=== PATIENT | female | born 1935 | race Caucasian/White ===

== ENCOUNTER → 2017-10-03 | Outpatient (CLI) | payer MEDICARE ==
--- NOTE | 2017-10-03 14:21 | RAD ---
FDG tumor localization scan, PET/CT, 10/03/2017: History: Lung nodule, left breast cancer Following IV injection of 15.5 mCi of 18 F-FDG, imaging was performed from the skull base to the proximal thighs. The noncontrast CT component was performed for attenuation correction and anatomic localization purposes rather than for primary diagnosis. The patient's blood glucose level at the time of injection was 82 MG/DL. No previous studies are available at this time for comparison purposes. Physiologic activity is present in the neck. No hypermetabolic neck process is seen. There are multiple hypermetabolic mediastinal and bilateral hilar foci compatible with adenopathy. The largest discrete node lies in the subcarinal region and measures 15 mm in short axis dimension. The maximum SUV of these nodes is approximately 6.0. There is a 2.3 cm nodule in the posterior aspect of the right upper lobe. It demonstrates FDG uptake similar to that of the mediastinal background with an SUV of 2.8. This could be neoplastic or inflammatory. No other hypermetabolic pulmonary focus is seen. The CT component does demonstrate some small nonspecific linear and faint groundglass opacities in the lungs. Normal GI tract and urinary tract activity is present in the abdomen and pelvis. There is a 12 mm left adrenal nodule which is hypermetabolic with a maximum SUV of 5.0. Its internal CT number on these noncontrast scans is 18 Hounsfield units. An adrenal metastasis is suspected. No other abnormal hypermetabolic abdominal or pelvic focus is seen. Mildly increased FDG uptake along the lateral aspect of the left femoral neck is probably arthritic. Incidental CT findings include the presence of moderate sigmoid diverticulosis. Cholelithiasis is evident. The left maxillary sinus is opacified. The left breast is surgically absent. IMPRESSION: 1. Mild mediastinal and bilateral hilar adenopathy with diagnostic considerations including metastatic disease or lymphoma. 2. Right upper lobe pulmonary nodule demonstrating FDG uptake similar to the mediastinal background may be neoplastic or inflammatory. 3. Small hypermetabolic left adrenal nodule raising the possibility of a metastasis. Correlation with older CT studies if available is suggested.
== END | disposition home or self-care (01) ==
LOC: PETSC 11:51
PROVIDERS: ATTEND Internal Medicine Critical Care Medicine
DX: R59.0 Localized enlarged lymph nodes (principal); R91.8 Other nonspecific abnormal finding of lung field; K57.30 Diverticulosis of large intestine without perforation or abscess without bleeding; K80.20 Calculus of gallbladder without cholecystitis without obstruction; Z85.118 Personal history of other malignant neoplasm of bronchus and lung
CPT/HCPCS: 78815; A9552

== ENCOUNTER 2017-10-17 06:52 | Outpatient (CLI) | payer MEDICARE ==
[2017-10-17] VITALS (12 sets, daily range): BP systolic 139–153; BP diastolic 47–76
[~2017-10-17] VITALS: Ht 170.2 cm; Wt 78.9 kg
[2017-10-17 07:44] LABS: BASO % 0 % (0-3); EOS # 0.2 x10^3/uL (0.0-0.7); EOS % 3 % (0-3); HEMATOCRIT 36.7 % (36.0-47.0); HEMOGLOBIN 12.6 g/dL (12.0-15.5); LYMPH # 1.7 x10^3/uL (1.0-4.8); LYMPH % 23 % (24-48); MEAN CORPUSCULAR HEMOGLOBIN 32 pg (25-35); MEAN CORPUSCULAR HGB CONC 34 g/dL (31-37); MEAN CORPUSCULAR VOLUME 94 fL (79-100); MONO # 0.6 x10^3/uL (0.0-1.1); MONO % 9 % (0-9); NEUT # 4.8 x10^3uL (1.8-7.7); NEUT % 65 % (31-73); PLATELET COUNT 190 x10^3/uL (140-400); RED BLOOD COUNT 3.93 x10^6/uL (3.50-5.40); RED CELL DISTRIBUTION WIDTH 13.2 % (11.5-14.5); WHITE BLOOD COUNT 7.4 x10^3/uL (4.0-11.0)
[2017-10-17] MEDS ORDERED: LIDOCAINE WITH 8.4% SOD BICARB 3 ML DISP.SYRIN. ONE (08:00)
[2017-10-17 08:10] LABS: PROTHROMBIN TIME PATIENT 12.9 SEC (11.7-14.0)
[2017-10-17] MEDS ORDERED: DILT180C64 PO (08:15)
[2017-10-17] MEDS ORDERED: LEVO50TA5 PO (08:15)
[2017-10-17] MEDS ORDERED: GABA-586 PO (08:15)
[2017-10-17] MEDS ORDERED: ASPI-630 PO (08:15)
[2017-10-17] MEDS ORDERED: MOME220A IH (08:15)
[2017-10-17] MEDS ORDERED: PRIM250T PO (08:15)
[2017-10-17] MEDS ORDERED: PRAV20TA2 PO (08:15)
[2017-10-17] MEDS ORDERED: VENL75CA6 PO (08:15)
[2017-10-17] MEDS ORDERED: TOBR5DRO13 OD (08:15)
[2017-10-17] MEDS ORDERED: fentaNYL PF VIAL 100 MCG/2 ML VIAL ONE (08:37)
[2017-10-17] MEDS ORDERED: MIDAZOLAM HCL/PF 2 MG/2 ML VIAL. ONE (08:37)
[2017-10-17] MEDS ORDERED: fentaNYL PF VIAL 100 MCG/2 ML VIAL IV ONE (09:15)
[2017-10-17] MEDS ORDERED: LIDOCAINE WITH 8.4% SOD BICARB 3 ML DISP.SYRIN. IJ ONE (09:15)
[2017-10-17] MEDS ORDERED: MIDAZOLAM HCL/PF 2 MG/2 ML VIAL. IV ONE (09:15)
--- NOTE | 2017-10-17 10:57 | RAD ---
CT-guided biopsy, right upper lobe pulmonary nodule 10/17/2017 Discussion: The risks and benefits of the procedure discussed the patient. Informed consent was obtained. Patient brought to the CT scanner and placed in the prone position. A timeout procedure was performed. CT imaging redemonstrates posterior right upper lobe pulmonary nodule. This was targeted for biopsy. The overlying skin was prepped and draped using maximal sterile barrier technique. 1% lidocaine without epinephrine was administered for local anesthesia. Under intermittent CT guidance a and 19-gauge guiding needle was advanced into the nodule. Multiple 20-gauge core biopsy samples were obtained. Repeat CT demonstrate mild perilesional hemorrhage. Needle was removed and manual pressure held. Repeat CT demonstrates no pneumothorax. Perilesional hemorrhage is stable. Patient tolerated the procedure well without immediate complication. The procedures performed under conscious sedation including continuous cardiopulmonary monitoring via dedicated sedation nurse. Voiq-va-repy sedation time 30 minutes Impression: CT-guided biopsy, right upper lobe nodule PQRS Compliance Statement: One or more of the following individualized dose reduction techniques were utilized for this examination: 1. Automated exposure control 2. Adjustment of the mA and/or kV according to patient size 3. Use of iterative reconstruction technique
--- NOTE | 2017-10-17 11:57 | RAD ---
Portable chest, 10/17/2017: HISTORY: Status post right lung biopsy Comparison is made to a study from 08/29/2017. The heart size and pulmonary vascularity are normal. There is calcific plaquing of the aorta. There is a hazy opacity projected over the right upper lobe representing the recently biopsied lung lesion. The left lung is clear. No pneumothorax or pleural fluid is evident. Surgical clips are projected over the left axillary region. IMPRESSION: No post lung biopsy complication is evident. Electronically signed by: Alfredo Mercado MD (10/17/2017 11:53 AM) [facility]
--- NOTE | 2017-10-18 15:10 | PATHOLOGY ---
[facility] Accession Number: [id number] . 01 Material submitted: . RT LUNG CORE BX . 01 Clinical history: . Right lung nodule . 02 Diagnosis: Lung tissue, image guided right lung needle biopsies: - Adenocarcinoma with bronchoalveolar features. See comment. (JPM:tena; 10/18/2017) QMS/10/18/2017 . 02 Comment: Sections of the right lung mass needle biopsies reveal a malignant epithelial neoplasm which largely appears to be comprised of atypical cells which show a lepidic growth pattern.The atypical cells have a cuboidal shape and have scanty to modest amounts of eosinophilic cytoplasm. The atypical cells possess enlarged, rounded to ovoid hyperchromatic nuclei which do appear to contain prominent nucleoli. The accompanying stroma appears delicate and does not have a reactive appearance. The morphologic features are supportive of the diagnosis of adenocarcinoma with bronchoalveolar features. It is important to note that the patient has a 2.3 cm nodule and as such the histologic findings may not be entirely advertising representative of the neoplasm. The case is also examined by Dr. Vazquez, who concurs with the diagnosis. The results are reported to Dr. Lozano on 10/18/2017 at 3:00 p.m. . (JPM:tena; 10/18/2017) . 02 Electronically signed: . Mg Christensen MD, Pathologist NPI- [id number] . 01 Gross description: . The specimen is received in formalin, labeled "Evi Whitten and right nodule, biopsy", are two paul soft tissue needle cores 6.0 cm and 4.0 cm in length and less than 1.0 cm in diameter. The specimen is entirely submitted in A1-A2. (SWS; 10/17/2017) SHS/SHS . 02 Pathologist provided ICD-10: C34.91 . 02 CPT . 638186 Performed at: 01 [facility] [address], [place], [place] [id number] MD Jamari Arroyo MD Phone: [phone] Performed at: 02 [facility] [address] [place], [place] [id number] MD Mg Christensen MD Phone: [phone]
== END 2017-10-17 12:28 | disposition home or self-care (01) ==
LOC: INTRAD 06:52
PROVIDERS: ATTEND Internal Medicine Critical Care Medicine
DX: C34.11 Malignant neoplasm of upper lobe, right bronchus or lung (principal); E78.00 Pure hypercholesterolemia, unspecified; I10 Essential (primary) hypertension; F32.9 Major depressive disorder, single episode, unspecified; F41.9 Anxiety disorder, unspecified; Z79.82 Long term (current) use of aspirin; Z79.899 Other long term (current) drug therapy; Z90.710 Acquired absence of both cervix and uterus; Z98.890 Other specified postprocedural states
CPT/HCPCS: 32405; 36415; 71045; 77012; 85025; 85610; 85730; J2250; J3010; 99152

== ENCOUNTER → 2017-10-24 | Outpatient (CLI) | payer MEDICARE ==
[2017-10-17 12:00] VITALS: BP 143/72
[~2017-10-24] MED LIST: ASPI-630 PO; DILT180C64 PO; GABA-586 PO; GADOBUTROL 7.5 MMOL/7.5 ML VIAL IV ONE; LEVO50TA5 PO; MOME220A IH; PRAV20TA2 PO; PRIM250T PO; TOBR5DRO13 OD; VENL75CA6 PO
[2017-10-24] MEDS: GADOBUTROL 7.5 MMOL/7.5 ML VIAL IV ONE (10:14)
--- NOTE | 2017-10-24 10:41 | RAD ---
EXAMINATION: Magnetic resonance imaging (MRI) of the brain and brainstem without and with contrast 10/24/2017 9:45 AM HISTORY: History of breast cancer. New diagnosis of lung cancer. TECHNIQUE: Multiplanar multi-weighted MRI of the brain and brainstem was performed without and with intravenous contrast using the general brain protocol. Contrast information: 7.5 mL Gadolinium based contrast COMPARISON: None available. FINDINGS: The scalp and calvarium are normal. The superior sagittal sinus demonstrates normal venous flow. The corpus callosum is normal in shape and signal intensity. The posterior fossa is unremarkable. The pituitary and sella are normal. The brainstem and craniocervical junction are unremarkable. Diffusion weighted images reveal no hyperintensities to suggest acute cerebral infarction. The susceptibility weighted sequences reveal no evidence of acute or chronic hemorrhage. Ventricles, sulci and basal cisterns are prominent compatible with mild generalized cerebral line loss. There are T2/FLAIR signal hyperintense foci in the edson, periventricular and subcortical white matter most suggestive of mild chronic small vessel ischemic changes. A remote lacunar infarct is noted in the right periatrial white matter. There are no areas of abnormal contrast enhancement. There is complete opacification of the left maxillary sinus The visualized portions of the mastoids are unremarkable. The orbits appear normal with exception of bilateral lens replacement. Normal flow voids are demonstrated in the carotid arteries and basilar artery. IMPRESSION: No evidence for intracranial metastasis. Mild generalized cerebral volume loss. There are T2/FLAIR signal hyperintense foci in the edson, periventricular and subcortical white matter most suggestive of mild chronic small vessel ischemic changes. There is complete opacification of the left maxillary sinus. Electronically signed by: Negar Rowe MD (10/24/2017 10:37 AM) [id number]
== END | disposition home or self-care (01) ==
LOC: MRI 09:15
PROVIDERS: ATTEND Internal Medicine Hematology & Oncology
DX: C34.11 Malignant neoplasm of upper lobe, right bronchus or lung (principal); J01.00 Acute maxillary sinusitis, unspecified; I10 Essential (primary) hypertension; E78.00 Pure hypercholesterolemia, unspecified; Z85.118 Personal history of other malignant neoplasm of bronchus and lung; Z85.3 Personal history of malignant neoplasm of breast; Z90.710 Acquired absence of both cervix and uterus
CPT/HCPCS: 70553; A9585

== ENCOUNTER → 2017-11-26 | Outpatient (CLI) | payer MEDICARE ==
[2017-11-26] VITALS (7 sets, daily range): BP systolic 116–162; BP diastolic 56–81
[~2017-11-26] VITALS: Ht 170.2 cm; Wt 79.4 kg
[~2017-11-26] MED LIST changes: +DEXA4TAB PO; +FOLI1TAB16 PO; -GADOBUTROL 7.5 MMOL/7.5 ML VIAL IV ONE; +HEPARIN PF 500 UNIT/5 ML DISP.SYRIN. IV ONE; +LIDOCAINE 1%/EPI 1:100,000 20 ML VIAL. INJ ONE; +LIDOCAINE 1%/EPI 1:100,000 20 ML VIAL. ONE; +MIDAZOLAM HCL/PF 2 MG/2 ML VIAL. IV ONE; +MIDAZOLAM HCL/PF 2 MG/2 ML VIAL. ONE; +ONDA8TAB9 PO; +ceFAZolin 2GM PREMIX 2 GM/50 ML BAG IV ONE; +fentaNYL PF VIAL 100 MCG/2 ML VIAL IV ONE; +fentaNYL PF VIAL 100 MCG/2 ML VIAL ONE
[2017-11-26 09:19] LABS: BASO # 0.1 x10^3/uL (0.0-0.2); BASO % 1 % (0-3); EOS # 0.2 x10^3/uL (0.0-0.7); EOS % 2 % (0-3); HEMATOCRIT 40.5 % (36.0-47.0); HEMOGLOBIN 13.9 g/dL (12.0-15.5); LYMPH # 1.6 x10^3/uL (1.0-4.8); LYMPH % 19 % (24-48); MEAN CORPUSCULAR HEMOGLOBIN 32 pg (25-35); MEAN CORPUSCULAR HGB CONC 34 g/dL (31-37); MEAN CORPUSCULAR VOLUME 94 fL (79-100); MONO # 0.6 x10^3/uL (0.0-1.1); MONO % 7 % (0-9); NEUT # 6.2 x10^3uL (1.8-7.7); NEUT % 71 % (31-73); PLATELET COUNT 230 x10^3/uL (140-400); RED BLOOD COUNT 4.31 x10^6/uL (3.50-5.40); RED CELL DISTRIBUTION WIDTH 13.3 % (11.5-14.5); WHITE BLOOD COUNT 8.6 x10^3/uL (4.0-11.0)
[2017-11-26 09:29] LABS: PROTHROMBIN TIME PATIENT 12.6 SEC (11.7-14.0)
--- NOTE | 2017-11-26 11:12 | PDOC ---
MODERATE SEDATION ASSESSMENT RISKS/ALTERNATIVES Risks/Alternatives Risks and alternatives of this type of sedation and procedure discussed with: RISK/ALTERNATIVES: Patient H & P ON CHART H & P H & P on chart and reviewed for co-morbid conditions and appropriate labs. H&P ON CHART: Yes STATUS PREG STATUS ASSESSED: Yes MEDS/ALLERGIES REVIEWED Meds/Allergies Reviewed Medications and Allergies including time and route of recently administered narcotics and sedatives. MEDS/ALLERGIES REVIEWED: Yes ASA RATING ASA RATING: II AIRWAY ASSESSMENT Airway Assessment Airway patency, oral function limitations, presence of caps, crowns, dentures, partials, and ability to extend neck assessed. AIRWAY ASSESSMENT: Yes MALLAMPATI SCORE MALLAMPATI SCORE: II PRE-SEDATION ASSESSMENT PRE-SEDATION ASSESSMENT: Yes TERESITA CAMACHO MD Nov 26, 2017 11:12
--- NOTE | 2017-11-26 11:13 | PDOC ---
BRIEF OPERATIVE NOTE Pre-Op Diagnosis lung cancer Post-Op Diagnosis same Procedure Performed Port Surgeon Matteo Anesthesia Type: Conscious Sedation Findings lung cancer, port placement Complications No immediate TERESITA CAMACHO MD Nov 26, 2017 11:13
--- NOTE | 2017-11-26 11:14 | PDOC1 ---
History and Physical Date of Procedure Date of Admission History of Present Illness Reason for Visit lung cancer Past Medical History Past Medical History see nursing pre-op assessment Current Medications Current Medications Current Medications Lidocaine/ Epinephrine (LIDOCAINE 1%-EPI 1:100,000 Multi-Dose) 20 ml STK-MED ONCE .ROUTE ; Start 11/26/17 at 10:07; Stop 11/26/17 at 10:08; Status DC Heparin Sodium (Porcine) (Hep Lock Adult) 500 unit STK-MED ONCE IV ; Start at 10:07; Stop 11/26/17 at 10:08; Status DC Midazolam HCl (Versed) 2 mg STK-MED ONCE .ROUTE ; Start 11/26/17 at 10:37; Stop 11/26/17 at 10:38; Status DC Fentanyl Citrate (Fentanyl 2ml Vial) 100 mcg STK-MED ONCE .ROUTE ; Start at 10:37; Stop 11/26/17 at 10:38; Status DC Cefazolin Sodium/ Dextrose 50 ml @ As Directed STK-MED ONCE IV ; Start at 10:37; Stop 11/26/17 at 10:38; Status DC Active Scripts Active Reported Zofran (Ondansetron Hcl) 8 Mg Tablet 1 Tab PO Q8HRS Dexamethasone 4 Mg Tablet 4 Mg PO BID start the day before chemo and continue for 5 days post Folic Acid 1 Mg Tablet 1 Tab PO DAILY Tobramycin-Dexameth Ophth Susp (Tobramycin/Dexamethasone) 5 Ml Drops.susp 1 Drop OD QID Aspirin 81 Mg Tab.chew 1 Tab PO DAILY Asmanex (Mometasone Furoate) 220 Mcg Aer.pow.ba 220 Mcg IH Primidone 250 Mg Tablet 250 Mg PO Pravastatin Sodium 20 Mg Tablet 1 Tab PO DAILY Cartia Xt (Diltiazem Hcl) 180 Mg Cap.er.24h 180 Mg PO Levothyroxine Sodium 50 Mcg Tablet 1 Tab PO DAILY Gabapentin 300 Mg Capsule 300 Mg PO TID Venlafaxine Hcl Er (Venlafaxine Hcl) 75 Mg Cap.er.24h 1 Cap PO DAILY Allergies Allergies: Coded Allergies: No Known Drug Allergies (Unverified , 10/17/17) Physical Exam Vital Signs Vital Signs Date Time Temp Pulse Resp B/P (MAP) Pulse Ox O2 Delivery O2 Flow Rate FiO2 11/26/17 09:32 Room Air 11/26/17 09:23 98.3 64 18 116/68 (35) 13 98.3 Other see nursing pre-op assessment Assessment Assessment lung cancer Plan Plan TERESITA Danielle MD Nov 26, 2017 11:14
--- NOTE | 2017-11-26 13:32 | RAD ---
Procedure: Port-A-Cath placement Clinical Indication: 82-year-old female with lung cancer Sedation: Conscious sedation was administered with a total intraprocedural [id number]-wh-lzqw time of 49 minutes. The patient was monitored by a qualified independent observer throughout the time of sedation. Please refer to the medical record for exact doses of medications utilized to achieve moderate sedation. Antibiotics: Antibiotic was administered intravenously within 1 hour of the procedure start time. Exposure: Fluoro Time: 0.3 minutes Images: 1 Contrast: None Sterility: All elements of maximal sterile barrier technique including the use of a cap, mask, sterile gown, sterile gloves, large sterile sheet, appropriate hand hygiene, and 2% chlorhexidine for cutaneous antisepsis (or acceptable alternative antiseptic per current guidelines) were followed for this procedure. Consent: The procedure was explained in its entirety to the patient or the patients designated career services representative by a member of the treatment team, including a discussion of the risks, benefits and commonly accepted alternatives to the procedure, as well as the expected consequences of no therapy whatsoever. Discussion of the risks included, but was not limited to, those that are most frequent and those that are rare but possibly severe or life-threatening, as well as the possibility of unforeseen complications. Technique and Findings: Ultrasound interrogation of the right neck revealed patency and compressibility of the internal jugular vein. A hardcopy ultrasound image was recorded as a 21-gauge micropuncture needle was used to gain access to this vessel. The needle was exchanged over a wire for a peel-away sheath. The skin over the ipsilateral anterior chest wall was then copiously anesthetized with 1% lidocaine plus epinephrine, and a small dermatotomy was made. Blunt dissection techniques were used to create a pocket for the port. The port was then tunneled subcutaneously towards the neck dermatotomy then deployed under fluoroscopic guidance through the peel-away sheath such that the distal tip resided in the proximal right atrium. The port was accessed and found to flush and aspirate with ease. The port was packed with heparin. The pocket was copiously irrigated with sterile saline then closed with deep interrupted and running subcuticular 4-0 Vicryl suture. Dermabond was used to close the neck dermatotomy. Complications: No immediate Impression: 1. Ultrasound and fluoroscopic guided right port placement as described
== END | disposition home or self-care (01) ==
LOC: INTRAD 08:52
PROVIDERS: ATTEND Internal Medicine Hematology & Oncology
DX: C34.11 Malignant neoplasm of upper lobe, right bronchus or lung (principal); Z79.899 Other long term (current) drug therapy; Z79.82 Long term (current) use of aspirin; Z79.2 Long term (current) use of antibiotics; Z79.01 Long term (current) use of anticoagulants
CPT/HCPCS: 36415; 36561; 76937; 77001; 85025; 85610; 85730; 99152; 99153; A4215; C1788; C1892; J0690; J2250; J3010; J3490; C1751

== ENCOUNTER → 2018-01-23 | Outpatient (CLI) | payer MEDICARE ==
[2017-11-26 12:45] VITALS: BP 153/56
[~2018-01-23] MED LIST changes: -GABA-586 PO; +GABA300C18 PO; -HEPARIN PF 500 UNIT/5 ML DISP.SYRIN. IV ONE; -LIDOCAINE 1%/EPI 1:100,000 20 ML VIAL. INJ ONE; -LIDOCAINE 1%/EPI 1:100,000 20 ML VIAL. ONE; -MIDAZOLAM HCL/PF 2 MG/2 ML VIAL. IV ONE; -MIDAZOLAM HCL/PF 2 MG/2 ML VIAL. ONE; -ceFAZolin 2GM PREMIX 2 GM/50 ML BAG IV ONE; -fentaNYL PF VIAL 100 MCG/2 ML VIAL IV ONE; -fentaNYL PF VIAL 100 MCG/2 ML VIAL ONE
--- NOTE | 2018-01-23 14:56 | RAD ---
PET ONCOLOGY CLINICAL INDICATION: Follow-up lung nodule. FDG PET-CT of the Body TECHNIQUE: The patient received an IV injection of 14.9 mCi 18F-FDG. After an initial uptake phase of approximately 60-90 minutes, a CT scan without oral contrast, without IV contrast was acquired. Subsequently, positron emission tomography images from the skull base to mid thigh were obtained. CT, PET and fused images were reconstructed in transaxial, coronal, and sagittal projections and interpreted from a workstation. The patient's plasma glucose was 147 mg/dl. PRIOR STUDIES: Previous PET/CT from 10/03/2017 CORRELATIVE STUDIES: There are no appropriate correlative studies FINDINGS: CT: Limited exam due to lack of IV contrast. Noncontrast sections through the brain within normal limits. Orbits within normal limits. Opacification of the left maxillary sinus. No enlarged retroperitoneal or pelvic adenopathy. No enlarged axillary or mediastinal lymph nodes. Calcified mediastinal and hilar lymph nodes are seen. Evaluation of hilar lymphadenopathy is limited due to lack of IV contrast. Heart is normal in size. No pericardial or pleural effusion. 2.6 x 1.6 cm focal opacity seen in the posterior segment of the right upper lobe, previously measuring 2.6 x 1.5 cm. 3 mm nodule in the subpleural right lower lobe (series 3 image 95). Breathing motion artifact is seen in the lungs limiting optimal evaluation. Nodular opacities measuring 2 mm largest seen in the lingula. Noncontrast appearance of the liver, spleen, pancreas, right adrenal within normal limits. Gallstones noted. Left adrenal nodule is seen with Hounsfield units measuring 2.2 which is compatible with adrenal adenoma. No nephrolithiasis or hydronephrosis. No enlarged retroperitoneal or pelvic adenopathy. No free pelvic fluid or ascites. No bowel obstructive. Sigmoid diverticulosis. Urinary bladder demonstrates no radiopaque stones. Status post hysterectomy. Moderate diffuse atherosclerotic ossification of the abdominal aorta and bilateral iliac arteries. No apparent lytic or blastic osseous lesions. PET: Increased metabolic activity seen in the right hilar lymph node with SUV max of 4.8. Increased metabolic activity seen in the subcarinal lymph node which is enlarged with SUV max of 4.4. Increased metabolic activity in the left hilar lymph node with SUV max of 4.4. No pathologically increased FDG uptake in the right upper lobe opacity with SUV max of 2.3. IMPRESSION: 1. Stable posterior segment right upper lobe opacity with no abnormal increased SUV. 2. Metabolically active Mediastinal and hilar lymphadenopathy as described above. 3. Cholelithiasis. 4. Left adrenal adenoma. Electronically signed by: Clint Hernandez DO (01/23/2018 2:53 PM) [facility]
== END | disposition home or self-care (01) ==
LOC: PETSC 09:42
PROVIDERS: ATTEND Internal Medicine Hematology & Oncology
DX: C34.11 Malignant neoplasm of upper lobe, right bronchus or lung (principal); K80.20 Calculus of gallbladder without cholecystitis without obstruction; K57.30 Diverticulosis of large intestine without perforation or abscess without bleeding; Z90.710 Acquired absence of both cervix and uterus; D35.02 Benign neoplasm of left adrenal gland
CPT/HCPCS: 78815; A9552

== ENCOUNTER → 2018-04-10 | Outpatient (CLI) | payer MEDICARE ==
[2017-11-26 12:45] VITALS: BP 153/56
[~2018-04-10] MED LIST changes: +CLON1PAT TD; +DEXA1TAB PO; +DOXY100T PO; +GABA600T7 PO; +HYDR-2868 PO; +METH4TAB2 PO; -MOME220A IH; +MOME220A INH; +PRIM250T28 PO; +VENL150C PO
--- NOTE | 2018-04-10 13:28 | RAD ---
PET/CT imaging from the skull through the midthigh History: History of lung nodule, left breast cancer. Follow-up study. Comparison: January 23, 2018. Technique: PET examination was performed from the skull base to the proximal thighs after intravenous administration of 14.19 mCi Fluorine [address] scan was performed for the purposes of localization and attenuation, not for primary diagnosis. Blood glucose level at time of injection was 123 mg/dl. PQRS Compliance Statement: One or more of the following individualized dose reduction techniques were utilized for this examination: 1. Automated exposure control 2. Adjustment of the mA and/or kV according to patient size 3. Use of iterative reconstruction technique Findings: There is misregistration artifact between the CT and PET scan. Head and neck: Normal physiologic activity is evident. No enlarging cervical lymphadenopathy is evident. Chest: Calcified mediastinal and calcified bilateral hilar lymphadenopathy is again evident secondary to old granulomatous disease. No change in size of mediastinal lymph nodes are seen. No bulky lymphadenopathy is evident. Evaluation for enlargement of hilar lymphadenopathy is difficult without IV contrast. No change in the hilar morphology is seen on either side however. Right hilar lymph node demonstrates a max SUV of 5.6. On the prior study, max SUV was 5.7. Subcarinal lymph node demonstrates a max SUV of 5.0. On the previous study, it was 5.1. Right paratracheal lymph node is 3.7. On the previous study, it was 4.4. Left hilar lymph node demonstrates a max SUV of 5.7. On the previous study, it was 5.7. Overall, no significant change. Again seen is a consolidative infiltrate in the posterior segment of the right upper lobe which is unchanged in size. This is not hypermetabolic measuring maximum SUV of 2.1. This is unchanged. Other groundglass lung infiltrates and small lung nodules seen bilaterally are stable. No new lung infiltrate is seen. Left breast is surgically absent. No hypermetabolic activity is seen within the left chest wall or right breast. Abdomen and pelvis: Normal GI tract and tract physiologic metabolic activity is seen. No enlarging abdominal or pelvic lymphadenopathy is evident. No hypermetabolic abdominal or pelvic lymphadenopathy is seen. The spleen is normal in size. No prominent focus of hypermetabolic activity is evident within the liver above background activity. Small hepatic cyst is seen. Cholelithiasis is evident. Musculoskeletal: No significant hypermetabolic activity is evident. No lytic lesion is seen. IMPRESSION: No change in mediastinal or hilar lymphadenopathy. Many of the lymph nodes are calcified and may be due to old granulomatous disease. No change in consolidative infiltrate within the posterior segment of the right upper lobe which is not hypermetabolic. No change in groundglass lung infiltrates or lung nodularity on either side. No new lung infiltrate or new lung nodule is seen. No hypermetabolic lung activity is seen. Cholelithiasis.
== END | disposition home or self-care (01) ==
LOC: PETSC 08:45
PROVIDERS: ATTEND Internal Medicine Hematology & Oncology
DX: C34.11 Malignant neoplasm of upper lobe, right bronchus or lung (principal); D71 Functional disorders of polymorphonuclear neutrophils; K80.20 Calculus of gallbladder without cholecystitis without obstruction; K76.89 Other specified diseases of liver; R59.0 Localized enlarged lymph nodes; R53.83 Other fatigue; Z85.3 Personal history of malignant neoplasm of breast
CPT/HCPCS: 78815; A9552

== ENCOUNTER 2018-05-12 12:08 | Inpatient (IN) | payer MEDICARE ==
[~2018-05-12] VITALS: Ht 167.6 cm; Wt 80.8 kg
[2018-05-12] VITALS (9 sets, daily range): BP systolic 144–178; BP diastolic 52–77
[~2018-05-12 12:08] MED LIST changes: -CLON1PAT TD; -DEXA1TAB PO; -DOXY100T PO; -GABA600T7 PO; -HYDR-2868 PO; -METH4TAB2 PO; -PRIM250T28 PO; -VENL150C PO
--- NOTE | 2018-05-12 13:04 | RAD ---
EXAM: Chest, single view. HISTORY: Subdural hemorrhage. Falls. COMPARISON: 10/17/2017. FINDINGS: A frontal view of the chest is obtained. There is no infiltrate, pleural effusion or pneumothorax. The heart is normal in size. There is a port catheter with the tip in the superior right atrium. There are calcified granulomas. There are left axillary clips. IMPRESSION: No acute pulmonary finding. Electronically signed by: Soila Freed MD (05/12/2018 1:02 PM) [id number]
[2018-05-12] MEDS ORDERED: BUPIVAC MPF-EPI 0.5%-1:200000 30 ML VIAL. ONE (13:11)
[2018-05-12] MEDS ORDERED: THROMBIN TOPICAL 20,000 UNIT SPRAY.SYRN KIT TP ONE (13:11)
[2018-05-12] MEDS ORDERED: GELATIN SPONGE SIZE 100. ONE (13:11)
[2018-05-12 13:15] LABS: BASO % 1 % (0-3); EOS % 0 % (0-3); HEMOGLOBIN 11.5 g/dL (12.0-15.5); LYMPH # 0.9 x10^3/uL (1.0-4.8); LYMPH % 13 % (24-48); MEAN CORPUSCULAR HEMOGLOBIN 33 pg (25-35); MEAN CORPUSCULAR HGB CONC 33 g/dL (31-37); MEAN CORPUSCULAR VOLUME 100 fL (79-100); MONO # 0.5 x10^3/uL (0.0-1.1); MONO % 7 % (0-9); NEUT # 5.5 x10^3uL (1.8-7.7); NEUT % 80 % (31-73); PLATELET COUNT 266 x10^3/uL (140-400); RED CELL DISTRIBUTION WIDTH 14.8 % (11.5-14.5); WHITE BLOOD COUNT 6.9 x10^3/uL (4.0-11.0)
[2018-05-12 13:24] LABS: CALCIUM 9.6 mg/dL (8.5-10.1); CREATININE 0.9 mg/dL (0.6-1.0); GFR 59.9; POTASSIUM 3.3 mmol/L (3.5-5.1)
[2018-05-12 13:29] LABS: ALBUMIN 3.2 g/dL (3.4-5.0); ALBUMIN/GLOBULIN RATIO 0.7 (1.0-1.7); PROTHROMBIN TIME PATIENT 12.3 SEC (11.7-14.0); TOTAL BILIRUBIN 0.4 mg/dL (0.2-1.0); TOTAL PROTEIN 7.5 g/dL (6.4-8.2)
[2018-05-12] MEDS ORDERED: IV RINGERS,LACTATED 1000ML 1,000 ML IV SCH (13:46)
[2018-05-12] MEDS ORDERED: PROCHLORPERAZINE 10 MG/2 ML VIAL. IV PRN (14:00)
[2018-05-12] MEDS ORDERED: LIDOCAINE 1% PF 2 ML VIAL. ID PRN (14:00)
[2018-05-12] MEDS ORDERED: BACITRACIN 50,000 UNIT in IV NORMAL SALINE 1000ML BAG 1,000 ML IRR ONE (14:00)
[2018-05-12] MEDS ORDERED: fentaNYL PF VIAL 100 MCG/2 ML VIAL IV PRN ×2 (14:00→16:30)
[2018-05-12] MEDS ORDERED: MORPHINE SULFATE 2 MG/ML VIAL. IV PRN (14:00)
[2018-05-12] MEDS ORDERED: ONDANSETRON PF 4 MG/2 ML VIAL. IV PRN (14:00)
[2018-05-12] MEDS ORDERED: HYDROmorphone 2 MG/ML VIAL IV PRN (14:00)
[2018-05-12] MEDS ORDERED: ONDANSETRON PF 4 MG/2 ML VIAL. ONE (14:07)
[2018-05-12] MEDS ORDERED: LIDOCAINE 2% PF 5 ML VIAL. ONE (14:07)
[2018-05-12] MEDS ORDERED: PROPOFOL 50 ML IV ONE (14:07)
[2018-05-12] MEDS ORDERED: PROPOFOL 20 ML IV ONE (14:07)
[2018-05-12] MEDS ORDERED: 0.9 % SODIUM CHLORIDE 20 ML VIAL. IJ ONE ×2 (14:07→14:13)
[2018-05-12] MEDS ORDERED: FAMOTIDINE 20 MG/2 ML VIAL ONE (14:07)
[2018-05-12] MEDS ORDERED: DEXAMETHASONE SOD PHOS 20 MG/5 ML VIAL. ONE (14:07)
[2018-05-12] MEDS ORDERED: REMIFENTANIL 2 MG VIAL. IV ONE (14:11)
[2018-05-12] MEDS ORDERED: fentaNYL PF VIAL 100 MCG/2 ML VIAL ONE (14:11)
[2018-05-12] MEDS ORDERED: ROCURONIUM 50 MG/5 ML VIAL. ONE (14:13)
--- NOTE | 2018-05-12 14:15 | RAD ---
CT HEAD AND CERVICAL SPINE WO Clinical indications: Trauma. Recent falls. Unsteady gait. NONCONTRAST HEAD CT 1:31 PM COMPARISON: MRI study of the brain performed today at 10:43 AM. Technique: Noncontrast axial cross sectional scanning of the head was performed. PQRS compliance Statement One or more of the following individualized dose reduction techniques were utilized for this study: 1. Automated exposure control 2. Adjustment of the mA and/or kV according to patient size 3. Use of iterative reconstruction technique Findings: Again seen is a right subdural hematoma involving the frontal and parietal regions which contains a mixture of hyperdense blood and slightly hypodense blood consistent with a subacute subdural hematoma with components of acute hemorrhage. This measures 23 mm in greatest thickness. There is compression of the right lateral ventricle and midline shift from right to left of 6 mm. These findings are unchanged. There is mild bilateral periventricular white matter hypodensity consistent with chronic small vessel ischemic disease in this age group. No skull fracture or pneumocephalus is seen. No opacification of the mastoid sinuses or the paranasal sinuses is seen. The maxillary sinuses are not seen in this study. Impression: Subacute subdural hematoma with components of acute hemorrhage on the right side unchanged from MRI study of the brain performed earlier today. CT STUDY CERVICAL SPINE WITHOUT CONTRAST TECHNIQUE: Noncontrast helical CT scanning of the cervical spine was performed. Multiplanar 2-D reconstructions were generated. FINDINGS: No acute fracture or discitis or lytic process or anterolisthesis is evident. There is moderate degenerative disc space narrowing and endplate spurring at C5-6. Mild spinal canal stenosis is seen at this level more so on the right side. No perching of facet joints is seen. IMPRESSION: No acute fracture. Electronically signed by: Nato Colón MD (05/12/2018 2:13 PM) [place] [id number]
[2018-05-12] MEDS ORDERED: SEVOFLURANE > 120 MINUTES. IH ONE (14:58)
--- NOTE | 2018-05-12 15:08 | PHYS DOC ---
Past Medical History Past Medical History: Cancer, Hypertension, Hypothyroid, Other Additional Past Medical Histor: breast and lung ca Past Surgical History: Hysterectomy, Other Additional Past Surgical Histo: L mastectomy, R chest port Alcohol Use: None Drug Use: None Adult General Chief Complaint Chief Complaint: HEAD, FACE, NECK, TRAUMA HPI HPI Patient is a 83 year old female who is presenting with subdural hematoma she fell 8 days ago she's been having trouble walking the last several weeks if not longer she has mild headache no numbness tingling or weakness she had an MRI that showed a subdural and she was advised to come to the ER right away. Mild pain dull nonradiating Review of Systems Review of Systems Constitutional: Denies fever or chills [] Eyes: Denies change in visual acuity, redness, or eye pain [] HENT: Denies nasal congestion or sore throat [] Respiratory: Denies cough or shortness of breath [] Cardiovascular: No additional information not addressed in HPI [] GI: Denies abdominal pain, nausea, vomiting, bloody stools or diarrhea [] : Denies dysuria or hematuria [] All other systems were reviewed and found to be within normal limits, except as documented in this note. Current Medications Current Medications Current Medications Medications (Trade) Dose Ordered Sig/Kirby Start Time Stop Time Status Last Admin Dose Admin Bacitracin 43461 unit/Sodium Chloride 1,000 ml @ 1,000 mls/hr 1X ONCE 05/12/18 14:00 05/12/18 14:59 Bupivacaine HCl/ Epinephrine Bitart (Sensorcain-Mpf Epi 0.5%-1:210648) 30 ml STK-MED ONCE 05/12/18 13:11 05/12/18 14:11 DC Fentanyl Citrate (Fentanyl 2ml Vial) 50 mcg PRN Q5MIN PRN 05/12/18 14:00 05/13/18 13:59 Gelatin (Gelfoam Size 100) 1 each STK-MED ONCE 05/12/18 13:11 05/12/18 14:11 DC Hydromorphone HCl (Dilaudid) 0.5 mg PRN Q10MIN PRN 05/12/18 14:00 05/13/18 13:59 Lidocaine HCl (Xylocaine-Mpf 1% 2ml Vial) 2 ml PRN 1X PRN 05/12/18 14:00 05/13/18 13:59 Morphine Sulfate (Morphine Sulfate) 1 mg PRN Q10MIN PRN 05/12/18 14:00 05/13/18 13:59 Ondansetron HCl (Zofran) 4 mg PRN Q6HRS PRN 05/12/18 14:00 05/13/18 13:59 Prochlorperazine Edisylate (Compazine) 5 mg PACU PRN PRN 05/12/18 14:00 05/13/18 13:59 Ringer's Solution 1,000 ml @ 30 mls/hr Q24H 05/12/18 13:46 05/13/18 01:45 Thrombin 20,000 unit STK-MED ONCE 05/12/18 13:11 05/12/18 14:12 DC Allergies Allergies Allergies Coded Allergies Type Severity Reaction Last Updated Verified No Known Drug Allergies 10/17/17 No Physical Exam Physical Exam Constitutional: Well developed, well nourished, no acute distress, non-toxic appearance. [] HENT: Normocephalic, atraumatic, bilateral external ears normal, oropharynx moist, no oral exudates, nose normal. [] Eyes: PERRLA, EOMI, conjunctiva normal, no discharge. [] Neck: Normal range of motion, no tenderness, supple, no stridor. [] Cardiovascular:Heart rate regular rhythm, no murmur [] Lungs & Thorax: Bilateral breath sounds clear to auscultation [] Abdomen: Bowel sounds normal, soft, no tenderness, no masses, no pulsatile masses. [] Extremities: No tenderness, no cyanosis, no clubbing, ROM intact, mild edema bilaterally Neurologic: Alert and oriented X 3, normal motor function, normal sensory function, no focal deficits noted. [] Psychologic: Affect normal, judgement normal, mood normal. [] Current Patient Data Vital Signs Vital Signs Date Time Temp Pulse Resp B/P (MAP) Pulse Ox O2 Delivery O2 Flow Rate FiO2 05/12/18 13:57 86 20 171/82 (111) 95 Room Air 05/12/18 12:15 97.9 97.9 Lab Values Laboratory Tests Test 05/12/18 13:05 White Blood Count 6.9 x10^3/uL (4.0-11.0) Red Blood Count 3.50 x10^6/uL (3.50-5.40) Hemoglobin 11.5 g/dL (12.0-15.5) L Hematocrit 35.0 % (36.0-47.0) L Mean Corpuscular Volume 100 fL (79-100) Mean Corpuscular Hemoglobin 33 pg (25-35) Mean Corpuscular Hemoglobin Concent 33 g/dL (31-37) Red Cell Distribution Width 14.8 % (11.5-14.5) H Platelet Count 266 x10^3/uL (140-400) Neutrophils (%) (Auto) 80 % (31-73) H Lymphocytes (%) (Auto) 13 % (24-48) L Monocytes (%) (Auto) 7 % (0-9) Eosinophils (%) (Auto) 0 % (0-3) Basophils (%) (Auto) 1 % (0-3) Neutrophils # (Auto) 5.5 x10^3uL (1.8-7.7) Lymphocytes # (Auto) 0.9 x10^3/uL (1.0-4.8) L Monocytes # (Auto) 0.5 x10^3/uL (0.0-1.1) Eosinophils # (Auto) 0.0 x10^3/uL (0.0-0.7) Basophils # (Auto) 0.0 x10^3/uL (0.0-0.2) Prothrombin Time 12.3 SEC (11.7-14.0) Prothrombin Time INR 0.9 (0.8-1.1) Sodium Level 140 mmol/L (136-145) Potassium Level 3.3 mmol/L (3.5-5.1) L Chloride Level 101 mmol/L (98-107) Carbon Dioxide Level 30 mmol/L (21-32) Anion Gap 9 (6-14) Blood Urea Nitrogen 9 mg/dL (7-20) Creatinine 0.9 mg/dL (0.6-1.0) Estimated GFR (Cockcroft-Gault) 59.9 BUN/Creatinine Ratio 10 (6-20) Glucose Level 103 mg/dL (70-99) H Calcium Level 9.6 mg/dL (8.5-10.1) Total Bilirubin 0.4 mg/dL (0.2-1.0) Aspartate Amino Transferase (AST) 21 U/L (15-37) Alanine Aminotransferase (ALT) 20 U/L (14-59) Alkaline Phosphatase 147 U/L (46-116) H Total Protein 7.5 g/dL (6.4-8.2) Albumin 3.2 g/dL (3.4-5.0) L Albumin/Globulin Ratio 0.7 (1.0-1.7) L Laboratory Tests 05/12/18 13:05 Laboratory Tests 05/12/18 13:05 EKG EKG [] Radiology/Procedures Radiology/Procedures [] Impressions: CT HEAD AND CERVICAL SPINE WO Clinical indications: Trauma. Recent falls. Unsteady gait. NONCONTRAST HEAD CT 1:31 PM COMPARISON: MRI study of the brain performed today at 10:43 AM. Technique: Noncontrast axial cross sectional scanning of the head was performed. PQRS compliance Statement One or more of the following individualized dose reduction techniques were utilized for this study: 1. Automated exposure control 2. Adjustment of the mA and/or kV according to patient size 3. Use of iterative reconstruction technique Findings: Again seen is a right subdural hematoma involving the frontal and parietal regions which contains a mixture of hyperdense blood and slightly hypodense blood consistent with a subacute subdural hematoma with components of acute hemorrhage. This measures 23 mm in greatest thickness. There is compression of the right lateral ventricle and midline shift from right to left of 6 mm. These findings are unchanged. There is mild bilateral periventricular white matter hypodensity consistent with chronic small vessel ischemic disease in this age group. No skull fracture or pneumocephalus is seen. No opacification of the mastoid sinuses or the paranasal sinuses is seen. The maxillary sinuses are not seen in this study. Impression: Subacute subdural hematoma with components of acute hemorrhage on the right side unchanged from MRI study of the brain performed earlier today. CT STUDY CERVICAL SPINE WITHOUT CONTRAST TECHNIQUE: Noncontrast helical CT scanning of the cervical spine was performed. Multiplanar 2-D reconstructions were generated. FINDINGS: No acute fracture or discitis or lytic process or anterolisthesis is evident. There is moderate degenerative disc space narrowing and endplate spurring at C5-6. Mild spinal canal stenosis is seen at this level more so on the right side. No perching of facet joints is seen. IMPRESSION: No acute fracture. Electronically signed by: Yakelin Colón MD (05/12/2018 2:13 PM) [facility] DICTATED and SIGNED BY: YAKELIN COLÓN MD DATE: 05/12/18 1413 Course & Med Decision Making Course & Med Decision Making Critical care time was 35 minutes exclusive of procedures.for management of subdural hematoma Pertinent Labs and Imaging studies reviewed. (See chart for details) History of cancer hypothyroidism presenting with referred from MRI for subdural hematoma. The patient has been very weak falling frequently last fall 8 days ago Review the MRI result I spoke with aníbal from neurosurgery as well as Dr. Cotto who came to the emergency room. CT scan was also performed that did show the above results the current plan as per Dr. Cotto is a operative intervention to treat this subdural the patient is awake and alert at this time []d/w family i also d/w josephine who will see pt after or. Sophiaon Disclaimer Dragon Disclaimer This electronic medical record was generated, in whole or in part, using a voice recognition dictation system. Departure Departure Impression: Primary Impression: Subdural hematoma Disposition: ADMITTED INPATIENT Admitting Physician: Teresa Hernandez Condition: STABLE Referrals: TERESA HERNANDEZ MD (PCP) AMANDA CAMARENA MD May 12, 2018 15:07
[2018-05-12] MEDS ORDERED: PHENYLEPHRINE in 0.9% NACL PF 1 MG/10 ML SYRINGE. IV ONE (15:12)
[2018-05-12] MEDS ORDERED: PHENYLEPHRINE 10 MG/ML VIAL. ONE ×2 (15:52)
[2018-05-12] MEDS ORDERED: NEOSTIGMINE METHYLSULFATE 5 MG/5 ML SYRINGE. ONE (16:07)
[2018-05-12] MEDS ORDERED: GLYCOPYRROLATE 1 MG/5 ML VIAL. ONE (16:07)
[2018-05-12] MEDS ORDERED: CALCIUM CARBONATE 500 MG TAB.CHEW PO PRN (16:30)
[2018-05-12] MEDS ORDERED: MAG HYDROX/ALUMINUM HYD/SIMETH 30 ML ORAL.SUSP PO PRN (16:30)
[2018-05-12] MEDS ORDERED: diphenhydrAMINE HCL 25 MG CAPSULE PO PRN (16:30)
[2018-05-12] MEDS ORDERED: ACETAMINOPHEN 325 MG TABLET. PO PRN (16:30)
[2018-05-12] MEDS ORDERED: 0.9 % SODIUM CHLORIDE 10 ML DISP.SYRIN. IV PRN (16:30)
[2018-05-12] MEDS ORDERED: HYDROcodone/APAP 5/325MG 1 TAB TABLET PO PRN (16:30)
[2018-05-12] MEDS ORDERED: DEXTROSE 50% 25 GM / 50ML DISP.SYRIN. IV PRN (16:30)
[2018-05-12] MEDS ORDERED: MAGNESIUM HYDROXIDE 2,400 MG/30 ML ORAL.SUSP. PO PRN (16:30)
[2018-05-12] MEDS: LABETALOL 20 MG/4 ML DISP.SYRIN. IVP PRN ×2 (17:01→17:45)
[2018-05-12] MEDS: fentaNYL PF VIAL 100 MCG/2 ML VIAL IV PRN ×5 (17:37→23:31)
[2018-05-12] MEDS: POTASSIUM CL 20MEQ D5-0.45NACL 1,000 ML IV SCH (18:42)
[2018-05-12] MEDS: DEXAMETHASONE SOD PHOS 4 MG/ML VIAL IV SCH ×2 (19:50→23:28)
[2018-05-12] MEDS: DOCUSATE SODIUM 100 MG CAPSULE. PO SCH (21:00)
--- NOTE | 2018-05-12 21:29 | OP ---
DATE OF SURGERY: 05/12/2018 PREOPERATIVE DIAGNOSIS: Right frontotemporoparietal subacute subdural hematoma. POSTOPERATIVE DIAGNOSIS: Right frontotemporoparietal subacute subdural hematoma. OPERATION PERFORMED: Right central craniotomy with evacuation of subacute subdural hematoma and removal of membranes. SURGEON: Dony Alcantar M.D. GRIEVANCE MANAGER: MANDY Giang assisted with the surgery. She assisted with the exposure as well as removal of subdural and closure. OPERATIVE INDICATIONS: This patient is a pleasant 83-year-old woman who does have a problem with lung cancer and breast cancer who was doing well and then about 2 weeks ago, fell more than once and developed some problems with chronic headache, although not severe. She then began to develop increasing unsteadiness with walking and this was discussed with her oncologist who ordered an MRI of the brain. That was done today. A subdural hematoma was seen and she was sent to the Emergency Room for further evaluation and treatment. On imaging studies, there is a moderately large subacute subdural hematoma over the right frontotemporoparietal region with a right to left shift and I recommended an emergent craniotomy with evacuation of the subdural. I did speak with the family about the surgery and risks involved. They wished for me to go ahead. DESCRIPTION OF PROCEDURE: Following general endotracheal anesthesia, the patient was positioned supine with a roll beneath the right shoulder, head was turned 90 degrees to the left. The right frontotemporoparietal region was clipped, prepped and draped in standard fashion. A linear incision was made beginning anterior and superior to the right external meatus and then curving superiorly and curving slightly anteriorly. Prior to making the incision, I did infiltrate the skin with 0.5% Marcaine plus epinephrine. An incision was made. Apple clips were used along the skin edge and then I incised the periosteum and then used a periosteal elevator to strip the periosteum back and placed self-retaining retractors. I brought in the high speed air drill with a conical bur, placed superior and inferior bur holes, which I then connected with the craniotome and lifted the flap free. The dura was opened in a cruciate pattern and the dural edges were tacked back. There were significant membranes, which I began to remove and as I worked, I entered into a space where there was significant crankcase oil type subdural fluid, which I evacuated. I irrigated copiously, continued to remove the membranes and creating excellent exposure, the brain moved significantly laterally. I then placed a 7 mm flat drain, brought it out through a separate stab incision and then tacked the dura together, placed Duragen over this and then replaced the bone with micro plates, burring a small opening for the drain to pass safely. These were secured. The wound during this time was irrigated several times. Hemostasis was perfect. I closed the temporalis fascia, followed by the subcutaneous tissue and the skin was closed with skin jinny. The operation went very well and the patient was awakened uneventfully. I was quite pleased with the surgery. DONY ALCANTAR MD DR: MC/yesi JOB#: [id number] / [id number] [place]
[2018-05-12] MEDS: ceFAZolin SODIUM 1 GM in IV DEXTROSE 5% 50 ML IV SCH (22:33)
[2018-05-13] VITALS (28 sets, daily range): BP systolic 110–162; BP diastolic 40–77
[2018-05-13] MEDS: LABETALOL 20 MG/4 ML DISP.SYRIN. IVP PRN ×6 (02:40→20:25)
[2018-05-13] MEDS: DEXAMETHASONE SOD PHOS 4 MG/ML VIAL IV SCH ×3 (05:49→19:28)
[2018-05-13 06:07] LABS: BASO % 1 % (0-3); EOS % 0 % (0-3); LYMPH # 0.5 x10^3/uL (1.0-4.8); LYMPH % 5 % (24-48); MEAN CORPUSCULAR HEMOGLOBIN 33 pg (25-35); MEAN CORPUSCULAR HGB CONC 33 g/dL (31-37); MEAN CORPUSCULAR VOLUME 100 fL (79-100); MONO # 0.1 x10^3/uL (0.0-1.1); MONO % 1 % (0-9); NEUT # 9.1 x10^3uL (1.8-7.7); NEUT % 93 % (31-73); PLATELET COUNT 273 x10^3/uL (140-400); RED CELL DISTRIBUTION WIDTH 14.7 % (11.5-14.5); WHITE BLOOD COUNT 9.8 x10^3/uL (4.0-11.0)
[2018-05-13 06:32] LABS: CALCIUM 8.6 mg/dL (8.5-10.1); CREATININE 0.7 mg/dL (0.6-1.0); GFR 80.1
[2018-05-13] MEDS: ceFAZolin SODIUM 1 GM in IV DEXTROSE 5% 50 ML IV SCH ×2 (06:32→14:44)
[2018-05-13 08:14] LABS: % LYMPHS 3 % (24-48); % SEGS 97 % (35-66); PLT ESTIMATE ADEQUATE (ADEQUATE)
[2018-05-13] MEDS: POTASSIUM CL 20MEQ D5-0.45NACL 1,000 ML IV SCH ×2 (09:39→21:45)
--- NOTE | 2018-05-13 10:20 | PDOC ---
Provider Note Provider Note Patient seen. History and Physical dictated. See dictation#[id number] TERESA HOPPER MD May 13, 2018 10:20
--- NOTE | 2018-05-13 10:23 | PDOC ---
PROGRESS NOTES Subjective Subjective POD #1 s/p craniotomy and evacuation of SDH c/o mild headache Objective Objective Vital Signs Date Time Temp Pulse Resp B/P (MAP) Pulse Ox O2 Delivery O2 Flow Rate FiO2 05/13/18 09:43 80 148/48 05/13/18 09:00 13 97 Nasal Cannula 2.0 05/13/18 08:00 97.6 97.6 Intake and Output 05/13/18 06:59 Intake Total 1292 ml Output Total 937 ml Balance 355 ml Intake Oral 0 ml IV Total 847 ml Blood Product IV Normal Saline Flush 445 ml Output Urine Total 800 ml Drainage Total 97 ml Estimated Blood Loss 10 ml Other 30 ml Physical Exam General: Alert, Cooperative, No acute distress, Other (confused) MUSCULOSKELETAL: Other (DAIGLE) Neuro: Other (follows commands) Skin: Other (drain removed without difficulty, jinny intact) Assessment Assessment Problems Medical Problems: (1) Subdural hematoma Status: Acute Plan Plan of Care may get OOB ok to feed PT consult Dr. Fournier Comment Review of Relevant I have reviewed the following items malcolm (where applicable) has been applied. Labs Laboratory Tests Test 05/12/18 13:05 05/13/18 05:55 White Blood Count 6.9 x10^3/uL (4.0-11.0) 9.8 x10^3/uL (4.0-11.0) Red Blood Count 3.50 x10^6/uL (3.50-5.40) 3.30 x10^6/uL (3.50-5.40) Hemoglobin 11.5 g/dL (12.0-15.5) 11.0 g/dL (12.0-15.5) Hematocrit 35.0 % (36.0-47.0) 33.0 % (36.0-47.0) Mean Corpuscular Volume 100 fL (79-100) 100 fL (79-100) Mean Corpuscular Hemoglobin 33 pg (25-35) 33 pg (25-35) Mean Corpuscular Hemoglobin Concent 33 g/dL (31-37) 33 g/dL (31-37) Red Cell Distribution Width 14.8 % (11.5-14.5) 14.7 % (11.5-14.5) Platelet Count 266 x10^3/uL (140-400) 273 x10^3/uL (140-400) Neutrophils (%) (Auto) 80 % (31-73) 93 % (31-73) Lymphocytes (%) (Auto) 13 % (24-48) 5 % (24-48) Monocytes (%) (Auto) 7 % (0-9) 1 % (0-9) Eosinophils (%) (Auto) 0 % (0-3) 0 % (0-3) Basophils (%) (Auto) 1 % (0-3) 1 % (0-3) Neutrophils # (Auto) 5.5 x10^3uL (1.8-7.7) 9.1 x10^3uL (1.8-7.7) Lymphocytes # (Auto) 0.9 x10^3/uL (1.0-4.8) 0.5 x10^3/uL (1.0-4.8) Monocytes # (Auto) 0.5 x10^3/uL (0.0-1.1) 0.1 x10^3/uL (0.0-1.1) Eosinophils # (Auto) 0.0 x10^3/uL (0.0-0.7) 0.0 x10^3/uL (0.0-0.7) Basophils # (Auto) 0.0 x10^3/uL (0.0-0.2) 0.0 x10^3/uL (0.0-0.2) Prothrombin Time 12.3 SEC (11.7-14.0) Prothromb Time International Ratio 0.9 (0.8-1.1) Sodium Level 140 mmol/L (136-145) 137 mmol/L (136-145) Potassium Level 3.3 mmol/L (3.5-5.1) 4.0 mmol/L (3.5-5.1) Chloride Level 101 mmol/L (98-107) 102 mmol/L (98-107) Carbon Dioxide Level 30 mmol/L (21-32) 26 mmol/L (21-32) Anion Gap 9 (6-14) 9 (6-14) Blood Urea Nitrogen 9 mg/dL (7-20) 10 mg/dL (7-20) Creatinine 0.9 mg/dL (0.6-1.0) 0.7 mg/dL (0.6-1.0) Estimated GFR (Cockcroft-Gault) 59.9 80.1 BUN/Creatinine Ratio 10 (6-20) Glucose Level 103 mg/dL (70-99) 201 mg/dL (70-99) Calcium Level 9.6 mg/dL (8.5-10.1) 8.6 mg/dL (8.5-10.1) Total Bilirubin 0.4 mg/dL (0.2-1.0) Aspartate Amino Transf (AST/SGOT) 21 U/L (15-37) Alanine Aminotransferase (ALT/SGPT) 20 U/L (14-59) Alkaline Phosphatase 147 U/L (46-116) Total Protein 7.5 g/dL (6.4-8.2) Albumin 3.2 g/dL (3.4-5.0) Albumin/Globulin Ratio 0.7 (1.0-1.7) Segmented Neutrophils % 97 % (35-66) Lymphocytes % 3 % (24-48) Platelet Estimate Adequate (ADEQUATE) Large Platelets Occ Laboratory Tests Test 05/12/18 13:05 05/13/18 05:55 White Blood Count 6.9 x10^3/uL (4.0-11.0) 9.8 x10^3/uL (4.0-11.0) Red Blood Count 3.50 x10^6/uL (3.50-5.40) 3.30 x10^6/uL (3.50-5.40) Hemoglobin 11.5 g/dL (12.0-15.5) 11.0 g/dL (12.0-15.5) Hematocrit 35.0 % (36.0-47.0) 33.0 % (36.0-47.0) Mean Corpuscular Volume 100 fL (79-100) 100 fL (79-100) Mean Corpuscular Hemoglobin 33 pg (25-35) 33 pg (25-35) Mean Corpuscular Hemoglobin Concent 33 g/dL (31-37) 33 g/dL (31-37) Red Cell Distribution Width 14.8 % (11.5-14.5) 14.7 % (11.5-14.5) Platelet Count 266 x10^3/uL (140-400) 273 x10^3/uL (140-400) Neutrophils (%) (Auto) 80 % (31-73) 93 % (31-73) Lymphocytes (%) (Auto) 13 % (24-48) 5 % (24-48) Monocytes (%) (Auto) 7 % (0-9) 1 % (0-9) Eosinophils (%) (Auto) 0 % (0-3) 0 % (0-3) Basophils (%) (Auto) 1 % (0-3) 1 % (0-3) Neutrophils # (Auto) 5.5 x10^3uL (1.8-7.7) 9.1 x10^3uL (1.8-7.7) Lymphocytes # (Auto) 0.9 x10^3/uL (1.0-4.8) 0.5 x10^3/uL (1.0-4.8) Monocytes # (Auto) 0.5 x10^3/uL (0.0-1.1) 0.1 x10^3/uL (0.0-1.1) Eosinophils # (Auto) 0.0 x10^3/uL (0.0-0.7) 0.0 x10^3/uL (0.0-0.7) Basophils # (Auto) 0.0 x10^3/uL (0.0-0.2) 0.0 x10^3/uL (0.0-0.2) Prothrombin Time 12.3 SEC (11.7-14.0) Prothromb Time International Ratio 0.9 (0.8-1.1) Sodium Level 140 mmol/L (136-145) 137 mmol/L (136-145) Potassium Level 3.3 mmol/L (3.5-5.1) 4.0 mmol/L (3.5-5.1) Chloride Level 101 mmol/L (98-107) 102 mmol/L (98-107) Carbon Dioxide Level 30 mmol/L (21-32) 26 mmol/L (21-32) Anion Gap 9 (6-14) 9 (6-14) Blood Urea Nitrogen 9 mg/dL (7-20) 10 mg/dL (7-20) Creatinine 0.9 mg/dL (0.6-1.0) 0.7 mg/dL (0.6-1.0) Estimated GFR (Cockcroft-Gault) 59.9 80.1 BUN/Creatinine Ratio 10 (6-20) Glucose Level 103 mg/dL (70-99) 201 mg/dL (70-99) Calcium Level 9.6 mg/dL (8.5-10.1) 8.6 mg/dL (8.5-10.1) Total Bilirubin 0.4 mg/dL (0.2-1.0) Aspartate Amino Transf (AST/SGOT) 21 U/L (15-37) Alanine Aminotransferase (ALT/SGPT) 20 U/L (14-59) Alkaline Phosphatase 147 U/L (46-116) Total Protein 7.5 g/dL (6.4-8.2) Albumin 3.2 g/dL (3.4-5.0) Albumin/Globulin Ratio 0.7 (1.0-1.7) Segmented Neutrophils % 97 % (35-66) Lymphocytes % 3 % (24-48) Platelet Estimate Adequate (ADEQUATE) Large Platelets Occ Medications Current Medications Bacitracin 55609 unit/Sodium Chloride 1,000 ml @ 1,000 mls/hr 1X ONCE IRR Last administered on 05/12/18at 15:58; Start 05/12/18 at 14:00; Stop 05/12/18 at 14: 59; Status DC Ondansetron HCl (Zofran) 4 mg PRN Q6HRS PRN IV NAUSEA/VOMITING; Start 05/12/18 at 14:00; Stop 05/13/18 at 13:59 Fentanyl Citrate (Fentanyl 2ml Vial) 25 mcg PRN Q5MIN PRN IV MILD PAIN Last administered on 05/12/18at 19:55; Start 05/12/18 at 14:00; Stop 05/13/18 at 01:57; Status DC Fentanyl Citrate (Fentanyl 2ml Vial) 50 mcg PRN Q5MIN PRN IV MODERATE TO SEVERE PAIN; Start 05/12/18 at 14:00; Stop 05/13/18 at 01:57; Status DC Morphine Sulfate (Morphine Sulfate) 1 mg PRN Q10MIN PRN IV SEVERE PAIN; Start 05/12/18 at 14:00; Stop 05/13/18 at 01:57; Status DC Ringer's Solution 1,000 ml @ 30 mls/hr Q24H IV ; Start 05/12/18 at 13:46; Stop 05/13/18 at 01:45; Status DC Lidocaine HCl (Xylocaine-Mpf 1% 2ml Vial) 2 ml PRN 1X PRN ID PRIOR TO IV START ; Start 05/12/18 at 14:00; Stop 05/13/18 at 13:59 Hydromorphone HCl (Dilaudid) 0.5 mg PRN Q10MIN PRN IV SEV PAIN, Second choice; Start 05/12/18 at 14:00; Stop 05/13/18 at 01:57; Status DC Prochlorperazine Edisylate (Compazine) 5 mg PACU PRN PRN IV NAUSEA, MRX1; Start 05/12/18 at 14:00; Stop 05/13/18 at 13:59 Lidocaine HCl (Lidocaine Pf 2% Vial) 5 ml STK-MED ONCE .ROUTE ; Start 05/12/18 at 14:07; Stop 05/12/18 at 14:08; Status DC Sodium Chloride (SODIUM CHLORIDE 20ml) 20 ml STK-MED ONCE IJ ; Start 05/12/18 at 14:07; Stop 05/12/18 at 14:08; Status DC Propofol 20 ml @ As Directed STK-MED ONCE IV ; Start 05/12/18 at 14:07; Stop 05/12 at 14:08; Status DC Ondansetron HCl (Zofran) 4 mg STK-MED ONCE .ROUTE ; Start 05/12/18 at 14:07; Stop 05/12/18 at 14:08; Status DC Famotidine (Pepcid Vial) 20 mg STK-MED ONCE .ROUTE ; Start 05/12/18 at 14:07; Stop 05/12/18 at 14:08; Status DC Dexamethasone Sodium Phosphate (Decadron) 20 mg STK-MED ONCE .ROUTE ; Start 05/12 at 14:07; Stop 05/12/18 at 14:08; Status DC Propofol 50 ml @ As Directed STK-MED ONCE IV ; Start 05/12/18 at 14:07; Stop 05/12 at 14:08; Status DC Gelatin (Gelfoam Size 100) 1 each STK-MED ONCE .ROUTE Last administered on 05/12at 15:50; Start 05/12/18 at 13:11; Stop 05/12/18 at 14:11; Status DC Bupivacaine HCl/ Epinephrine Bitart (Sensorcain-Mpf Epi 0.5%-1:[id number]) 30 ml STK -MED ONCE .ROUTE Last administered on 05/12/18at 15:48; Start 05/12/18 at 13:11; Stop 05/12/18 at 14:11; Status DC Remifentanil HCl (Ultiva) 2 mg STK-MED ONCE IV ; Start 05/12/18 at 14:11; Stop at 14:12; Status DC Thrombin 20,000 unit STK-MED ONCE TP Last administered on 05/12/18at 15:56; Start 05/12/18 at 13:11; Stop 05/12/18 at 14:12; Status DC Fentanyl Citrate (Fentanyl 2ml Vial) 100 mcg STK-MED ONCE .ROUTE ; Start at 14:11; Stop 05/12/18 at 14:12; Status DC Rocuronium [place] (Zemuron) 50 mg STK-MED ONCE .ROUTE ; Start 05/12/18 at 14:13 ; Stop 05/12/18 at 14:14; Status DC Sodium Chloride (SODIUM CHLORIDE 20ml) 20 ml STK-MED ONCE IJ ; Start 05/12/18 at 14:13; Stop 05/12/18 at 14:14; Status DC Cefazolin Sodium/ Dextrose 50 ml @ 100 mls/hr 1X PREOP PRN IV PRIOR TO PROCEDURE Last administered on 05/12/18at 15:05; Start 05/12/18 at 14:45; Stop 05/13 at 14:44 Sevoflurane (Ultane) 90 ml STK-MED ONCE IH ; Start 05/12/18 at 14:58; Stop at 14:59; Status DC Phenylephrine HCl (PHENYLEPHRINE in 0.9% NACL PF) 1 mg STK-MED ONCE IV ; Start 05/12/18 at 15:12; Stop 05/12/18 at 15:13; Status DC Cefazolin Sodium/ Dextrose 50 ml @ 100 mls/hr 1X ONCE IV ; Start 05/12/18 at 15 :15; Stop 05/12/18 at 15:16; Status DC Phenylephrine HCl (Zane-Synephrine Inj) 10 mg STK-MED ONCE .ROUTE ; Start at 15:52; Stop 05/12/18 at 15:53; Status DC Phenylephrine HCl (Zane-Synephrine Inj) 10 mg STK-MED ONCE .ROUTE ; Start at 15:52; Stop 05/12/18 at 15:53; Status DC Glycopyrrolate (Robinul) 1 mg STK-MED ONCE .ROUTE ; Start 05/12/18 at 16:07; Stop 05/12/18 at 16:08; Status DC Neostigmine Methylsulfate (Neostigmine Methylsulfate) 5 mg STK-MED ONCE .ROUTE ; Start 05/12/18 at 16:07; Stop 05/12/18 at 16:08; Status DC Dexamethasone Sodium Phosphate (Decadron) 4 mg Q6HRS IV Last administered on 05/13/18at 05:49; Start 05/12/18 at 18:00 Labetalol HCl (Normodyne Iv Push) 5 mg PRN Q15MIN PRN IVP HYPERTENSION, SEE COMMENTS Last administered on 05/13/18at 09:43; Start 05/12/18 at 16:30 Nicardipine HCl 50 mg/Sodium Chloride 250 ml @ 25 mls/hr TITRATE PRN IV PER PROTOCOL Last administered on 05/13/18at 07:36; Start 05/12/18 at 16:30 Al Hydroxide/Mg Hydroxide (Mylanta Plus Xs) 30 ml PRN Q3HRS PRN PO HEARTBURN / GAS; Start 05/12/18 at 16:30 Calcium Carbonate/ Glycine (Tums) 500 mg PRN Q3HRS PRN PO INDIGESTION; Start at 16:30 Diphenhydramine HCl (Benadryl) 25 mg PRN Q6HRS PRN PO ITCHING; Start 05/12/18 at 16:30 Sodium Chloride (Normal Saline Flush) 3 ml QSHIFT PRN IV AFTER MEDS AND BLOOD DRAWS; Start 05/12/18 at 16:30 Potassium Chloride/Dextrose/ Sod Cl 1,000 ml @ 75 mls/hr [id number] IV Last administered on 05/13/18at 09:39; Start 05/12/18 at 17:00 Dextrose (Dextrose 50%-Water Syringe) 12.5 gm PRN Q15MIN PRN IV SEE COMMENTS; Start 05/12/18 at 16:30 Acetaminophen/ Hydrocodone Bitart (Lortab 5/325) 1 tab PRN Q4HRS PRN PO MILD PAIN Last administered on 05/12/18at 20:40; Start 05/12/18 at 16:30 Acetaminophen (Tylenol) 650 mg PRN Q6HRS PRN PO Headaches, Temp > 101.5F; Start 05/12/18 at 16:30 Docusate Sodium (Colace) 100 mg BID PO ; Start 05/12/18 at 21:00 Magnesium Hydroxide (Milk Of Magnesia) 2,400 mg PRN Q12HR PRN PO CONSTIPATION; Start 05/12/18 at 16:30 Cefazolin Sodium 1 gm/Dextrose 50 ml @ 100 mls/hr Q8H IV Last administered on 05/13/18at 06:32; Start 05/12/18 at 23:00; Stop 05/13/18 at 15:29 Fentanyl Citrate (Fentanyl 2ml Vial) 25 mcg PRN Q2HR PRN IV PAIN MILD TO MOD; Start 05/12/18 at 16:30 Fentanyl Citrate (Fentanyl 2ml Vial) 50 mcg PRN Q2HR PRN IV PAIN SEVERE Last administered on 05/12/18at 23:31; Start 05/12/18 at 16:30 Active Scripts Active Reported Zofran (Ondansetron Hcl) 8 Mg Tablet 1 Tab PO Q8HRS Dexamethasone 4 Mg Tablet 4 Mg PO BID start the day before chemo and continue for 5 days post Folic Acid 1 Mg Tablet 1 Tab PO DAILY Tobramycin-Dexameth Ophth Susp (Tobramycin/Dexamethasone) 5 Ml Drops.susp 1 Drop OD QID Aspirin 81 Mg Tab.chew 1 Tab PO DAILY Asmanex (Mometasone Furoate) 220 Mcg Aer.pow.ba 220 Mcg IH Primidone 250 Mg Tablet 250 Mg PO Pravastatin Sodium 20 Mg Tablet 1 Tab PO DAILY Cartia Xt (Diltiazem Hcl) 180 Mg Cap.er.24h 180 Mg PO Levothyroxine Sodium 50 Mcg Tablet 1 Tab PO DAILY Gabapentin 300 Mg Capsule 300 Mg PO TID Venlafaxine Hcl Er (Venlafaxine Hcl) 75 Mg Cap.er.24h 1 Cap PO DAILY Vitals/I & O Vital Sign - Last 24 Hours 05/12/18 05/12/18 05/12/18 05/12/18 12:15 12:58 13:18 13:57 Temp 97.9 97.9 Pulse 85 84 86 86 Resp 20 20 18 20 B/P (MAP) 164/81 (108) 174/77 (109) 164/79 (107) 171/82 (111) Pulse Ox 94 96 96 95 O2 Delivery Room Air Room Air Room Air Room Air 05/12/18 05/12/18 05/12/18 05/12/18 14:30 16:36 16:36 16:36 Temp 98.0 98.0 Pulse 90 91 76 Resp 22 17 B/P (MAP) 182/79 177/51 178/77 (110) Pulse Ox 98 O2 Delivery Room Air Simple Mask Mask O2 Flow Rate 10 10 05/12/18 05/12/18 05/12/18 05/12/18 16:40 16:45 17:00 17:01 Temp 98.0 98.0 98.0 98.0 Pulse 94 94 84 86 Resp 21 16 15 B/P (MAP) 174/68 164/64 158/62 166/64 Pulse Ox 97 94 94 O2 Delivery Simple Mask Nasal Cannula Nasal Cannula O2 Flow Rate 10 2 2 05/12/18 05/12/18 05/12/18 05/12/18 17:15 17:30 17:36 17:36 Temp 98.0 98.0 98.0 98.0 Pulse 74 78 86 Resp 16 19 B/P (MAP) 156/62 160/64 150/60 (90) Pulse Ox 95 96 O2 Delivery Nasal Cannula Nasal Cannula Mask O2 Flow Rate 2 2 2 05/12/18 05/12/18 05/12/18 05/12/18 17:37 17:45 17:45 18:00 Temp 98.0 98.3 98.0 98.3 Pulse 83 82 78 Resp 24 15 17 B/P (MAP) 162/68 156/64 154/64 Pulse Ox 96 96 97 O2 Delivery Nasal Cannula Nasal Cannula Nasal Cannula O2 Flow Rate 2.0 2.0 2.0 05/12/18 05/12/18 05/12/18 05/12/18 18:11 18:15 18:20 18:41 Temp 98.3 98.3 98.3 98.3 Pulse 80 82 Resp 17 14 15 20 B/P (MAP) 154/64 158/62 Pulse Ox 96 95 95 96 O2 Delivery Nasal Cannula Nasal Cannula Nasal Cannula Nasal Cannula O2 Flow Rate 2.0 2.0 2.0 2.0 05/12/18 05/12/18 05/12/18 05/12/18 18:44 18:54 18:59 19:00 Temp 98.1 99.0 98.1 99.0 Pulse 87 85 85 Resp 15 13 14 16 B/P (MAP) 146/62 (90) 150/60 (90) 163/75 (104) Pulse Ox 94 94 94 93 O2 Delivery Nasal Cannula Nasal Cannula O2 Flow Rate 2.0 2.0 2.0 05/12/18 05/12/18 05/12/18 05/12/18 19:55 20:00 20:00 20:40 Pulse 82 Resp 14 11 16 B/P (MAP) 146/56 (86) Pulse Ox 94 O2 Delivery Nasal Cannula Nasal Cannula Nasal Cannula O2 Flow Rate 2.0 2.0 2.0 05/12/18 05/12/18 05/12/18 05/12/18 21:00 21:40 22:00 22:57 Temp 98.0 98.0 Pulse 80 86 90 Resp 13 13 19 15 B/P (MAP) 144/52 (82) 146/54 (84) 162/61 (94) Pulse Ox 94 94 94 94 O2 Delivery Nasal Cannula Nasal Cannula Nasal Cannula Nasal Cannula O2 Flow Rate 2.0 2.0 2.0 2.0 05/12/18 05/13/18 05/13/18 05/13/18 23:31 00:01 00:01 01:00 Pulse 82 80 Resp 15 18 16 11 B/P (MAP) 140/65 (90) 142/74 (96) Pulse Ox 95 95 97 97 O2 Delivery Nasal Cannula Nasal Cannula Nasal Cannula Nasal Cannula O2 Flow Rate 2.0 2.0 2.0 2.0 05/13/18 05/13/18 05/13/18 05/13/18 01:00 01:00 02:00 02:40 Pulse 81 80 Resp 15 B/P (MAP) 140/59 (86) 155/48 Pulse Ox 96 O2 Delivery Nasal Cannula Nasal Cannula O2 Flow Rate 2.0 2.0 05/13/18 05/13/18 05/13/18 05/13/18 02:44 03:00 03:26 04:00 Pulse 69 73 Resp 12 B/P (MAP) 120/40 (66) 127/45 (72) 148/45 Pulse Ox 97 O2 Delivery Nasal Cannula Nasal Cannula O2 Flow Rate 2.0 2.0 05/13/18 05/13/18 05/13/18 05/13/18 04:00 04:00 05:00 06:00 Temp 98.2 98.2 Pulse 68 75 72 Resp 20 21 14 B/P (MAP) 126/45 (72) 124/45 (71) 128/44 (72) Pulse Ox 97 95 97 O2 Delivery Nasal Cannula Nasal Cannula Nasal Cannula O2 Flow Rate 2.0 2.0 2.0 05/13/18 05/13/18 05/13/18 05/13/18 07:00 08:00 08:00 08:00 Temp 97.6 97.6 Pulse 78 78 Resp 15 13 B/P (MAP) 146/46 (79) 142/46 (78) Pulse Ox 96 96 O2 Delivery Nasal Cannula Nasal Cannula Nasal Cannula O2 Flow Rate 2.0 2.0 2.0 05/13/18 05/13/18 09:00 09:43 Pulse 78 80 Resp 13 B/P (MAP) 110/55 (73) 148/48 Pulse Ox 97 O2 Delivery Nasal Cannula O2 Flow Rate 2.0 Intake and Output 05/12/18 05/12/18 05/13/18 14:59 22:59 06:59 Intake Total 445 ml 847 ml Output Total 712 ml 225 ml Balance -267 ml 622 ml MARIELY ALCANTAR MD May 13, 2018 10:23
--- NOTE | 2018-05-13 11:22 | HP ---
ADMIT DATE: 05/12/2018 HISTORY OF PRESENT ILLNESS: This 83-year-old female who has a history of carcinoma of breast and lung cancer and who has history of essential tremors, fell about 8 days ago. In last 2 weeks, she has had other falls also and has hurt both sides of the head, right and left side. She had an MRI that showed a subdural hematoma and then she was advised to come to the Emergency Room right away. Yesterday, the patient was seen emergently by Dr. Frank for neurosurgical evaluation and treatment, and the patient underwent surgery yesterday and had a right central craniotomy with evacuation of subacute subdural hematoma and removal of membranes for right frontotemporoparietal subacute subdural hematoma. The patient was then admitted to ICU. I could not see her yesterday afternoon as she was in surgery. REVIEW OF SYSTEMS: At present time, the patient is very sleepy and forgetful and unable to provide any significant information. She does admit to some pain and headaches, but is not able to provide any other information, unable to do full systems review. PAST MEDICAL HISTORY: The patient is known to have hypertension, hypothyroidism, carcinoma of breast with left mastectomy, carcinoma of lung. Also, has a history of essential tremors. PAST SURGICAL HISTORY: Includes hysterectomy, left mastectomy, right chest port. SOCIAL HISTORY: No history of alcoholism or drug abuse or smoking. FAMILY HISTORY: Not available as the patient is confused. ALLERGIES: None known any. MEDICATIONS: Reviewed and reconciled partly. We will need to get some more information about her home medications. PHYSICAL EXAMINATION: VITAL SIGNS: Temperature 97.6, pulse 78 per minute, respirations 13 per minute, blood pressure 142/46 mmHg. GENERAL: The patient is an elderly female who is very sleepy and lethargic and opens her eyes and responds very slowly and is forgetful and confused. She has a dressing on the right side of the head. EYES: Partial exam. Pupils are reactive. HEENT: The patient only partially opens her mouth and not following all commands, unremarkable. NECK: JVP normal. No thyromegaly. Trachea midline. LUNGS: Decreased breath sounds at bases. CARDIOVASCULAR: S1, S2 regular. ABDOMEN: Soft, nontender, no guarding, no rigidity. Bowel sounds present. EXTREMITIES: No edema. CENTRAL NERVOUS SYSTEM: Very sleepy and lethargic and barely opens her eyes and says one word or two, not able to cooperate. Unable to do full exam. LABORATORY FINDINGS: Potassium was 3.3 yesterday and it is 4 today: WBC count 6.9, hemoglobin 11.5 yesterday, hemoglobin is 11 today. Sodium 137 today, potassium is 4 today, glucose 103 and 201. IMPRESSION: 1. Acute right frontal temporoparietal subdural hematoma, status post right central craniotomy with evacuation of subacute subdural hematoma and removal of membranes. 2. Hypertension. 3. Hypothyroidism. 4. Depression. 5. Anxiety. 6. Essential tremors. 7. Hypokalemia, corrected. 8. Carcinoma of breast with left mastectomy. 9. Carcinoma of lung. PLAN: Continue to monitor in ICU. We will advance diet as tolerated when she wakes up. Check with the office list to reconcile medications. Discussed with staff. Recheck labs in a.m. Dr. Frank has seen the patient for neurosurgical evaluation and management. Long-term as well as short-term prognosis of this patient is poor due to her multiple medical problems. For details, please review the orders. TERESA HOPPER MD DR: TOBY/yesi JOB#: [id number] / [id number]
[2018-05-13] MEDS ORDERED: PRIM250T28 PO (12:25)
[2018-05-13] MEDS ORDERED: GABA300C18 PO (12:25)
[2018-05-13] MEDS ORDERED: VENL150C PO (12:25)
[2018-05-13] MEDS: DOCUSATE SODIUM 100 MG CAPSULE. PO SCH ×2 (14:47→21:45)
--- NOTE | 2018-05-13 22:46 | CONS ---
DATE OF CONSULTATION: 05/13/2018 REQUESTING PHYSICIAN: Dr. Tahmina Hernandez. 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 HISTORY OF PRESENT ILLNESS: The patient is an 83-year-old female who was admitted to [facility] on 05/12/2018 for a subdural hematoma. She has a history of stage 4 lung cancer diagnosed on 10/17/2017 when she had a biopsy of the right upper lobe of the lung that revealed adenocarcinoma. She was started on carboplatin, Alimta and Keytruda on 11/27/2017 and maintenance therapy with Alimta and Keytruda was started on 02/28/2018 given every 3 weeks. EGFR, ALK, BRAF, ROS1, PD-L1 are all negative. PET scan on 04/10/2018 after cycle #6 of chemotherapy revealed stable mediastinal and hilar lymphadenopathy. No change in the lung nodularity. She has had complaints of incontinence and urinary tract infection. She has had multiple falls and hit her head and she also had a large bruise on her left arm. She was evaluated by my nurse practitioner on 05/08/2018 and chemotherapy was deferred because of generalized weakness, falls and incontinence. MRI of the brain was ordered for further evaluation. She underwent an MRI on 05/12/2018 that revealed large acute subdural hematoma along the right cerebral convexity, measuring 2.7 cm resulting in a 6 mm leftward midline shift. She was immediately sent to the Emergency Room and she was evaluated by Neurosurgery and she underwent right frontotemporal subacute subdural hematoma treatment with right central craniotomy with evacuation of the subdural hematoma and removal of the membranes. She has a drain in place and she is in observation and she was transferred to the ICU. PAST MEDICAL HISTORY: 1. Stage 2B breast cancer in 2000, status post left mastectomy and axillary lymph node dissection and adjuvant anti-endocrine therapy. 2. Depression. 3. Hyperlipidemia. 4. Hypertension. 5. Neuropathy. 6. Hysterectomy. 7. Cataract removal. FAMILY HISTORY: Positive for lung cancer in her sister. SOCIAL HISTORY: She is . She is a former smoker, [id number]. REVIEW OF SYSTEMS: A 12-point review of system was performed. Pertinent positives are mentioned in the history of present illness. Rest of the system review is negative. PHYSICAL EXAMINATION: GENERAL APPEARANCE: The patient is an 83-year-old female who is in no acute cardiorespiratory distress. VITAL SIGNS: Blood pressure 128/44, temperature 98.2. HEAD: She has had subdural hematoma evacuation, status post craniotomy on 05/12/2018 and she has a drain in place. EYES: No icterus. NECK: Supple. CHEST: Bilaterally symmetrical. HEART: S1, S2 normal. ABDOMEN: Soft, nontender. CENTRAL NERVOUS SYSTEM: No focal deficits. She is able to move all 4 extremities. PSYCHOLOGIC: She has a flat affect. MUSCULOSKELETAL: No joint effusions. LABORATORY DATA: WBC 9.8, hemoglobin 11, platelet count 273. Creatinine 0.7. IMPRESSION AND PLAN: 1. 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 She has received chemotherapy with carboplatin, Alimta and Keytruda from 11/27/2017 for 4 cycles and then she was switched to maintenance Alimta and Keytruda with cycle #5. Most recent chemotherapy was deferred because of falls and generalized weakness. I will continue to defer chemotherapy until she recovers well from the current surgery for subdural hematoma. 2. Large acute subdural hematoma along the right cerebral convexity measuring 2.7 cm, status post craniotomy, status post hematoma evacuation on 05/12/2018. Continue management per Dr. Dony Frank. 3. Anemia due to chemotherapy, mild. Hemoglobin 11.5 on 05/12/2018 and 11.0 on 05/13/2018. Continue to monitor. I discussed with registered nurse. LORI NICOLE MD DR: SUZETTE/yesi JOB#: [id number] / [id number]
[2018-05-14] VITALS (24 sets, daily range): BP systolic 121–184; BP diastolic 58–96
[2018-05-14] MEDS: DEXAMETHASONE SOD PHOS 4 MG/ML VIAL IV SCH ×5 (00:24→23:38)
[2018-05-14] MEDS: fentaNYL PF VIAL 100 MCG/2 ML VIAL IV PRN (00:24)
[2018-05-14] MEDS: LABETALOL 20 MG/4 ML DISP.SYRIN. IVP PRN ×10 (02:08→21:44)
[2018-05-14 07:40] LABS: BASO % 0 % (0-3); EOS % 0 % (0-3); HEMOGLOBIN 11.1 g/dL (12.0-15.5); LYMPH # 0.6 x10^3/uL (1.0-4.8); LYMPH % 4 % (24-48); MEAN CORPUSCULAR HEMOGLOBIN 33 pg (25-35); MEAN CORPUSCULAR HGB CONC 33 g/dL (31-37); MEAN CORPUSCULAR VOLUME 101 fL (79-100); MONO # 0.4 x10^3/uL (0.0-1.1); MONO % 3 % (0-9); NEUT # 14.4 x10^3uL (1.8-7.7); NEUT % 93 % (31-73); PLATELET COUNT 306 x10^3/uL (140-400); RED BLOOD COUNT 3.38 x10^6/uL (3.50-5.40); RED CELL DISTRIBUTION WIDTH 14.9 % (11.5-14.5); WHITE BLOOD COUNT 15.4 x10^3/uL (4.0-11.0)
[2018-05-14] MEDS: DOCUSATE SODIUM 100 MG CAPSULE. PO SCH ×3 (07:49→21:39)
[2018-05-14 07:57] LABS: ALBUMIN 2.9 g/dL (3.4-5.0); ALBUMIN/GLOBULIN RATIO 0.8 (1.0-1.7); CALCIUM 8.9 mg/dL (8.5-10.1); CREATININE 0.9 mg/dL (0.6-1.0); GFR 59.9; MAGNESIUM 2.1 mg/dL (1.8-2.4); POTASSIUM 4.3 mmol/L (3.5-5.1); TOTAL BILIRUBIN 0.2 mg/dL (0.2-1.0); TOTAL PROTEIN 6.7 g/dL (6.4-8.2)
[2018-05-14] MEDS: POTASSIUM CL 20MEQ D5-0.45NACL 1,000 ML IV SCH (09:00)
[2018-05-14] MEDS: BISACODYL 5 MG TABLET.DR. PO SCH (10:19)
[2018-05-14] MEDS: LEVOTHYROXINE 50 MCG TABLET PO SCH (10:23)
[2018-05-14] MEDS: VENLAFAXINE XR 37.5 MG CAP.ER.24H. PO SCH (10:23)
--- NOTE | 2018-05-14 14:23 | PDOC ---
PROGRESS NOTES Subjective Subjective up in chair more alert today ambulated in [place] with PT denies headache Objective Objective Vital Signs Date Time Temp Pulse Resp B/P (MAP) Pulse Ox O2 Delivery O2 Flow Rate FiO2 05/14/18 14:16 82 153/67 05/14/18 13:00 20 95 Room Air 05/14/18 12:00 98.2 98.2 05/14/18 04:00 2.0 Intake and Output 05/14/18 07:00 Intake Total 1783 ml Output Total 1945 ml Balance -162 ml Intake Oral 430 ml IV Total 1353 ml Output Urine Total 1935 ml Drainage Total 10 ml Physical Exam General: Alert, Oriented X3, Cooperative MUSCULOSKELETAL: Other (DAIGLE) Neuro: Normal speech Skin: Other (dressing C,D,I) Assessment Assessment Problems Medical Problems: (1) Subdural hematoma Status: Acute Plan Plan of detention BP medications just restarted may transfer to floor when BP better controlled PT Comment Review of Relevant I have reviewed the following items malcolm (where applicable) has been applied. Labs Laboratory Tests Test 05/12/18 22:00 05/13/18 05:55 05/14/18 07:20 05/14/18 07:26 Nasal Screen MRSA (PCR) Negative (Negative) White Blood Count 9.8 x10^3/uL (4.0-11.0) 15.4 x10^3/uL (4.0-11.0) Red Blood Count 3.30 x10^6/uL (3.50-5.40) 3.38 x10^6/uL (3.50-5.40) Hemoglobin 11.0 g/dL (12.0-15.5) 11.1 g/dL (12.0-15.5) Hematocrit 33.0 % (36.0-47.0) 34.0 % (36.0-47.0) Mean Corpuscular Volume 100 fL (79-100) 101 fL (79-100) Mean Corpuscular Hemoglobin 33 pg (25-35) 33 pg (25-35) Mean Corpuscular Hemoglobin Concent 33 g/dL (31-37) 33 g/dL (31-37) Red Cell Distribution Width 14.7 % (11.5-14.5) 14.9 % (11.5-14.5) Platelet Count 273 x10^3/uL (140-400) 306 x10^3/uL (140-400) Neutrophils (%) (Auto) 93 % (31-73) 93 % (31-73) Lymphocytes (%) (Auto) 5 % (24-48) 4 % (24-48) Monocytes (%) (Auto) 1 % (0-9) 3 % (0-9) Eosinophils (%) (Auto) 0 % (0-3) 0 % (0-3) Basophils (%) (Auto) 1 % (0-3) 0 % (0-3) Neutrophils # (Auto) 9.1 x10^3uL (1.8-7.7) 14.4 x10^3uL (1.8-7.7) Lymphocytes # (Auto) 0.5 x10^3/uL (1.0-4.8) 0.6 x10^3/uL (1.0-4.8) Monocytes # (Auto) 0.1 x10^3/uL (0.0-1.1) 0.4 x10^3/uL (0.0-1.1) Eosinophils # (Auto) 0.0 x10^3/uL (0.0-0.7) 0.0 x10^3/uL (0.0-0.7) Basophils # (Auto) 0.0 x10^3/uL (0.0-0.2) 0.0 x10^3/uL (0.0-0.2) Segmented Neutrophils % 97 % (35-66) Lymphocytes % 3 % (24-48) Platelet Estimate Adequate (ADEQUATE) Large Platelets Occ Sodium Level 137 mmol/L (136-145) 143 mmol/L (136-145) Potassium Level 4.0 mmol/L (3.5-5.1) 4.3 mmol/L (3.5-5.1) Chloride Level 102 mmol/L (98-107) 106 mmol/L (98-107) Carbon Dioxide Level 26 mmol/L (21-32) 26 mmol/L (21-32) Anion Gap 9 (6-14) 11 (6-14) Blood Urea Nitrogen 10 mg/dL (7-20) 13 mg/dL (7-20) Creatinine 0.7 mg/dL (0.6-1.0) 0.9 mg/dL (0.6-1.0) Estimated GFR (Cockcroft-Gault) 80.1 59.9 Glucose Level 201 mg/dL (70-99) 158 mg/dL (70-99) Calcium Level 8.6 mg/dL (8.5-10.1) 8.9 mg/dL (8.5-10.1) BUN/Creatinine Ratio 14 (6-20) Magnesium Level 2.1 mg/dL (1.8-2.4) Total Bilirubin 0.2 mg/dL (0.2-1.0) Aspartate Amino Transf (AST/SGOT) 15 U/L (15-37) Alanine Aminotransferase (ALT/SGPT) 16 U/L (14-59) Alkaline Phosphatase 130 U/L (46-116) Total Protein 6.7 g/dL (6.4-8.2) Albumin 2.9 g/dL (3.4-5.0) Albumin/Globulin Ratio 0.8 (1.0-1.7) Glucose (Fingerstick) 142 mg/dL (70-99) Laboratory Tests Test 05/14/18 07:20 05/14/18 07:26 White Blood Count 15.4 x10^3/uL (4.0-11.0) Red Blood Count 3.38 x10^6/uL (3.50-5.40) Hemoglobin 11.1 g/dL (12.0-15.5) Hematocrit 34.0 % (36.0-47.0) Mean Corpuscular Volume 101 fL (79-100) Mean Corpuscular Hemoglobin 33 pg (25-35) Mean Corpuscular Hemoglobin Concent 33 g/dL (31-37) Red Cell Distribution Width 14.9 % (11.5-14.5) Platelet Count 306 x10^3/uL (140-400) Neutrophils (%) (Auto) 93 % (31-73) Lymphocytes (%) (Auto) 4 % (24-48) Monocytes (%) (Auto) 3 % (0-9) Eosinophils (%) (Auto) 0 % (0-3) Basophils (%) (Auto) 0 % (0-3) Neutrophils # (Auto) 14.4 x10^3uL (1.8-7.7) Lymphocytes # (Auto) 0.6 x10^3/uL (1.0-4.8) Monocytes # (Auto) 0.4 x10^3/uL (0.0-1.1) Eosinophils # (Auto) 0.0 x10^3/uL (0.0-0.7) Basophils # (Auto) 0.0 x10^3/uL (0.0-0.2) Sodium Level 143 mmol/L (136-145) Potassium Level 4.3 mmol/L (3.5-5.1) Chloride Level 106 mmol/L (98-107) Carbon Dioxide Level 26 mmol/L (21-32) Anion Gap 11 (6-14) Blood Urea Nitrogen 13 mg/dL (7-20) Creatinine 0.9 mg/dL (0.6-1.0) Estimated GFR (Cockcroft-Gault) 59.9 BUN/Creatinine Ratio 14 (6-20) Glucose Level 158 mg/dL (70-99) Calcium Level 8.9 mg/dL (8.5-10.1) Magnesium Level 2.1 mg/dL (1.8-2.4) Total Bilirubin 0.2 mg/dL (0.2-1.0) Aspartate Amino Transf (AST/SGOT) 15 U/L (15-37) Alanine Aminotransferase (ALT/SGPT) 16 U/L (14-59) Alkaline Phosphatase 130 U/L (46-116) Total Protein 6.7 g/dL (6.4-8.2) Albumin 2.9 g/dL (3.4-5.0) Albumin/Globulin Ratio 0.8 (1.0-1.7) Glucose (Fingerstick) 142 mg/dL (70-99) Medications Current Medications Bacitracin 28230 unit/Sodium Chloride 1,000 ml @ 1,000 mls/hr 1X ONCE IRR Last administered on 05/12/18at 15:58; Start 05/12/18 at 14:00; Stop 05/12/18 at 14: 59; Status DC Ondansetron HCl (Zofran) 4 mg PRN Q6HRS PRN IV NAUSEA/VOMITING; Start 05/12/18 at 14:00; Stop 05/13/18 at 13:59; Status DC Fentanyl Citrate (Fentanyl 2ml Vial) 25 mcg PRN Q5MIN PRN IV MILD PAIN Last administered on 05/12/18at 19:55; Start 05/12/18 at 14:00; Stop 05/13/18 at 01:57; Status DC Fentanyl Citrate (Fentanyl 2ml Vial) 50 mcg PRN Q5MIN PRN IV MODERATE TO SEVERE PAIN; Start 05/12/18 at 14:00; Stop 05/13/18 at 01:57; Status DC Morphine Sulfate (Morphine Sulfate) 1 mg PRN Q10MIN PRN IV SEVERE PAIN; Start 05/12/18 at 14:00; Stop 05/13/18 at 01:57; Status DC Ringer's Solution 1,000 ml @ 30 mls/hr Q24H IV ; Start 05/12/18 at 13:46; Stop 05/13/18 at 01:45; Status DC Lidocaine HCl (Xylocaine-Mpf 1% 2ml Vial) 2 ml PRN 1X PRN ID PRIOR TO IV START ; Start 05/12/18 at 14:00; Stop 05/13/18 at 13:59; Status DC Hydromorphone HCl (Dilaudid) 0.5 mg PRN Q10MIN PRN IV SEV PAIN, Second choice; Start 05/12/18 at 14:00; Stop 05/13/18 at 01:57; Status DC Prochlorperazine Edisylate (Compazine) 5 mg PACU PRN PRN IV NAUSEA, MRX1; Start 05/12/18 at 14:00; Stop 05/13/18 at 13:59; Status DC Lidocaine HCl (Lidocaine Pf 2% Vial) 5 ml STK-MED ONCE .ROUTE ; Start 05/12/18 at 14:07; Stop 05/12/18 at 14:08; Status DC Sodium Chloride (SODIUM CHLORIDE 20ml) 20 ml STK-MED ONCE IJ ; Start 05/12/18 at 14:07; Stop 05/12/18 at 14:08; Status DC Propofol 20 ml @ As Directed STK-MED ONCE IV ; Start 05/12/18 at 14:07; Stop 05/12 at 14:08; Status DC Ondansetron HCl (Zofran) 4 mg STK-MED ONCE .ROUTE ; Start 05/12/18 at 14:07; Stop 05/12/18 at 14:08; Status DC Famotidine (Pepcid Vial) 20 mg STK-MED ONCE .ROUTE ; Start 05/12/18 at 14:07; Stop 05/12/18 at 14:08; Status DC Dexamethasone Sodium Phosphate (Decadron) 20 mg STK-MED ONCE .ROUTE ; Start 05/12 at 14:07; Stop 05/12/18 at 14:08; Status DC Propofol 50 ml @ As Directed STK-MED ONCE IV ; Start 05/12/18 at 14:07; Stop 05/12 at 14:08; Status DC Gelatin (Gelfoam Size 100) 1 each STK-MED ONCE .ROUTE Last administered on 05/12at 15:50; Start 05/12/18 at 13:11; Stop 05/12/18 at 14:11; Status DC Bupivacaine HCl/ Epinephrine Bitart (Sensorcain-Mpf Epi 0.5%-1:210225) 30 ml STK -MED ONCE .ROUTE Last administered on 05/12/18at 15:48; Start 05/12/18 at 13:11; Stop 05/12/18 at 14:11; Status DC Remifentanil HCl (Ultiva) 2 mg STK-MED ONCE IV ; Start 05/12/18 at 14:11; Stop at 14:12; Status DC Thrombin 20,000 unit STK-MED ONCE TP Last administered on 05/12/18at 15:56; Start 05/12/18 at 13:11; Stop 05/12/18 at 14:12; Status DC Fentanyl Citrate (Fentanyl 2ml Vial) 100 mcg STK-MED ONCE .ROUTE ; Start at 14:11; Stop 05/12/18 at 14:12; Status DC Rocuronium [place] (Zemuron) 50 mg STK-MED ONCE .ROUTE ; Start 05/12/18 at 14:13 ; Stop 05/12/18 at 14:14; Status DC Sodium Chloride (SODIUM CHLORIDE 20ml) 20 ml STK-MED ONCE IJ ; Start 05/12/18 at 14:13; Stop 05/12/18 at 14:14; Status DC Cefazolin Sodium/ Dextrose 50 ml @ 100 mls/hr 1X PREOP PRN IV PRIOR TO PROCEDURE Last administered on 05/12/18at 15:05; Start 05/12/18 at 14:45; Stop 05/13 at 14:44; Status DC Sevoflurane (Ultane) 90 ml STK-MED ONCE IH ; Start 05/12/18 at 14:58; Stop at 14:59; Status DC Phenylephrine HCl (PHENYLEPHRINE in 0.9% NACL PF) 1 mg STK-MED ONCE IV ; Start 05/12/18 at 15:12; Stop 05/12/18 at 15:13; Status DC Cefazolin Sodium/ Dextrose 50 ml @ 100 mls/hr 1X ONCE IV ; Start 05/12/18 at 15 :15; Stop 05/12/18 at 15:16; Status DC Phenylephrine HCl (Zane-Synephrine Inj) 10 mg STK-MED ONCE .ROUTE ; Start at 15:52; Stop 05/12/18 at 15:53; Status DC Phenylephrine HCl (Zane-Synephrine Inj) 10 mg STK-MED ONCE .ROUTE ; Start at 15:52; Stop 05/12/18 at 15:53; Status DC Glycopyrrolate (Robinul) 1 mg STK-MED ONCE .ROUTE ; Start 05/12/18 at 16:07; Stop 05/12/18 at 16:08; Status DC Neostigmine Methylsulfate (Neostigmine Methylsulfate) 5 mg STK-MED ONCE .ROUTE ; Start 05/12/18 at 16:07; Stop 05/12/18 at 16:08; Status DC Dexamethasone Sodium Phosphate (Decadron) 4 mg Q6HRS IV Last administered on 05/14/18at 12:18; Start 05/12/18 at 18:00; Stop 05/14/18 at 14:01; Status DC Labetalol HCl (Normodyne Iv Push) 5 mg PRN Q15MIN PRN IVP HYPERTENSION, SEE COMMENTS Last administered on 05/14/18at 13:29; Start 05/12/18 at 16:30 Nicardipine HCl 50 mg/Sodium Chloride 250 ml @ 25 mls/hr TITRATE PRN IV PER PROTOCOL Last administered on 05/13/18at 07:36; Start 05/12/18 at 16:30 Al Hydroxide/Mg Hydroxide (Mylanta Plus Xs) 30 ml PRN Q3HRS PRN PO HEARTBURN / GAS; Start 05/12/18 at 16:30 Calcium Carbonate/ Glycine (Tums) 500 mg PRN Q3HRS PRN PO INDIGESTION; Start at 16:30 Diphenhydramine HCl (Benadryl) 25 mg PRN Q6HRS PRN PO ITCHING; Start 05/12/18 at 16:30 Sodium Chloride (Normal Saline Flush) 3 ml QSHIFT PRN IV AFTER MEDS AND BLOOD DRAWS; Start 05/12/18 at 16:30 Potassium Chloride/Dextrose/ Sod Cl 1,000 ml @ 75 mls/hr [id number] IV Last administered on 05/13/18at 21:45; Start 05/12/18 at 17:00; Stop 05/14/18 at 09:01; Status DC Dextrose (Dextrose 50%-Water Syringe) 12.5 gm PRN Q15MIN PRN IV SEE COMMENTS; Start 05/12/18 at 16:30 Acetaminophen/ Hydrocodone Bitart (Lortab 5/325) 1 tab PRN Q4HRS PRN PO MILD PAIN Last administered on 05/12/18at 20:40; Start 05/12/18 at 16:30 Acetaminophen (Tylenol) 650 mg PRN Q6HRS PRN PO Headaches, Temp > 101.5F Last administered on 05/14/18at 08:51; Start 05/12/18 at 16:30 Docusate Sodium (Colace) 100 mg BID PO Last administered on 05/14/18at 07:49; Start 05/12/18 at 21:00 Magnesium Hydroxide (Milk Of Magnesia) 2,400 mg PRN Q12HR PRN PO CONSTIPATION; Start 05/12/18 at 16:30 Cefazolin Sodium 1 gm/Dextrose 50 ml @ 100 mls/hr Q8H IV Last administered on 05/13/18at 14:44; Start 05/12/18 at 23:00; Stop 05/13/18 at 15:29; Status DC Fentanyl Citrate (Fentanyl 2ml Vial) 25 mcg PRN Q2HR PRN IV PAIN MILD TO MOD; Start 05/12/18 at 16:30 Fentanyl Citrate (Fentanyl 2ml Vial) 50 mcg PRN Q2HR PRN IV PAIN SEVERE Last administered on 05/14/18at 00:24; Start 05/12/18 at 16:30 Gabapentin (Neurontin) 300 mg HS PO ; Start 05/14/18 at 21:00 Levothyroxine Sodium (Synthroid) 50 mcg DAILY06 PO Last administered on at 10:23; Start 05/14/18 at 10:30 Atorvastatin Calcium (Lipitor) 5 mg QHS PO ; Start 05/14/18 at 21:00 Primidone (Mysoline) 500 mg QHS PO ; Start 05/14/18 at 21:00 Venlafaxine HCl (Effexor Xr) 75 mg DAILY PO Last administered on 05/14/18at 10:23 ; Start 05/14/18 at 10:00 Bisacodyl (Dulcolax Tab) 10 mg DAILY PO ; Start 05/14/18 at 11:00 Diltiazem HCl (Cardizem 24hr Cd) 180 mg DAILY PO Last administered on 05/14/18at 14:16; Start 05/14/18 at 14:00 Dexamethasone Sodium Phosphate (Decadron) 2 mg Q6HRS IV ; Start 05/14/18 at 18:00 Active Scripts Active Reported Mysoline (Primidone) 250 Mg Tablet 500 Mg PO QHS Gabapentin 300 Mg Capsule 300 Mg PO HS Effexor Xr (Venlafaxine Hcl) 150 Mg Cap.er.24h 1 Cap PO DAILY Folic Acid 1 Mg Tablet 1 Tab PO DAILY Aspirin 81 Mg Tab.chew 1 Tab PO DAILY Asmanex (Mometasone Furoate) 220 Mcg Aer.pow.ba 200 Mcg INH BID Primidone 250 Mg Tablet 250 Mg PO EVENING DAILY Pravastatin Sodium 20 Mg Tablet 1 Tab PO DAILY Cartia Xt (Diltiazem Hcl) 180 Mg Cap.er.24h 180 Mg PO Levothyroxine Sodium 50 Mcg Tablet 1 Tab PO DAILY Venlafaxine Hcl Er (Venlafaxine Hcl) 75 Mg Cap.er.24h 1 Cap PO DAILY Vitals/I & O Vital Sign - Last 24 Hours 05/13/18 05/13/18 05/13/18 05/13/18 14:39 15:00 15:19 15:24 Temp 97.8 97.8 Pulse 78 86 83 Resp 18 B/P (MAP) 164/66 134/58 (83) 134/53 (80) 134/53 (80) Pulse Ox 95 98 O2 Delivery Nasal Cannula Nasal Cannula O2 Flow Rate 2.0 2.0 05/13/18 05/13/18 05/13/18 05/13/18 15:41 16:00 17:00 17:27 Pulse 86 84 92 Resp 16 20 B/P (MAP) 139/57 (84) 152/66 (94) 152/66 Pulse Ox 95 95 O2 Delivery Nasal Cannula Nasal Cannula Nasal Cannula O2 Flow Rate 2.0 2.0 2.0 05/13/18 05/13/18 05/13/18 05/13/18 18:00 19:00 20:00 20:00 Temp 98.0 98.0 Pulse 78 88 92 Resp 24 24 24 B/P (MAP) 131/77 (95) 147/57 (87) 162/63 (96) Pulse Ox 96 96 O2 Delivery Nasal Cannula Nasal Cannula Nasal Cannula Nasal Cannula O2 Flow Rate 2.0 2.0 2.0 2.0 05/13/18 05/13/18 05/13/18 05/13/18 20:25 21:00 22:00 23:00 Pulse 92 78 75 102 Resp 24 B/P (MAP) 162/63 113/53 (73) 123/51 (75) 124/55 (78) Pulse Ox 98 98 98 O2 Delivery Nasal Cannula Nasal Cannula Room Air O2 Flow Rate 2.0 2.0 05/13/18 05/13/18 05/14/18 05/14/18 23:59 23:59 00:24 00:54 Temp 97.8 97.8 Pulse 91 Resp 20 22 20 B/P (MAP) 142/60 (87) Pulse Ox 95 95 95 O2 Delivery Nasal Cannula Room Air Room Air Room Air O2 Flow Rate 2.0 05/14/18 05/14/18 05/14/18 05/14/18 01:00 02:00 02:08 03:00 Pulse 93 86 86 87 Resp 15 15 16 B/P (MAP) 147/58 (87) 145/65 (91) 145/65 153/69 (97) Pulse Ox 94 93 94 O2 Delivery Room Air Room Air Room Air 05/14/18 05/14/18 05/14/18 05/14/18 04:00 04:00 04:04 05:00 Temp 97.8 97.8 Pulse 75 75 72 Resp 16 18 B/P (MAP) 175/83 (113) 175/83 153/77 (102) Pulse Ox 95 95 O2 Delivery Room Air Nasal Cannula Room Air O2 Flow Rate 2.0 05/14/18 05/14/18 05/14/18 05/14/18 06:00 07:00 08:00 08:00 Temp 98.4 98.4 Pulse 70 74 92 Resp 18 18 18 B/P (MAP) 154/60 (91) 164/87 (112) 164/76 (105) Pulse Ox 94 94 95 O2 Delivery Room Air Room Air Room Air Room Air 05/14/18 05/14/18 05/14/18 05/14/18 08:49 09:00 10:00 10:14 Pulse 91 91 88 95 Resp 22 20 B/P (MAP) 172/74 172/74 (106) 180/76 (110) 206/84 Pulse Ox 96 95 O2 Delivery Room Air Room Air 05/14/18 05/14/18 05/14/18 05/14/18 10:24 11:00 11:10 12:00 Pulse 88 81 83 Resp 22 B/P (MAP) 180/76 170/71 (104) 172/72 Pulse Ox 94 O2 Delivery Room Air Room Air 05/14/18 05/14/18 05/14/18 05/14/18 12:00 13:00 13:05 13:29 Temp 98.2 98.2 Pulse 81 80 84 84 Resp 18 20 B/P (MAP) 153/71 (98) 149/71 (97) 158/78 153/69 Pulse Ox 97 95 O2 Delivery Room Air Room Air 05/14/18 14:16 Pulse 82 B/P (MAP) 153/67 Intake and Output 05/13/18 05/13/18 05/14/18 15:00 23:00 07:00 Intake Total 367 ml 1236 ml 180 ml Output Total 835 ml 575 ml 535 ml Balance -468 ml 661 ml -355 ml MARIELY ALCANTAR MD May 14, 2018 14:23
--- NOTE | 2018-05-14 17:07 | PATHOLOGY ---
[facility] Accession Number: [id number] . 01 Material submitted: . SUBDERMAL HEMATOMA . 01 Clinical history: . Craniectomy for evacuation of subdural hematoma . 02 Diagnosis: Segments of fibromembranous tissue, subdural hematoma evacuation: - Hematoma with early organization and with focal acute and chronic inflammation. ([facility] 05/14[facility]2018) QTP/05/14/2018 . 02 Electronically signed: . Mg Christensen MD, Pathologist NPI- [id number] . 01 Gross description: . The specimen is received in formalin, labeled "Brensinger, Evi, subdural hematoma", are several irregular, paul-brown to robertson, hemorrhagic tissues measuring 1.5 x 1.2 x 0.7 cm in aggregate. The specimen is entirely submitted in A1. (SWS:05/13/2018) SHS/SHS . 02 Pathologist provided ICD-10: I62.00 . 02 CPT . 709819 Specimen Comment: A courtesy copy of this report has been sent to Specimen Comment: [phone], , . Specimen Comment: Report sent to ,DR HOPPER / DR CAMARENA Performed at: 01 [facility] [address], [place], [place] [id number] MD Jamari Arroyo MD Phone: [phone] Performed at: 02 [facility] [address], [place] [id number] MD Mg Christensen MD Phone: [phone]
--- NOTE | 2018-05-14 17:25 | PDOC ---
IM PROGRESS NOTES- Subjective Subjective patient is confused she wants to go home.she admits to some pain but denies any significant headaches, nausea or any other issues. She denies any abdominal pain.. She is a poor historian unable to do complete systems review. Objective Vitals Vital Signs Date Time Temp Pulse Resp B/P (MAP) Pulse Ox O2 Delivery O2 Flow Rate FiO2 05/14/18 15:06 82 170/78 05/14/18 14:00 20 95 Room Air 05/14/18 12:00 98.2 98.2 05/14/18 04:00 2.0 Input & Output Intake and Output 05/14/18 07:00 Intake Total 1783 ml Output Total 1945 ml Balance -162 ml Intake Oral 430 ml IV Total 1353 ml Output Urine Total 1935 ml Drainage Total 10 ml Physical Exam Physical Exam General appearance - alert,illappearing, and in no distress and confused Mental Status - alert,confused Had surgery on the right side of the head. Chest - clear to auscultation, no wheezes, rales or rhonchi, symmetric air entry Heart - S1 and S2 normal Abdomen - soft, nontender, nondistended, no masses or organomegaly Neurological - alert and confused Musculoskeletal - no muscular tenderness noted Extremities - no pedal edema Skin - warm and dry Labs Laboratory Tests Test 05/12/18 22:00 05/13/18 05:55 05/14/18 07:20 05/14/18 07:26 Nasal Screen MRSA (PCR) Negative (Negative) White Blood Count 9.8 x10^3/uL (4.0-11.0) 15.4 x10^3/uL (4.0-11.0) Red Blood Count 3.30 x10^6/uL (3.50-5.40) 3.38 x10^6/uL (3.50-5.40) Hemoglobin 11.0 g/dL (12.0-15.5) 11.1 g/dL (12.0-15.5) Hematocrit 33.0 % (36.0-47.0) 34.0 % (36.0-47.0) Mean Corpuscular Volume 100 fL (79-100) 101 fL (79-100) Mean Corpuscular Hemoglobin 33 pg (25-35) 33 pg (25-35) Mean Corpuscular Hemoglobin Concent 33 g/dL (31-37) 33 g/dL (31-37) Red Cell Distribution Width 14.7 % (11.5-14.5) 14.9 % (11.5-14.5) Platelet Count 273 x10^3/uL (140-400) 306 x10^3/uL (140-400) Neutrophils (%) (Auto) 93 % (31-73) 93 % (31-73) Lymphocytes (%) (Auto) 5 % (24-48) 4 % (24-48) Monocytes (%) (Auto) 1 % (0-9) 3 % (0-9) Eosinophils (%) (Auto) 0 % (0-3) 0 % (0-3) Basophils (%) (Auto) 1 % (0-3) 0 % (0-3) Neutrophils # (Auto) 9.1 x10^3uL (1.8-7.7) 14.4 x10^3uL (1.8-7.7) Lymphocytes # (Auto) 0.5 x10^3/uL (1.0-4.8) 0.6 x10^3/uL (1.0-4.8) Monocytes # (Auto) 0.1 x10^3/uL (0.0-1.1) 0.4 x10^3/uL (0.0-1.1) Eosinophils # (Auto) 0.0 x10^3/uL (0.0-0.7) 0.0 x10^3/uL (0.0-0.7) Basophils # (Auto) 0.0 x10^3/uL (0.0-0.2) 0.0 x10^3/uL (0.0-0.2) Segmented Neutrophils % 97 % (35-66) Lymphocytes % 3 % (24-48) Platelet Estimate Adequate (ADEQUATE) Large Platelets Occ Sodium Level 137 mmol/L (136-145) 143 mmol/L (136-145) Potassium Level 4.0 mmol/L (3.5-5.1) 4.3 mmol/L (3.5-5.1) Chloride Level 102 mmol/L (98-107) 106 mmol/L (98-107) Carbon Dioxide Level 26 mmol/L (21-32) 26 mmol/L (21-32) Anion Gap 9 (6-14) 11 (6-14) Blood Urea Nitrogen 10 mg/dL (7-20) 13 mg/dL (7-20) Creatinine 0.7 mg/dL (0.6-1.0) 0.9 mg/dL (0.6-1.0) Estimated GFR (Cockcroft-Gault) 80.1 59.9 Glucose Level 201 mg/dL (70-99) 158 mg/dL (70-99) Calcium Level 8.6 mg/dL (8.5-10.1) 8.9 mg/dL (8.5-10.1) BUN/Creatinine Ratio 14 (6-20) Magnesium Level 2.1 mg/dL (1.8-2.4) Total Bilirubin 0.2 mg/dL (0.2-1.0) Aspartate Amino Transf (AST/SGOT) 15 U/L (15-37) Alanine Aminotransferase (ALT/SGPT) 16 U/L (14-59) Alkaline Phosphatase 130 U/L (46-116) Total Protein 6.7 g/dL (6.4-8.2) Albumin 2.9 g/dL (3.4-5.0) Albumin/Globulin Ratio 0.8 (1.0-1.7) Glucose (Fingerstick) 142 mg/dL (70-99) Laboratory Tests Test 05/14/18 07:20 05/14/18 07:26 White Blood Count 15.4 x10^3/uL (4.0-11.0) Red Blood Count 3.38 x10^6/uL (3.50-5.40) Hemoglobin 11.1 g/dL (12.0-15.5) Hematocrit 34.0 % (36.0-47.0) Mean Corpuscular Volume 101 fL (79-100) Mean Corpuscular Hemoglobin 33 pg (25-35) Mean Corpuscular Hemoglobin Concent 33 g/dL (31-37) Red Cell Distribution Width 14.9 % (11.5-14.5) Platelet Count 306 x10^3/uL (140-400) Neutrophils (%) (Auto) 93 % (31-73) Lymphocytes (%) (Auto) 4 % (24-48) Monocytes (%) (Auto) 3 % (0-9) Eosinophils (%) (Auto) 0 % (0-3) Basophils (%) (Auto) 0 % (0-3) Neutrophils # (Auto) 14.4 x10^3uL (1.8-7.7) Lymphocytes # (Auto) 0.6 x10^3/uL (1.0-4.8) Monocytes # (Auto) 0.4 x10^3/uL (0.0-1.1) Eosinophils # (Auto) 0.0 x10^3/uL (0.0-0.7) Basophils # (Auto) 0.0 x10^3/uL (0.0-0.2) Sodium Level 143 mmol/L (136-145) Potassium Level 4.3 mmol/L (3.5-5.1) Chloride Level 106 mmol/L (98-107) Carbon Dioxide Level 26 mmol/L (21-32) Anion Gap 11 (6-14) Blood Urea Nitrogen 13 mg/dL (7-20) Creatinine 0.9 mg/dL (0.6-1.0) Estimated GFR (Cockcroft-Gault) 59.9 BUN/Creatinine Ratio 14 (6-20) Glucose Level 158 mg/dL (70-99) Calcium Level 8.9 mg/dL (8.5-10.1) Magnesium Level 2.1 mg/dL (1.8-2.4) Total Bilirubin 0.2 mg/dL (0.2-1.0) Aspartate Amino Transf (AST/SGOT) 15 U/L (15-37) Alanine Aminotransferase (ALT/SGPT) 16 U/L (14-59) Alkaline Phosphatase 130 U/L (46-116) Total Protein 6.7 g/dL (6.4-8.2) Albumin 2.9 g/dL (3.4-5.0) Albumin/Globulin Ratio 0.8 (1.0-1.7) Glucose (Fingerstick) 142 mg/dL (70-99) Meds Current Medications Atorvastatin Calcium (Lipitor) 5 mg QHS PO ; Start 05/14/18 at 21:00 Bisacodyl (Dulcolax Tab) 10 mg DAILY PO ; Start 05/14/18 at 11:00 Dexamethasone Sodium Phosphate (Decadron) 2 mg Q6HRS IV Last administered on 05/14/18at 17:03; Start 05/14/18 at 18:00 Diltiazem HCl (Cardizem 24hr Cd) 180 mg DAILY PO Last administered on 05/14/18at 14:16; Start 05/14/18 at 14:00 Gabapentin (Neurontin) 300 mg HS PO ; Start 05/14/18 at 21:00 Levothyroxine Sodium (Synthroid) 50 mcg DAILY06 PO Last administered on at 10:23; Start 05/14/18 at 10:30 Primidone (Mysoline) 500 mg QHS PO ; Start 05/14/18 at 21:00 Venlafaxine HCl (Effexor Xr) 75 mg DAILY PO Last administered on 05/14/18at 10:23 ; Start 05/14/18 at 10:00 Assessment Assessment 1. Acute right frontal temporoparietal subdural hematoma, status post right central craniotomy with evacuation of subacute subdural hematoma and removal of membranes. 2. Hypertension. 3. Hypothyroidism. 4. Depression. 5. Anxiety. 6. Essential tremors. 7. Hypokalemia, corrected. 8. Carcinoma of breast with left mastectomy. 9. Carcinoma of lung. PLAN: Continue to monitor in ICU. We will advance diet as tolerated when she wakes up. Check with the office list to reconcile medications. Discussed with staff. Recheck labs in a.m. Dr. Frank has seen the patient for neurosurgical evaluation and management. Long-term as well as short-term prognosis of this patient is poor due to her multiple medical problems. For details, please review the orders. acute subdural hematoma - clinically slightly better. Remains confused. Hypertension not controlled Leukocytosis- likely reactive. Recheck labs in a.m. Continue to monitor in intensive care unit. Plan Plan For more details regarding further plans, please refer to the orders. TERESA HOPPER MD May 14, 2018 17:25
[2018-05-14] MEDS: hydrALAZINE 20 MG/ML VIAL. IVP PRN (19:48)
[2018-05-14] MEDS: GABAPENTIN 300 MG CAPSULE. PO SCH ×2 (21:00→21:39)
[2018-05-14] MEDS: ATORVASTATIN CALCIUM 10 MG TABLET. PO SCH (21:38)
[2018-05-14] MEDS: PRIMIDONE 250 MG TABLET PO SCH (21:38)
--- NOTE | 2018-05-14 23:45 | CONS ---
DATE OF CONSULTATION: 05/14/2018 ATTENDING PHYSICIAN: Dr. Tahmina Hernandez. The patient was seen at the request of Dr. Frank for rehab evaluation. HISTORY OF PRESENT ILLNESS: This is an 83-year-old right-handed female with history of carcinoma of breast, lung carcinoma and also essential tremors who fell about 2 weeks ago. Then, another fall about a week ago. The patient had MRI scan of the brain, which revealed a subdural hematoma. The patient was admitted and she underwent a right central craniotomy for evacuation of subdural hematoma. The patient denies any pain right now. She has some headache this morning, but denies any headache right now. She had no bowel movement yet, not passing gasses. The patient with known hypertension, hypothyroidism, status post left mastectomy, also hysterectomy, right chest port placed in the past. The patient is not known allergic to any medication. She lives with her daughter, had two steps to enter the house without railing, but there is also one step inside to manage. She has been using a cane, but still having some problems with her balance prior to the present hospitalization. PHYSICAL EXAMINATION: Today revealed an elderly female. She is alert, oriented to time, place, person and circumstance and follows commands appropriately, moves all 4 extremities voluntarily where she had 4+/5 grade muscle strength with relatively increased weakness in hand intrinsic muscles where she had some degree of muscle atrophy. Negative Tinel sign over median nerve at the wrist and over ulnar nerve at the wrist and elbow and negative Phalen sign at both wrists. Deep tendon reflexes are 1-2+ and symmetrical and she had equal perception of touch and pinprick sensation bilaterally. She had a crepitus on range of motion of her knee joints without any obvious knee joint effusion and she had pain-free range of motion of all four extremity joints. The patient had an indwelling Kenny catheter in place. The patient got up and walked using a roller walker under supervision. She feels somewhat unsteady trying to walk without the walker holding on to my hand. She had multiple skin bruises over her arms and she had dressing to her right frontoparietal area. ASSESSMENT: Mobility and self-care limitation in a patient with frequent falls. The patient with somewhat anxiety and essential tremors. No clinical evidence of peripheral neuropathy. She had degenerative joint disease of both knees without much pain. The patient is status post craniotomy and evacuation of subacute subdural hematoma, right frontotemporoparietal area. The patient postop without any significant deficits other than preexisting balance problems. The patient also with known hypertension, hypothyroidism, carcinoma of the left breast status post mastectomy, carcinoma of lung. RECOMMENDATIONS: Agree with the plan for physical therapy and occupational therapy and work on gait training using a roller walker as she has been falling even with a cane and hopefully home with outpatient followup when medically stable in the next few days. Dr. Frank, I appreciate asking me to participate in the care of this interesting patient. I will be glad to follow her with you as needed for her rehabilitation. ELVIA WARD MD DR: WILLIAM/nts JOB#: [id number] / [id number]
[2018-05-15] VITALS (17 sets, daily range): BP systolic 121–179; BP diastolic 50–84
[2018-05-15 05:18] LABS: BASO # 0.1 x10^3/uL (0.0-0.2); BASO % 1 % (0-3); EOS % 0 % (0-3); HEMATOCRIT 30.7 % (36.0-47.0); HEMOGLOBIN 10.1 g/dL (12.0-15.5); LYMPH # 0.6 x10^3/uL (1.0-4.8); LYMPH % 4 % (24-48); MEAN CORPUSCULAR HEMOGLOBIN 33 pg (25-35); MEAN CORPUSCULAR HGB CONC 33 g/dL (31-37); MEAN CORPUSCULAR VOLUME 100 fL (79-100); MONO # 0.7 x10^3/uL (0.0-1.1); MONO % 5 % (0-9); NEUT % 90 % (31-73); PLATELET COUNT 263 x10^3/uL (140-400); RED BLOOD COUNT 3.07 x10^6/uL (3.50-5.40); RED CELL DISTRIBUTION WIDTH 15.1 % (11.5-14.5); WHITE BLOOD COUNT 13.4 x10^3/uL (4.0-11.0)
[2018-05-15 05:43] LABS: ALBUMIN 2.8 g/dL (3.4-5.0); ALBUMIN/GLOBULIN RATIO 0.9 (1.0-1.7); CALCIUM 8.7 mg/dL (8.5-10.1); CREATININE 0.8 mg/dL (0.6-1.0); GFR 68.7; POTASSIUM 4.3 mmol/L (3.5-5.1); TOTAL BILIRUBIN 0.2 mg/dL (0.2-1.0)
[2018-05-15] MEDS: LEVOTHYROXINE 50 MCG TABLET PO SCH (06:30)
[2018-05-15] MEDS: DEXAMETHASONE SOD PHOS 4 MG/ML VIAL IV SCH ×3 (06:30→17:02)
[2018-05-15] MEDS: BISACODYL 5 MG TABLET.DR. PO SCH (09:00)
[2018-05-15] MEDS: VENLAFAXINE XR 37.5 MG CAP.ER.24H. PO SCH (09:00)
[2018-05-15] MEDS: DOCUSATE SODIUM 100 MG CAPSULE. PO SCH ×2 (09:01→20:54)
[2018-05-15] MEDS: hydrALAZINE 20 MG/ML VIAL. IVP PRN (09:17)
[2018-05-15] MEDS: LABETALOL 20 MG/4 ML DISP.SYRIN. IVP PRN (11:21)
--- NOTE | 2018-05-15 12:33 | PDOC ---
PROGRESS NOTES Subjective Subjective No complaints. She is eager to go home. Objective Objective Vital Signs Date Time Temp Pulse Resp B/P (MAP) Pulse Ox O2 Delivery O2 Flow Rate FiO2 05/15/18 11:21 86 166/81 05/15/18 11:00 18 97 Room Air 05/15/18 08:00 98.2 98.2 05/14/18 04:00 2.0 Intake and Output 05/15/18 06:59 Intake Total 2660 ml Output Total 1800 ml Balance 860 ml Intake Oral 2660 ml Output Urine Total 1800 ml # Voids 5 Physical Exam Physical Exam She is awake and she is walking with roller walker under supervision and some what impulsive at times.She is voiding well and no bowel movemwnt yet. Physical, occupational and speech pathology want s her to go to inpatient rehab at rehab center level. Assessment Assessment Problems Medical Problems: (1) Subdural hematoma Status: Acute Plan Plan of Care To rehab unit when medically stable. Comment Review of Relevant I have reviewed the following items malcolm (where applicable) has been applied. Labs Laboratory Tests Test 05/14/18 07:20 05/14/18 07:26 05/15/18 05:10 White Blood Count 15.4 x10^3/uL (4.0-11.0) 13.4 x10^3/uL (4.0-11.0) Red Blood Count 3.38 x10^6/uL (3.50-5.40) 3.07 x10^6/uL (3.50-5.40) Hemoglobin 11.1 g/dL (12.0-15.5) 10.1 g/dL (12.0-15.5) Hematocrit 34.0 % (36.0-47.0) 30.7 % (36.0-47.0) Mean Corpuscular Volume 101 fL (79-100) 100 fL (79-100) Mean Corpuscular Hemoglobin 33 pg (25-35) 33 pg (25-35) Mean Corpuscular Hemoglobin Concent 33 g/dL (31-37) 33 g/dL (31-37) Red Cell Distribution Width 14.9 % (11.5-14.5) 15.1 % (11.5-14.5) Platelet Count 306 x10^3/uL (140-400) 263 x10^3/uL (140-400) Neutrophils (%) (Auto) 93 % (31-73) 90 % (31-73) Lymphocytes (%) (Auto) 4 % (24-48) 4 % (24-48) Monocytes (%) (Auto) 3 % (0-9) 5 % (0-9) Eosinophils (%) (Auto) 0 % (0-3) 0 % (0-3) Basophils (%) (Auto) 0 % (0-3) 1 % (0-3) Neutrophils # (Auto) 14.4 x10^3uL (1.8-7.7) 12.0 x10^3uL (1.8-7.7) Lymphocytes # (Auto) 0.6 x10^3/uL (1.0-4.8) 0.6 x10^3/uL (1.0-4.8) Monocytes # (Auto) 0.4 x10^3/uL (0.0-1.1) 0.7 x10^3/uL (0.0-1.1) Eosinophils # (Auto) 0.0 x10^3/uL (0.0-0.7) 0.0 x10^3/uL (0.0-0.7) Basophils # (Auto) 0.0 x10^3/uL (0.0-0.2) 0.1 x10^3/uL (0.0-0.2) Sodium Level 143 mmol/L (136-145) 145 mmol/L (136-145) Potassium Level 4.3 mmol/L (3.5-5.1) 4.3 mmol/L (3.5-5.1) Chloride Level 106 mmol/L (98-107) 108 mmol/L (98-107) Carbon Dioxide Level 26 mmol/L (21-32) 28 mmol/L (21-32) Anion Gap 11 (6-14) 9 (6-14) Blood Urea Nitrogen 13 mg/dL (7-20) 14 mg/dL (7-20) Creatinine 0.9 mg/dL (0.6-1.0) 0.8 mg/dL (0.6-1.0) Estimated GFR (Cockcroft-Gault) 59.9 68.7 BUN/Creatinine Ratio 14 (6-20) 18 (6-20) Glucose Level 158 mg/dL (70-99) 137 mg/dL (70-99) Calcium Level 8.9 mg/dL (8.5-10.1) 8.7 mg/dL (8.5-10.1) Magnesium Level 2.1 mg/dL (1.8-2.4) Total Bilirubin 0.2 mg/dL (0.2-1.0) 0.2 mg/dL (0.2-1.0) Aspartate Amino Transf (AST/SGOT) 15 U/L (15-37) 18 U/L (15-37) Alanine Aminotransferase (ALT/SGPT) 16 U/L (14-59) 22 U/L (14-59) Alkaline Phosphatase 130 U/L (46-116) 119 U/L (46-116) Total Protein 6.7 g/dL (6.4-8.2) 6.0 g/dL (6.4-8.2) Albumin 2.9 g/dL (3.4-5.0) 2.8 g/dL (3.4-5.0) Albumin/Globulin Ratio 0.8 (1.0-1.7) 0.9 (1.0-1.7) Glucose (Fingerstick) 142 mg/dL (70-99) Laboratory Tests Test 05/15/18 05:10 White Blood Count 13.4 x10^3/uL (4.0-11.0) Red Blood Count 3.07 x10^6/uL (3.50-5.40) Hemoglobin 10.1 g/dL (12.0-15.5) Hematocrit 30.7 % (36.0-47.0) Mean Corpuscular Volume 100 fL (79-100) Mean Corpuscular Hemoglobin 33 pg (25-35) Mean Corpuscular Hemoglobin Concent 33 g/dL (31-37) Red Cell Distribution Width 15.1 % (11.5-14.5) Platelet Count 263 x10^3/uL (140-400) Neutrophils (%) (Auto) 90 % (31-73) Lymphocytes (%) (Auto) 4 % (24-48) Monocytes (%) (Auto) 5 % (0-9) Eosinophils (%) (Auto) 0 % (0-3) Basophils (%) (Auto) 1 % (0-3) Neutrophils # (Auto) 12.0 x10^3uL (1.8-7.7) Lymphocytes # (Auto) 0.6 x10^3/uL (1.0-4.8) Monocytes # (Auto) 0.7 x10^3/uL (0.0-1.1) Eosinophils # (Auto) 0.0 x10^3/uL (0.0-0.7) Basophils # (Auto) 0.1 x10^3/uL (0.0-0.2) Sodium Level 145 mmol/L (136-145) Potassium Level 4.3 mmol/L (3.5-5.1) Chloride Level 108 mmol/L (98-107) Carbon Dioxide Level 28 mmol/L (21-32) Anion Gap 9 (6-14) Blood Urea Nitrogen 14 mg/dL (7-20) Creatinine 0.8 mg/dL (0.6-1.0) Estimated GFR (Cockcroft-Gault) 68.7 BUN/Creatinine Ratio 18 (6-20) Glucose Level 137 mg/dL (70-99) Calcium Level 8.7 mg/dL (8.5-10.1) Total Bilirubin 0.2 mg/dL (0.2-1.0) Aspartate Amino Transf (AST/SGOT) 18 U/L (15-37) Alanine Aminotransferase (ALT/SGPT) 22 U/L (14-59) Alkaline Phosphatase 119 U/L (46-116) Total Protein 6.0 g/dL (6.4-8.2) Albumin 2.8 g/dL (3.4-5.0) Albumin/Globulin Ratio 0.9 (1.0-1.7) Medications Current Medications Bacitracin 84007 unit/Sodium Chloride 1,000 ml @ 1,000 mls/hr 1X ONCE IRR Last administered on 05/12/18at 15:58; Start 05/12/18 at 14:00; Stop 05/12/18 at 14: 59; Status DC Ondansetron HCl (Zofran) 4 mg PRN Q6HRS PRN IV NAUSEA/VOMITING; Start 05/12/18 at 14:00; Stop 05/13/18 at 13:59; Status DC Fentanyl Citrate (Fentanyl 2ml Vial) 25 mcg PRN Q5MIN PRN IV MILD PAIN Last administered on 05/12/18at 19:55; Start 05/12/18 at 14:00; Stop 05/13/18 at 01:57; Status DC Fentanyl Citrate (Fentanyl 2ml Vial) 50 mcg PRN Q5MIN PRN IV MODERATE TO SEVERE PAIN; Start 05/12/18 at 14:00; Stop 05/13/18 at 01:57; Status DC Morphine Sulfate (Morphine Sulfate) 1 mg PRN Q10MIN PRN IV SEVERE PAIN; Start 05/12/18 at 14:00; Stop 05/13/18 at 01:57; Status DC Ringer's Solution 1,000 ml @ 30 mls/hr Q24H IV ; Start 05/12/18 at 13:46; Stop 05/13/18 at 01:45; Status DC Lidocaine HCl (Xylocaine-Mpf 1% 2ml Vial) 2 ml PRN 1X PRN ID PRIOR TO IV START ; Start 05/12/18 at 14:00; Stop 05/13/18 at 13:59; Status DC Hydromorphone HCl (Dilaudid) 0.5 mg PRN Q10MIN PRN IV SEV PAIN, Second choice; Start 05/12/18 at 14:00; Stop 05/13/18 at 01:57; Status DC Prochlorperazine Edisylate (Compazine) 5 mg PACU PRN PRN IV NAUSEA, MRX1; Start 05/12/18 at 14:00; Stop 05/13/18 at 13:59; Status DC Lidocaine HCl (Lidocaine Pf 2% Vial) 5 ml STK-MED ONCE .ROUTE ; Start 05/12/18 at 14:07; Stop 05/12/18 at 14:08; Status DC Sodium Chloride (SODIUM CHLORIDE 20ml) 20 ml STK-MED ONCE IJ ; Start 05/12/18 at 14:07; Stop 05/12/18 at 14:08; Status DC Propofol 20 ml @ As Directed STK-MED ONCE IV ; Start 05/12/18 at 14:07; Stop 05/12 at 14:08; Status DC Ondansetron HCl (Zofran) 4 mg STK-MED ONCE .ROUTE ; Start 05/12/18 at 14:07; Stop 05/12/18 at 14:08; Status DC Famotidine (Pepcid Vial) 20 mg STK-MED ONCE .ROUTE ; Start 05/12/18 at 14:07; Stop 05/12/18 at 14:08; Status DC Dexamethasone Sodium Phosphate (Decadron) 20 mg STK-MED ONCE .ROUTE ; Start 05/12 at 14:07; Stop 05/12/18 at 14:08; Status DC Propofol 50 ml @ As Directed STK-MED ONCE IV ; Start 05/12/18 at 14:07; Stop 05/12 at 14:08; Status DC Gelatin (Gelfoam Size 100) 1 each STK-MED ONCE .ROUTE Last administered on 05/12at 15:50; Start 05/12/18 at 13:11; Stop 05/12/18 at 14:11; Status DC Bupivacaine HCl/ Epinephrine Bitart (Sensorcain-Mpf Epi 0.5%-1:[id number]) 30 ml STK -MED ONCE .ROUTE Last administered on 05/12/18at 15:48; Start 05/12/18 at 13:11; Stop 05/12/18 at 14:11; Status DC Remifentanil HCl (Ultiva) 2 mg STK-MED ONCE IV ; Start 05/12/18 at 14:11; Stop at 14:12; Status DC Thrombin 20,000 unit STK-MED ONCE TP Last administered on 05/12/18at 15:56; Start 05/12/18 at 13:11; Stop 05/12/18 at 14:12; Status DC Fentanyl Citrate (Fentanyl 2ml Vial) 100 mcg STK-MED ONCE .ROUTE ; Start at 14:11; Stop 05/12/18 at 14:12; Status DC Rocuronium [place] (Zemuron) 50 mg STK-MED ONCE .ROUTE ; Start 05/12/18 at 14:13 ; Stop 05/12/18 at 14:14; Status DC Sodium Chloride (SODIUM CHLORIDE 20ml) 20 ml STK-MED ONCE IJ ; Start 05/12/18 at 14:13; Stop 05/12/18 at 14:14; Status DC Cefazolin Sodium/ Dextrose 50 ml @ 100 mls/hr 1X PREOP PRN IV PRIOR TO PROCEDURE Last administered on 05/12/18at 15:05; Start 05/12/18 at 14:45; Stop 05/13 at 14:44; Status DC Sevoflurane (Ultane) 90 ml STK-MED ONCE IH ; Start 05/12/18 at 14:58; Stop at 14:59; Status DC Phenylephrine HCl (PHENYLEPHRINE in 0.9% NACL PF) 1 mg STK-MED ONCE IV ; Start 05/12/18 at 15:12; Stop 05/12/18 at 15:13; Status DC Cefazolin Sodium/ Dextrose 50 ml @ 100 mls/hr 1X ONCE IV ; Start 05/12/18 at 15 :15; Stop 05/12/18 at 15:16; Status DC Phenylephrine HCl (Zane-Synephrine Inj) 10 mg STK-MED ONCE .ROUTE ; Start at 15:52; Stop 05/12/18 at 15:53; Status DC Phenylephrine HCl (Zane-Synephrine Inj) 10 mg STK-MED ONCE .ROUTE ; Start at 15:52; Stop 05/12/18 at 15:53; Status DC Glycopyrrolate (Robinul) 1 mg STK-MED ONCE .ROUTE ; Start 05/12/18 at 16:07; Stop 05/12/18 at 16:08; Status DC Neostigmine Methylsulfate (Neostigmine Methylsulfate) 5 mg STK-MED ONCE .ROUTE ; Start 05/12/18 at 16:07; Stop 05/12/18 at 16:08; Status DC Dexamethasone Sodium Phosphate (Decadron) 4 mg Q6HRS IV Last administered on 05/14/18at 12:18; Start 05/12/18 at 18:00; Stop 05/14/18 at 14:01; Status DC Labetalol HCl (Normodyne Iv Push) 5 mg PRN Q15MIN PRN IVP HYPERTENSION, SEE COMMENTS Last administered on 05/15/18at 11:21; Start 05/12/18 at 16:30 Nicardipine HCl 50 mg/Sodium Chloride 250 ml @ 25 mls/hr TITRATE PRN IV PER PROTOCOL Last administered on 05/13/18at 07:36; Start 05/12/18 at 16:30 Al Hydroxide/Mg Hydroxide (Mylanta Plus Xs) 30 ml PRN Q3HRS PRN PO HEARTBURN / GAS; Start 05/12/18 at 16:30 Calcium Carbonate/ Glycine (Tums) 500 mg PRN Q3HRS PRN PO INDIGESTION; Start at 16:30 Diphenhydramine HCl (Benadryl) 25 mg PRN Q6HRS PRN PO ITCHING; Start 05/12/18 at 16:30 Sodium Chloride (Normal Saline Flush) 3 ml QSHIFT PRN IV AFTER MEDS AND BLOOD DRAWS; Start 05/12/18 at 16:30 Potassium Chloride/Dextrose/ Sod Cl 1,000 ml @ 75 mls/hr [id number] IV Last administered on 05/13/18at 21:45; Start 05/12/18 at 17:00; Stop 05/14/18 at 09:01; Status DC Dextrose (Dextrose 50%-Water Syringe) 12.5 gm PRN Q15MIN PRN IV SEE COMMENTS; Start 05/12/18 at 16:30 Acetaminophen/ Hydrocodone Bitart (Lortab 5/325) 1 tab PRN Q4HRS PRN PO MILD PAIN Last administered on 05/12/18at 20:40; Start 05/12/18 at 16:30 Acetaminophen (Tylenol) 650 mg PRN Q6HRS PRN PO Headaches, Temp > 101.5F Last administered on 05/14/18at 08:51; Start 05/12/18 at 16:30 Docusate Sodium (Colace) 100 mg BID PO Last administered on 05/15/18at 09:01; Start 05/12/18 at 21:00 Magnesium Hydroxide (Milk Of Magnesia) 2,400 mg PRN Q12HR PRN PO CONSTIPATION; Start 05/12/18 at 16:30 Cefazolin Sodium 1 gm/Dextrose 50 ml @ 100 mls/hr Q8H IV Last administered on 05/13/18at 14:44; Start 05/12/18 at 23:00; Stop 05/13/18 at 15:29; Status DC Fentanyl Citrate (Fentanyl 2ml Vial) 25 mcg PRN Q2HR PRN IV PAIN MILD TO MOD; Start 05/12/18 at 16:30 Fentanyl Citrate (Fentanyl 2ml Vial) 50 mcg PRN Q2HR PRN IV PAIN SEVERE Last administered on 05/14/18at 00:24; Start 05/12/18 at 16:30 Gabapentin (Neurontin) 300 mg HS PO ; Start 05/14/18 at 21:00 Levothyroxine Sodium (Synthroid) 50 mcg DAILY06 PO Last administered on 06:30; Start 05/14/18 at 10:30 Atorvastatin Calcium (Lipitor) 5 mg QHS PO Last administered on 05/14/18 21:38 ; Start 05/14/18 at 21:00 Primidone (Mysoline) 500 mg QHS PO Last administered on 05/14/18 21:38; Start 05/14/18 at 21:00 Venlafaxine HCl (Effexor Xr) 75 mg DAILY PO Last administered on 05/15/18 09:00 ; Start 05/14/18 at 10:00 Bisacodyl (Dulcolax Tab) 10 mg DAILY PO Last administered on 05/15/18 09:00; Start 05/14/18 at 11:00 Diltiazem HCl (Cardizem 24hr Cd) 180 mg DAILY PO Last administered on 05/15/18 09:01; Start 05/14/18 at 14:00 Dexamethasone Sodium Phosphate (Decadron) 2 mg Q6HRS IV Last administered on 12:22; Start 05/14/18 at 18:00 Hydralazine HCl (Apresoline Inj) 10 mg PRN Q4HRS PRN IVP ELEVATED BP, SEE COMMENTS Last administered on 05/15/18 09:17; Start 05/14/18 at 18:30 Active Scripts Active Reported Mysoline (Primidone) 250 Mg Tablet 500 Mg PO QHS Gabapentin 300 Mg Capsule 300 Mg PO HS Effexor Xr (Venlafaxine Hcl) 150 Mg Cap.er.24h 1 Cap PO DAILY Folic Acid 1 Mg Tablet 1 Tab PO DAILY Aspirin 81 Mg Tab.chew 1 Tab PO DAILY Asmanex (Mometasone Furoate) 220 Mcg Aer.pow.ba 200 Mcg INH BID Primidone 250 Mg Tablet 250 Mg PO EVENING DAILY Pravastatin Sodium 20 Mg Tablet 1 Tab PO DAILY Cartia Xt (Diltiazem Hcl) 180 Mg Cap.er.24h 180 Mg PO Levothyroxine Sodium 50 Mcg Tablet 1 Tab PO DAILY Venlafaxine Hcl Er (Venlafaxine Hcl) 75 Mg Cap.er.24h 1 Cap PO DAILY Vitals/I & O Vital Sign - Last 24 Hours 05/14/18 05/14/18 05/14/18 05/14/18 13:00 13:05 13:29 14:00 Pulse 80 84 84 77 Resp 20 20 B/P (MAP) 149/71 (97) 158/78 153/69 153/71 (98) Pulse Ox 95 95 O2 Delivery Room Air Room Air 05/14/18 05/14/18 05/14/18 05/14/18 14:16 15:00 15:06 16:00 Pulse 82 83 82 Resp 22 B/P (MAP) 153/67 170/78 (108) 170/78 Pulse Ox 94 O2 Delivery Room Air Room Air 05/14/18 05/14/18 05/14/18 05/14/18 16:00 17:00 18:00 19:00 Temp 97.9 97.9 Pulse 83 86 77 84 Resp 20 20 18 15 B/P (MAP) 164/75 (104) 184/92 (122) 173/96 (121) 167/82 (110) Pulse Ox 92 96 95 97 O2 Delivery Room Air Room Air Room Air Room Air 05/14/18 05/14/18 05/14/18 05/14/18 19:48 20:00 20:30 21:13 Temp 98.5 98.5 Pulse 83 84 83 Resp 24 22 B/P (MAP) 184/81 165/92 (116) 171/73 (105) Pulse Ox 96 97 O2 Delivery Room Air Room Air Room Air 05/14/18 05/14/18 05/14/18 05/14/18 21:44 22:09 23:07 23:56 Temp 98.5 98.5 Pulse 88 82 79 80 Resp 21 14 22 B/P (MAP) 149/73 148/62 (90) 121/60 (80) 166/77 (106) Pulse Ox 96 95 96 O2 Delivery Room Air Room Air Room Air 05/14/18 05/15/18 05/15/18 05/15/18 23:57 01:17 02:30 03:25 Pulse 74 73 81 Resp 19 12 13 B/P (MAP) 137/50 (79) 153/74 (100) 148/65 (92) Pulse Ox 93 95 96 O2 Delivery Room Air Room Air Room Air Room Air 05/15/18 05/15/18 05/15/18 05/15/18 04:07 04:28 05:14 06:07 Temp 98.1 98.1 Pulse 73 70 77 Resp 13 16 15 B/P (MAP) 149/74 (99) 147/71 (96) 159/73 (101) Pulse Ox 96 95 95 O2 Delivery Room Air Room Air Room Air Room Air 05/15/18 05/15/18 05/15/18 05/15/18 07:00 08:00 08:00 09:00 Temp 98.2 98.2 Pulse 67 67 72 Resp 13 15 16 B/P (MAP) 121/56 (77) 123/61 (81) 138/59 (85) Pulse Ox 94 95 97 O2 Delivery Room Air Room Air Room Air Room Air 05/15/18 05/15/18 05/15/18 05/15/18 09:01 09:17 10:00 11:00 Pulse 71 77 85 87 Resp 14 18 B/P (MAP) 138/59 185/96 169/60 (96) 166/72 (103) Pulse Ox 98 97 O2 Delivery Room Air Room Air 05/15/18 11:21 Pulse 86 B/P (MAP) 166/81 Intake and Output 05/14/18 05/14/18 05/15/18 14:59 22:59 06:59 Intake Total 1380 ml 1280 ml 0 ml Output Total 600 ml 600 ml 600 ml Balance 780 ml 680 ml -600 ml ELVIA WARD MD May 15, 2018 12:33
--- NOTE | 2018-05-15 12:37 | PDOC ---
PROGRESS NOTES Subjective Subjective Up in chair denies headache eating well no complaints Objective Objective Vital Signs Date Time Temp Pulse Resp B/P (MAP) Pulse Ox O2 Delivery O2 Flow Rate FiO2 05/15/18 11:21 86 166/81 05/15/18 11:00 18 97 Room Air 05/15/18 08:00 98.2 98.2 05/14/18 04:00 2.0 Intake and Output 05/15/18 07:00 Intake Total 2480 ml Output Total 1600 ml Balance 880 ml Intake Oral 2480 ml Output Urine Total 1600 ml # Voids 5 Physical Exam General: Alert, Cooperative, No acute distress MUSCULOSKELETAL: Other (DAIGLE) Neuro: Normal speech Skin: Other (dressing C,D,I) Assessment Assessment Problems Medical Problems: (1) Subdural hematoma Status: Acute Plan Plan of Care may transfer to floor when BP controlled with oral agents PT encouraged increased activity as tolerated d/w RN Comment Review of Relevant I have reviewed the following items malcolm (where applicable) has been applied. Labs Laboratory Tests Test 05/14/18 07:20 05/14/18 07:26 05/15/18 05:10 White Blood Count 15.4 x10^3/uL (4.0-11.0) 13.4 x10^3/uL (4.0-11.0) Red Blood Count 3.38 x10^6/uL (3.50-5.40) 3.07 x10^6/uL (3.50-5.40) Hemoglobin 11.1 g/dL (12.0-15.5) 10.1 g/dL (12.0-15.5) Hematocrit 34.0 % (36.0-47.0) 30.7 % (36.0-47.0) Mean Corpuscular Volume 101 fL (79-100) 100 fL (79-100) Mean Corpuscular Hemoglobin 33 pg (25-35) 33 pg (25-35) Mean Corpuscular Hemoglobin Concent 33 g/dL (31-37) 33 g/dL (31-37) Red Cell Distribution Width 14.9 % (11.5-14.5) 15.1 % (11.5-14.5) Platelet Count 306 x10^3/uL (140-400) 263 x10^3/uL (140-400) Neutrophils (%) (Auto) 93 % (31-73) 90 % (31-73) Lymphocytes (%) (Auto) 4 % (24-48) 4 % (24-48) Monocytes (%) (Auto) 3 % (0-9) 5 % (0-9) Eosinophils (%) (Auto) 0 % (0-3) 0 % (0-3) Basophils (%) (Auto) 0 % (0-3) 1 % (0-3) Neutrophils # (Auto) 14.4 x10^3uL (1.8-7.7) 12.0 x10^3uL (1.8-7.7) Lymphocytes # (Auto) 0.6 x10^3/uL (1.0-4.8) 0.6 x10^3/uL (1.0-4.8) Monocytes # (Auto) 0.4 x10^3/uL (0.0-1.1) 0.7 x10^3/uL (0.0-1.1) Eosinophils # (Auto) 0.0 x10^3/uL (0.0-0.7) 0.0 x10^3/uL (0.0-0.7) Basophils # (Auto) 0.0 x10^3/uL (0.0-0.2) 0.1 x10^3/uL (0.0-0.2) Sodium Level 143 mmol/L (136-145) 145 mmol/L (136-145) Potassium Level 4.3 mmol/L (3.5-5.1) 4.3 mmol/L (3.5-5.1) Chloride Level 106 mmol/L (98-107) 108 mmol/L (98-107) Carbon Dioxide Level 26 mmol/L (21-32) 28 mmol/L (21-32) Anion Gap 11 (6-14) 9 (6-14) Blood Urea Nitrogen 13 mg/dL (7-20) 14 mg/dL (7-20) Creatinine 0.9 mg/dL (0.6-1.0) 0.8 mg/dL (0.6-1.0) Estimated GFR (Cockcroft-Gault) 59.9 68.7 BUN/Creatinine Ratio 14 (6-20) 18 (6-20) Glucose Level 158 mg/dL (70-99) 137 mg/dL (70-99) Calcium Level 8.9 mg/dL (8.5-10.1) 8.7 mg/dL (8.5-10.1) Magnesium Level 2.1 mg/dL (1.8-2.4) Total Bilirubin 0.2 mg/dL (0.2-1.0) 0.2 mg/dL (0.2-1.0) Aspartate Amino Transf (AST/SGOT) 15 U/L (15-37) 18 U/L (15-37) Alanine Aminotransferase (ALT/SGPT) 16 U/L (14-59) 22 U/L (14-59) Alkaline Phosphatase 130 U/L (46-116) 119 U/L (46-116) Total Protein 6.7 g/dL (6.4-8.2) 6.0 g/dL (6.4-8.2) Albumin 2.9 g/dL (3.4-5.0) 2.8 g/dL (3.4-5.0) Albumin/Globulin Ratio 0.8 (1.0-1.7) 0.9 (1.0-1.7) Glucose (Fingerstick) 142 mg/dL (70-99) Laboratory Tests Test 05/15/18 05:10 White Blood Count 13.4 x10^3/uL (4.0-11.0) Red Blood Count 3.07 x10^6/uL (3.50-5.40) Hemoglobin 10.1 g/dL (12.0-15.5) Hematocrit 30.7 % (36.0-47.0) Mean Corpuscular Volume 100 fL (79-100) Mean Corpuscular Hemoglobin 33 pg (25-35) Mean Corpuscular Hemoglobin Concent 33 g/dL (31-37) Red Cell Distribution Width 15.1 % (11.5-14.5) Platelet Count 263 x10^3/uL (140-400) Neutrophils (%) (Auto) 90 % (31-73) Lymphocytes (%) (Auto) 4 % (24-48) Monocytes (%) (Auto) 5 % (0-9) Eosinophils (%) (Auto) 0 % (0-3) Basophils (%) (Auto) 1 % (0-3) Neutrophils # (Auto) 12.0 x10^3uL (1.8-7.7) Lymphocytes # (Auto) 0.6 x10^3/uL (1.0-4.8) Monocytes # (Auto) 0.7 x10^3/uL (0.0-1.1) Eosinophils # (Auto) 0.0 x10^3/uL (0.0-0.7) Basophils # (Auto) 0.1 x10^3/uL (0.0-0.2) Sodium Level 145 mmol/L (136-145) Potassium Level 4.3 mmol/L (3.5-5.1) Chloride Level 108 mmol/L (98-107) Carbon Dioxide Level 28 mmol/L (21-32) Anion Gap 9 (6-14) Blood Urea Nitrogen 14 mg/dL (7-20) Creatinine 0.8 mg/dL (0.6-1.0) Estimated GFR (Cockcroft-Gault) 68.7 BUN/Creatinine Ratio 18 (6-20) Glucose Level 137 mg/dL (70-99) Calcium Level 8.7 mg/dL (8.5-10.1) Total Bilirubin 0.2 mg/dL (0.2-1.0) Aspartate Amino Transf (AST/SGOT) 18 U/L (15-37) Alanine Aminotransferase (ALT/SGPT) 22 U/L (14-59) Alkaline Phosphatase 119 U/L (46-116) Total Protein 6.0 g/dL (6.4-8.2) Albumin 2.8 g/dL (3.4-5.0) Albumin/Globulin Ratio 0.9 (1.0-1.7) Medications Current Medications Bacitracin 79775 unit/Sodium Chloride 1,000 ml @ 1,000 mls/hr 1X ONCE IRR Last administered on 05/12/18at 15:58; Start 05/12/18 at 14:00; Stop 05/12/18 at 14: 59; Status DC Ondansetron HCl (Zofran) 4 mg PRN Q6HRS PRN IV NAUSEA/VOMITING; Start 05/12/18 at 14:00; Stop 05/13/18 at 13:59; Status DC Fentanyl Citrate (Fentanyl 2ml Vial) 25 mcg PRN Q5MIN PRN IV MILD PAIN Last administered on 05/12/18at 19:55; Start 05/12/18 at 14:00; Stop 05/13/18 at 01:57; Status DC Fentanyl Citrate (Fentanyl 2ml Vial) 50 mcg PRN Q5MIN PRN IV MODERATE TO SEVERE PAIN; Start 05/12/18 at 14:00; Stop 05/13/18 at 01:57; Status DC Morphine Sulfate (Morphine Sulfate) 1 mg PRN Q10MIN PRN IV SEVERE PAIN; Start 05/12/18 at 14:00; Stop 05/13/18 at 01:57; Status DC Ringer's Solution 1,000 ml @ 30 mls/hr Q24H IV ; Start 05/12/18 at 13:46; Stop 05/13/18 at 01:45; Status DC Lidocaine HCl (Xylocaine-Mpf 1% 2ml Vial) 2 ml PRN 1X PRN ID PRIOR TO IV START ; Start 05/12/18 at 14:00; Stop 05/13/18 at 13:59; Status DC Hydromorphone HCl (Dilaudid) 0.5 mg PRN Q10MIN PRN IV SEV PAIN, Second choice; Start 05/12/18 at 14:00; Stop 05/13/18 at 01:57; Status DC Prochlorperazine Edisylate (Compazine) 5 mg PACU PRN PRN IV NAUSEA, MRX1; Start 05/12/18 at 14:00; Stop 05/13/18 at 13:59; Status DC Lidocaine HCl (Lidocaine Pf 2% Vial) 5 ml STK-MED ONCE .ROUTE ; Start 05/12/18 at 14:07; Stop 05/12/18 at 14:08; Status DC Sodium Chloride (SODIUM CHLORIDE 20ml) 20 ml STK-MED ONCE IJ ; Start 05/12/18 at 14:07; Stop 05/12/18 at 14:08; Status DC Propofol 20 ml @ As Directed STK-MED ONCE IV ; Start 05/12/18 at 14:07; Stop 05/12 at 14:08; Status DC Ondansetron HCl (Zofran) 4 mg STK-MED ONCE .ROUTE ; Start 05/12/18 at 14:07; Stop 05/12/18 at 14:08; Status DC Famotidine (Pepcid Vial) 20 mg STK-MED ONCE .ROUTE ; Start 05/12/18 at 14:07; Stop 05/12/18 at 14:08; Status DC Dexamethasone Sodium Phosphate (Decadron) 20 mg STK-MED ONCE .ROUTE ; Start 05/12 at 14:07; Stop 05/12/18 at 14:08; Status DC Propofol 50 ml @ As Directed STK-MED ONCE IV ; Start 05/12/18 at 14:07; Stop 05/12 at 14:08; Status DC Gelatin (Gelfoam Size 100) 1 each STK-MED ONCE .ROUTE Last administered on 05/12at 15:50; Start 05/12/18 at 13:11; Stop 05/12/18 at 14:11; Status DC Bupivacaine HCl/ Epinephrine Bitart (Sensorcain-Mpf Epi 0.5%-1:[id number]) 30 ml STK -MED ONCE .ROUTE Last administered on 05/12/18at 15:48; Start 05/12/18 at 13:11; Stop 05/12/18 at 14:11; Status DC Remifentanil HCl (Ultiva) 2 mg STK-MED ONCE IV ; Start 05/12/18 at 14:11; Stop at 14:12; Status DC Thrombin 20,000 unit STK-MED ONCE TP Last administered on 05/12/18at 15:56; Start 05/12/18 at 13:11; Stop 05/12/18 at 14:12; Status DC Fentanyl Citrate (Fentanyl 2ml Vial) 100 mcg STK-MED ONCE .ROUTE ; Start at 14:11; Stop 05/12/18 at 14:12; Status DC Rocuronium Ashley (Zemuron) 50 mg STK-MED ONCE .ROUTE ; Start 05/12/18 at 14:13 ; Stop 05/12/18 at 14:14; Status DC Sodium Chloride (SODIUM CHLORIDE 20ml) 20 ml STK-MED ONCE IJ ; Start 05/12/18 at 14:13; Stop 05/12/18 at 14:14; Status DC Cefazolin Sodium/ Dextrose 50 ml @ 100 mls/hr 1X PREOP PRN IV PRIOR TO PROCEDURE Last administered on 05/12/18at 15:05; Start 05/12/18 at 14:45; Stop 05/13 at 14:44; Status DC Sevoflurane (Ultane) 90 ml STK-MED ONCE IH ; Start 05/12/18 at 14:58; Stop at 14:59; Status DC Phenylephrine HCl (PHENYLEPHRINE in 0.9% NACL PF) 1 mg STK-MED ONCE IV ; Start 05/12/18 at 15:12; Stop 05/12/18 at 15:13; Status DC Cefazolin Sodium/ Dextrose 50 ml @ 100 mls/hr 1X ONCE IV ; Start 05/12/18 at 15 :15; Stop 05/12/18 at 15:16; Status DC Phenylephrine HCl (Zane-Synephrine Inj) 10 mg STK-MED ONCE .ROUTE ; Start at 15:52; Stop 05/12/18 at 15:53; Status DC Phenylephrine HCl (Zane-Synephrine Inj) 10 mg STK-MED ONCE .ROUTE ; Start at 15:52; Stop 05/12/18 at 15:53; Status DC Glycopyrrolate (Robinul) 1 mg STK-MED ONCE .ROUTE ; Start 05/12/18 at 16:07; Stop 05/12/18 at 16:08; Status DC Neostigmine Methylsulfate (Neostigmine Methylsulfate) 5 mg STK-MED ONCE .ROUTE ; Start 05/12/18 at 16:07; Stop 05/12/18 at 16:08; Status DC Dexamethasone Sodium Phosphate (Decadron) 4 mg Q6HRS IV Last administered on 05/14/18at 12:18; Start 05/12/18 at 18:00; Stop 05/14/18 at 14:01; Status DC Labetalol HCl (Normodyne Iv Push) 5 mg PRN Q15MIN PRN IVP HYPERTENSION, SEE COMMENTS Last administered on 05/15/18at 11:21; Start 05/12/18 at 16:30 Nicardipine HCl 50 mg/Sodium Chloride 250 ml @ 25 mls/hr TITRATE PRN IV PER PROTOCOL Last administered on 05/13/18at 07:36; Start 05/12/18 at 16:30 Al Hydroxide/Mg Hydroxide (Mylanta Plus Xs) 30 ml PRN Q3HRS PRN PO HEARTBURN / GAS; Start 05/12/18 at 16:30 Calcium Carbonate/ Glycine (Tums) 500 mg PRN Q3HRS PRN PO INDIGESTION; Start at 16:30 Diphenhydramine HCl (Benadryl) 25 mg PRN Q6HRS PRN PO ITCHING; Start 05/12/18 at 16:30 Sodium Chloride (Normal Saline Flush) 3 ml QSHIFT PRN IV AFTER MEDS AND BLOOD DRAWS; Start 05/12/18 at 16:30 Potassium Chloride/Dextrose/ Sod Cl 1,000 ml @ 75 mls/hr [id number] IV Last administered on 05/13/18at 21:45; Start 05/12/18 at 17:00; Stop 05/14/18 at 09:01; Status DC Dextrose (Dextrose 50%-Water Syringe) 12.5 gm PRN Q15MIN PRN IV SEE COMMENTS; Start 05/12/18 at 16:30 Acetaminophen/ Hydrocodone Bitart (Lortab 5/325) 1 tab PRN Q4HRS PRN PO MILD PAIN Last administered on 05/12/18at 20:40; Start 05/12/18 at 16:30 Acetaminophen (Tylenol) 650 mg PRN Q6HRS PRN PO Headaches, Temp > 101.5F Last administered on 05/14/18at 08:51; Start 05/12/18 at 16:30 Docusate Sodium (Colace) 100 mg BID PO Last administered on 05/15/18at 09:01; Start 05/12/18 at 21:00 Magnesium Hydroxide (Milk Of Magnesia) 2,400 mg PRN Q12HR PRN PO CONSTIPATION; Start 05/12/18 at 16:30 Cefazolin Sodium 1 gm/Dextrose 50 ml @ 100 mls/hr Q8H IV Last administered on 05/13/18at 14:44; Start 05/12/18 at 23:00; Stop 05/13/18 at 15:29; Status DC Fentanyl Citrate (Fentanyl 2ml Vial) 25 mcg PRN Q2HR PRN IV PAIN MILD TO MOD; Start 05/12/18 at 16:30 Fentanyl Citrate (Fentanyl 2ml Vial) 50 mcg PRN Q2HR PRN IV PAIN SEVERE Last administered on 05/14/18at 00:24; Start 05/12/18 at 16:30 Gabapentin (Neurontin) 300 mg HS PO ; Start 05/14/18 at 21:00 Levothyroxine Sodium (Synthroid) 50 mcg DAILY06 PO Last administered on 06:30; Start 05/14/18 at 10:30 Atorvastatin Calcium (Lipitor) 5 mg QHS PO Last administered on 05/14/18 21:38 ; Start 05/14/18 at 21:00 Primidone (Mysoline) 500 mg QHS PO Last administered on 05/14/18 21:38; Start 05/14/18 at 21:00 Venlafaxine HCl (Effexor Xr) 75 mg DAILY PO Last administered on 05/15/18 09:00 ; Start 05/14/18 at 10:00 Bisacodyl (Dulcolax Tab) 10 mg DAILY PO Last administered on 05/15/18 09:00; Start 05/14/18 at 11:00 Diltiazem HCl (Cardizem 24hr Cd) 180 mg DAILY PO Last administered on 05/15/18 09:01; Start 05/14/18 at 14:00 Dexamethasone Sodium Phosphate (Decadron) 2 mg Q6HRS IV Last administered on 12:22; Start 05/14/18 at 18:00 Hydralazine HCl (Apresoline Inj) 10 mg PRN Q4HRS PRN IVP ELEVATED BP, SEE COMMENTS Last administered on 05/15/18 09:17; Start 05/14/18 at 18:30 Active Scripts Active Reported Mysoline (Primidone) 250 Mg Tablet 500 Mg PO QHS Gabapentin 300 Mg Capsule 300 Mg PO HS Effexor Xr (Venlafaxine Hcl) 150 Mg Cap.er.24h 1 Cap PO DAILY Folic Acid 1 Mg Tablet 1 Tab PO DAILY Aspirin 81 Mg Tab.chew 1 Tab PO DAILY Asmanex (Mometasone Furoate) 220 Mcg Aer.pow.ba 200 Mcg INH BID Primidone 250 Mg Tablet 250 Mg PO EVENING DAILY Pravastatin Sodium 20 Mg Tablet 1 Tab PO DAILY Cartia Xt (Diltiazem Hcl) 180 Mg Cap.er.24h 180 Mg PO Levothyroxine Sodium 50 Mcg Tablet 1 Tab PO DAILY Venlafaxine Hcl Er (Venlafaxine Hcl) 75 Mg Cap.er.24h 1 Cap PO DAILY Vitals/I & O Vital Sign - Last 24 Hours 05/14/18 05/14/18 05/14/18 05/14/18 13:00 13:05 13:29 14:00 Pulse 80 84 84 77 Resp 20 20 B/P (MAP) 149/71 (97) 158/78 153/69 153/71 (98) Pulse Ox 95 95 O2 Delivery Room Air Room Air 05/14/18 05/14/18 05/14/18 05/14/18 14:16 15:00 15:06 16:00 Pulse 82 83 82 Resp 22 B/P (MAP) 153/67 170/78 (108) 170/78 Pulse Ox 94 O2 Delivery Room Air Room Air 05/14/18 05/14/18 05/14/18 05/14/18 16:00 17:00 18:00 19:00 Temp 97.9 97.9 Pulse 83 86 77 84 Resp 20 20 18 15 B/P (MAP) 164/75 (104) 184/92 (122) 173/96 (121) 167/82 (110) Pulse Ox 92 96 95 97 O2 Delivery Room Air Room Air Room Air Room Air 05/14/18 05/14/18 05/14/18 05/14/18 19:48 20:00 20:30 21:13 Temp 98.5 98.5 Pulse 83 84 83 Resp 24 22 B/P (MAP) 184/81 165/92 (116) 171/73 (105) Pulse Ox 96 97 O2 Delivery Room Air Room Air Room Air 05/14/18 05/14/18 05/14/18 05/14/18 21:44 22:09 23:07 23:56 Temp 98.5 98.5 Pulse 88 82 79 80 Resp 21 14 22 B/P (MAP) 149/73 148/62 (90) 121/60 (80) 166/77 (106) Pulse Ox 96 95 96 O2 Delivery Room Air Room Air Room Air 05/14/18 05/15/18 05/15/18 05/15/18 23:57 01:17 02:30 03:25 Pulse 74 73 81 Resp 19 12 13 B/P (MAP) 137/50 (79) 153/74 (100) 148/65 (92) Pulse Ox 93 95 96 O2 Delivery Room Air Room Air Room Air Room Air 4/4/19 05/15/18 05/15/18 05/15/18 04:07 04:28 05:14 06:07 Temp 98.1 98.1 Pulse 73 70 77 Resp 13 16 15 B/P (MAP) 149/74 (99) 147/71 (96) 159/73 (101) Pulse Ox 96 95 95 O2 Delivery Room Air Room Air Room Air Room Air 05/15/18 05/15/18 05/15/18 05/15/18 07:00 08:00 08:00 09:00 Temp 98.2 98.2 Pulse 67 67 72 Resp 13 15 16 B/P (MAP) 121/56 (77) 123/61 (81) 138/59 (85) Pulse Ox 94 95 97 O2 Delivery Room Air Room Air Room Air Room Air 05/15/18 05/15/18 05/15/18 05/15/18 09:01 09:17 10:00 11:00 Pulse 71 77 85 87 Resp 14 18 B/P (MAP) 138/59 185/96 169/60 (96) 166/72 (103) Pulse Ox 98 97 O2 Delivery Room Air Room Air 05/15/18 11:21 Pulse 86 B/P (MAP) 166/81 Intake and Output 05/14/18 05/14/18 05/15/18 15:00 23:00 07:00 Intake Total 1200 ml 1280 ml 0 ml Output Total 400 ml 600 ml 600 ml Balance 800 ml 680 ml -600 ml DELANO MIRZA REGISTERED NURSING PROFESSOR May 15, 2018 12:37
--- NOTE | 2018-05-15 13:04 | PDOC ---
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 ROS - no headache Objective Objective Vital Signs Date Time Temp Pulse Resp B/P (MAP) Pulse Ox O2 Delivery O2 Flow Rate FiO2 05/15/18 11:21 86 166/81 05/15/18 11:00 18 97 Room Air 05/15/18 08:00 98.2 98.2 05/14/18 04:00 2.0 Intake and Output 05/15/18 06:59 Intake Total 2660 ml Output Total 1800 ml Balance 860 ml Intake Oral 2660 ml Output Urine Total 1800 ml # Voids 5 Physical Exam Heart: Normal S1, Normal S2 General: Alert, Oriented X3 Lungs: Clear to auscultation Neuro: Normal speech Psych/Mental Status: Mental status NL Assessment Assessment Problems Medical Problems: (1) Subdural hematoma Status: Acute IMPRESSION AND PLAN: 1. 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 She has received chemotherapy with carboplatin, Alimta and Keytruda from 11/27/2017 for 4 cycles and then she was switched to maintenance Alimta and Keytruda with cycle #5. Most recent chemotherapy was deferred because of falls and generalized weakness. I will continue to defer chemotherapy by atleast 2 weeks until she recovers well from the current surgery for subdural hematoma. 2. Large acute subdural hematoma along the right cerebral convexity measuring 2.7 cm, status post craniotomy, status post hematoma evacuation on 05/12/2018. Continue management per Dr. Dony Frank. 3. Anemia due to chemotherapy, mild. Hemoglobin 11.5 on 05/12/2018 and 11.0 on 05/13/2018. Continue to monitor. I discussed with registered nurse. Hb 10.1 Comment Review of Relevant I have reviewed the following items malcolm (where applicable) has been applied. Labs Laboratory Tests Test 05/14/18 07:20 05/14/18 07:26 05/15/18 05:10 White Blood Count 15.4 x10^3/uL (4.0-11.0) 13.4 x10^3/uL (4.0-11.0) Red Blood Count 3.38 x10^6/uL (3.50-5.40) 3.07 x10^6/uL (3.50-5.40) Hemoglobin 11.1 g/dL (12.0-15.5) 10.1 g/dL (12.0-15.5) Hematocrit 34.0 % (36.0-47.0) 30.7 % (36.0-47.0) Mean Corpuscular Volume 101 fL (79-100) 100 fL (79-100) Mean Corpuscular Hemoglobin 33 pg (25-35) 33 pg (25-35) Mean Corpuscular Hemoglobin Concent 33 g/dL (31-37) 33 g/dL (31-37) Red Cell Distribution Width 14.9 % (11.5-14.5) 15.1 % (11.5-14.5) Platelet Count 306 x10^3/uL (140-400) 263 x10^3/uL (140-400) Neutrophils (%) (Auto) 93 % (31-73) 90 % (31-73) Lymphocytes (%) (Auto) 4 % (24-48) 4 % (24-48) Monocytes (%) (Auto) 3 % (0-9) 5 % (0-9) Eosinophils (%) (Auto) 0 % (0-3) 0 % (0-3) Basophils (%) (Auto) 0 % (0-3) 1 % (0-3) Neutrophils # (Auto) 14.4 x10^3uL (1.8-7.7) 12.0 x10^3uL (1.8-7.7) Lymphocytes # (Auto) 0.6 x10^3/uL (1.0-4.8) 0.6 x10^3/uL (1.0-4.8) Monocytes # (Auto) 0.4 x10^3/uL (0.0-1.1) 0.7 x10^3/uL (0.0-1.1) Eosinophils # (Auto) 0.0 x10^3/uL (0.0-0.7) 0.0 x10^3/uL (0.0-0.7) Basophils # (Auto) 0.0 x10^3/uL (0.0-0.2) 0.1 x10^3/uL (0.0-0.2) Sodium Level 143 mmol/L (136-145) 145 mmol/L (136-145) Potassium Level 4.3 mmol/L (3.5-5.1) 4.3 mmol/L (3.5-5.1) Chloride Level 106 mmol/L (98-107) 108 mmol/L (98-107) Carbon Dioxide Level 26 mmol/L (21-32) 28 mmol/L (21-32) Anion Gap 11 (6-14) 9 (6-14) Blood Urea Nitrogen 13 mg/dL (7-20) 14 mg/dL (7-20) Creatinine 0.9 mg/dL (0.6-1.0) 0.8 mg/dL (0.6-1.0) Estimated GFR (Cockcroft-Gault) 59.9 68.7 BUN/Creatinine Ratio 14 (6-20) 18 (6-20) Glucose Level 158 mg/dL (70-99) 137 mg/dL (70-99) Calcium Level 8.9 mg/dL (8.5-10.1) 8.7 mg/dL (8.5-10.1) Magnesium Level 2.1 mg/dL (1.8-2.4) Total Bilirubin 0.2 mg/dL (0.2-1.0) 0.2 mg/dL (0.2-1.0) Aspartate Amino Transf (AST/SGOT) 15 U/L (15-37) 18 U/L (15-37) Alanine Aminotransferase (ALT/SGPT) 16 U/L (14-59) 22 U/L (14-59) Alkaline Phosphatase 130 U/L (46-116) 119 U/L (46-116) Total Protein 6.7 g/dL (6.4-8.2) 6.0 g/dL (6.4-8.2) Albumin 2.9 g/dL (3.4-5.0) 2.8 g/dL (3.4-5.0) Albumin/Globulin Ratio 0.8 (1.0-1.7) 0.9 (1.0-1.7) Glucose (Fingerstick) 142 mg/dL (70-99) Laboratory Tests Test 05/15/18 05:10 White Blood Count 13.4 x10^3/uL (4.0-11.0) Red Blood Count 3.07 x10^6/uL (3.50-5.40) Hemoglobin 10.1 g/dL (12.0-15.5) Hematocrit 30.7 % (36.0-47.0) Mean Corpuscular Volume 100 fL (79-100) Mean Corpuscular Hemoglobin 33 pg (25-35) Mean Corpuscular Hemoglobin Concent 33 g/dL (31-37) Red Cell Distribution Width 15.1 % (11.5-14.5) Platelet Count 263 x10^3/uL (140-400) Neutrophils (%) (Auto) 90 % (31-73) Lymphocytes (%) (Auto) 4 % (24-48) Monocytes (%) (Auto) 5 % (0-9) Eosinophils (%) (Auto) 0 % (0-3) Basophils (%) (Auto) 1 % (0-3) Neutrophils # (Auto) 12.0 x10^3uL (1.8-7.7) Lymphocytes # (Auto) 0.6 x10^3/uL (1.0-4.8) Monocytes # (Auto) 0.7 x10^3/uL (0.0-1.1) Eosinophils # (Auto) 0.0 x10^3/uL (0.0-0.7) Basophils # (Auto) 0.1 x10^3/uL (0.0-0.2) Sodium Level 145 mmol/L (136-145) Potassium Level 4.3 mmol/L (3.5-5.1) Chloride Level 108 mmol/L (98-107) Carbon Dioxide Level 28 mmol/L (21-32) Anion Gap 9 (6-14) Blood Urea Nitrogen 14 mg/dL (7-20) Creatinine 0.8 mg/dL (0.6-1.0) Estimated GFR (Cockcroft-Gault) 68.7 BUN/Creatinine Ratio 18 (6-20) Glucose Level 137 mg/dL (70-99) Calcium Level 8.7 mg/dL (8.5-10.1) Total Bilirubin 0.2 mg/dL (0.2-1.0) Aspartate Amino Transf (AST/SGOT) 18 U/L (15-37) Alanine Aminotransferase (ALT/SGPT) 22 U/L (14-59) Alkaline Phosphatase 119 U/L (46-116) Total Protein 6.0 g/dL (6.4-8.2) Albumin 2.8 g/dL (3.4-5.0) Albumin/Globulin Ratio 0.9 (1.0-1.7) Medications Current Medications Bacitracin 57578 unit/Sodium Chloride 1,000 ml @ 1,000 mls/hr 1X ONCE IRR Last administered on 05/12/18at 15:58; Start 05/12/18 at 14:00; Stop 05/12/18 at 14: 59; Status DC Ondansetron HCl (Zofran) 4 mg PRN Q6HRS PRN IV NAUSEA/VOMITING; Start 05/12/18 at 14:00; Stop 05/13/18 at 13:59; Status DC Fentanyl Citrate (Fentanyl 2ml Vial) 25 mcg PRN Q5MIN PRN IV MILD PAIN Last administered on 05/12/18at 19:55; Start 05/12/18 at 14:00; Stop 05/13/18 at 01:57; Status DC Fentanyl Citrate (Fentanyl 2ml Vial) 50 mcg PRN Q5MIN PRN IV MODERATE TO SEVERE PAIN; Start 05/12/18 at 14:00; Stop 05/13/18 at 01:57; Status DC Morphine Sulfate (Morphine Sulfate) 1 mg PRN Q10MIN PRN IV SEVERE PAIN; Start 05/12/18 at 14:00; Stop 05/13/18 at 01:57; Status DC Ringer's Solution 1,000 ml @ 30 mls/hr Q24H IV ; Start 05/12/18 at 13:46; Stop 05/13/18 at 01:45; Status DC Lidocaine HCl (Xylocaine-Mpf 1% 2ml Vial) 2 ml PRN 1X PRN ID PRIOR TO IV START ; Start 05/12/18 at 14:00; Stop 05/13/18 at 13:59; Status DC Hydromorphone HCl (Dilaudid) 0.5 mg PRN Q10MIN PRN IV SEV PAIN, Second choice; Start 05/12/18 at 14:00; Stop 05/13/18 at 01:57; Status DC Prochlorperazine Edisylate (Compazine) 5 mg PACU PRN PRN IV NAUSEA, MRX1; Start 05/12/18 at 14:00; Stop 05/13/18 at 13:59; Status DC Lidocaine HCl (Lidocaine Pf 2% Vial) 5 ml STK-MED ONCE .ROUTE ; Start 05/12/18 at 14:07; Stop 05/12/18 at 14:08; Status DC Sodium Chloride (SODIUM CHLORIDE 20ml) 20 ml STK-MED ONCE IJ ; Start 05/12/18 at 14:07; Stop 05/12/18 at 14:08; Status DC Propofol 20 ml @ As Directed STK-MED ONCE IV ; Start 05/12/18 at 14:07; Stop 05/12 at 14:08; Status DC Ondansetron HCl (Zofran) 4 mg STK-MED ONCE .ROUTE ; Start 05/12/18 at 14:07; Stop 05/12/18 at 14:08; Status DC Famotidine (Pepcid Vial) 20 mg STK-MED ONCE .ROUTE ; Start 05/12/18 at 14:07; Stop 05/12/18 at 14:08; Status DC Dexamethasone Sodium Phosphate (Decadron) 20 mg STK-MED ONCE .ROUTE ; Start 05/12 at 14:07; Stop 05/12/18 at 14:08; Status DC Propofol 50 ml @ As Directed STK-MED ONCE IV ; Start 05/12/18 at 14:07; Stop 05/12 at 14:08; Status DC Gelatin (Gelfoam Size 100) 1 each STK-MED ONCE .ROUTE Last administered on 05/12at 15:50; Start 05/12/18 at 13:11; Stop 05/12/18 at 14:11; Status DC Bupivacaine HCl/ Epinephrine Bitart (Sensorcain-Mpf Epi 0.5%-1:[id number]) 30 ml STK -MED ONCE .ROUTE Last administered on 05/12/18at 15:48; Start 05/12/18 at 13:11; Stop 05/12/18 at 14:11; Status DC Remifentanil HCl (Ultiva) 2 mg STK-MED ONCE IV ; Start 05/12/18 at 14:11; Stop at 14:12; Status DC Thrombin 20,000 unit STK-MED ONCE TP Last administered on 05/12/18at 15:56; Start 05/12/18 at 13:11; Stop 05/12/18 at 14:12; Status DC Fentanyl Citrate (Fentanyl 2ml Vial) 100 mcg STK-MED ONCE .ROUTE ; Start at 14:11; Stop 05/12/18 at 14:12; Status DC Rocuronium Sherman (Zemuron) 50 mg STK-MED ONCE .ROUTE ; Start 05/12/18 at 14:13 ; Stop 05/12/18 at 14:14; Status DC Sodium Chloride (SODIUM CHLORIDE 20ml) 20 ml STK-MED ONCE IJ ; Start 05/12/18 at 14:13; Stop 05/12/18 at 14:14; Status DC Cefazolin Sodium/ Dextrose 50 ml @ 100 mls/hr 1X PREOP PRN IV PRIOR TO PROCEDURE Last administered on 05/12/18at 15:05; Start 05/12/18 at 14:45; Stop 05/13 at 14:44; Status DC Sevoflurane (Ultane) 90 ml STK-MED ONCE IH ; Start 05/12/18 at 14:58; Stop at 14:59; Status DC Phenylephrine HCl (PHENYLEPHRINE in 0.9% NACL PF) 1 mg STK-MED ONCE IV ; Start 05/12/18 at 15:12; Stop 05/12/18 at 15:13; Status DC Cefazolin Sodium/ Dextrose 50 ml @ 100 mls/hr 1X ONCE IV ; Start 05/12/18 at 15 :15; Stop 05/12/18 at 15:16; Status DC Phenylephrine HCl (Zane-Synephrine Inj) 10 mg STK-MED ONCE .ROUTE ; Start at 15:52; Stop 05/12/18 at 15:53; Status DC Phenylephrine HCl (Zane-Synephrine Inj) 10 mg STK-MED ONCE .ROUTE ; Start at 15:52; Stop 05/12/18 at 15:53; Status DC Glycopyrrolate (Robinul) 1 mg STK-MED ONCE .ROUTE ; Start 05/12/18 at 16:07; Stop 05/12/18 at 16:08; Status DC Neostigmine Methylsulfate (Neostigmine Methylsulfate) 5 mg STK-MED ONCE .ROUTE ; Start 05/12/18 at 16:07; Stop 05/12/18 at 16:08; Status DC Dexamethasone Sodium Phosphate (Decadron) 4 mg Q6HRS IV Last administered on 05/14/18at 12:18; Start 05/12/18 at 18:00; Stop 05/14/18 at 14:01; Status DC Labetalol HCl (Normodyne Iv Push) 5 mg PRN Q15MIN PRN IVP HYPERTENSION, SEE COMMENTS Last administered on 05/15/18at 11:21; Start 05/12/18 at 16:30 Nicardipine HCl 50 mg/Sodium Chloride 250 ml @ 25 mls/hr TITRATE PRN IV PER PROTOCOL Last administered on 05/13/18at 07:36; Start 05/12/18 at 16:30 Al Hydroxide/Mg Hydroxide (Mylanta Plus Xs) 30 ml PRN Q3HRS PRN PO HEARTBURN / GAS; Start 05/12/18 at 16:30 Calcium Carbonate/ Glycine (Tums) 500 mg PRN Q3HRS PRN PO INDIGESTION; Start at 16:30 Diphenhydramine HCl (Benadryl) 25 mg PRN Q6HRS PRN PO ITCHING; Start 05/12/18 at 16:30 Sodium Chloride (Normal Saline Flush) 3 ml QSHIFT PRN IV AFTER MEDS AND BLOOD DRAWS; Start 05/12/18 at 16:30 Potassium Chloride/Dextrose/ Sod Cl 1,000 ml @ 75 mls/hr [id number] IV Last administered on 05/13/18at 21:45; Start 05/12/18 at 17:00; Stop 05/14/18 at 09:01; Status DC Dextrose (Dextrose 50%-Water Syringe) 12.5 gm PRN Q15MIN PRN IV SEE COMMENTS; Start 05/12/18 at 16:30 Acetaminophen/ Hydrocodone Bitart (Lortab 5/325) 1 tab PRN Q4HRS PRN PO MILD PAIN Last administered on 05/12/18at 20:40; Start 05/12/18 at 16:30 Acetaminophen (Tylenol) 650 mg PRN Q6HRS PRN PO Headaches, Temp > 101.5F Last administered on 05/14/18 08:51; Start 05/12/18 at 16:30 Docusate Sodium (Colace) 100 mg BID PO Last administered on 05/15/18 09:01; Start 05/12/18 at 21:00 Magnesium Hydroxide (Milk Of Magnesia) 2,400 mg PRN Q12HR PRN PO CONSTIPATION; Start 05/12/18 at 16:30 Cefazolin Sodium 1 gm/Dextrose 50 ml @ 100 mls/hr Q8H IV Last administered on 05/13/18 14:44; Start 05/12/18 at 23:00; Stop 05/13/18 at 15:29; Status DC Fentanyl Citrate (Fentanyl 2ml Vial) 25 mcg PRN Q2HR PRN IV PAIN MILD TO MOD; Start 05/12/18 at 16:30 Fentanyl Citrate (Fentanyl 2ml Vial) 50 mcg PRN Q2HR PRN IV PAIN SEVERE Last administered on 05/14/18 00:24; Start 05/12/18 at 16:30 Gabapentin (Neurontin) 300 mg HS PO ; Start 05/14/18 at 21:00 Levothyroxine Sodium (Synthroid) 50 mcg DAILY06 PO Last administered on 06:30; Start 05/14/18 at 10:30 Atorvastatin Calcium (Lipitor) 5 mg QHS PO Last administered on 05/14/18 21:38 ; Start 05/14/18 at 21:00 Primidone (Mysoline) 500 mg QHS PO Last administered on 05/14/18 21:38; Start 05/14/18 at 21:00 Venlafaxine HCl (Effexor Xr) 75 mg DAILY PO Last administered on 05/15/18 09:00 ; Start 05/14/18 at 10:00 Bisacodyl (Dulcolax Tab) 10 mg DAILY PO Last administered on 05/15/18 09:00; Start 05/14/18 at 11:00 Diltiazem HCl (Cardizem 24hr Cd) 180 mg DAILY PO Last administered on 05/15/18 09:01; Start 05/14/18 at 14:00 Dexamethasone Sodium Phosphate (Decadron) 2 mg Q6HRS IV Last administered on 4/ 4/19at 12:22; Start 05/14/18 at 18:00 Hydralazine HCl (Apresoline Inj) 10 mg PRN Q4HRS PRN IVP ELEVATED BP, SEE COMMENTS Last administered on 05/15/18at 09:17; Start 05/14/18 at 18:30 Active Scripts Active Reported Mysoline (Primidone) 250 Mg Tablet 500 Mg PO QHS Gabapentin 300 Mg Capsule 300 Mg PO HS Effexor Xr (Venlafaxine Hcl) 150 Mg Cap.er.24h 1 Cap PO DAILY Folic Acid 1 Mg Tablet 1 Tab PO DAILY Aspirin 81 Mg Tab.chew 1 Tab PO DAILY Asmanex (Mometasone Furoate) 220 Mcg Aer.pow.ba 200 Mcg INH BID Primidone 250 Mg Tablet 250 Mg PO EVENING DAILY Pravastatin Sodium 20 Mg Tablet 1 Tab PO DAILY Cartia Xt (Diltiazem Hcl) 180 Mg Cap.er.24h 180 Mg PO Levothyroxine Sodium 50 Mcg Tablet 1 Tab PO DAILY Venlafaxine Hcl Er (Venlafaxine Hcl) 75 Mg Cap.er.24h 1 Cap PO DAILY Vitals/I & O Vital Sign - Last 24 Hours 05/14/18 05/14/18 05/14/18 05/14/18 13:05 13:29 14:00 14:16 Pulse 84 84 77 82 Resp 20 B/P (MAP) 158/78 153/69 153/71 (98) 153/67 Pulse Ox 95 O2 Delivery Room Air 05/14/18 05/14/18 05/14/18 05/14/18 15:00 15:06 16:00 16:00 Temp 97.9 97.9 Pulse 83 82 83 Resp 22 20 B/P (MAP) 170/78 (108) 170/78 164/75 (104) Pulse Ox 94 92 O2 Delivery Room Air Room Air Room Air 05/14/18 05/14/18 05/14/18 05/14/18 17:00 18:00 19:00 19:48 Pulse 86 77 84 83 Resp 20 18 15 B/P (MAP) 184/92 (122) 173/96 (121) 167/82 (110) 184/81 Pulse Ox 96 95 97 O2 Delivery Room Air Room Air Room Air 05/14/18 05/14/18 05/14/18 05/14/18 20:00 20:30 21:13 21:44 Temp 98.5 98.5 Pulse 84 83 88 Resp 24 22 B/P (MAP) 165/92 (116) 171/73 (105) 149/73 Pulse Ox 96 97 O2 Delivery Room Air Room Air Room Air 05/14/18 05/14/18 05/14/18 05/14/18 22:09 23:07 23:56 23:57 Temp 98.5 98.5 Pulse 82 79 80 Resp 21 14 22 B/P (MAP) 148/62 (90) 121/60 (80) 166/77 (106) Pulse Ox 96 95 96 O2 Delivery Room Air Room Air Room Air Room Air 05/15/18 05/15/18 05/15/18 05/15/18 01:17 02:30 03:25 04:07 Temp 98.1 98.1 Pulse 74 73 81 73 Resp 19 12 13 13 B/P (MAP) 137/50 (79) 153/74 (100) 148/65 (92) 149/74 (99) Pulse Ox 93 95 96 96 O2 Delivery Room Air Room Air Room Air Room Air 05/15/18 05/15/18 05/15/18 05/15/18 04:28 05:14 06:07 07:00 Pulse 70 77 67 Resp 16 15 13 B/P (MAP) 147/71 (96) 159/73 (101) 121/56 (77) Pulse Ox 95 95 94 O2 Delivery Room Air Room Air Room Air Room Air 05/15/18 05/15/18 05/15/18 05/15/18 08:00 08:00 09:00 09:01 Temp 98.2 98.2 Pulse 67 72 71 Resp 15 16 B/P (MAP) 123/61 (81) 138/59 (85) 138/59 Pulse Ox 95 97 O2 Delivery Room Air Room Air Room Air 05/15/18 05/15/18 05/15/18 05/15/18 09:17 10:00 11:00 11:21 Pulse 77 85 87 86 Resp 14 18 B/P (MAP) 185/96 169/60 (96) 166/72 (103) 166/81 Pulse Ox 98 97 O2 Delivery Room Air Room Air Intake and Output 05/14/18 05/14/18 05/15/18 14:59 22:59 06:59 Intake Total 1380 ml 1280 ml 0 ml Output Total 600 ml 600 ml 600 ml Balance 780 ml 680 ml -600 ml LORI NICOLE MD May 15, 2018 13:04
[2018-05-15] MEDS ORDERED: cloNIDine TTS-1 1 PATCH PATCH.TDWK TD SCH (14:00)
[2018-05-15] MEDS ORDERED: cloNIDine HCL 0.2 MG TABLET PO ONE (14:30)
--- NOTE | 2018-05-15 15:49 | PDOC ---
PROGRESS NOTES Subjective Subjective sitting in chair Objective Objective Vital Signs Date Time Temp Pulse Resp B/P (MAP) Pulse Ox O2 Delivery O2 Flow Rate FiO2 05/15/18 14:38 84 158/74 05/15/18 14:00 20 98 Room Air 05/15/18 12:00 97.7 97.7 Intake and Output 05/15/18 07:00 Intake Total 2480 ml Output Total 1600 ml Balance 880 ml Intake Oral 2480 ml Output Urine Total 1600 ml # Voids 5 Physical Exam Heart: Normal S1, Normal S2 General: Alert, Oriented X3 Lungs: Clear to auscultation MUSCULOSKELETAL: Other (DAIGLE) Neuro: Normal speech Psych/Mental Status: Mental status NL Skin: Other (dressing C,D,I) COMMENT dressing scalp Diagnosis Problem List Problems Medical Problems: (1) Subdural hematoma Status: Acute Assessment Assessment 1. Acute right frontal temporoparietal subdural hematoma, status post right central craniotomy with evacuation of subacute subdural hematoma and removal of membranes. 2. Hypertension. 3. Hypothyroidism. 4. Depression. 5. Anxiety. 6. Essential tremors. 7. Hypokalemia, corrected. 8. Carcinoma of breast with left mastectomy. 9. Carcinoma of lung. PLAN: spoke with RN. clonidine tts patch for bp control. labs reviewed ok wbc 13 down transfer to step down unit. Continue to monitor in ICU. We will advance diet as tolerated when she wakes up. Check with the office list to reconcile medications. Discussed with staff. Recheck labs in a.m. Dr. Frank has seen the patient for neurosurgical evaluation and management. Long-term as well as short-term prognosis of this patient is poor due to her multiple medical problems. For details, please review the orders. acute subdural hematoma - clinically slightly better. Remains confused. Hypertension not controlled Leukocytosis- likely reactive. Recheck labs in a.m. Continue to monitor in intensive care unit. Plan Plan of Care Problems Medical Problems: (1) Subdural hematoma Status: Acute Comment Review of Relevant I have reviewed the following items malcolm (where applicable) has been applied. Labs Laboratory Tests Test 05/15/18 05:10 White Blood Count 13.4 x10^3/uL (4.0-11.0) Red Blood Count 3.07 x10^6/uL (3.50-5.40) Hemoglobin 10.1 g/dL (12.0-15.5) Hematocrit 30.7 % (36.0-47.0) Mean Corpuscular Volume 100 fL (79-100) Mean Corpuscular Hemoglobin 33 pg (25-35) Mean Corpuscular Hemoglobin Concent 33 g/dL (31-37) Red Cell Distribution Width 15.1 % (11.5-14.5) Platelet Count 263 x10^3/uL (140-400) Neutrophils (%) (Auto) 90 % (31-73) Lymphocytes (%) (Auto) 4 % (24-48) Monocytes (%) (Auto) 5 % (0-9) Eosinophils (%) (Auto) 0 % (0-3) Basophils (%) (Auto) 1 % (0-3) Neutrophils # (Auto) 12.0 x10^3uL (1.8-7.7) Lymphocytes # (Auto) 0.6 x10^3/uL (1.0-4.8) Monocytes # (Auto) 0.7 x10^3/uL (0.0-1.1) Eosinophils # (Auto) 0.0 x10^3/uL (0.0-0.7) Basophils # (Auto) 0.1 x10^3/uL (0.0-0.2) Sodium Level 145 mmol/L (136-145) Potassium Level 4.3 mmol/L (3.5-5.1) Chloride Level 108 mmol/L (98-107) Carbon Dioxide Level 28 mmol/L (21-32) Anion Gap 9 (6-14) Blood Urea Nitrogen 14 mg/dL (7-20) Creatinine 0.8 mg/dL (0.6-1.0) Estimated GFR (Cockcroft-Gault) 68.7 BUN/Creatinine Ratio 18 (6-20) Glucose Level 137 mg/dL (70-99) Calcium Level 8.7 mg/dL (8.5-10.1) Total Bilirubin 0.2 mg/dL (0.2-1.0) Aspartate Amino Transf (AST/SGOT) 18 U/L (15-37) Alanine Aminotransferase (ALT/SGPT) 22 U/L (14-59) Alkaline Phosphatase 119 U/L (46-116) Total Protein 6.0 g/dL (6.4-8.2) Albumin 2.8 g/dL (3.4-5.0) Albumin/Globulin Ratio 0.9 (1.0-1.7) Medications Current Medications Atorvastatin Calcium (Lipitor) 5 mg QHS PO Last administered on 05/14/18 21:38 ; Start 05/14/18 at 21:00 Clonidine HCl (Catapres Tts-1) 1 patch WEEKLY TD ; Start 05/15/18 at 14:00 Clonidine HCl (Catapres) 0.2 mg 1X ONCE PO Last administered on 05/15/18at 14:38 ; Start 05/15/18 at 14:30; Stop 05/15/18 at 14:31; Status DC Dexamethasone Sodium Phosphate (Decadron) 2 mg Q6HRS IV Last administered on 05/15/18at 12:22; Start 05/14/18 at 18:00 Gabapentin (Neurontin) 300 mg HS PO ; Start 05/14/18 at 21:00 Hydralazine HCl (Apresoline Inj) 10 mg PRN Q4HRS PRN IVP ELEVATED BP, SEE COMMENTS Last administered on 05/15/18at 09:17; Start 05/14/18 at 18:30 Primidone (Mysoline) 500 mg QHS PO Last administered on 05/14/18 21:38; Start 05/14/18 at 21:00 Vitals/I & O Vital Sign - Last 24 Hours 05/14/18 05/14/18 05/14/18 05/14/18 16:00 16:00 17:00 18:00 Temp 97.9 97.9 Pulse 83 86 77 Resp 20 20 18 B/P (MAP) 164/75 (104) 184/92 (122) 173/96 (121) Pulse Ox 92 96 95 O2 Delivery Room Air Room Air Room Air Room Air 05/14/18 05/14/18 05/14/18 05/14/18 19:00 19:48 20:00 20:30 Temp 98.5 98.5 Pulse 84 83 84 Resp 15 24 B/P (MAP) 167/82 (110) 184/81 165/92 (116) Pulse Ox 97 96 O2 Delivery Room Air Room Air Room Air 05/14/18 05/14/18 05/14/18 05/14/18 21:13 21:44 22:09 23:07 Pulse 83 88 82 79 Resp 22 21 14 B/P (MAP) 171/73 (105) 149/73 148/62 (90) 121/60 (80) Pulse Ox 97 96 95 O2 Delivery Room Air Room Air Room Air 05/14/18 05/14/18 05/15/18 05/15/18 23:56 23:57 01:17 02:30 Temp 98.5 98.5 Pulse 80 74 73 Resp 19 12 B/P (MAP) 166/77 (106) 137/50 (79) 153/74 (100) Pulse Ox 96 93 95 O2 Delivery Room Air Room Air Room Air Room Air 05/15/18 05/15/18 05/15/18 05/15/18 03:25 04:07 04:28 05:14 Temp 98.1 98.1 Pulse 81 73 70 Resp 13 13 16 B/P (MAP) 148/65 (92) 149/74 (99) 147/71 (96) Pulse Ox 96 96 95 O2 Delivery Room Air Room Air Room Air Room Air 05/15/18 05/15/18 05/15/18 05/15/18 06:07 07:00 08:00 08:00 Temp 98.2 98.2 Pulse 77 67 67 Resp 15 13 15 B/P (MAP) 159/73 (101) 121/56 (77) 123/61 (81) Pulse Ox 95 94 95 O2 Delivery Room Air Room Air Room Air Room Air 05/15/18 05/15/18 05/15/18 05/15/18 09:00 09:01 09:17 10:00 Pulse 72 71 77 85 Resp 16 14 B/P (MAP) 138/59 (85) 138/59 185/96 169/60 (96) Pulse Ox 97 98 O2 Delivery Room Air Room Air 05/15/18 05/15/18 05/15/18 05/15/18 11:00 11:21 12:00 12:00 Temp 97.7 97.7 Pulse 87 86 Resp 18 B/P (MAP) 166/72 (103) 166/81 Pulse Ox 97 O2 Delivery Room Air Room Air 05/15/18 05/15/18 05/15/18 05/15/18 12:00 13:00 14:00 14:38 Pulse 87 73 74 84 Resp 16 15 20 B/P (MAP) 179/78 (111) 146/70 (95) 157/79 (105) 158/74 Pulse Ox 95 97 98 O2 Delivery Room Air Room Air Room Air Intake and Output 05/14/18 05/14/18 05/15/18 15:00 23:00 07:00 Intake Total 1200 ml 1280 ml 0 ml Output Total 400 ml 600 ml 600 ml Balance 800 ml 680 ml -600 ml MAIN HARO MD May 15, 2018 15:49
[2018-05-15] MEDS: PRIMIDONE 250 MG TABLET PO SCH (20:54)
[2018-05-15] MEDS: GABAPENTIN 300 MG CAPSULE. PO SCH (20:55)
[2018-05-15] MEDS: ATORVASTATIN CALCIUM 10 MG TABLET. PO SCH (20:55)
[2018-05-16] MEDS: DEXAMETHASONE SOD PHOS 4 MG/ML VIAL IV SCH ×3 (00:11→12:00)
[2018-05-16 04:00] VITALS: BP 173/93
[2018-05-16] MEDS: LEVOTHYROXINE 50 MCG TABLET PO SCH (06:32)
[2018-05-16 07:00] VITALS: BP 181/86
[2018-05-16] MEDS: BISACODYL 5 MG TABLET.DR. PO SCH (09:00)
--- NOTE | 2018-05-16 09:17 | PDOC ---
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 ROS - no NAVARRETE Objective Objective Vital Signs Date Time Temp Pulse Resp B/P (MAP) Pulse Ox O2 Delivery O2 Flow Rate FiO2 05/16/18 07:00 98.0 84 181/86 (117) 96 Room Air 98.0 05/15/18 22:55 18 2.0 Intake and Output 05/16/18 07:00 Intake Total 930 ml Output Total 800 ml Balance 130 ml Intake Oral 930 ml Output Urine Total 800 ml # Voids 1 Physical Exam Heart: Normal S1, Normal S2 General: Alert, Oriented X3 Lungs: Clear to auscultation Neuro: Normal speech Psych/Mental Status: Mental status NL Assessment Assessment Problems Medical Problems: (1) Subdural hematoma Status: Acute IMPRESSION AND PLAN: 1. 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 She has received chemotherapy with carboplatin, Alimta and Keytruda from 11/27/2017 for 4 cycles and then she was switched to maintenance Alimta and Keytruda with cycle #5. Most recent chemotherapy was deferred because of falls and generalized weakness. I will continue to defer chemotherapy by atleast 2 weeks until she recovers well from the current surgery for subdural hematoma. I d/w Dr Miller 2. Large acute subdural hematoma along the right cerebral convexity measuring 2.7 cm, status post craniotomy, status post hematoma evacuation on 05/12/2018. Continue management per Dr. Dony Frank. 3. Anemia due to chemotherapy, mild. Hemoglobin 11.5 on 05/12/2018 and 11.0 on 05/13/2018. Continue to monitor. Hb 10.1 Comment Review of Relevant I have reviewed the following items malcolm (where applicable) has been applied. Labs Laboratory Tests Test 05/15/18 05:10 White Blood Count 13.4 x10^3/uL (4.0-11.0) Red Blood Count 3.07 x10^6/uL (3.50-5.40) Hemoglobin 10.1 g/dL (12.0-15.5) Hematocrit 30.7 % (36.0-47.0) Mean Corpuscular Volume 100 fL (79-100) Mean Corpuscular Hemoglobin 33 pg (25-35) Mean Corpuscular Hemoglobin Concent 33 g/dL (31-37) Red Cell Distribution Width 15.1 % (11.5-14.5) Platelet Count 263 x10^3/uL (140-400) Neutrophils (%) (Auto) 90 % (31-73) Lymphocytes (%) (Auto) 4 % (24-48) Monocytes (%) (Auto) 5 % (0-9) Eosinophils (%) (Auto) 0 % (0-3) Basophils (%) (Auto) 1 % (0-3) Neutrophils # (Auto) 12.0 x10^3uL (1.8-7.7) Lymphocytes # (Auto) 0.6 x10^3/uL (1.0-4.8) Monocytes # (Auto) 0.7 x10^3/uL (0.0-1.1) Eosinophils # (Auto) 0.0 x10^3/uL (0.0-0.7) Basophils # (Auto) 0.1 x10^3/uL (0.0-0.2) Sodium Level 145 mmol/L (136-145) Potassium Level 4.3 mmol/L (3.5-5.1) Chloride Level 108 mmol/L (98-107) Carbon Dioxide Level 28 mmol/L (21-32) Anion Gap 9 (6-14) Blood Urea Nitrogen 14 mg/dL (7-20) Creatinine 0.8 mg/dL (0.6-1.0) Estimated GFR (Cockcroft-Gault) 68.7 BUN/Creatinine Ratio 18 (6-20) Glucose Level 137 mg/dL (70-99) Calcium Level 8.7 mg/dL (8.5-10.1) Total Bilirubin 0.2 mg/dL (0.2-1.0) Aspartate Amino Transf (AST/SGOT) 18 U/L (15-37) Alanine Aminotransferase (ALT/SGPT) 22 U/L (14-59) Alkaline Phosphatase 119 U/L (46-116) Total Protein 6.0 g/dL (6.4-8.2) Albumin 2.8 g/dL (3.4-5.0) Albumin/Globulin Ratio 0.9 (1.0-1.7) Medications Current Medications Bacitracin 83510 unit/Sodium Chloride 1,000 ml @ 1,000 mls/hr 1X ONCE IRR Last administered on 05/12/18at 15:58; Start 05/12/18 at 14:00; Stop 05/12/18 at 14: 59; Status DC Ondansetron HCl (Zofran) 4 mg PRN Q6HRS PRN IV NAUSEA/VOMITING; Start 05/12/18 at 14:00; Stop 05/13/18 at 13:59; Status DC Fentanyl Citrate (Fentanyl 2ml Vial) 25 mcg PRN Q5MIN PRN IV MILD PAIN Last administered on 05/12/18at 19:55; Start 05/12/18 at 14:00; Stop 05/13/18 at 01:57; Status DC Fentanyl Citrate (Fentanyl 2ml Vial) 50 mcg PRN Q5MIN PRN IV MODERATE TO SEVERE PAIN; Start 05/12/18 at 14:00; Stop 05/13/18 at 01:57; Status DC Morphine Sulfate (Morphine Sulfate) 1 mg PRN Q10MIN PRN IV SEVERE PAIN; Start 05/12/18 at 14:00; Stop 05/13/18 at 01:57; Status DC Ringer's Solution 1,000 ml @ 30 mls/hr Q24H IV ; Start 05/12/18 at 13:46; Stop 05/13/18 at 01:45; Status DC Lidocaine HCl (Xylocaine-Mpf 1% 2ml Vial) 2 ml PRN 1X PRN ID PRIOR TO IV START ; Start 05/12/18 at 14:00; Stop 05/13/18 at 13:59; Status DC Hydromorphone HCl (Dilaudid) 0.5 mg PRN Q10MIN PRN IV SEV PAIN, Second choice; Start 05/12/18 at 14:00; Stop 05/13/18 at 01:57; Status DC Prochlorperazine Edisylate (Compazine) 5 mg PACU PRN PRN IV NAUSEA, MRX1; Start 05/12/18 at 14:00; Stop 05/13/18 at 13:59; Status DC Lidocaine HCl (Lidocaine Pf 2% Vial) 5 ml STK-MED ONCE .ROUTE ; Start 05/12/18 at 14:07; Stop 05/12/18 at 14:08; Status DC Sodium Chloride (SODIUM CHLORIDE 20ml) 20 ml STK-MED ONCE IJ ; Start 05/12/18 at 14:07; Stop 05/12/18 at 14:08; Status DC Propofol 20 ml @ As Directed STK-MED ONCE IV ; Start 05/12/18 at 14:07; Stop 05/12 at 14:08; Status DC Ondansetron HCl (Zofran) 4 mg STK-MED ONCE .ROUTE ; Start 05/12/18 at 14:07; Stop 05/12/18 at 14:08; Status DC Famotidine (Pepcid Vial) 20 mg STK-MED ONCE .ROUTE ; Start 05/12/18 at 14:07; Stop 05/12/18 at 14:08; Status DC Dexamethasone Sodium Phosphate (Decadron) 20 mg STK-MED ONCE .ROUTE ; Start 05/12 at 14:07; Stop 05/12/18 at 14:08; Status DC Propofol 50 ml @ As Directed STK-MED ONCE IV ; Start 05/12/18 at 14:07; Stop 05/12 at 14:08; Status DC Gelatin (Gelfoam Size 100) 1 each STK-MED ONCE .ROUTE Last administered on 05/12at 15:50; Start 05/12/18 at 13:11; Stop 05/12/18 at 14:11; Status DC Bupivacaine HCl/ Epinephrine Bitart (Sensorcain-Mpf Epi 0.5%-1:[id number]) 30 ml STK -MED ONCE .ROUTE Last administered on 05/12/18at 15:48; Start 05/12/18 at 13:11; Stop 05/12/18 at 14:11; Status DC Remifentanil HCl (Ultiva) 2 mg STK-MED ONCE IV ; Start 05/12/18 at 14:11; Stop at 14:12; Status DC Thrombin 20,000 unit STK-MED ONCE TP Last administered on 05/12/18at 15:56; Start 05/12/18 at 13:11; Stop 05/12/18 at 14:12; Status DC Fentanyl Citrate (Fentanyl 2ml Vial) 100 mcg STK-MED ONCE .ROUTE ; Start at 14:11; Stop 05/12/18 at 14:12; Status DC Rocuronium [place] (Zemuron) 50 mg STK-MED ONCE .ROUTE ; Start 05/12/18 at 14:13 ; Stop 05/12/18 at 14:14; Status DC Sodium Chloride (SODIUM CHLORIDE 20ml) 20 ml STK-MED ONCE IJ ; Start 05/12/18 at 14:13; Stop 05/12/18 at 14:14; Status DC Cefazolin Sodium/ Dextrose 50 ml @ 100 mls/hr 1X PREOP PRN IV PRIOR TO PROCEDURE Last administered on 05/12/18at 15:05; Start 05/12/18 at 14:45; Stop 05/13 at 14:44; Status DC Sevoflurane (Ultane) 90 ml STK-MED ONCE IH ; Start 05/12/18 at 14:58; Stop at 14:59; Status DC Phenylephrine HCl (PHENYLEPHRINE in 0.9% NACL PF) 1 mg STK-MED ONCE IV ; Start 05/12/18 at 15:12; Stop 05/12/18 at 15:13; Status DC Cefazolin Sodium/ Dextrose 50 ml @ 100 mls/hr 1X ONCE IV ; Start 05/12/18 at 15 :15; Stop 05/12/18 at 15:16; Status DC Phenylephrine HCl (Zane-Synephrine Inj) 10 mg STK-MED ONCE .ROUTE ; Start at 15:52; Stop 05/12/18 at 15:53; Status DC Phenylephrine HCl (Zane-Synephrine Inj) 10 mg STK-MED ONCE .ROUTE ; Start at 15:52; Stop 05/12/18 at 15:53; Status DC Glycopyrrolate (Robinul) 1 mg STK-MED ONCE .ROUTE ; Start 05/12/18 at 16:07; Stop 05/12/18 at 16:08; Status DC Neostigmine Methylsulfate (Neostigmine Methylsulfate) 5 mg STK-MED ONCE .ROUTE ; Start 05/12/18 at 16:07; Stop 05/12/18 at 16:08; Status DC Dexamethasone Sodium Phosphate (Decadron) 4 mg Q6HRS IV Last administered on 05/14/18at 12:18; Start 05/12/18 at 18:00; Stop 05/14/18 at 14:01; Status DC Labetalol HCl (Normodyne Iv Push) 5 mg PRN Q15MIN PRN IVP HYPERTENSION, SEE COMMENTS Last administered on 05/15/18at 11:21; Start 05/12/18 at 16:30 Nicardipine HCl 50 mg/Sodium Chloride 250 ml @ 25 mls/hr TITRATE PRN IV PER PROTOCOL Last administered on 05/13/18 07:36; Start 05/12/18 at 16:30; Stop at 18:18; Status DC Al Hydroxide/Mg Hydroxide (Mylanta Plus Xs) 30 ml PRN Q3HRS PRN PO HEARTBURN / GAS; Start 05/12/18 at 16:30 Calcium Carbonate/ Glycine (Tums) 500 mg PRN Q3HRS PRN PO INDIGESTION; Start at 16:30 Diphenhydramine HCl (Benadryl) 25 mg PRN Q6HRS PRN PO ITCHING; Start 05/12/18 at 16:30 Sodium Chloride (Normal Saline Flush) 3 ml QSHIFT PRN IV AFTER MEDS AND BLOOD DRAWS; Start 05/12/18 at 16:30 Potassium Chloride/Dextrose/ Sod Cl 1,000 ml @ 75 mls/hr [id number] IV Last administered on 05/13/18 21:45; Start 05/12/18 at 17:00; Stop 05/14/18 at 09:01; Status DC Dextrose (Dextrose 50%-Water Syringe) 12.5 gm PRN Q15MIN PRN IV SEE COMMENTS; Start 05/12/18 at 16:30 Acetaminophen/ Hydrocodone Bitart (Lortab 5/325) 1 tab PRN Q4HRS PRN PO MILD PAIN Last administered on 05/12/18at 20:40; Start 05/12/18 at 16:30 Acetaminophen (Tylenol) 650 mg PRN Q6HRS PRN PO Headaches, Temp > 101.5F Last administered on 05/14/18 08:51; Start 05/12/18 at 16:30 Docusate Sodium (Colace) 100 mg BID PO Last administered on 05/15/18 20:54; Start 05/12/18 at 21:00 Magnesium Hydroxide (Milk Of Magnesia) 2,400 mg PRN Q12HR PRN PO CONSTIPATION; Start 05/12/18 at 16:30 Cefazolin Sodium 1 gm/Dextrose 50 ml @ 100 mls/hr Q8H IV Last administered on 05/13/18 14:44; Start 05/12/18 at 23:00; Stop 05/13/18 at 15:29; Status DC Fentanyl Citrate (Fentanyl 2ml Vial) 25 mcg PRN Q2HR PRN IV PAIN MILD TO MOD; Start 05/12/18 at 16:30 Fentanyl Citrate (Fentanyl 2ml Vial) 50 mcg PRN Q2HR PRN IV PAIN SEVERE Last administered on 05/14/18 00:24; Start 05/12/18 at 16:30 Gabapentin (Neurontin) 300 mg HS PO ; Start 05/14/18 at 21:00 Levothyroxine Sodium (Synthroid) 50 mcg DAILY06 PO Last administered on 06:32; Start 05/14/18 at 10:30 Atorvastatin Calcium (Lipitor) 5 mg QHS PO Last administered on 05/15/18 20:55 ; Start 05/14/18 at 21:00 Primidone (Mysoline) 500 mg QHS PO Last administered on 05/15/18 20:54; Start 05/14/18 at 21:00 Venlafaxine HCl (Effexor Xr) 75 mg DAILY PO Last administered on 05/15/18 09:00 ; Start 05/14/18 at 10:00 Bisacodyl (Dulcolax Tab) 10 mg DAILY PO Last administered on 05/15/18 09:00; Start 05/14/18 at 11:00 Diltiazem HCl (Cardizem 24hr Cd) 180 mg DAILY PO Last administered on 05/15/18 09:01; Start 05/14/18 at 14:00 Dexamethasone Sodium Phosphate (Decadron) 2 mg Q6HRS IV Last administered on 06:32; Start 05/14/18 at 18:00 Hydralazine HCl (Apresoline Inj) 10 mg PRN Q4HRS PRN IVP ELEVATED BP, SEE COMMENTS Last administered on 05/15/18 09:17; Start 05/14/18 at 18:30 Clonidine HCl (Catapres) 0.2 mg 1X ONCE PO Last administered on 05/15/18at 14:38 ; Start 05/15/18 at 14:30; Stop 05/15/18 at 14:31; Status DC Clonidine HCl (Catapres Tts-1) 1 patch WEEKLY TD Last administered on 05/15/18at 15:51; Start 05/15/18 at 14:00 Active Scripts Active Reported Mysoline (Primidone) 250 Mg Tablet 500 Mg PO QHS Gabapentin 300 Mg Capsule 300 Mg PO HS Effexor Xr (Venlafaxine Hcl) 150 Mg Cap.er.24h 1 Cap PO DAILY Folic Acid 1 Mg Tablet 1 Tab PO DAILY Aspirin 81 Mg Tab.chew 1 Tab PO DAILY Asmanex (Mometasone Furoate) 220 Mcg Aer.pow.ba 200 Mcg INH BID Primidone 250 Mg Tablet 250 Mg PO EVENING DAILY Pravastatin Sodium 20 Mg Tablet 1 Tab PO DAILY Cartia Xt (Diltiazem Hcl) 180 Mg Cap.er.24h 180 Mg PO Levothyroxine Sodium 50 Mcg Tablet 1 Tab PO DAILY Venlafaxine Hcl Er (Venlafaxine Hcl) 75 Mg Cap.er.24h 1 Cap PO DAILY Vitals/I & O Vital Sign - Last 24 Hours 05/15/18 05/15/18 05/15/18 05/15/18 09:17 10:00 11:00 11:21 Pulse 77 85 87 86 Resp 14 18 B/P (MAP) 185/96 169/60 (96) 166/72 (103) 166/81 Pulse Ox 98 97 O2 Delivery Room Air Room Air 05/15/18 05/15/18 05/15/18 05/15/18 12:00 12:00 12:00 13:00 Temp 97.7 97.7 Pulse 87 73 Resp 16 15 B/P (MAP) 179/78 (111) 146/70 (95) Pulse Ox 95 97 O2 Delivery Room Air Room Air Room Air 05/15/18 05/15/18 05/15/18 05/15/18 14:00 14:38 15:00 20:00 Pulse 74 84 70 Resp 20 16 B/P (MAP) 157/79 (105) 158/74 133/69 (90) Pulse Ox 98 96 O2 Delivery Room Air Room Air Room Air O2 Flow Rate 2.0 05/15/18 05/15/18 05/16/18 05/16/18 20:33 22:55 00:28 04:00 Temp 97.8 98.4 97.8 98.4 Pulse 82 80 84 Resp 18 18 B/P (MAP) 146/66 (92) 166/84 (111) 173/93 (119) Pulse Ox 96 96 96 O2 Delivery Room Air Room Air Room Air Room Air O2 Flow Rate 2.0 2.0 05/16/18 07:00 Temp 98.0 98.0 Pulse 84 B/P (MAP) 181/86 (117) Pulse Ox 96 O2 Delivery Room Air Intake and Output 05/15/18 05/15/18 05/16/18 15:00 23:00 07:00 Intake Total 930 ml 0 ml Output Total 800 ml 0 ml Balance 130 ml 0 ml 0 ml LORI NICOLE MD May 16, 2018 09:17
--- NOTE | 2018-05-16 09:28 | PDOC ---
PROGRESS NOTES Subjective Subjective No new complaints.She wants to go home. Objective Objective Vital Signs Date Time Temp Pulse Resp B/P (MAP) Pulse Ox O2 Delivery O2 Flow Rate FiO2 05/16/18 07:00 98.0 84 181/86 (117) 96 Room Air 98.0 05/15/18 22:55 18 2.0 Intake and Output 05/16/18 07:00 Intake Total 930 ml Output Total 800 ml Balance 130 ml Intake Oral 930 ml Output Urine Total 800 ml # Voids 1 Physical Exam Physical Exam She is alert,comfortable and is independent with bed mobility,transfers and walking with roller walker under supervision as she had a tendency to try to move too fast and she continues with some cognitive deficits. Her daughters decided on her going to [facility] for continued rehab instead of acute rehab unit in [facility]. Assessment Assessment Problems Medical Problems: (1) Subdural hematoma Status: Acute Plan Plan of Care To SNF when medically stable. Comment Review of Relevant I have reviewed the following items malcolm (where applicable) has been applied. Labs Laboratory Tests Test 05/15/18 05:10 White Blood Count 13.4 x10^3/uL (4.0-11.0) Red Blood Count 3.07 x10^6/uL (3.50-5.40) Hemoglobin 10.1 g/dL (12.0-15.5) Hematocrit 30.7 % (36.0-47.0) Mean Corpuscular Volume 100 fL (79-100) Mean Corpuscular Hemoglobin 33 pg (25-35) Mean Corpuscular Hemoglobin Concent 33 g/dL (31-37) Red Cell Distribution Width 15.1 % (11.5-14.5) Platelet Count 263 x10^3/uL (140-400) Neutrophils (%) (Auto) 90 % (31-73) Lymphocytes (%) (Auto) 4 % (24-48) Monocytes (%) (Auto) 5 % (0-9) Eosinophils (%) (Auto) 0 % (0-3) Basophils (%) (Auto) 1 % (0-3) Neutrophils # (Auto) 12.0 x10^3uL (1.8-7.7) Lymphocytes # (Auto) 0.6 x10^3/uL (1.0-4.8) Monocytes # (Auto) 0.7 x10^3/uL (0.0-1.1) Eosinophils # (Auto) 0.0 x10^3/uL (0.0-0.7) Basophils # (Auto) 0.1 x10^3/uL (0.0-0.2) Sodium Level 145 mmol/L (136-145) Potassium Level 4.3 mmol/L (3.5-5.1) Chloride Level 108 mmol/L (98-107) Carbon Dioxide Level 28 mmol/L (21-32) Anion Gap 9 (6-14) Blood Urea Nitrogen 14 mg/dL (7-20) Creatinine 0.8 mg/dL (0.6-1.0) Estimated GFR (Cockcroft-Gault) 68.7 BUN/Creatinine Ratio 18 (6-20) Glucose Level 137 mg/dL (70-99) Calcium Level 8.7 mg/dL (8.5-10.1) Total Bilirubin 0.2 mg/dL (0.2-1.0) Aspartate Amino Transf (AST/SGOT) 18 U/L (15-37) Alanine Aminotransferase (ALT/SGPT) 22 U/L (14-59) Alkaline Phosphatase 119 U/L (46-116) Total Protein 6.0 g/dL (6.4-8.2) Albumin 2.8 g/dL (3.4-5.0) Albumin/Globulin Ratio 0.9 (1.0-1.7) Medications Current Medications Bacitracin 97985 unit/Sodium Chloride 1,000 ml @ 1,000 mls/hr 1X ONCE IRR Last administered on 05/12/18at 15:58; Start 05/12/18 at 14:00; Stop 05/12/18 at 14: 59; Status DC Ondansetron HCl (Zofran) 4 mg PRN Q6HRS PRN IV NAUSEA/VOMITING; Start 05/12/18 at 14:00; Stop 05/13/18 at 13:59; Status DC Fentanyl Citrate (Fentanyl 2ml Vial) 25 mcg PRN Q5MIN PRN IV MILD PAIN Last administered on 05/12/18at 19:55; Start 05/12/18 at 14:00; Stop 05/13/18 at 01:57; Status DC Fentanyl Citrate (Fentanyl 2ml Vial) 50 mcg PRN Q5MIN PRN IV MODERATE TO SEVERE PAIN; Start 05/12/18 at 14:00; Stop 05/13/18 at 01:57; Status DC Morphine Sulfate (Morphine Sulfate) 1 mg PRN Q10MIN PRN IV SEVERE PAIN; Start 05/12/18 at 14:00; Stop 05/13/18 at 01:57; Status DC Ringer's Solution 1,000 ml @ 30 mls/hr Q24H IV ; Start 05/12/18 at 13:46; Stop 05/13/18 at 01:45; Status DC Lidocaine HCl (Xylocaine-Mpf 1% 2ml Vial) 2 ml PRN 1X PRN ID PRIOR TO IV START ; Start 05/12/18 at 14:00; Stop 05/13/18 at 13:59; Status DC Hydromorphone HCl (Dilaudid) 0.5 mg PRN Q10MIN PRN IV SEV PAIN, Second choice; Start 05/12/18 at 14:00; Stop 05/13/18 at 01:57; Status DC Prochlorperazine Edisylate (Compazine) 5 mg PACU PRN PRN IV NAUSEA, MRX1; Start 05/12/18 at 14:00; Stop 05/13/18 at 13:59; Status DC Lidocaine HCl (Lidocaine Pf 2% Vial) 5 ml STK-MED ONCE .ROUTE ; Start 05/12/18 at 14:07; Stop 05/12/18 at 14:08; Status DC Sodium Chloride (SODIUM CHLORIDE 20ml) 20 ml STK-MED ONCE IJ ; Start 05/12/18 at 14:07; Stop 05/12/18 at 14:08; Status DC Propofol 20 ml @ As Directed STK-MED ONCE IV ; Start 05/12/18 at 14:07; Stop 05/12 at 14:08; Status DC Ondansetron HCl (Zofran) 4 mg STK-MED ONCE .ROUTE ; Start 05/12/18 at 14:07; Stop 05/12/18 at 14:08; Status DC Famotidine (Pepcid Vial) 20 mg STK-MED ONCE .ROUTE ; Start 05/12/18 at 14:07; Stop 05/12/18 at 14:08; Status DC Dexamethasone Sodium Phosphate (Decadron) 20 mg STK-MED ONCE .ROUTE ; Start 05/12 at 14:07; Stop 05/12/18 at 14:08; Status DC Propofol 50 ml @ As Directed STK-MED ONCE IV ; Start 05/12/18 at 14:07; Stop 05/12 at 14:08; Status DC Gelatin (Gelfoam Size 100) 1 each STK-MED ONCE .ROUTE Last administered on 05/12at 15:50; Start 05/12/18 at 13:11; Stop 05/12/18 at 14:11; Status DC Bupivacaine HCl/ Epinephrine Bitart (Sensorcain-Mpf Epi 0.5%-1:325754) 30 ml STK -MED ONCE .ROUTE Last administered on 05/12/18at 15:48; Start 05/12/18 at 13:11; Stop 05/12/18 at 14:11; Status DC Remifentanil HCl (Ultiva) 2 mg STK-MED ONCE IV ; Start 05/12/18 at 14:11; Stop at 14:12; Status DC Thrombin 20,000 unit STK-MED ONCE TP Last administered on 05/12/18at 15:56; Start 05/12/18 at 13:11; Stop 05/12/18 at 14:12; Status DC Fentanyl Citrate (Fentanyl 2ml Vial) 100 mcg STK-MED ONCE .ROUTE ; Start at 14:11; Stop 05/12/18 at 14:12; Status DC Rocuronium [place] (Zemuron) 50 mg STK-MED ONCE .ROUTE ; Start 05/12/18 at 14:13 ; Stop 05/12/18 at 14:14; Status DC Sodium Chloride (SODIUM CHLORIDE 20ml) 20 ml STK-MED ONCE IJ ; Start 05/12/18 at 14:13; Stop 05/12/18 at 14:14; Status DC Cefazolin Sodium/ Dextrose 50 ml @ 100 mls/hr 1X PREOP PRN IV PRIOR TO PROCEDURE Last administered on 05/12/18at 15:05; Start 05/12/18 at 14:45; Stop 05/13 at 14:44; Status DC Sevoflurane (Ultane) 90 ml STK-MED ONCE IH ; Start 05/12/18 at 14:58; Stop at 14:59; Status DC Phenylephrine HCl (PHENYLEPHRINE in 0.9% NACL PF) 1 mg STK-MED ONCE IV ; Start 05/12/18 at 15:12; Stop 05/12/18 at 15:13; Status DC Cefazolin Sodium/ Dextrose 50 ml @ 100 mls/hr 1X ONCE IV ; Start 05/12/18 at 15 :15; Stop 05/12/18 at 15:16; Status DC Phenylephrine HCl (Zane-Synephrine Inj) 10 mg STK-MED ONCE .ROUTE ; Start at 15:52; Stop 05/12/18 at 15:53; Status DC Phenylephrine HCl (Zane-Synephrine Inj) 10 mg STK-MED ONCE .ROUTE ; Start at 15:52; Stop 05/12/18 at 15:53; Status DC Glycopyrrolate (Robinul) 1 mg STK-MED ONCE .ROUTE ; Start 05/12/18 at 16:07; Stop 05/12/18 at 16:08; Status DC Neostigmine Methylsulfate (Neostigmine Methylsulfate) 5 mg STK-MED ONCE .ROUTE ; Start 05/12/18 at 16:07; Stop 05/12/18 at 16:08; Status DC Dexamethasone Sodium Phosphate (Decadron) 4 mg Q6HRS IV Last administered on 05/14/18at 12:18; Start 05/12/18 at 18:00; Stop 05/14/18 at 14:01; Status DC Labetalol HCl (Normodyne Iv Push) 5 mg PRN Q15MIN PRN IVP HYPERTENSION, SEE COMMENTS Last administered on 05/15/18at 11:21; Start 05/12/18 at 16:30 Nicardipine HCl 50 mg/Sodium Chloride 250 ml @ 25 mls/hr TITRATE PRN IV PER PROTOCOL Last administered on 05/13/18at 07:36; Start 05/12/18 at 16:30; Stop at 18:18; Status DC Al Hydroxide/Mg Hydroxide (Mylanta Plus Xs) 30 ml PRN Q3HRS PRN PO HEARTBURN / GAS; Start 05/12/18 at 16:30 Calcium Carbonate/ Glycine (Tums) 500 mg PRN Q3HRS PRN PO INDIGESTION; Start at 16:30 Diphenhydramine HCl (Benadryl) 25 mg PRN Q6HRS PRN PO ITCHING; Start 05/12/18 at 16:30 Sodium Chloride (Normal Saline Flush) 3 ml QSHIFT PRN IV AFTER MEDS AND BLOOD DRAWS; Start 05/12/18 at 16:30 Potassium Chloride/Dextrose/ Sod Cl 1,000 ml @ 75 mls/hr [id number] IV Last administered on 05/13/18at 21:45; Start 05/12/18 at 17:00; Stop 05/14/18 at 09:01; Status DC Dextrose (Dextrose 50%-Water Syringe) 12.5 gm PRN Q15MIN PRN IV SEE COMMENTS; Start 05/12/18 at 16:30 Acetaminophen/ Hydrocodone Bitart (Lortab 5/325) 1 tab PRN Q4HRS PRN PO MILD PAIN Last administered on 05/12/18at 20:40; Start 05/12/18 at 16:30 Acetaminophen (Tylenol) 650 mg PRN Q6HRS PRN PO Headaches, Temp > 101.5F Last administered on 05/14/18at 08:51; Start 05/12/18 at 16:30 Docusate Sodium (Colace) 100 mg BID PO Last administered on 05/15/18 20:54; Start 05/12/18 at 21:00 Magnesium Hydroxide (Milk Of Magnesia) 2,400 mg PRN Q12HR PRN PO CONSTIPATION; Start 05/12/18 at 16:30 Cefazolin Sodium 1 gm/Dextrose 50 ml @ 100 mls/hr Q8H IV Last administered on 05/13/18at 14:44; Start 05/12/18 at 23:00; Stop 05/13/18 at 15:29; Status DC Fentanyl Citrate (Fentanyl 2ml Vial) 25 mcg PRN Q2HR PRN IV PAIN MILD TO MOD; Start 05/12/18 at 16:30 Fentanyl Citrate (Fentanyl 2ml Vial) 50 mcg PRN Q2HR PRN IV PAIN SEVERE Last administered on 05/14/18at 00:24; Start 05/12/18 at 16:30 Gabapentin (Neurontin) 300 mg HS PO ; Start 05/14/18 at 21:00 Levothyroxine Sodium (Synthroid) 50 mcg DAILY06 PO Last administered on 06:32; Start 05/14/18 at 10:30 Atorvastatin Calcium (Lipitor) 5 mg QHS PO Last administered on 05/15/18 20:55 ; Start 05/14/18 at 21:00 Primidone (Mysoline) 500 mg QHS PO Last administered on 05/15/18 20:54; Start 05/14/18 at 21:00 Venlafaxine HCl (Effexor Xr) 75 mg DAILY PO Last administered on 05/15/18 09:00 ; Start 05/14/18 at 10:00 Bisacodyl (Dulcolax Tab) 10 mg DAILY PO Last administered on 05/15/18 09:00; Start 05/14/18 at 11:00 Diltiazem HCl (Cardizem 24hr Cd) 180 mg DAILY PO Last administered on 05/15/18 09:01; Start 05/14/18 at 14:00 Dexamethasone Sodium Phosphate (Decadron) 2 mg Q6HRS IV Last administered on 06:32; Start 05/14/18 at 18:00 Hydralazine HCl (Apresoline Inj) 10 mg PRN Q4HRS PRN IVP ELEVATED BP, SEE COMMENTS Last administered on 05/15/18 09:17; Start 05/14/18 at 18:30 Clonidine HCl (Catapres) 0.2 mg 1X ONCE PO Last administered on 05/15/18 14:38 ; Start 05/15/18 at 14:30; Stop 05/15/18 at 14:31; Status DC Clonidine HCl (Catapres Tts-1) 1 patch WEEKLY TD Last administered on 05/15/18 15:51; Start 05/15/18 at 14:00 Active Scripts Active Reported Mysoline (Primidone) 250 Mg Tablet 500 Mg PO QHS Gabapentin 300 Mg Capsule 300 Mg PO HS Effexor Xr (Venlafaxine Hcl) 150 Mg Cap.er.24h 1 Cap PO DAILY Folic Acid 1 Mg Tablet 1 Tab PO DAILY Aspirin 81 Mg Tab.chew 1 Tab PO DAILY Asmanex (Mometasone Furoate) 220 Mcg Aer.pow.ba 200 Mcg INH BID Primidone 250 Mg Tablet 250 Mg PO EVENING DAILY Pravastatin Sodium 20 Mg Tablet 1 Tab PO DAILY Cartia Xt (Diltiazem Hcl) 180 Mg Cap.er.24h 180 Mg PO Levothyroxine Sodium 50 Mcg Tablet 1 Tab PO DAILY Venlafaxine Hcl Er (Venlafaxine Hcl) 75 Mg Cap.er.24h 1 Cap PO DAILY Vitals/I & O Vital Sign - Last 24 Hours 05/15/18 05/15/18 05/15/18 05/15/18 10:00 11:00 11:21 12:00 Temp 97.7 97.7 Pulse 85 87 86 Resp 14 18 B/P (MAP) 169/60 (96) 166/72 (103) 166/81 Pulse Ox 98 97 O2 Delivery Room Air Room Air 05/15/18 05/15/18 05/15/18 05/15/18 12:00 12:00 13:00 14:00 Pulse 87 73 74 Resp 16 15 20 B/P (MAP) 179/78 (111) 146/70 (95) 157/79 (105) Pulse Ox 95 97 98 O2 Delivery Room Air Room Air Room Air Room Air 05/15/18 05/15/18 05/15/18 05/15/18 14:38 15:00 20:00 20:33 Temp 97.8 97.8 Pulse 84 70 82 Resp 16 18 B/P (MAP) 158/74 133/69 (90) 146/66 (92) Pulse Ox 96 96 O2 Delivery Room Air Room Air Room Air O2 Flow Rate 2.0 2.0 05/15/18 05/16/18 05/16/18 05/16/18 22:55 00:28 04:00 07:00 Temp 98.4 98.0 98.4 98.0 Pulse 80 84 84 Resp 18 B/P (MAP) 166/84 (111) 173/93 (119) 181/86 (117) Pulse Ox 96 96 96 O2 Delivery Room Air Room Air Room Air Room Air O2 Flow Rate 2.0 Intake and Output 05/15/18 05/15/18 05/16/18 15:00 23:00 07:00 Intake Total 930 ml 0 ml Output Total 800 ml 0 ml Balance 130 ml 0 ml 0 ml ELVIA WARD MD May 16, 2018 09:28
[2018-05-16] MEDS: DOCUSATE SODIUM 100 MG CAPSULE. PO SCH ×2 (09:53→20:45)
[2018-05-16] MEDS: VENLAFAXINE XR 37.5 MG CAP.ER.24H. PO SCH (09:53)
[2018-05-16] MEDS: hydrALAZINE 20 MG/ML VIAL. IVP PRN (09:56)
--- NOTE | 2018-05-16 09:57 | PDOC ---
PROGRESS NOTES Subjective Subjective want to go home Objective Objective Vital Signs Date Time Temp Pulse Resp B/P (MAP) Pulse Ox O2 Delivery O2 Flow Rate FiO2 05/16/18 07:00 98.0 84 181/86 (117) 96 Room Air 98.0 05/15/18 22:55 18 2.0 Intake and Output 05/16/18 07:00 Intake Total 930 ml Output Total 800 ml Balance 130 ml Intake Oral 930 ml Output Urine Total 800 ml # Voids 1 Physical Exam Abdomen: Soft Heart: Normal S1, Normal S2 General: Alert, Oriented X3 Lungs: Clear to auscultation MUSCULOSKELETAL: Other (DAIGLE) Neuro: Normal speech Psych/Mental Status: Mental status NL Skin: Other (dressing C,D,I) COMMENT dressing scalp Diagnosis Problem List Problems Medical Problems: (1) Subdural hematoma Status: Acute Assessment Assessment 1. Acute right frontal temporoparietal subdural hematoma, status post right central craniotomy with evacuation of subacute subdural hematoma and removal of membranes. 2. Hypertension. 3. Hypothyroidism. 4. Depression. 5. Anxiety. 6. Essential tremors. 7. Hypokalemia, corrected. 8. Carcinoma of breast with left mastectomy. 9. Carcinoma of lung. PLAN: moved out of icu. BP fluctuating. donot want to go to snu. home in 1-2 days pt/ot spoke with RN. clonidine tts patch for bp control. labs reviewed ok wbc 13 down Plan Plan of Care Problems Medical Problems: (1) Subdural hematoma Status: Acute Comment Review of Relevant I have reviewed the following items malcolm (where applicable) has been applied. Medications Current Medications Clonidine HCl (Catapres Tts-1) 1 patch WEEKLY TD Last administered on 05/15/18at 15:51; Start 05/15/18 at 14:00 Clonidine HCl (Catapres) 0.2 mg 1X ONCE PO Last administered on 05/15/18at 14:38 ; Start 05/15/18 at 14:30; Stop 05/15/18 at 14:31; Status DC Vitals/I & O Vital Sign - Last 24 Hours 05/15/18 05/15/18 05/15/18 05/15/18 10:00 11:00 11:21 12:00 Temp 97.7 97.7 Pulse 85 87 86 Resp 14 18 B/P (MAP) 169/60 (96) 166/72 (103) 166/81 Pulse Ox 98 97 O2 Delivery Room Air Room Air 05/15/18 05/15/18 05/15/18 05/15/18 12:00 12:00 13:00 14:00 Pulse 87 73 74 Resp 16 15 20 B/P (MAP) 179/78 (111) 146/70 (95) 157/79 (105) Pulse Ox 95 97 98 O2 Delivery Room Air Room Air Room Air Room Air 05/15/18 05/15/18 05/15/18 05/15/18 14:38 15:00 20:00 20:33 Temp 97.8 97.8 Pulse 84 70 82 Resp 16 18 B/P (MAP) 158/74 133/69 (90) 146/66 (92) Pulse Ox 96 96 O2 Delivery Room Air Room Air Room Air O2 Flow Rate 2.0 2.0 05/15/18 05/16/18 05/16/18 05/16/18 22:55 00:28 04:00 07:00 Temp 98.4 98.0 98.4 98.0 Pulse 80 84 84 Resp 18 B/P (MAP) 166/84 (111) 173/93 (119) 181/86 (117) Pulse Ox 96 96 96 O2 Delivery Room Air Room Air Room Air Room Air O2 Flow Rate 2.0 Intake and Output 05/15/18 05/15/18 05/16/18 15:00 23:00 07:00 Intake Total 930 ml 0 ml Output Total 800 ml 0 ml Balance 130 ml 0 ml 0 ml MAIN HARO MD May 16, 2018 09:57
[2018-05-16 11:00] VITALS: BP 138/61
--- NOTE | 2018-05-16 12:10 | PDOC ---
PROGRESS NOTES Subjective Subjective up in chair denies headache feels good wants to go home Objective Objective Vital Signs Date Time Temp Pulse Resp B/P (MAP) Pulse Ox O2 Delivery O2 Flow Rate FiO2 05/16/18 11:00 98.1 107 16 138/61 (86) 97 Room Air 98.1 05/15/18 22:55 2.0 Intake and Output 05/16/18 06:59 Intake Total 930 ml Output Total 800 ml Balance 130 ml Intake Oral 930 ml Output Urine Total 800 ml # Voids 1 Physical Exam General: Alert, Oriented X3, Cooperative, No acute distress MUSCULOSKELETAL: Other (DAIGLE) Neuro: Normal speech, Strength at 5/5 X4 ext Skin: Other (dressing dry, jinny intact) Assessment Assessment Problems Medical Problems: (1) Subdural hematoma Status: Acute Plan Plan of Care ok to dc home or SNF decrease steroids to 1 mg BID f/u [address] Head Comment Review of Relevant I have reviewed the following items malcolm (where applicable) has been applied. Labs Laboratory Tests Test 05/15/18 05:10 White Blood Count 13.4 x10^3/uL (4.0-11.0) Red Blood Count 3.07 x10^6/uL (3.50-5.40) Hemoglobin 10.1 g/dL (12.0-15.5) Hematocrit 30.7 % (36.0-47.0) Mean Corpuscular Volume 100 fL (79-100) Mean Corpuscular Hemoglobin 33 pg (25-35) Mean Corpuscular Hemoglobin Concent 33 g/dL (31-37) Red Cell Distribution Width 15.1 % (11.5-14.5) Platelet Count 263 x10^3/uL (140-400) Neutrophils (%) (Auto) 90 % (31-73) Lymphocytes (%) (Auto) 4 % (24-48) Monocytes (%) (Auto) 5 % (0-9) Eosinophils (%) (Auto) 0 % (0-3) Basophils (%) (Auto) 1 % (0-3) Neutrophils # (Auto) 12.0 x10^3uL (1.8-7.7) Lymphocytes # (Auto) 0.6 x10^3/uL (1.0-4.8) Monocytes # (Auto) 0.7 x10^3/uL (0.0-1.1) Eosinophils # (Auto) 0.0 x10^3/uL (0.0-0.7) Basophils # (Auto) 0.1 x10^3/uL (0.0-0.2) Sodium Level 145 mmol/L (136-145) Potassium Level 4.3 mmol/L (3.5-5.1) Chloride Level 108 mmol/L (98-107) Carbon Dioxide Level 28 mmol/L (21-32) Anion Gap 9 (6-14) Blood Urea Nitrogen 14 mg/dL (7-20) Creatinine 0.8 mg/dL (0.6-1.0) Estimated GFR (Cockcroft-Gault) 68.7 BUN/Creatinine Ratio 18 (6-20) Glucose Level 137 mg/dL (70-99) Calcium Level 8.7 mg/dL (8.5-10.1) Total Bilirubin 0.2 mg/dL (0.2-1.0) Aspartate Amino Transf (AST/SGOT) 18 U/L (15-37) Alanine Aminotransferase (ALT/SGPT) 22 U/L (14-59) Alkaline Phosphatase 119 U/L (46-116) Total Protein 6.0 g/dL (6.4-8.2) Albumin 2.8 g/dL (3.4-5.0) Albumin/Globulin Ratio 0.9 (1.0-1.7) Medications Current Medications Bacitracin 68676 unit/Sodium Chloride 1,000 ml @ 1,000 mls/hr 1X ONCE IRR Last administered on 05/12/18at 15:58; Start 05/12/18 at 14:00; Stop 05/12/18 at 14: 59; Status DC Ondansetron HCl (Zofran) 4 mg PRN Q6HRS PRN IV NAUSEA/VOMITING; Start 05/12/18 at 14:00; Stop 05/13/18 at 13:59; Status DC Fentanyl Citrate (Fentanyl 2ml Vial) 25 mcg PRN Q5MIN PRN IV MILD PAIN Last administered on 05/12/18at 19:55; Start 05/12/18 at 14:00; Stop 05/13/18 at 01:57; Status DC Fentanyl Citrate (Fentanyl 2ml Vial) 50 mcg PRN Q5MIN PRN IV MODERATE TO SEVERE PAIN; Start 05/12/18 at 14:00; Stop 05/13/18 at 01:57; Status DC Morphine Sulfate (Morphine Sulfate) 1 mg PRN Q10MIN PRN IV SEVERE PAIN; Start 05/12/18 at 14:00; Stop 05/13/18 at 01:57; Status DC Ringer's Solution 1,000 ml @ 30 mls/hr Q24H IV ; Start 05/12/18 at 13:46; Stop 05/13/18 at 01:45; Status DC Lidocaine HCl (Xylocaine-Mpf 1% 2ml Vial) 2 ml PRN 1X PRN ID PRIOR TO IV START ; Start 05/12/18 at 14:00; Stop 05/13/18 at 13:59; Status DC Hydromorphone HCl (Dilaudid) 0.5 mg PRN Q10MIN PRN IV SEV PAIN, Second choice; Start 05/12/18 at 14:00; Stop 05/13/18 at 01:57; Status DC Prochlorperazine Edisylate (Compazine) 5 mg PACU PRN PRN IV NAUSEA, MRX1; Start 05/12/18 at 14:00; Stop 05/13/18 at 13:59; Status DC Lidocaine HCl (Lidocaine Pf 2% Vial) 5 ml STK-MED ONCE .ROUTE ; Start 05/12/18 at 14:07; Stop 05/12/18 at 14:08; Status DC Sodium Chloride (SODIUM CHLORIDE 20ml) 20 ml STK-MED ONCE IJ ; Start 05/12/18 at 14:07; Stop 05/12/18 at 14:08; Status DC Propofol 20 ml @ As Directed STK-MED ONCE IV ; Start 05/12/18 at 14:07; Stop 05/12 at 14:08; Status DC Ondansetron HCl (Zofran) 4 mg STK-MED ONCE .ROUTE ; Start 05/12/18 at 14:07; Stop 05/12/18 at 14:08; Status DC Famotidine (Pepcid Vial) 20 mg STK-MED ONCE .ROUTE ; Start 05/12/18 at 14:07; Stop 05/12/18 at 14:08; Status DC Dexamethasone Sodium Phosphate (Decadron) 20 mg STK-MED ONCE .ROUTE ; Start 05/12 at 14:07; Stop 05/12/18 at 14:08; Status DC Propofol 50 ml @ As Directed STK-MED ONCE IV ; Start 05/12/18 at 14:07; Stop 05/12 at 14:08; Status DC Gelatin (Gelfoam Size 100) 1 each STK-MED ONCE .ROUTE Last administered on 05/12at 15:50; Start 05/12/18 at 13:11; Stop 05/12/18 at 14:11; Status DC Bupivacaine HCl/ Epinephrine Bitart (Sensorcain-Mpf Epi 0.5%-1:[id number]) 30 ml STK -MED ONCE .ROUTE Last administered on 05/12/18at 15:48; Start 05/12/18 at 13:11; Stop 05/12/18 at 14:11; Status DC Remifentanil HCl (Ultiva) 2 mg STK-MED ONCE IV ; Start 05/12/18 at 14:11; Stop at 14:12; Status DC Thrombin 20,000 unit STK-MED ONCE TP Last administered on 05/12/18at 15:56; Start 05/12/18 at 13:11; Stop 05/12/18 at 14:12; Status DC Fentanyl Citrate (Fentanyl 2ml Vial) 100 mcg STK-MED ONCE .ROUTE ; Start at 14:11; Stop 05/12/18 at 14:12; Status DC Rocuronium [place] (Zemuron) 50 mg STK-MED ONCE .ROUTE ; Start 05/12/18 at 14:13 ; Stop 05/12/18 at 14:14; Status DC Sodium Chloride (SODIUM CHLORIDE 20ml) 20 ml STK-MED ONCE IJ ; Start 05/12/18 at 14:13; Stop 05/12/18 at 14:14; Status DC Cefazolin Sodium/ Dextrose 50 ml @ 100 mls/hr 1X PREOP PRN IV PRIOR TO PROCEDURE Last administered on 05/12/18at 15:05; Start 05/12/18 at 14:45; Stop 05/13 at 14:44; Status DC Sevoflurane (Ultane) 90 ml STK-MED ONCE IH ; Start 05/12/18 at 14:58; Stop at 14:59; Status DC Phenylephrine HCl (PHENYLEPHRINE in 0.9% NACL PF) 1 mg STK-MED ONCE IV ; Start 05/12/18 at 15:12; Stop 05/12/18 at 15:13; Status DC Cefazolin Sodium/ Dextrose 50 ml @ 100 mls/hr 1X ONCE IV ; Start 05/12/18 at 15 :15; Stop 05/12/18 at 15:16; Status DC Phenylephrine HCl (Zane-Synephrine Inj) 10 mg STK-MED ONCE .ROUTE ; Start at 15:52; Stop 05/12/18 at 15:53; Status DC Phenylephrine HCl (Zane-Synephrine Inj) 10 mg STK-MED ONCE .ROUTE ; Start at 15:52; Stop 05/12/18 at 15:53; Status DC Glycopyrrolate (Robinul) 1 mg STK-MED ONCE .ROUTE ; Start 05/12/18 at 16:07; Stop 05/12/18 at 16:08; Status DC Neostigmine Methylsulfate (Neostigmine Methylsulfate) 5 mg STK-MED ONCE .ROUTE ; Start 05/12/18 at 16:07; Stop 05/12/18 at 16:08; Status DC Dexamethasone Sodium Phosphate (Decadron) 4 mg Q6HRS IV Last administered on 05/14/18at 12:18; Start 05/12/18 at 18:00; Stop 05/14/18 at 14:01; Status DC Labetalol HCl (Normodyne Iv Push) 5 mg PRN Q15MIN PRN IVP HYPERTENSION, SEE COMMENTS Last administered on 05/15/18at 11:21; Start 05/12/18 at 16:30 Nicardipine HCl 50 mg/Sodium Chloride 250 ml @ 25 mls/hr TITRATE PRN IV PER PROTOCOL Last administered on 05/13/18at 07:36; Start 05/12/18 at 16:30; Stop at 18:18; Status DC Al Hydroxide/Mg Hydroxide (Mylanta Plus Xs) 30 ml PRN Q3HRS PRN PO HEARTBURN / GAS; Start 05/12/18 at 16:30 Calcium Carbonate/ Glycine (Tums) 500 mg PRN Q3HRS PRN PO INDIGESTION; Start at 16:30 Diphenhydramine HCl (Benadryl) 25 mg PRN Q6HRS PRN PO ITCHING; Start 05/12/18 at 16:30 Sodium Chloride (Normal Saline Flush) 3 ml QSHIFT PRN IV AFTER MEDS AND BLOOD DRAWS; Start 05/12/18 at 16:30 Potassium Chloride/Dextrose/ Sod Cl 1,000 ml @ 75 mls/hr [id number] IV Last administered on 05/13/18at 21:45; Start 05/12/18 at 17:00; Stop 05/14/18 at 09:01; Status DC Dextrose (Dextrose 50%-Water Syringe) 12.5 gm PRN Q15MIN PRN IV SEE COMMENTS; Start 05/12/18 at 16:30 Acetaminophen/ Hydrocodone Bitart (Lortab 5/325) 1 tab PRN Q4HRS PRN PO MILD PAIN Last administered on 05/12/18at 20:40; Start 05/12/18 at 16:30 Acetaminophen (Tylenol) 650 mg PRN Q6HRS PRN PO Headaches, Temp > 101.5F Last administered on 05/14/18at 08:51; Start 05/12/18 at 16:30 Docusate Sodium (Colace) 100 mg BID PO Last administered on 05/16/18 09:53; Start 05/12/18 at 21:00 Magnesium Hydroxide (Milk Of Magnesia) 2,400 mg PRN Q12HR PRN PO CONSTIPATION; Start 05/12/18 at 16:30 Cefazolin Sodium 1 gm/Dextrose 50 ml @ 100 mls/hr Q8H IV Last administered on 05/13/18at 14:44; Start 05/12/18 at 23:00; Stop 05/13/18 at 15:29; Status DC Fentanyl Citrate (Fentanyl 2ml Vial) 25 mcg PRN Q2HR PRN IV PAIN MILD TO MOD; Start 05/12/18 at 16:30 Fentanyl Citrate (Fentanyl 2ml Vial) 50 mcg PRN Q2HR PRN IV PAIN SEVERE Last administered on 05/14/18at 00:24; Start 05/12/18 at 16:30 Gabapentin (Neurontin) 300 mg HS PO ; Start 05/14/18 at 21:00 Levothyroxine Sodium (Synthroid) 50 mcg DAILY06 PO Last administered on at 06:32; Start 05/14/18 at 10:30 Atorvastatin Calcium (Lipitor) 5 mg QHS PO Last administered on 05/15/18 20:55 ; Start 05/14/18 at 21:00 Primidone (Mysoline) 500 mg QHS PO Last administered on 05/15/18 20:54; Start 05/14/18 at 21:00 Venlafaxine HCl (Effexor Xr) 75 mg DAILY PO Last administered on 05/16/18 09:53 ; Start 05/14/18 at 10:00 Bisacodyl (Dulcolax Tab) 10 mg DAILY PO Last administered on 05/15/18 09:00; Start 05/14/18 at 11:00 Diltiazem HCl (Cardizem 24hr Cd) 180 mg DAILY PO Last administered on 05/16/18 09:53; Start 05/14/18 at 14:00 Dexamethasone Sodium Phosphate (Decadron) 2 mg Q6HRS IV Last administered on 06:32; Start 05/14/18 at 18:00; Stop 05/16/18 at 12:08; Status DC Hydralazine HCl (Apresoline Inj) 10 mg PRN Q4HRS PRN IVP ELEVATED BP, SEE COMMENTS Last administered on 05/16/18 09:56; Start 05/14/18 at 18:30 Clonidine HCl (Catapres) 0.2 mg 1X ONCE PO Last administered on 05/15/18 14:38 ; Start 05/15/18 at 14:30; Stop 05/15/18 at 14:31; Status DC Clonidine HCl (Catapres Tts-1) 1 patch WEEKLY TD Last administered on 05/15/18 15:51; Start 05/15/18 at 14:00 Hydralazine HCl (Apresoline) 25 mg TID PO ; Start 05/16/18 at 10:30 Dexamethasone (Decadron) 1 mg BID PO ; Start 05/16/18 at 21:00; Status UNV Active Scripts Active Reported Mysoline (Primidone) 250 Mg Tablet 500 Mg PO QHS Gabapentin 300 Mg Capsule 300 Mg PO HS Effexor Xr (Venlafaxine Hcl) 150 Mg Cap.er.24h 1 Cap PO DAILY Folic Acid 1 Mg Tablet 1 Tab PO DAILY Aspirin 81 Mg Tab.chew 1 Tab PO DAILY Asmanex (Mometasone Furoate) 220 Mcg Aer.pow.ba 200 Mcg INH BID Primidone 250 Mg Tablet 250 Mg PO EVENING DAILY Pravastatin Sodium 20 Mg Tablet 1 Tab PO DAILY Cartia Xt (Diltiazem Hcl) 180 Mg Cap.er.24h 180 Mg PO Levothyroxine Sodium 50 Mcg Tablet 1 Tab PO DAILY Venlafaxine Hcl Er (Venlafaxine Hcl) 75 Mg Cap.er.24h 1 Cap PO DAILY Vitals/I & O Vital Sign - Last 24 Hours 05/15/18 05/15/18 05/15/18 05/15/18 13:00 14:00 14:38 15:00 Pulse 73 74 84 70 Resp 15 20 16 B/P (MAP) 146/70 (95) 157/79 (105) 158/74 133/69 (90) Pulse Ox 97 98 96 O2 Delivery Room Air Room Air Room Air 05/15/18 05/15/18 05/15/18 05/16/18 20:00 20:33 22:55 00:28 Temp 97.8 98.4 97.8 98.4 Pulse 82 80 Resp 18 18 B/P (MAP) 146/66 (92) 166/84 (111) Pulse Ox 96 96 O2 Delivery Room Air Room Air Room Air Room Air O2 Flow Rate 2.0 2.0 2.0 05/16/18 05/16/18 05/16/18 05/16/18 04:00 07:00 08:15 09:53 Temp 98.0 98.0 Pulse 84 84 84 B/P (MAP) 173/93 (119) 181/86 (117) 181/86 Pulse Ox 96 96 O2 Delivery Room Air Room Air Room Air 05/16/18 05/16/18 09:56 11:00 Temp 98.1 98.1 Pulse 84 107 Resp 16 B/P (MAP) 181/86 138/61 (86) Pulse Ox 97 O2 Delivery Room Air Intake and Output 05/15/18 05/15/18 05/16/18 14:59 22:59 06:59 Intake Total 810 ml 120 ml 0 ml Output Total 800 ml 0 ml Balance 10 ml 120 ml 0 ml MARIELY ALCANTAR MD May 16, 2018 12:10
[2018-05-16] MEDS: hydrALAZINE 25 MG TABLET PO SCH ×3 (12:46→20:44)
[2018-05-16 15:00] VITALS: BP 140/57
[2018-05-16 19:54] VITALS: BP 175/75
[2018-05-16] MEDS: DEXAMETHASONE 1 MG TABLET PO SCH (20:44)
[2018-05-16] MEDS: PRIMIDONE 250 MG TABLET PO SCH (20:44)
[2018-05-16] MEDS: ATORVASTATIN CALCIUM 10 MG TABLET. PO SCH (20:44)
[2018-05-16] MEDS: GABAPENTIN 300 MG CAPSULE. PO SCH ×2 (20:45→20:52)
[2018-05-16 23:36] VITALS: BP 150/56
[2018-05-17 03:59] VITALS: BP 172/91
[2018-05-17 06:16] LABS: BASO % 0 % (0-3); EOS % 0 % (0-3); HEMATOCRIT 34.2 % (36.0-47.0); HEMOGLOBIN 11.5 g/dL (12.0-15.5); LYMPH # 1.4 x10^3/uL (1.0-4.8); LYMPH % 14 % (24-48); MEAN CORPUSCULAR HEMOGLOBIN 34 pg (25-35); MEAN CORPUSCULAR HGB CONC 34 g/dL (31-37); MEAN CORPUSCULAR VOLUME 100 fL (79-100); MONO # 0.8 x10^3/uL (0.0-1.1); MONO % 8 % (0-9); NEUT % 78 % (31-73); PLATELET COUNT 280 x10^3/uL (140-400); RED BLOOD COUNT 3.41 x10^6/uL (3.50-5.40); RED CELL DISTRIBUTION WIDTH 15.2 % (11.5-14.5); WHITE BLOOD COUNT 10.2 x10^3/uL (4.0-11.0)
[2018-05-17 06:34] LABS: CREATININE 0.9 mg/dL (0.6-1.0); GFR 59.9; POTASSIUM 4.1 mmol/L (3.5-5.1)
[2018-05-17] MEDS: LEVOTHYROXINE 50 MCG TABLET PO SCH (07:28)
[2018-05-17 07:58] VITALS: BP 163/97
[2018-05-17] MEDS: DOCUSATE SODIUM 100 MG CAPSULE. PO SCH (08:58)
[2018-05-17] MEDS: VENLAFAXINE XR 37.5 MG CAP.ER.24H. PO SCH (08:58)
[2018-05-17] MEDS: DEXAMETHASONE 1 MG TABLET PO SCH (08:58)
[2018-05-17] MEDS: hydrALAZINE 25 MG TABLET PO SCH ×2 (08:59→14:00)
[2018-05-17] MEDS: BISACODYL 5 MG TABLET.DR. PO SCH (08:59)
--- NOTE | 2018-05-17 09:02 | PDOC ---
PROGRESS NOTES Subjective Subjective No new complaints. Objective Objective Vital Signs Date Time Temp Pulse Resp B/P (MAP) Pulse Ox O2 Delivery O2 Flow Rate FiO2 05/17/18 07:58 98.2 87 18 163/97 (119) 98 Room Air 98.2 05/15/18 22:55 2.0 Intake and Output 05/17/18 07:00 Intake Total 720 ml Balance 720 ml Intake Oral 720 ml # Voids 5 Physical Exam Physical Exam She is alert,talking and she is moving in bed,transferring and walking with walker under supervision. Physical and occupational therapy and speech pathology are still recommending her to go to acute rehab for continued care.She can go to rehab unit or SNF.She wants to go home. Assessment Assessment Problems Medical Problems: (1) Subdural hematoma Status: Acute Plan Plan of Care If family feels comfortable to supervise and help her and remind her to slow down and use walker all the time while up,she can go home with home health follow up. Comment Review of Relevant I have reviewed the following items malcolm (where applicable) has been applied. Labs Laboratory Tests Test 05/17/18 05:30 White Blood Count 10.2 x10^3/uL (4.0-11.0) Red Blood Count 3.41 x10^6/uL (3.50-5.40) Hemoglobin 11.5 g/dL (12.0-15.5) Hematocrit 34.2 % (36.0-47.0) Mean Corpuscular Volume 100 fL (79-100) Mean Corpuscular Hemoglobin 34 pg (25-35) Mean Corpuscular Hemoglobin Concent 34 g/dL (31-37) Red Cell Distribution Width 15.2 % (11.5-14.5) Platelet Count 280 x10^3/uL (140-400) Neutrophils (%) (Auto) 78 % (31-73) Lymphocytes (%) (Auto) 14 % (24-48) Monocytes (%) (Auto) 8 % (0-9) Eosinophils (%) (Auto) 0 % (0-3) Basophils (%) (Auto) 0 % (0-3) Neutrophils # (Auto) 8.0 x10^3uL (1.8-7.7) Lymphocytes # (Auto) 1.4 x10^3/uL (1.0-4.8) Monocytes # (Auto) 0.8 x10^3/uL (0.0-1.1) Eosinophils # (Auto) 0.0 x10^3/uL (0.0-0.7) Basophils # (Auto) 0.0 x10^3/uL (0.0-0.2) Sodium Level 143 mmol/L (136-145) Potassium Level 4.1 mmol/L (3.5-5.1) Chloride Level 104 mmol/L (98-107) Carbon Dioxide Level 29 mmol/L (21-32) Anion Gap 10 (6-14) Blood Urea Nitrogen 20 mg/dL (7-20) Creatinine 0.9 mg/dL (0.6-1.0) Estimated GFR (Cockcroft-Gault) 59.9 Glucose Level 107 mg/dL (70-99) Calcium Level 9.0 mg/dL (8.5-10.1) Laboratory Tests Test 05/17/18 05:30 White Blood Count 10.2 x10^3/uL (4.0-11.0) Red Blood Count 3.41 x10^6/uL (3.50-5.40) Hemoglobin 11.5 g/dL (12.0-15.5) Hematocrit 34.2 % (36.0-47.0) Mean Corpuscular Volume 100 fL (79-100) Mean Corpuscular Hemoglobin 34 pg (25-35) Mean Corpuscular Hemoglobin Concent 34 g/dL (31-37) Red Cell Distribution Width 15.2 % (11.5-14.5) Platelet Count 280 x10^3/uL (140-400) Neutrophils (%) (Auto) 78 % (31-73) Lymphocytes (%) (Auto) 14 % (24-48) Monocytes (%) (Auto) 8 % (0-9) Eosinophils (%) (Auto) 0 % (0-3) Basophils (%) (Auto) 0 % (0-3) Neutrophils # (Auto) 8.0 x10^3uL (1.8-7.7) Lymphocytes # (Auto) 1.4 x10^3/uL (1.0-4.8) Monocytes # (Auto) 0.8 x10^3/uL (0.0-1.1) Eosinophils # (Auto) 0.0 x10^3/uL (0.0-0.7) Basophils # (Auto) 0.0 x10^3/uL (0.0-0.2) Sodium Level 143 mmol/L (136-145) Potassium Level 4.1 mmol/L (3.5-5.1) Chloride Level 104 mmol/L (98-107) Carbon Dioxide Level 29 mmol/L (21-32) Anion Gap 10 (6-14) Blood Urea Nitrogen 20 mg/dL (7-20) Creatinine 0.9 mg/dL (0.6-1.0) Estimated GFR (Cockcroft-Gault) 59.9 Glucose Level 107 mg/dL (70-99) Calcium Level 9.0 mg/dL (8.5-10.1) Medications Current Medications Bacitracin 38336 unit/Sodium Chloride 1,000 ml @ 1,000 mls/hr 1X ONCE IRR Last administered on 05/12/18at 15:58; Start 05/12/18 at 14:00; Stop 05/12/18 at 14: 59; Status DC Ondansetron HCl (Zofran) 4 mg PRN Q6HRS PRN IV NAUSEA/VOMITING; Start 05/12/18 at 14:00; Stop 05/13/18 at 13:59; Status DC Fentanyl Citrate (Fentanyl 2ml Vial) 25 mcg PRN Q5MIN PRN IV MILD PAIN Last administered on 05/12/18at 19:55; Start 05/12/18 at 14:00; Stop 05/13/18 at 01:57; Status DC Fentanyl Citrate (Fentanyl 2ml Vial) 50 mcg PRN Q5MIN PRN IV MODERATE TO SEVERE PAIN; Start 05/12/18 at 14:00; Stop 05/13/18 at 01:57; Status DC Morphine Sulfate (Morphine Sulfate) 1 mg PRN Q10MIN PRN IV SEVERE PAIN; Start 05/12/18 at 14:00; Stop 05/13/18 at 01:57; Status DC Ringer's Solution 1,000 ml @ 30 mls/hr Q24H IV ; Start 05/12/18 at 13:46; Stop 05/13/18 at 01:45; Status DC Lidocaine HCl (Xylocaine-Mpf 1% 2ml Vial) 2 ml PRN 1X PRN ID PRIOR TO IV START ; Start 05/12/18 at 14:00; Stop 05/13/18 at 13:59; Status DC Hydromorphone HCl (Dilaudid) 0.5 mg PRN Q10MIN PRN IV SEV PAIN, Second choice; Start 05/12/18 at 14:00; Stop 05/13/18 at 01:57; Status DC Prochlorperazine Edisylate (Compazine) 5 mg PACU PRN PRN IV NAUSEA, MRX1; Start 05/12/18 at 14:00; Stop 05/13/18 at 13:59; Status DC Lidocaine HCl (Lidocaine Pf 2% Vial) 5 ml STK-MED ONCE .ROUTE ; Start 05/12/18 at 14:07; Stop 05/12/18 at 14:08; Status DC Sodium Chloride (SODIUM CHLORIDE 20ml) 20 ml STK-MED ONCE IJ ; Start 05/12/18 at 14:07; Stop 05/12/18 at 14:08; Status DC Propofol 20 ml @ As Directed STK-MED ONCE IV ; Start 05/12/18 at 14:07; Stop 05/12 at 14:08; Status DC Ondansetron HCl (Zofran) 4 mg STK-MED ONCE .ROUTE ; Start 05/12/18 at 14:07; Stop 05/12/18 at 14:08; Status DC Famotidine (Pepcid Vial) 20 mg STK-MED ONCE .ROUTE ; Start 05/12/18 at 14:07; Stop 05/12/18 at 14:08; Status DC Dexamethasone Sodium Phosphate (Decadron) 20 mg STK-MED ONCE .ROUTE ; Start 05/12 at 14:07; Stop 05/12/18 at 14:08; Status DC Propofol 50 ml @ As Directed STK-MED ONCE IV ; Start 05/12/18 at 14:07; Stop 05/12 at 14:08; Status DC Gelatin (Gelfoam Size 100) 1 each STK-MED ONCE .ROUTE Last administered on 05/12at 15:50; Start 05/12/18 at 13:11; Stop 05/12/18 at 14:11; Status DC Bupivacaine HCl/ Epinephrine Bitart (Sensorcain-Mpf Epi 0.5%-1:[id number]) 30 ml STK -MED ONCE .ROUTE Last administered on 05/12/18at 15:48; Start 05/12/18 at 13:11; Stop 05/12/18 at 14:11; Status DC Remifentanil HCl (Ultiva) 2 mg STK-MED ONCE IV ; Start 05/12/18 at 14:11; Stop at 14:12; Status DC Thrombin 20,000 unit STK-MED ONCE TP Last administered on 05/12/18at 15:56; Start 05/12/18 at 13:11; Stop 05/12/18 at 14:12; Status DC Fentanyl Citrate (Fentanyl 2ml Vial) 100 mcg STK-MED ONCE .ROUTE ; Start at 14:11; Stop 05/12/18 at 14:12; Status DC Rocuronium Sparks (Zemuron) 50 mg STK-MED ONCE .ROUTE ; Start 05/12/18 at 14:13 ; Stop 05/12/18 at 14:14; Status DC Sodium Chloride (SODIUM CHLORIDE 20ml) 20 ml STK-MED ONCE IJ ; Start 05/12/18 at 14:13; Stop 05/12/18 at 14:14; Status DC Cefazolin Sodium/ Dextrose 50 ml @ 100 mls/hr 1X PREOP PRN IV PRIOR TO PROCEDURE Last administered on 05/12/18at 15:05; Start 05/12/18 at 14:45; Stop 05/13 at 14:44; Status DC Sevoflurane (Ultane) 90 ml STK-MED ONCE IH ; Start 05/12/18 at 14:58; Stop at 14:59; Status DC Phenylephrine HCl (PHENYLEPHRINE in 0.9% NACL PF) 1 mg STK-MED ONCE IV ; Start 05/12/18 at 15:12; Stop 05/12/18 at 15:13; Status DC Cefazolin Sodium/ Dextrose 50 ml @ 100 mls/hr 1X ONCE IV ; Start 05/12/18 at 15 :15; Stop 05/12/18 at 15:16; Status DC Phenylephrine HCl (Zane-Synephrine Inj) 10 mg STK-MED ONCE .ROUTE ; Start at 15:52; Stop 05/12/18 at 15:53; Status DC Phenylephrine HCl (Zane-Synephrine Inj) 10 mg STK-MED ONCE .ROUTE ; Start at 15:52; Stop 05/12/18 at 15:53; Status DC Glycopyrrolate (Robinul) 1 mg STK-MED ONCE .ROUTE ; Start 05/12/18 at 16:07; Stop 05/12/18 at 16:08; Status DC Neostigmine Methylsulfate (Neostigmine Methylsulfate) 5 mg STK-MED ONCE .ROUTE ; Start 05/12/18 at 16:07; Stop 05/12/18 at 16:08; Status DC Dexamethasone Sodium Phosphate (Decadron) 4 mg Q6HRS IV Last administered on 05/14/18at 12:18; Start 05/12/18 at 18:00; Stop 05/14/18 at 14:01; Status DC Labetalol HCl (Normodyne Iv Push) 5 mg PRN Q15MIN PRN IVP HYPERTENSION, SEE COMMENTS Last administered on 05/15/18at 11:21; Start 05/12/18 at 16:30 Nicardipine HCl 50 mg/Sodium Chloride 250 ml @ 25 mls/hr TITRATE PRN IV PER PROTOCOL Last administered on 05/13/18at 07:36; Start 05/12/18 at 16:30; Stop at 18:18; Status DC Al Hydroxide/Mg Hydroxide (Mylanta Plus Xs) 30 ml PRN Q3HRS PRN PO HEARTBURN / GAS; Start 05/12/18 at 16:30 Calcium Carbonate/ Glycine (Tums) 500 mg PRN Q3HRS PRN PO INDIGESTION; Start at 16:30 Diphenhydramine HCl (Benadryl) 25 mg PRN Q6HRS PRN PO ITCHING; Start 05/12/18 at 16:30 Sodium Chloride (Normal Saline Flush) 3 ml QSHIFT PRN IV AFTER MEDS AND BLOOD DRAWS; Start 05/12/18 at 16:30 Potassium Chloride/Dextrose/ Sod Cl 1,000 ml @ 75 mls/hr [id number] IV Last administered on 05/13/18at 21:45; Start 05/12/18 at 17:00; Stop 05/14/18 at 09:01; Status DC Dextrose (Dextrose 50%-Water Syringe) 12.5 gm PRN Q15MIN PRN IV SEE COMMENTS; Start 05/12/18 at 16:30 Acetaminophen/ Hydrocodone Bitart (Lortab 5/325) 1 tab PRN Q4HRS PRN PO MILD PAIN Last administered on 05/12/18 20:40; Start 05/12/18 at 16:30 Acetaminophen (Tylenol) 650 mg PRN Q6HRS PRN PO Headaches, Temp > 101.5F Last administered on 05/14/18 08:51; Start 05/12/18 at 16:30 Docusate Sodium (Colace) 100 mg BID PO Last administered on 05/16/18 20:45; Start 05/12/18 at 21:00 Magnesium Hydroxide (Milk Of Magnesia) 2,400 mg PRN Q12HR PRN PO CONSTIPATION; Start 05/12/18 at 16:30 Cefazolin Sodium 1 gm/Dextrose 50 ml @ 100 mls/hr Q8H IV Last administered on 05/13/18 14:44; Start 05/12/18 at 23:00; Stop 05/13/18 at 15:29; Status DC Fentanyl Citrate (Fentanyl 2ml Vial) 25 mcg PRN Q2HR PRN IV PAIN MILD TO MOD; Start 05/12/18 at 16:30 Fentanyl Citrate (Fentanyl 2ml Vial) 50 mcg PRN Q2HR PRN IV PAIN SEVERE Last administered on 05/14/18 00:24; Start 05/12/18 at 16:30 Gabapentin (Neurontin) 300 mg HS PO Last administered on 05/16/18 20:52; Start 05/14/18 at 21:00 Levothyroxine Sodium (Synthroid) 50 mcg DAILY06 PO Last administered on 07:28; Start 05/14/18 at 10:30 Atorvastatin Calcium (Lipitor) 5 mg QHS PO Last administered on 05/16/18 20:44 ; Start 05/14/18 at 21:00 Primidone (Mysoline) 500 mg QHS PO Last administered on 05/16/18 20:44; Start 05/14/18 at 21:00 Venlafaxine HCl (Effexor Xr) 75 mg DAILY PO Last administered on 05/16/18 09:53 ; Start 05/14/18 at 10:00 Bisacodyl (Dulcolax Tab) 10 mg DAILY PO Last administered on 05/15/18 09:00; Start 05/14/18 at 11:00 Diltiazem HCl (Cardizem 24hr Cd) 180 mg DAILY PO Last administered on 05/16/18 09:53; Start 05/14/18 at 14:00 Dexamethasone Sodium Phosphate (Decadron) 2 mg Q6HRS IV Last administered on 06:32; Start 05/14/18 at 18:00; Stop 05/16/18 at 12:08; Status DC Hydralazine HCl (Apresoline Inj) 10 mg PRN Q4HRS PRN IVP ELEVATED BP, SEE COMMENTS Last administered on 05/16/18 09:56; Start 05/14/18 at 18:30 Clonidine HCl (Catapres) 0.2 mg 1X ONCE PO Last administered on 05/15/18 14:38 ; Start 05/15/18 at 14:30; Stop 05/15/18 at 14:31; Status DC Clonidine HCl (Catapres Tts-1) 1 patch WEEKLY TD Last administered on 05/15/18 15:51; Start 05/15/18 at 14:00 Hydralazine HCl (Apresoline) 25 mg TID PO Last administered on 05/16/18 20:44; Start 05/16/18 at 10:30 Dexamethasone (Decadron) 1 mg BID PO Last administered on 05/16/18 20:44; Start 05/16/18 at 21:00 Active Scripts Active Reported Mysoline (Primidone) 250 Mg Tablet 500 Mg PO QHS Gabapentin 300 Mg Capsule 300 Mg PO HS Effexor Xr (Venlafaxine Hcl) 150 Mg Cap.er.24h 1 Cap PO DAILY Folic Acid 1 Mg Tablet 1 Tab PO DAILY Aspirin 81 Mg Tab.chew 1 Tab PO DAILY Asmanex (Mometasone Furoate) 220 Mcg Aer.pow.ba 200 Mcg INH BID Primidone 250 Mg Tablet 250 Mg PO EVENING DAILY Pravastatin Sodium 20 Mg Tablet 1 Tab PO DAILY Cartia Xt (Diltiazem Hcl) 180 Mg Cap.er.24h 180 Mg PO Levothyroxine Sodium 50 Mcg Tablet 1 Tab PO DAILY Venlafaxine Hcl Er (Venlafaxine Hcl) 75 Mg Cap.er.24h 1 Cap PO DAILY Vitals/I & O Vital Sign - Last 24 Hours 4/5/19 4/5/19 4/5/19 4/5/19 09:53 09:56 11:00 12:46 Temp 98.1 98.1 Pulse 84 84 107 107 Resp 16 B/P (MAP) 181/86 181/86 138/61 (86) 138/61 Pulse Ox 97 O2 Delivery Room Air 05/16/18 05/16/18 05/16/18 05/16/18 15:00 19:54 20:44 23:36 Temp 98.0 98.6 99.1 98.0 98.6 99.1 Pulse 109 97 97 80 Resp 16 18 17 B/P (MAP) 140/57 (84) 175/75 (108) 175/75 150/56 (87) Pulse Ox 97 97 94 O2 Delivery Room Air Room Air Room Air 05/17/18 05/17/18 03:59 07:58 Temp 97.6 98.2 97.6 98.2 Pulse 92 87 Resp 18 18 B/P (MAP) 172/91 (118) 163/97 (119) Pulse Ox 97 98 O2 Delivery Room Air Room Air Intake and Output 05/16/18 05/16/18 05/17/18 15:00 23:00 07:00 Intake Total 480 ml 240 ml Balance 480 ml 240 ml ELVIA WARD MD May 17, 2018 09:01
--- NOTE | 2018-05-17 10:32 | PDOC ---
PROGRESS NOTES Subjective Subjective feels better want to go home Objective Objective Vital Signs Date Time Temp Pulse Resp B/P (MAP) Pulse Ox O2 Delivery O2 Flow Rate FiO2 05/17/18 08:59 87 163/97 05/17/18 08:00 Room Air 05/17/18 07:58 98.2 18 98 98.2 Intake and Output 05/17/18 07:00 Intake Total 720 ml Balance 720 ml Intake Oral 720 ml # Voids 5 Physical Exam Abdomen: Soft Heart: Normal S1, Normal S2 General: Alert, Oriented X3, Cooperative, No acute distress Lungs: Clear to auscultation MUSCULOSKELETAL: Other (DAIGLE) Neuro: Normal speech, Strength at 5/5 X4 ext Psych/Mental Status: Mental status NL Skin: Other (dressing dry, jinny intact) COMMENT dressing scalp Diagnosis Problem List Problems Medical Problems: (1) Subdural hematoma Status: Acute Assessment Assessment 1. Acute right frontal temporoparietal subdural hematoma, status post right central craniotomy with evacuation of subacute subdural hematoma and removal of membranes. 2. Hypertension. 3. Hypothyroidism. 4. Depression. 5. Anxiety. 6. Essential tremors. 7. Hypokalemia, corrected. 8. Carcinoma of breast with left mastectomy. 9. Carcinoma of lung. PLAN: d/c home today with home health moved out of icu. BP fluctuating. donot want to go to snu. pt/ot spoke with RN. clonidine tts patch for bp control. labs reviewed ok wbc 10 down Plan Plan of Care Problems Medical Problems: (1) Subdural hematoma Status: Acute Comment Review of Relevant I have reviewed the following items malcolm (where applicable) has been applied. Labs Laboratory Tests Test 05/17/18 05:30 White Blood Count 10.2 x10^3/uL (4.0-11.0) Red Blood Count 3.41 x10^6/uL (3.50-5.40) Hemoglobin 11.5 g/dL (12.0-15.5) Hematocrit 34.2 % (36.0-47.0) Mean Corpuscular Volume 100 fL (79-100) Mean Corpuscular Hemoglobin 34 pg (25-35) Mean Corpuscular Hemoglobin Concent 34 g/dL (31-37) Red Cell Distribution Width 15.2 % (11.5-14.5) Platelet Count 280 x10^3/uL (140-400) Neutrophils (%) (Auto) 78 % (31-73) Lymphocytes (%) (Auto) 14 % (24-48) Monocytes (%) (Auto) 8 % (0-9) Eosinophils (%) (Auto) 0 % (0-3) Basophils (%) (Auto) 0 % (0-3) Neutrophils # (Auto) 8.0 x10^3uL (1.8-7.7) Lymphocytes # (Auto) 1.4 x10^3/uL (1.0-4.8) Monocytes # (Auto) 0.8 x10^3/uL (0.0-1.1) Eosinophils # (Auto) 0.0 x10^3/uL (0.0-0.7) Basophils # (Auto) 0.0 x10^3/uL (0.0-0.2) Sodium Level 143 mmol/L (136-145) Potassium Level 4.1 mmol/L (3.5-5.1) Chloride Level 104 mmol/L (98-107) Carbon Dioxide Level 29 mmol/L (21-32) Anion Gap 10 (6-14) Blood Urea Nitrogen 20 mg/dL (7-20) Creatinine 0.9 mg/dL (0.6-1.0) Estimated GFR (Cockcroft-Gault) 59.9 Glucose Level 107 mg/dL (70-99) Calcium Level 9.0 mg/dL (8.5-10.1) Medications Current Medications Dexamethasone (Decadron) 1 mg BID PO Last administered on 05/17/18at 08:58; Start 05/16/18 at 21:00 Vitals/I & O Vital Sign - Last 24 Hours 05/16/18 05/16/18 05/16/18 05/16/18 11:00 12:46 15:00 19:54 Temp 98.1 98.0 98.6 98.1 98.0 98.6 Pulse 107 107 109 97 Resp 16 16 18 B/P (MAP) 138/61 (86) 138/61 140/57 (84) 175/75 (108) Pulse Ox 97 97 97 O2 Delivery Room Air Room Air Room Air 05/16/18 05/16/18 05/17/18 05/17/18 20:44 23:36 03:59 07:58 Temp 99.1 97.6 98.2 99.1 97.6 98.2 Pulse 97 80 92 87 Resp 17 18 18 B/P (MAP) 175/75 150/56 (87) 172/91 (118) 163/97 (119) Pulse Ox 94 97 98 O2 Delivery Room Air Room Air Room Air 05/17/18 05/17/18 05/17/18 08:00 08:59 08:59 Pulse 87 87 B/P (MAP) 163/97 163/97 O2 Delivery Room Air Intake and Output 05/16/18 05/16/18 05/17/18 15:00 23:00 07:00 Intake Total 480 ml 240 ml Balance 480 ml 240 ml MAIN HARO MD May 17, 2018 10:32
[2018-05-17] MEDS ORDERED: CLON1PAT TD (10:37)
[2018-05-17] MEDS ORDERED: HYDR-2868 PO (10:37)
[2018-05-17] MEDS ORDERED: DEXA1TAB PO (10:37)
--- NOTE | 2018-05-17 10:42 | SNU/HH DC ---
DISCHARGE WITH HOME HEALTH DISCHARGE INFORMATION: Discharge Date: May 17, 2018 Final Diagnosis: Problems Medical Problems: (1) Subdural hematoma Status: Acute Condition on Discharge: Stable CODE STATUS: Code Status: Full HOME HEALTH: Face to Face: I certify this patient is under my care and that I, or a nurse practitioner or physician's timber management assistant working with me, had a face to face encounter that meets the physician face to face encounter requirements with this patient on []. Medical Complications: CVA Mcfp For: Medication Management RN For Eval/Treatment: Yes Physical Therapy For: Evalulation/Treatment Occupational Therapy For: Evaluation/Treatment Pt Meets Homebound Status: Unsteady balance w/ amb, POST DISCHARGE ORDERS: Activity Instructions for Disc: Activity as tolerated Weight Bearing Status after Di: No restrictions DIET AFTER DISCHARGE: Cardiac Wound/Incision Care: Keep wound/cast CDI FOLLOW-UP: Follow up with: dr Leblanc 1 week Follow Up With: pcp in 1-2 weeks TREATMENT/EQUIPMENT ORDERS: Adaptive Equipment Issued: Front wheeled walker CERTIFICATION STATEMENT: Certification Statement: Certification Statement: Based on the above finding, I certify that this patient is confined to the home and needs intermittent assisted care, physical therapy and/or speech therapy, or continues to need occupational therapy.~ This patient is under my care, and I have initiated the establishment of the plan of care.~ This patient will be followed by myself or a community physician who will periodically review the plan of care. Home Meds Active Scripts Hydralazine Hcl (HYDRALAZINE HCL) 25 Mg Tablet, 25 MG PO TID for htn for 30 Days , #90 TAB Prov:MAIN HARO MD 05/17/18 Clonidine (CLONIDINE TTS-1) 1 Each Patch.tdwk, 1 PATCH TD WEEKLY for htn for 30 Days, #30 PATCH Prov:MAIN HARO MD 05/17/18 Dexamethasone (DEXAMETHASONE) 1 Mg Tablet, 1 MG PO BID for swelling for 10 Days , #20 TAB Prov:MAIN HARO MD 05/17/18 Reported Medications Primidone (MYSOLINE) 250 Mg Tablet, 500 MG PO QHS for seizure, TAB 05/13/18 Gabapentin (GABAPENTIN) 300 Mg Capsule, 300 MG PO HS for pain, CAP 05/13/18 Venlafaxine Hcl (EFFEXOR XR) 150 Mg Cap.er.24h, 1 CAP PO DAILY for antidepressant, #30 CAP 1 Refill 05/13/18 Folic Acid (FOLIC ACID) 1 Mg Tablet, 1 TAB PO DAILY, #90 TAB 1 Refill 11/26/17 Mometasone Furoate (ASMANEX) 220 Mcg Aer.pow.ba, 200 MCG INH BID for breathing, INH 10/17/17 Primidone (PRIMIDONE) 250 Mg Tablet, 250 MG PO evening daily for anticonvulsant , TAB 10/17/17 Pravastatin Sodium (PRAVASTATIN SODIUM) 20 Mg Tablet, 1 TAB PO DAILY, #30 TAB 5 Refills 10/17/17 Diltiazem Hcl (CARTIA XT) 180 Mg Cap.er.24h, 180 MG PO, CAP.SR 10/17/17 Levothyroxine Sodium (LEVOTHYROXINE SODIUM) 50 Mcg Tablet, 1 TAB PO DAILY, #30 TAB 5 Refills 10/17/17 Discontinued Reported Medications Aspirin (ASPIRIN) 81 Mg Tab.chew, 1 TAB PO DAILY, #30 TAB 3 Refills 10/17/17 Venlafaxine Hcl (VENLAFAXINE HCL ER) 75 Mg Cap.er.24h, 1 CAP PO DAILY, #90 CAP 3 Refills 10/17/17 Ondansetron Hcl (ZOFRAN) 8 Mg Tablet, 1 TAB PO Q8HRS, #30 TAB 1 Refill 11/26/17 Dexamethasone (DEXAMETHASONE) 4 Mg Tablet, 4 MG PO BID, TAB start the day before chemo and continue for 5 days post 11/26/17 Tobramycin/Dexamethasone (TOBRAMYCIN-DEXAMETH OPHTH SUSP) 5 Ml Drops.susp, 1 DROP OD QID, #5 ML 10/17/17 Gabapentin (GABAPENTIN ) 300 Mg Capsule, 300 MG PO TID, CAP 10/17/17 MAIN HARO MD May 17, 2018 10:42
[2018-05-17 11:28] VITALS: BP 160/71
[2018-05-17] MEDS ORDERED: hydrALAZINE 25 MG TABLET PO ONE (13:00)
[2018-05-17] MEDS ORDERED: HEPARIN PF 500 UNIT/5 ML DISP.SYRIN. IV ONE (15:00)
[2018-05-17 16:04] VITALS: BP_SYST 127; BP_SYST 158; BP_DIAS 63; BP_DIAS 81
--- NOTE | 2018-06-10 14:39 | PDOC ---
Provider Note Provider Note Discharge summary dictated. #[id number]. MAIN HARO MD Jun 10, 2018 14:39
--- NOTE | 2018-06-10 21:50 | DS ---
DATE OF DISCHARGE: 05/17/2018 ATTENDING PHYSICIAN: Dr. Teresa Hernandez. REASON FOR ADMISSION TO THE HOSPITAL: Acute right frontal temporoparietal subdural hematoma. CONSULTATIONS: Dr. Frank. PROCEDURES DONE: Right central craniotomy with evacuation of subacute subdural hematoma, removal of membranes. COMPLICATIONS NOTED: None. HOSPITAL COURSE: The patient is an 83-year-old female with history of lung cancer and breast cancer and had some headaches and got progressively worse. MRI shows a subdural hematoma. The patient was admitted to the hospital, seen by Neurosurgery. The patient underwent right central craniotomy with evacuation of subacute subdural hematoma, removal of membranes. The patient was in the ICU, later on changed to medical floor. The patient was put on steroids, physical therapy and occupational therapy. She was discharged home at the patient's request with home health, PT and OT. FINAL DIAGNOSES: 1. Subdural hematoma. The patient had a craniotomy, removal of subdural hematoma. 2. History of lung and breast cancer, stable. See MRAD for discharge medications. MAIN HARO MD DR: MANSOOR/yesi JOB#: [id number] / [id number] TERESA Mosquera MD
== END 2018-05-17 16:30 | disposition home health service (06) | DRG 26 ==
LOC: ER 12:08 → 1 WEST ICU 14:06 → 6 SOUTH 05-15 18:16
PROVIDERS: ADMIT Internal Medicine; ATTEND Internal Medicine
PROC: 00C40ZZ Extirpation of Matter from Intracranial Subdural Space, Open Approach (ICD-10-PCS; principal; 2018-05-12 13:00)
DX: S06.5X0A Traumatic subdural hemorrhage without loss of consciousness, initial encounter (principal); C34.11 Malignant neoplasm of upper lobe, right bronchus or lung; C77.1 Secondary and unspecified malignant neoplasm of intrathoracic lymph nodes; C79.72 Secondary malignant neoplasm of left adrenal gland; G93.49 Other encephalopathy; D64.81 Anemia due to antineoplastic chemotherapy; E87.6 Hypokalemia; E03.9 Hypothyroidism, unspecified; I10 Essential (primary) hypertension; F32.9 Major depressive disorder, single episode, unspecified; F41.9 Anxiety disorder, unspecified; G25.0 Essential tremor; E78.5 Hyperlipidemia, unspecified; M17.0 Bilateral primary osteoarthritis of knee; R29.6 Repeated falls; T45.1X5A Adverse effect of antineoplastic and immunosuppressive drugs, initial encounter; W18.39XA Other fall on same level, initial encounter; Y93.89 Activity, other specified; Y92.89 Other specified places as the place of occurrence of the external cause; Y99.8 Other external cause status; Z90.12 Acquired absence of left breast and nipple; Z85.3 Personal history of malignant neoplasm of breast; Z90.710 Acquired absence of both cervix and uterus; Z80.1 Family history of malignant neoplasm of trachea, bronchus and lung; Z87.891 Personal history of nicotine dependence
CPT/HCPCS: 36415; 70450; 70553; 71045; 72125; 80048; 80053; 82962; 83735; 85007; 85025; 85610; 86850; 86900; 86901; 87641; 88304; A7015; A9585; C1713; J0360; J0690; J0696; J1100; J2001; J2370; J2405; J2704; J2710; J3010; J3490; J7030; J7050; 92523; 97110; 97112; 97116; 97530; 97535; 99291-25

== ENCOUNTER → 2018-05-22 | Outpatient (CLI) | payer MEDICARE ==
[2018-05-17 16:04] VITALS: BP 158/81
[~2018-05-22] MED LIST changes: +CLON1PAT TD; +DEXA1TAB PO; +DOXY100T PO; +GABA600T7 PO; +HYDR-2868 PO; +METH4TAB2 PO; +PRIM250T28 PO; +VENL150C PO
--- NOTE | 2018-05-22 12:07 | RAD ---
PQRS Compliance Statement: One or more of the following individualized dose reduction techniques were utilized for this examination: 1. Automated exposure control 2. Adjustment of the mA and/or kV according to patient size 3. Use of iterative reconstruction technique CT head without contrast 05/22/2018 11:00 AM INDICATION: Subdural hemorrhage COMPARISON: CT head May 12, 2018 TECHNIQUE: Multiple axial CT images of the head were obtained from skull base through the vertex without intravenous contrast. FINDINGS: Head: Right frontal craniotomy changes are identified for evacuation of a subdural hematoma. There is a persistent right subdural collection with mixed attenuation measuring approximately 8.5 mm in maximal thickness, previously measuring 2.2 cm. There is improved midline shift with minimal residual 1 to 2 mm shift of the left. Ventricles are normal in morphology. There is improved mass effect on the right frontal lobe. Basal cisterns are patent. Suprasellar cistern appears patent. Posterior fossa is normal in appearance. No new areas of hemorrhage are identified. Shin-white matter differentiation is preserved. There is no intracranial mass. Paranasal sinuses and mastoid air cells are well aerated. IMPRESSION: Right frontal craniotomy changes are identified for evacuation of right subdural hematoma. There is a persistent subdural hematoma with mixed attenuation measuring 8.5 mm, previously 22 mm. improved midline shift with minimal 1-2 mm residual midline shift to the left. Electronically signed by: Negar Rowe MD (05/22/2018 12:04 PM) [id number]
== END | disposition home or self-care (01) ==
LOC: CT 10:31
PROVIDERS: ATTEND Neurological Surgery
DX: S06.5X0D Traumatic subdural hemorrhage without loss of consciousness, subsequent encounter (principal); X58.XXXD Exposure to other specified factors, subsequent encounter
CPT/HCPCS: 70450

== ENCOUNTER 2018-06-16 12:33 | Inpatient (IN) | payer MEDICARE ==
[~2018-06-16] VITALS: Ht 167.6 cm; Wt 82.3 kg
[~2018-06-16 12:33] MED LIST changes: -DOXY100T PO; -GABA600T7 PO; -METH4TAB2 PO
[2018-06-16 13:28] LABS: BASO % 0 % (0-3); EOS % 0 % (0-3); HEMATOCRIT 28.8 % (36.0-47.0); HEMOGLOBIN 9.8 g/dL (12.0-15.5); LYMPH # 0.4 x10^3/uL (1.0-4.8); LYMPH % 15 % (24-48); MEAN CORPUSCULAR HEMOGLOBIN 34 pg (25-35); MEAN CORPUSCULAR HGB CONC 34 g/dL (31-37); MEAN CORPUSCULAR VOLUME 98 fL (79-100); MONO # 0.8 x10^3/uL (0.0-1.1); MONO % 32 % (0-9); NEUT # 1.3 x10^3uL (1.8-7.7); NEUT % 53 % (31-73); PLATELET COUNT 71 x10^3/uL (140-400); RED BLOOD COUNT 2.94 x10^6/uL (3.50-5.40); RED CELL DISTRIBUTION WIDTH 13.7 % (11.5-14.5); WHITE BLOOD COUNT 2.5 x10^3/uL (4.0-11.0)
--- NOTE | 2018-06-16 13:36 | RAD ---
Chest radiograph 06/16/2018 12:53 PM INDICATION: Generalized weakness and frequent falls COMPARISON: May 12, 2018 TECHNIQUE: Portable upright frontal view of the chest is provided. FINDINGS: The cardiomediastinal silhouette is within normal limits. Right chest wall infusion port catheter is identified with the distal tip in similar position. Surgical clips are identified in the left axilla. There are no pleural effusions. There is no pulmonary vascular congestion. There is no pneumothorax. The lungs are clear. No significant osseous abnormality is identified. IMPRESSION: No acute cardiopulmonary process. Electronically signed by: Negar Rowe MD (06/16/2018 1:34 PM) [id number]
[2018-06-16 13:44] LABS: CALCIUM 8.7 mg/dL (8.5-10.1); GFR 53.1; POTASSIUM 3.8 mmol/L (3.5-5.1)
--- NOTE | 2018-06-16 13:48 | RAD ---
EXAM: CT Head without IV contrast CLINICAL HISTORY: Generalized weakness. Prior right subdural hematoma postcraniotomy. COMPARISON: None. TECHNIQUE: Routine CT of the head without contrast. Soft tissues and bone windows were reviewed. PQRS compliance statement - One or more of the following individualized dose reduction techniques were utilized for this study: 1. Automated exposure control 2. Adjustment of the mA and/or kV according to patient size 3. Use of iterative reconstruction technique FINDINGS: Right frontoparietal subdural hematoma is marginally decreased in size measuring up to 8 mm in thickness. Previously this measured 11 mm when measured in a similar fashion. No evidence for new intra or extra-axial hemorrhage. Changes of right frontal craniotomy again seen. Subcortical and periventricular regions of hypoattenuation likely changes of chronic small vessel disease. There is no mass effect or shift of the intracranial structures. The ventricles and cerebral sulci are prominent consistent with generalized cerebral volume loss/atrophy. The cerebellum and brainstem are unremarkable. Opacification of the left maxillary sinus may represent changes of sinusitis. Mastoid air cells are clear. The visualized portions of the orbits are normal. IMPRESSION: Right frontal craniotomy with small residual subdural hematoma, intervally decreased compared to prior examination. No definite midline shift/associated mass effect. Electronically signed by: Trav Ying MD (06/16/2018 1:44 PM) [id number]
[2018-06-16 13:49] LABS: ALBUMIN 2.6 g/dL (3.4-5.0); ALBUMIN/GLOBULIN RATIO 0.8 (1.0-1.7); TOTAL BILIRUBIN 0.4 mg/dL (0.2-1.0); TOTAL PROTEIN 5.9 g/dL (6.4-8.2)
[2018-06-16 14:26] LABS: % LYMPHS 15 % (24-48); % MONOS 30 % (0-10); % SEGS 55 % (35-66)
[2018-06-16 14:27] LABS: PLT ESTIMATE DECREASED (ADEQUATE)
[2018-06-16 14:47] LABS: BILIRUBIN,URINE NEGATIVE (NEG); CLARITY,URINE CLEAR; COLOR,URINE AMBER; NITRITE,URINE NEGATIVE (NEG); PH,URINE 5.5; PROTEIN,URINE 100 mg/dL (NEG-TRACE)
--- NOTE | 2018-06-16 14:49 | PHYS DOC ---
Past Medical History Past Medical History: Cancer, Hypertension, Hypothyroid, Other Additional Past Medical Histor: breast and lung ca Past Surgical History: Hysterectomy, Other Additional Past Surgical Histo: L mastectomy, R chest port, hemorrhagic brain bleed Alcohol Use: None Drug Use: None Adult General Chief Complaint Chief Complaint: MECHANICAL FALL HPI HPI Patient is a 83 year old female who presents with complaining of frequent falls. Patient had a fall on May 12 with intracranial hemorrhage and was discharged from rehabilitation to home 2 weeks ago with home rehabilitation that finished today. Patient also had history of lung cancer and chemotherapy was sta rted on 06/06/2018 again. Patient complaining of frequent falls and states she had a fall from a standing position 3 days ago and another fall this morning and she thinks she usually trips. Patient diagnosed with balance problem. Patient denies head injury or loss of consciousness, focal neuro deficit, fever and chills, chest pain and shortness of breath, urinary symptoms, diarrhea and vomiting. Patient has chronic constipation. Review of Systems Review of Systems Constitutional: Denies fever or chills [] Eyes: Denies change in visual acuity, redness, or eye pain [] HENT: Denies nasal congestion or sore throat [] Respiratory: Denies cough or shortness of breath [] Cardiovascular: No additional information not addressed in HPI [] GI: Denies abdominal pain, nausea, vomiting, bloody stools or diarrhea [] : Denies dysuria or hematuria [] Musculoskeletal: Denies back pain or joint pain [] Integument: Denies rash or skin lesions [] Neurologic: Denies headache, focal weakness or sensory changes [] Endocrine: Denies polyuria or polydipsia [] All other systems were reviewed and found to be within normal limits, except as documented in this note. Allergies Allergies Allergies Coded Allergies Type Severity Reaction Last Updated Verified No Known Drug Allergies 10/17/17 No Physical Exam Physical Exam Constitutional: Well developed, well nourished, mild distress, non-toxic appearance. [] HENT: Normocephalic, atraumatic, oropharynx moist.] Eyes: PERRLA, EOMI, conjunctiva normal, no discharge. [] Neck: Normal range of motion, no tenderness, supple, no stridor. [] Cardiovascular: Tachycardia, no murmur [] Lungs & Thorax: Bilateral breath sounds clear to auscultation [] Abdomen: Bowel sounds normal, soft, no tenderness, no masses, no pulsatile masses. [] Skin: Warm, dry, no erythema, no rash. [] Back: No tenderness, no CVA tenderness. [] Extremities: No tenderness, no cyanosis, no clubbing, ROM intact, no edema. [] Neurologic: Alert and oriented X 3, normal motor function, normal sensory function, no focal deficits noted. [] Psychologic: Affect normal, judgement normal, mood normal. [] Current Patient Data Vital Signs Vital Signs Date Time Temp Pulse Resp B/P (MAP) Pulse Ox O2 Delivery O2 Flow Rate FiO2 06/16/18 14:04 94 177/80 (112) 94 2.0 06/16/18 13:20 Nasal Cannula 06/16/18 12:40 98.3 14 98.3 Lab Values Laboratory Tests Test 06/16/18 13:14 White Blood Count 2.5 x10^3/uL (4.0-11.0) L Red Blood Count 2.94 x10^6/uL (3.50-5.40) L Hemoglobin 9.8 g/dL (12.0-15.5) L Hematocrit 28.8 % (36.0-47.0) L Mean Corpuscular Volume 98 fL (79-100) Mean Corpuscular Hemoglobin 34 pg (25-35) Mean Corpuscular Hemoglobin Concent 34 g/dL (31-37) Red Cell Distribution Width 13.7 % (11.5-14.5) Platelet Count 71 x10^3/uL (140-400) L Neutrophils (%) (Auto) 53 % (31-73) Lymphocytes (%) (Auto) 15 % (24-48) L Monocytes (%) (Auto) 32 % (0-9) H Eosinophils (%) (Auto) 0 % (0-3) Basophils (%) (Auto) 0 % (0-3) Neutrophils # (Auto) 1.3 x10^3uL (1.8-7.7) L Lymphocytes # (Auto) 0.4 x10^3/uL (1.0-4.8) L Monocytes # (Auto) 0.8 x10^3/uL (0.0-1.1) Eosinophils # (Auto) 0.0 x10^3/uL (0.0-0.7) Basophils # (Auto) 0.0 x10^3/uL (0.0-0.2) Segmented Neutrophils % 55 % (35-66) Lymphocytes % 15 % (24-48) L Monocytes % 30 % (0-10) H Platelet Estimate Decreased (ADEQUATE) Prothrombin Time 14.0 SEC (11.7-14.0) Prothrombin Time INR 1.1 (0.8-1.1) PTT 31 SEC (24-38) D-Dimer (Doris) 2.52 ug/mlFEU (0.00-0.50) H Sodium Level 138 mmol/L (136-145) Potassium Level 3.8 mmol/L (3.5-5.1) Chloride Level 103 mmol/L (98-107) Carbon Dioxide Level 27 mmol/L (21-32) Anion Gap 8 (6-14) Blood Urea Nitrogen 14 mg/dL (7-20) Creatinine 1.0 mg/dL (0.6-1.0) Estimated GFR (Cockcroft-Gault) 53.1 BUN/Creatinine Ratio 14 (6-20) Glucose Level 141 mg/dL (70-99) H Lactic Acid Level 1.5 mmol/L (0.4-2.0) Calcium Level 8.7 mg/dL (8.5-10.1) Magnesium Level 2.0 mg/dL (1.8-2.4) Total Bilirubin 0.4 mg/dL (0.2-1.0) Aspartate Amino Transferase (AST) 55 U/L (15-37) H Alanine Aminotransferase (ALT) 63 U/L (14-59) H Alkaline Phosphatase 82 U/L (46-116) Creatine Kinase 30 U/L (26-192) Troponin I Quantitative < 0.017 ng/mL (0.000-0.055) FN-Tba-I-Type Natriuretic Peptide 129 pg/mL (0-449) Total Protein 5.9 g/dL (6.4-8.2) L Albumin 2.6 g/dL (3.4-5.0) L Albumin/Globulin Ratio 0.8 (1.0-1.7) L Laboratory Tests 06/16/18 13:14 Laboratory Tests 06/16/18 13:14 EKG EKG EKG interpreted by me. EKG at 1308 showed sinus tachycardia at rate of 105, normal. TX and QT intervals, T-wave abnormalities in inferior leads, no acute ST and T-wave abnormalities. Radiology/Procedures Radiology/Procedures [facility] [address] [place] [address] IMAGING REPORT Signed PATIENT: YE KELLER ACCOUNT: [id number] : 1935 LOCATION: ER AGE: 83 SEX: F EXAM STATUS: REG ER ORD. PHYSICIAN: DILAN CERDA MD REASON: generalized weakness x 1 week, and frequent falls PROCEDURE: CT HEAD WO CONTRAST EXAM: CT Head without IV contrast CLINICAL HISTORY: Generalized weakness. Prior right subdural hematoma postcraniotomy. COMPARISON: None. TECHNIQUE: Routine CT of the head without contrast. Soft tissues and bone windows were reviewed. PQRS compliance statement - One or more of the following individualized dose reduction techniques were utilized for this study: 1. Automated exposure control 2. Adjustment of the mA and/or kV according to patient size 3. Use of iterative reconstruction technique FINDINGS: Right frontoparietal subdural hematoma is marginally decreased in size measuring up to 8 mm in thickness. Previously this measured 11 mm when measured in a similar fashion. No evidence for new intra or extra-axial hemorrhage. Changes of right frontal craniotomy again seen. Subcortical and periventricular regions of hypoattenuation likely changes of chronic small vessel disease. There is no mass effect or shift of the intracranial structures. The ventricles and cerebral sulci are prominent consistent with generalized cerebral volume loss/atrophy. The cerebellum and brainstem are unremarkable. Opacification of the left maxillary sinus may represent changes of sinusitis. Mastoid air cells are clear. The visualized portions of the orbits are normal. IMPRESSION: Right frontal craniotomy with small residual subdural hematoma, intervally decreased compared to prior examination. No definite midline shift/associated mass effect. Electronically signed by: Trav Byrne MD (06/16/2018 1:44 PM) [id number] DICTATED and SIGNED BY: TRAV BYRNE MD DATE: 06/16/18 1344 [facility] [address] [place] [address] IMAGING REPORT Signed PATIENT: YE KELLER ACCOUNT: [id number] : 1935 LOCATION: ER AGE: 83 SEX: F EXAM STATUS: REG ER ORD. PHYSICIAN: DILAN CERDA MD REASON: generalized weakness and frequent falls PROCEDURE: PORTABLE CHEST 1V Chest radiograph 06/16/2018 12:53 PM INDICATION: Generalized weakness and frequent falls COMPARISON: May 12, 2018 TECHNIQUE: Portable upright frontal view of the chest is provided. FINDINGS: The cardiomediastinal silhouette is within normal limits. Right chest wall infusion port catheter is identified with the distal tip in similar position. Surgical clips are identified in the left axilla. There are no pleural effusions. There is no pulmonary vascular congestion. There is no pneumothorax. The lungs are clear. No significant osseous abnormality is identified. IMPRESSION: No acute cardiopulmonary process. Electronically signed by: Vivian Craig MD (06/16/2018 1:34 PM) [facility] DICTATED and SIGNED BY: VIVIAN CRAIG MD DATE: 06/16/18 1330 Course & Med Decision Making Course & Med Decision Making Pertinent Labs and Imaging studies reviewed. (See chart for details) Patient of patient in ER showed 83-year-old female patient with frequent falls. Patient started on chemotherapy less than 2 weeks ago and has new Pancytopenia. CT head and chest x-ray did not show acute finding. Lactic is 1.5. CMP was unremarkable. Patient had mild tachycardia with drop of O2 sat to 85% after mild movement and oxygen was started and d-dimer is pending.Patient requiring admission for further evaluation and treatment. Discussed with Dr. Hernandez who is in agreement with admission. Discussed findings and plan with patient and family, who acknowledge understanding and agreement. D-dimer was elevated and CT angio chest was requested that did not show PE. Dragon Disclaimer Dragon Disclaimer This electronic medical record was generated, in whole or in part, using a voice recognition dictation system. Departure Departure Impression: Primary Impression: Generalized weakness Additional Impressions: Frequent falls Pancytopenia Tachycardia History of lung cancer History of intracranial hemorrhage Elevated liver function tests Elevated d-dimer Disposition: 09 ADMITTED INPATIENT (at 1444) Admitting Physician: Hernandez, Pratip (at 1443) Condition: IMPROVED Referrals: TERESA HERNANDEZ MD (PCP) Problem Qualifiers DILAN CERDA MD June 16, 2018 14:49
[2018-06-16 15:03] LABS: AMORPHOUS SEDIMENT,UR PRESENT /HPF; BACTERIA,URINE 0 /HPF (0-FEW); RBC,URINE 0 /HPF (0-2); SQUAMOUS EPITHELIAL CELL,UR MANY /LPF; WBC,URINE OCC /HPF (0-4)
--- NOTE | 2018-06-16 15:29 | EKG ---
[facility] [address] [place] [address] Test Date: 2018-06-16 Test Time: 13:08:33 Pat Name: YE KELLER Department: Room: Gender: F Place Change Roof Bolter: : 1935 Requested By: DILAN CERDA Order Number: [id number] Reading MD: Kwasi Sigala MD Measurements Intervals Howard Rate: 104 P: 36 MN: 132 QRS: 34 QRSD: 80 T: 63 QT: 322 QTc: 429 Interpretive Statements SINUS TACHYCARDIA ANTEROSEPTAL INFARCT Electronically Signed On 07-08-2018 11:46:10 CDT by Kwasi Sigala MD
[2018-06-16] MEDS ORDERED: IOHEXOL 350 MG/ML 100 ML VIAL. IV ONE (15:30)
[2018-06-16] MEDS ORDERED: CONTRAST GIVEN. MC PRN (15:30)
--- NOTE | 2018-06-16 16:12 | RAD ---
CT ANGIOGRAPHY CHEST Indication: Hypoxia, tachycardia. Elevated d-dimer. . Technique: After intravenous contrast administration, CT imaging was performed of the chest. MIP reconstructions were obtained. Exposure: One or more of the following individualized dose reduction techniques were utilized for this examination: 1. Automated exposure control 2. Adjustment of the mA and/or kV according to patient size 3. Use of iterative reconstruction technique. Findings: No evidence of pulmonary embolism. Thoracic aorta is calcified with mural plaque. No evidence of aneurysm or dissection. Proximal great vessels are patent. Coronary artery calcification. No significant pericardial effusion. Small mediastinal lymph nodes without pathologic enlargement. No significant pleural effusion. There are surgical clips in the left axilla. Thyroid gland demonstrates no dominant mass. There is some focal opacity in the posterior right upper lobe marginating the major fissure and posterior pleural measuring 2.7 cm diameter. There is some milder opacity in the right middle lobe along the major fissure. Focal ill-defined opacity in the superior segment of the left lower lobe. Diffuse groundglass opacities scattered throughout both lungs. The trachea and mainstem bronchi are patent. Scans through the upper abdomen are limited by technique, demonstrate no definite acute abnormality. There are small upper abdominal lymph nodes. Degenerative changes of the thoracic spine. There is a right chest wall port in place with tip in the right atrium. IMPRESSION: 1. No evidence of pulmonary embolism. 2. There is a focal dense opacity in the posterior right upper lobe. This may represent some focal consolidation but neoplastic etiology is not excludable. Recommend short-term follow-up in one or 2 months or after acute treatment. 3. There are couple other areas of mild density in both lungs, as well as scattered groundglass infiltrates diffusely. These are likely of inflammatory or infectious etiology and resolution could be confirmed on follow-up imaging. Electronically signed by: Koffi Rubio MD (06/16/2018 4:10 PM) [facility]
[2018-06-16] MEDS ORDERED: PRIMIDONE 250 MG TABLET PO SCH (17:45)
[2018-06-16] MEDS ORDERED: GABA600T7 PO (18:01)
[2018-06-16 19:00] VITALS: BP 153/71
[2018-06-16] MEDS ORDERED: hydrALAZINE 20 MG/ML VIAL. IVP PRN (19:00)
--- NOTE | 2018-06-16 19:03 | PDOC ---
Provider Note Provider Note Patient seen. History and Physical dictated. See dictation#[id number] TERESA HOPPER MD June 16, 2018 19:03
--- NOTE | 2018-06-16 19:11 | NUR ---
The patient, YE KELLER, 83 y/o, F admitted by TERESA HOPPER MD, was given written information regarding hospital policies, unit procedures and contact persons. Report received from BRITTNEY Curiel in ED Valuables were checked and taken home by daughter. Cell phone was left with patient.
[2018-06-16] MEDS: BUDESONIDE 0.5 MG/2 ML NEBU. NEB SCH (20:00)
--- NOTE | 2018-06-16 20:28 | HP ---
ADMIT DATE: 06/16/2018 HISTORY OF PRESENT ILLNESS: This 83-year-old female who was recently admitted to [facility] in early May, in late April, for subdural hematoma, had undergone right craniotomy for evacuation of the subdural hematoma. The patient was subsequently sent to [facility] home and then 2 weeks ago, went back home. She had received PT, OT. However, at home, the patient has been falling quite frequently and she fell again today. She denies any head injury. She denies any dysuria, urinary or bowel incontinence. The patient has been forgetful. The patient denies any cold, cough, congestion, chest pains, palpitations, dyspnea, dizziness or dysuria. She denies any vomiting, nausea, diarrhea. She complains of constipation and joint pains. Because of her frequent falls, the patient was brought to the Emergency Room. In the Emergency Room, CT scan of head revealed the previous hematoma that is decreased from 11 cm to 8 cm in size. It shows that the patient had a right frontal craniotomy. CT angiogram of the chest does not show any evidence of pulmonary embolism. There is a focal dense opacity in the posterior right upper lobe and she has a couple of other areas of mid density in both lungs that may be due to inflammation or infection. Because of the frequent falls and weakness, the patient was admitted for further evaluation and management. PAST MEDICAL HISTORY: As noted earlier, the patient was admitted for subdural hematoma on 05/12/2018 and underwent right frontal craniotomy on the same day. She has a history of hypertension, hypothyroidism, carcinoma of breast with left mastectomy, carcinoma of lung, and essential tremors. PAST SURGICAL HISTORY: Includes hysterectomy, left mastectomy, right chest port and a right frontal craniotomy on 05/12/2018 for subdural hematoma. SOCIAL HISTORY: No history of smoking, alcoholism or drug abuse. The patient is forgetful. FAMILY HISTORY: Noncontributory. ALLERGIES: None known any. MEDICATIONS: Reviewed and reconciled partially. Discussed with the staff, they will get the rest of the medication list. OBJECTIVE: VITAL SIGNS: Temperature 98.3, pulse 107 per minute, respirations 14 per minute, blood pressure 162/74 mmHg. GENERAL: The patient is alert, forgetful, not in acute distress. SCALP: Right-sided recent surgical scar has healed well. No swelling or bleeding noted. No bruising noted on the scalp or face. EYES: Pupils reacting to light. Conjunctivae pale. Sclerae muddy. HENT: Unremarkable. NECK: Supple. JVP normal. No thyromegaly. Trachea midline. LUNGS: Decreased breath sounds at bases. CARDIOVASCULAR: S1, S2 regular. ABDOMEN: Soft, nontender, no guarding, no rigidity. Bowel sounds present. EXTREMITIES: No edema. CENTRAL NERVOUS SYSTEM: Generalized weakness. The patient is able to move her legs. Unable to do any gait testing at this time as the patient is eating. LABORATORY FINDINGS: WBC count 2.5, hemoglobin 9.8, platelet count is 71,000. INR is 1.1. D-dimer is 2.52. CTA was negative for pulmonary embolism. Albumin 2.6, total protein 5.9. Troponin level less than 0.017. BNP is 129. AST 55, ALT 63. Sodium 138, potassium 3.8, glucose 141. Lactic acid is 1.5. Urinalysis is negative for any UTI. IMPRESSION: 1. Subdural hematoma. 2. Frequent falls. 3. Pancytopenia. 4. Weakness. 5. Lung cancer with recent chemotherapy. 6. Hypertension, not controlled, accelerated. 7. Hypothyroidism. 8. Depression. 9. Anxiety. 10. Essential tremors. 11. Carcinoma of breast with left mastectomy. PLAN: I will consult Dr. Fournier for reevaluation and management. Start PT, OT. Consult Dr. Frank to make sure that the patient does not have any hydrocephalus or any other issues that is making her fall more frequently. Prognosis of this patient is poor due to her multiple medical problems. We will consult Dr. Lindquist and monitor pancytopenia. Her absolute neutrophil count is still 1.3 K. For details, please refer the orders. PRATIP Johnny HOPPER MD DR: TOBY/yesi JOB#: [id number] / [id number]
[2018-06-16] MEDS ORDERED: MOMETASONE FUROATE 200 MCG INH SCH (21:00)
[2018-06-16] MEDS: PRIMIDONE 250 MG TABLET PO SCH (21:11)
[2018-06-16] MEDS: ATORVASTATIN CALCIUM 10 MG TABLET. PO SCH (21:11)
[2018-06-16] MEDS: VENLAFAXINE 50 MG TABLET. PO SCH (21:11)
[2018-06-16] MEDS: GABAPENTIN 300 MG CAPSULE. PO SCH (21:11)
[2018-06-16] MEDS: hydrALAZINE 25 MG TABLET PO SCH (21:11)
[2018-06-16 23:00] VITALS: BP 167/69
[2018-06-17 03:00] VITALS: BP 154/71
[2018-06-17] MEDS ORDERED: cefTRIAXone IV Push 1 GM VIAL. IVP ONE (03:30)
[2018-06-17] MEDS: ACETAMINOPHEN 325 MG TABLET. PO PRN (04:20)
[2018-06-17 04:55] LABS: ALBUMIN 2.5 g/dL (3.4-5.0); ALBUMIN/GLOBULIN RATIO 0.6 (1.0-1.7); CALCIUM 9.2 mg/dL (8.5-10.1); GFR 53.1; MAGNESIUM 1.9 mg/dL (1.8-2.4); TOTAL BILIRUBIN 0.4 mg/dL (0.2-1.0); TOTAL PROTEIN 6.9 g/dL (6.4-8.2)
[2018-06-17 04:57] LABS: BASO % 0 % (0-3); EOS % 0 % (0-3); HEMOGLOBIN 10.2 g/dL (12.0-15.5); LYMPH # 0.9 x10^3/uL (1.0-4.8); LYMPH % 24 % (24-48); MEAN CORPUSCULAR HEMOGLOBIN 33 pg (25-35); MEAN CORPUSCULAR HGB CONC 33 g/dL (31-37); MEAN CORPUSCULAR VOLUME 99 fL (79-100); MONO # 0.8 x10^3/uL (0.0-1.1); MONO % 22 % (0-9); NEUT % 55 % (31-73); PLATELET COUNT 74 x10^3/uL (140-400); RED BLOOD COUNT 3.14 x10^6/uL (3.50-5.40); RED CELL DISTRIBUTION WIDTH 13.4 % (11.5-14.5); WHITE BLOOD COUNT 3.6 x10^3/uL (4.0-11.0)
[2018-06-17] MEDS: LEVOTHYROXINE 50 MCG TABLET PO SCH (06:08)
[2018-06-17 08:12] VITALS: BP 138/60
[2018-06-17] MEDS ORDERED: cloNIDine TTS-1 1 PATCH PATCH.TDWK TD SCH (09:00)
[2018-06-17] MEDS: PRIMIDONE 250 MG TABLET PO SCH ×4 (09:07→21:12)
[2018-06-17] MEDS: FOLIC ACID 1 MG TABLET. PO SCH (09:07)
[2018-06-17] MEDS: VENLAFAXINE 50 MG TABLET. PO SCH ×3 (09:07→21:12)
[2018-06-17] MEDS: hydrALAZINE 25 MG TABLET PO SCH ×3 (09:08→21:10)
--- NOTE | 2018-06-17 09:16 | PDOC ---
IM PROGRESS NOTES- Subjective Subjective No complaints of pain or dyspnea. Patient is Saying I want to go home. She is very forgetful and does not understand her condition and problems. Objective Vitals Vital Signs Date Time Temp Pulse Resp B/P (MAP) Pulse Ox O2 Delivery O2 Flow Rate FiO2 06/17/18 09:08 100 138/60 06/17/18 08:12 98.9 19 Nasal Cannula 93.0 98.9 06/17/18 03:00 92 Input & Output Intake and Output 06/17/18 07:00 Output Total 0 ml Balance 0 ml Output Urine Total 0 ml # Voids 2 Physical Exam Physical Exam GENERAL: The patient is alert, forgetful, not in acute distress. SCALP: Right-sided recent surgical scar has healed well. No swelling or bleeding noted. No bruising noted on the scalp or face. EYES: Pupils reacting to light. Conjunctivae pale. Sclerae muddy. HENT: Unremarkable. NECK: Supple. JVP normal. No thyromegaly. Trachea midline. LUNGS: Decreased breath sounds at bases. CARDIOVASCULAR: S1, S2 regular. ABDOMEN: Soft, nontender, no guarding, no rigidity. Bowel sounds present. EXTREMITIES: No edema. CENTRAL NERVOUS SYSTEM: Generalized weakness. The patient is able to move her legs. Labs Laboratory Tests Test 06/16/18 13:14 06/16/18 14:30 06/17/18 04:30 White Blood Count 2.5 x10^3/uL (4.0-11.0) 3.6 x10^3/uL (4.0-11.0) Red Blood Count 2.94 x10^6/uL (3.50-5.40) 3.14 x10^6/uL (3.50-5.40) Hemoglobin 9.8 g/dL (12.0-15.5) 10.2 g/dL (12.0-15.5) Hematocrit 28.8 % (36.0-47.0) 31.0 % (36.0-47.0) Mean Corpuscular Volume 98 fL (79-100) 99 fL (79-100) Mean Corpuscular Hemoglobin 34 pg (25-35) 33 pg (25-35) Mean Corpuscular Hemoglobin Concent 34 g/dL (31-37) 33 g/dL (31-37) Red Cell Distribution Width 13.7 % (11.5-14.5) 13.4 % (11.5-14.5) Platelet Count 71 x10^3/uL (140-400) 74 x10^3/uL (140-400) Neutrophils (%) (Auto) 53 % (31-73) 55 % (31-73) Lymphocytes (%) (Auto) 15 % (24-48) 24 % (24-48) Monocytes (%) (Auto) 32 % (0-9) 22 % (0-9) Eosinophils (%) (Auto) 0 % (0-3) 0 % (0-3) Basophils (%) (Auto) 0 % (0-3) 0 % (0-3) Neutrophils # (Auto) 1.3 x10^3uL (1.8-7.7) 2.0 x10^3uL (1.8-7.7) Lymphocytes # (Auto) 0.4 x10^3/uL (1.0-4.8) 0.9 x10^3/uL (1.0-4.8) Monocytes # (Auto) 0.8 x10^3/uL (0.0-1.1) 0.8 x10^3/uL (0.0-1.1) Eosinophils # (Auto) 0.0 x10^3/uL (0.0-0.7) 0.0 x10^3/uL (0.0-0.7) Basophils # (Auto) 0.0 x10^3/uL (0.0-0.2) 0.0 x10^3/uL (0.0-0.2) Segmented Neutrophils % 55 % (35-66) Lymphocytes % 15 % (24-48) Monocytes % 30 % (0-10) Platelet Estimate Decreased (ADEQUATE) Prothrombin Time 14.0 SEC (11.7-14.0) Prothromb Time International Ratio 1.1 (0.8-1.1) Activated Partial Thromboplast Time 31 SEC (24-38) D-Dimer (Doris) 2.52 ug/mlFEU (0.00-0.50) Sodium Level 138 mmol/L (136-145) 136 mmol/L (136-145) Potassium Level 3.8 mmol/L (3.5-5.1) 4.0 mmol/L (3.5-5.1) Chloride Level 103 mmol/L (98-107) 100 mmol/L (98-107) Carbon Dioxide Level 27 mmol/L (21-32) 29 mmol/L (21-32) Anion Gap 8 (6-14) 7 (6-14) Blood Urea Nitrogen 14 mg/dL (7-20) 12 mg/dL (7-20) Creatinine 1.0 mg/dL (0.6-1.0) 1.0 mg/dL (0.6-1.0) Estimated GFR (Cockcroft-Gault) 53.1 53.1 BUN/Creatinine Ratio 14 (6-20) 12 (6-20) Glucose Level 141 mg/dL (70-99) 116 mg/dL (70-99) Lactic Acid Level 1.5 mmol/L (0.4-2.0) Calcium Level 8.7 mg/dL (8.5-10.1) 9.2 mg/dL (8.5-10.1) Magnesium Level 2.0 mg/dL (1.8-2.4) 1.9 mg/dL (1.8-2.4) Total Bilirubin 0.4 mg/dL (0.2-1.0) 0.4 mg/dL (0.2-1.0) Aspartate Amino Transf (AST/SGOT) 55 U/L (15-37) 55 U/L (15-37) Alanine Aminotransferase (ALT/SGPT) 63 U/L (14-59) 72 U/L (14-59) Alkaline Phosphatase 82 U/L (46-116) 86 U/L (46-116) Creatine Kinase 30 U/L (26-192) Troponin I Quantitative < 0.017 ng/mL (0.000-0.055) [id number]-Type Natriuretic Peptide 129 pg/mL (0-449) Total Protein 5.9 g/dL (6.4-8.2) 6.9 g/dL (6.4-8.2) Albumin 2.6 g/dL (3.4-5.0) 2.5 g/dL (3.4-5.0) Albumin/Globulin Ratio 0.8 (1.0-1.7) 0.6 (1.0-1.7) Urine Collection Type U cath Urine Color Sol Urine Clarity Clear Urine pH 5.5 Urine Specific [place] >=1.030 Urine Protein 100 mg/dL (NEG-TRACE) Urine Glucose (UA) Negative mg/dL (NEG) Urine Ketones (Stick) Trace mg/dL (NEG) Urine Blood Negative (NEG) Urine Nitrite Negative (NEG) Urine Bilirubin Negative (NEG) Urine Urobilinogen Dipstick 1.0 mg/dL (0.2 mg/dL) Urine Leukocyte Esterase Negative (NEG) Urine RBC 0 /HPF (0-2) Urine WBC Occ /HPF (0-4) Urine Squamous Epithelial Cells Many /LPF Urine Amorphous Sediment Present /HPF Urine Bacteria 0 /HPF (0-FEW) Laboratory Tests Test 06/16/18 13:14 06/16/18 14:30 06/17/18 04:30 White Blood Count 2.5 x10^3/uL (4.0-11.0) 3.6 x10^3/uL (4.0-11.0) Red Blood Count 2.94 x10^6/uL (3.50-5.40) 3.14 x10^6/uL (3.50-5.40) Hemoglobin 9.8 g/dL (12.0-15.5) 10.2 g/dL (12.0-15.5) Hematocrit 28.8 % (36.0-47.0) 31.0 % (36.0-47.0) Mean Corpuscular Volume 98 fL (79-100) 99 fL (79-100) Mean Corpuscular Hemoglobin 34 pg (25-35) 33 pg (25-35) Mean Corpuscular Hemoglobin Concent 34 g/dL (31-37) 33 g/dL (31-37) Red Cell Distribution Width 13.7 % (11.5-14.5) 13.4 % (11.5-14.5) Platelet Count 71 x10^3/uL (140-400) 74 x10^3/uL (140-400) Neutrophils (%) (Auto) 53 % (31-73) 55 % (31-73) Lymphocytes (%) (Auto) 15 % (24-48) 24 % (24-48) Monocytes (%) (Auto) 32 % (0-9) 22 % (0-9) Eosinophils (%) (Auto) 0 % (0-3) 0 % (0-3) Basophils (%) (Auto) 0 % (0-3) 0 % (0-3) Neutrophils # (Auto) 1.3 x10^3uL (1.8-7.7) 2.0 x10^3uL (1.8-7.7) Lymphocytes # (Auto) 0.4 x10^3/uL (1.0-4.8) 0.9 x10^3/uL (1.0-4.8) Monocytes # (Auto) 0.8 x10^3/uL (0.0-1.1) 0.8 x10^3/uL (0.0-1.1) Eosinophils # (Auto) 0.0 x10^3/uL (0.0-0.7) 0.0 x10^3/uL (0.0-0.7) Basophils # (Auto) 0.0 x10^3/uL (0.0-0.2) 0.0 x10^3/uL (0.0-0.2) Segmented Neutrophils % 55 % (35-66) Lymphocytes % 15 % (24-48) Monocytes % 30 % (0-10) Platelet Estimate Decreased (ADEQUATE) Prothrombin Time 14.0 SEC (11.7-14.0) Prothromb Time International Ratio 1.1 (0.8-1.1) Activated Partial Thromboplast Time 31 SEC (24-38) D-Dimer (Doris) 2.52 ug/mlFEU (0.00-0.50) Sodium Level 138 mmol/L (136-145) 136 mmol/L (136-145) Potassium Level 3.8 mmol/L (3.5-5.1) 4.0 mmol/L (3.5-5.1) Chloride Level 103 mmol/L (98-107) 100 mmol/L (98-107) Carbon Dioxide Level 27 mmol/L (21-32) 29 mmol/L (21-32) Anion Gap 8 (6-14) 7 (6-14) Blood Urea Nitrogen 14 mg/dL (7-20) 12 mg/dL (7-20) Creatinine 1.0 mg/dL (0.6-1.0) 1.0 mg/dL (0.6-1.0) Estimated GFR (Cockcroft-Gault) 53.1 53.1 BUN/Creatinine Ratio 14 (6-20) 12 (6-20) Glucose Level 141 mg/dL (70-99) 116 mg/dL (70-99) Lactic Acid Level 1.5 mmol/L (0.4-2.0) Calcium Level 8.7 mg/dL (8.5-10.1) 9.2 mg/dL (8.5-10.1) Magnesium Level 2.0 mg/dL (1.8-2.4) 1.9 mg/dL (1.8-2.4) Total Bilirubin 0.4 mg/dL (0.2-1.0) 0.4 mg/dL (0.2-1.0) Aspartate Amino Transf (AST/SGOT) 55 U/L (15-37) 55 U/L (15-37) Alanine Aminotransferase (ALT/SGPT) 63 U/L (14-59) 72 U/L (14-59) Alkaline Phosphatase 82 U/L (46-116) 86 U/L (46-116) Creatine Kinase 30 U/L (26-192) Troponin I Quantitative < 0.017 ng/mL (0.000-0.055) [id number]-P-Type Natriuretic Peptide 129 pg/mL (0-449) Total Protein 5.9 g/dL (6.4-8.2) 6.9 g/dL (6.4-8.2) Albumin 2.6 g/dL (3.4-5.0) 2.5 g/dL (3.4-5.0) Albumin/Globulin Ratio 0.8 (1.0-1.7) 0.6 (1.0-1.7) Urine Collection Type U cath Urine Color Sol Urine Clarity Clear Urine pH 5.5 Urine Specific [place] >=1.030 Urine Protein 100 mg/dL (NEG-TRACE) Urine Glucose (UA) Negative mg/dL (NEG) Urine Ketones (Stick) Trace mg/dL (NEG) Urine Blood Negative (NEG) Urine Nitrite Negative (NEG) Urine Bilirubin Negative (NEG) Urine Urobilinogen Dipstick 1.0 mg/dL (0.2 mg/dL) Urine Leukocyte Esterase Negative (NEG) Urine RBC 0 /HPF (0-2) Urine WBC Occ /HPF (0-4) Urine Squamous Epithelial Cells Many /LPF Urine Amorphous Sediment Present /HPF Urine Bacteria 0 /HPF (0-FEW) Meds Current Medications Acetaminophen (Tylenol) 650 mg PRN Q6HRS PRN PO FEVER Last administered on 06/17/18 04:20; Start 06/17/18 at 03:15 Atorvastatin Calcium (Lipitor) 5 mg QHS PO Last administered on 06/16/18 21:11; Start 06/16/18 at 21:00 Budesonide (Pulmicort) 0.5 mg RTBID NEB ; Start 06/16/18 at 20:00 Ceftriaxone Sodium (Rocephin) 1 gm 1X ONCE IVP Last administered on 06/17/18 04:42; Start 06/17/18 at 03:30; Stop 06/17/18 at 03:32; Status DC Clonidine HCl (Catapres Tts-1) 1 patch WEEKLY TD Last administered on 06/17/18 09:11; Start 06/17/18 at 09:00 Diltiazem HCl (Cardizem 24hr Cd) 180 mg DAILY PO Last administered on 06/17/18 09:07; Start 06/17/18 at 09:00 Folic Acid (Folic Acid) 1 mg DAILY PO Last administered on 06/17/18 09:07; Start 06/17/18 at 09:00 Gabapentin (Neurontin) 300 mg HS PO Last administered on 06/16/18 21:11; Start 06/16/18 at 21:00 Hydralazine HCl (Apresoline Inj) 10 mg PRN Q4HRS PRN IVP ELEVATED BP, SEE COMMENTS; Start 06/16/18 at 19:00 Hydralazine HCl (Apresoline) 25 mg TID PO Last administered on 06/17/18 09:08; Start 06/16/18 at 21:00 Info (CONTRAST GIVEN -- Rx MONITORING) 1 each PRN DAILY PRN MC SEE COMMENTS; Start 06/16/18 at 15:30; Stop 06/18/18 at 15:29 Iohexol (Omnipaque 350 Mg/ml) 75 ml 1X ONCE IV Last administered on 06/16/18at 15:44; Start 06/16/18 at 15:30; Stop 06/16/18 at 15:31; Status DC Levothyroxine Sodium (Synthroid) 50 mcg DAILY06 PO Last administered on 06/17/18at 06:08; Start 06/17/18 at 06:00 Non-Formulary Medication (Mometasone Furoate (Asmanex)) 200 mcg BID INH ; Start 06/16/18 at 21:00; Status UNV Primidone (Mysoline) 250 mg DAILYWSUP PO ; Start 06/16/18 at 17:45; Stop 06/16/18 at 17:59; Status DC Primidone (Mysoline) 250 mg TID@0900,1200,1700 PO Last administered on 06/17/18at 09:07; Start 06/17/18 at 09:00 Primidone (Mysoline) 500 mg QHS PO Last administered on 06/16/18at 21:11; Start 06/16/18 at 21:00 Venlafaxine HCl (Effexor) 50 mg TID PO Last administered on 06/17/18at 09:07; Start 06/16/18 at 21:00 Assessment Assessment 1. Subdural hematoma. 2. Frequent falls. 3. Pancytopenia. 4. Weakness. 5. Lung cancer with recent chemotherapy. 6. Hypertension, not controlled, accelerated. 7. Hypothyroidism. 8. Depression. 9. Anxiety. 10. Essential tremors. 11. Carcinoma of breast with left mastectomy. PLAN: I will consult Dr. Fournier for reevaluation and management. Start PT, OT. Consult Dr. Frank to make sure that the patient does not have any hydrocephalus or any other issues that is making her fall more frequently. Prognosis of this patient is poor due to her multiple medical problems. We will consult Dr. Lindquist and monitor pancytopenia. Her absolute neutrophil count is still 1.3 K. For details, please refer the orders. Frequent falls- discussed with Dr. Fournier. Patient is not safe because she is not following cues and falls frequently. Cancer of the lung- discussed with Dr. Lindquist. Patient wants to continue chemotherapy which is every 3 weeks. Recent subdural hematoma- patient remains impulsive and a very high risk for falls. May need to discharge her again to a retirement unit. Fever- I have ordered urine and blood cultures. One dose of Rocephin given. Consult Dr. Pabon. I discussed with the patient that she is immunosuppressed. She doesn't understand the gravity of her condition and just wants to go home. Her prognosis is very poor. Plan Plan For more details regarding further plans, please refer to the orders. TERESA HOPPER MD June 17, 2018 09:16
[2018-06-17 11:00] VITALS: BP 153/71
--- NOTE | 2018-06-17 11:22 | PDOC ---
Infectious Disease Note Vital Sign Vital Signs Vital Signs Date Time Temp Pulse Resp B/P (MAP) Pulse Ox O2 Delivery O2 Flow Rate FiO2 06/17/18 09:08 100 138/60 06/17/18 08:12 98.9 19 Nasal Cannula 93.0 98.9 06/17/18 03:00 92 Labs Lab Laboratory Tests Test 06/16/18 13:14 06/16/18 14:30 06/17/18 04:30 White Blood Count 2.5 x10^3/uL (4.0-11.0) 3.6 x10^3/uL (4.0-11.0) Red Blood Count 2.94 x10^6/uL (3.50-5.40) 3.14 x10^6/uL (3.50-5.40) Hemoglobin 9.8 g/dL (12.0-15.5) 10.2 g/dL (12.0-15.5) Hematocrit 28.8 % (36.0-47.0) 31.0 % (36.0-47.0) Mean Corpuscular Volume 98 fL (79-100) 99 fL (79-100) Mean Corpuscular Hemoglobin 34 pg (25-35) 33 pg (25-35) Mean Corpuscular Hemoglobin Concent 34 g/dL (31-37) 33 g/dL (31-37) Red Cell Distribution Width 13.7 % (11.5-14.5) 13.4 % (11.5-14.5) Platelet Count 71 x10^3/uL (140-400) 74 x10^3/uL (140-400) Neutrophils (%) (Auto) 53 % (31-73) 55 % (31-73) Lymphocytes (%) (Auto) 15 % (24-48) 24 % (24-48) Monocytes (%) (Auto) 32 % (0-9) 22 % (0-9) Eosinophils (%) (Auto) 0 % (0-3) 0 % (0-3) Basophils (%) (Auto) 0 % (0-3) 0 % (0-3) Neutrophils # (Auto) 1.3 x10^3uL (1.8-7.7) 2.0 x10^3uL (1.8-7.7) Lymphocytes # (Auto) 0.4 x10^3/uL (1.0-4.8) 0.9 x10^3/uL (1.0-4.8) Monocytes # (Auto) 0.8 x10^3/uL (0.0-1.1) 0.8 x10^3/uL (0.0-1.1) Eosinophils # (Auto) 0.0 x10^3/uL (0.0-0.7) 0.0 x10^3/uL (0.0-0.7) Basophils # (Auto) 0.0 x10^3/uL (0.0-0.2) 0.0 x10^3/uL (0.0-0.2) Segmented Neutrophils % 55 % (35-66) Lymphocytes % 15 % (24-48) Monocytes % 30 % (0-10) Platelet Estimate Decreased (ADEQUATE) Prothrombin Time 14.0 SEC (11.7-14.0) Prothromb Time International Ratio 1.1 (0.8-1.1) Activated Partial Thromboplast Time 31 SEC (24-38) D-Dimer (Doris) 2.52 ug/mlFEU (0.00-0.50) Sodium Level 138 mmol/L (136-145) 136 mmol/L (136-145) Potassium Level 3.8 mmol/L (3.5-5.1) 4.0 mmol/L (3.5-5.1) Chloride Level 103 mmol/L (98-107) 100 mmol/L (98-107) Carbon Dioxide Level 27 mmol/L (21-32) 29 mmol/L (21-32) Anion Gap 8 (6-14) 7 (6-14) Blood Urea Nitrogen 14 mg/dL (7-20) 12 mg/dL (7-20) Creatinine 1.0 mg/dL (0.6-1.0) 1.0 mg/dL (0.6-1.0) Estimated GFR (Cockcroft-Gault) 53.1 53.1 BUN/Creatinine Ratio 14 (6-20) 12 (6-20) Glucose Level 141 mg/dL (70-99) 116 mg/dL (70-99) Lactic Acid Level 1.5 mmol/L (0.4-2.0) Calcium Level 8.7 mg/dL (8.5-10.1) 9.2 mg/dL (8.5-10.1) Magnesium Level 2.0 mg/dL (1.8-2.4) 1.9 mg/dL (1.8-2.4) Total Bilirubin 0.4 mg/dL (0.2-1.0) 0.4 mg/dL (0.2-1.0) Aspartate Amino Transf (AST/SGOT) 55 U/L (15-37) 55 U/L (15-37) Alanine Aminotransferase (ALT/SGPT) 63 U/L (14-59) 72 U/L (14-59) Alkaline Phosphatase 82 U/L (46-116) 86 U/L (46-116) Creatine Kinase 30 U/L (26-192) Troponin I Quantitative < 0.017 ng/mL (0.000-0.055) NX-Esq-J-Type Natriuretic Peptide 129 pg/mL (0-449) Total Protein 5.9 g/dL (6.4-8.2) 6.9 g/dL (6.4-8.2) Albumin 2.6 g/dL (3.4-5.0) 2.5 g/dL (3.4-5.0) Albumin/Globulin Ratio 0.8 (1.0-1.7) 0.6 (1.0-1.7) Urine Collection Type U cath Urine Color Sol Urine Clarity Clear Urine pH 5.5 Urine Specific [place] >=1.030 Urine Protein 100 mg/dL (NEG-TRACE) Urine Glucose (UA) Negative mg/dL (NEG) Urine Ketones (Stick) Trace mg/dL (NEG) Urine Blood Negative (NEG) Urine Nitrite Negative (NEG) Urine Bilirubin Negative (NEG) Urine Urobilinogen Dipstick 1.0 mg/dL (0.2 mg/dL) Urine Leukocyte Esterase Negative (NEG) Urine RBC 0 /HPF (0-2) Urine WBC Occ /HPF (0-4) Urine Squamous Epithelial Cells Many /LPF Urine Amorphous Sediment Present /HPF Urine Bacteria 0 /HPF (0-FEW) Objective Assessment Fever Tmax 102.1, Immunosuppression Pancytopenia Hypoxia, O2 2L Constipation Frequent falls Stage IV lung cancer, last dose chemo about 2 weeks ago s/p craniotomy and evacuation for SDH on 05/12/18 Forgetfulness Hypertension Hypothyroidism Pets Plan Plan of Care UA C & S and BC have been ordered She received one time dose Rocephin Repeat labs in am CT abd/pelvis Start empiric vanc and Zosyn Monitor renal function closely Bowel regime per primary Thank you [id number] Patient seen, examined, I agree with above. Assessment and plan was formulated with GALLERY OR MUSEUM TECHNICIAN. CHANTALE GRAYSON APRN June 17, 2018 11:22 VIOLETA BALDWIN MD June 17, 2018 12:59
[2018-06-17] MEDS ORDERED: VANCOMYCIN PER PHARMACY MC PRN (12:00)
[2018-06-17] MEDS ORDERED: VANCOMYCIN 2 GM in IV NORMAL SALINE 500ML BAG 500 ML IV ONE (12:30)
[2018-06-17] MEDS: PIPERACILLIN/TAZOBACTAM 3.375 GM in IV NORMAL SALINE 50ML 50 ML IV SCH ×2 (12:32→18:00)
--- NOTE | 2018-06-17 13:14 | PDOC ---
PROGRESS NOTES Subjective Subjective Patient not in room at 1215, in radiology reviewed CT head, right frontal craniotomy with small residual subdural hematoma, intervally decreased compared to prior examination. No definite midline shift/associated mass effect. I do not see an explanation for frequent falls she will need a f/u CT head in 1 month call with questions Objective Objective Vital Signs Date Time Temp Pulse Resp B/P (MAP) Pulse Ox O2 Delivery O2 Flow Rate FiO2 06/17/18 11:00 98.1 113 19 153/71 (98) Nasal Cannula 2.0 98.1 06/17/18 03:00 92 Intake and Output 06/17/18 07:00 Output Total 0 ml Balance 0 ml Output Urine Total 0 ml # Voids 2 Assessment Assessment Problems Medical Problems: (1) Elevated d-dimer Status: Acute (2) Elevated liver function tests Status: Acute (3) Frequent falls Status: Acute (4) Generalized weakness Status: Acute (5) History of intracranial hemorrhage Status: Acute (6) History of lung cancer Status: Acute (7) Pancytopenia Status: Acute (8) Tachycardia Status: Acute Comment Review of Relevant I have reviewed the following items malcolm (where applicable) has been applied. Labs Laboratory Tests Test 06/16/18 13:14 06/16/18 14:30 06/17/18 04:30 White Blood Count 2.5 x10^3/uL (4.0-11.0) 3.6 x10^3/uL (4.0-11.0) Red Blood Count 2.94 x10^6/uL (3.50-5.40) 3.14 x10^6/uL (3.50-5.40) Hemoglobin 9.8 g/dL (12.0-15.5) 10.2 g/dL (12.0-15.5) Hematocrit 28.8 % (36.0-47.0) 31.0 % (36.0-47.0) Mean Corpuscular Volume 98 fL (79-100) 99 fL (79-100) Mean Corpuscular Hemoglobin 34 pg (25-35) 33 pg (25-35) Mean Corpuscular Hemoglobin Concent 34 g/dL (31-37) 33 g/dL (31-37) Red Cell Distribution Width 13.7 % (11.5-14.5) 13.4 % (11.5-14.5) Platelet Count 71 x10^3/uL (140-400) 74 x10^3/uL (140-400) Neutrophils (%) (Auto) 53 % (31-73) 55 % (31-73) Lymphocytes (%) (Auto) 15 % (24-48) 24 % (24-48) Monocytes (%) (Auto) 32 % (0-9) 22 % (0-9) Eosinophils (%) (Auto) 0 % (0-3) 0 % (0-3) Basophils (%) (Auto) 0 % (0-3) 0 % (0-3) Neutrophils # (Auto) 1.3 x10^3uL (1.8-7.7) 2.0 x10^3uL (1.8-7.7) Lymphocytes # (Auto) 0.4 x10^3/uL (1.0-4.8) 0.9 x10^3/uL (1.0-4.8) Monocytes # (Auto) 0.8 x10^3/uL (0.0-1.1) 0.8 x10^3/uL (0.0-1.1) Eosinophils # (Auto) 0.0 x10^3/uL (0.0-0.7) 0.0 x10^3/uL (0.0-0.7) Basophils # (Auto) 0.0 x10^3/uL (0.0-0.2) 0.0 x10^3/uL (0.0-0.2) Segmented Neutrophils % 55 % (35-66) Lymphocytes % 15 % (24-48) Monocytes % 30 % (0-10) Platelet Estimate Decreased (ADEQUATE) Prothrombin Time 14.0 SEC (11.7-14.0) Prothromb Time International Ratio 1.1 (0.8-1.1) Activated Partial Thromboplast Time 31 SEC (24-38) D-Dimer (Doris) 2.52 ug/mlFEU (0.00-0.50) Sodium Level 138 mmol/L (136-145) 136 mmol/L (136-145) Potassium Level 3.8 mmol/L (3.5-5.1) 4.0 mmol/L (3.5-5.1) Chloride Level 103 mmol/L (98-107) 100 mmol/L (98-107) Carbon Dioxide Level 27 mmol/L (21-32) 29 mmol/L (21-32) Anion Gap 8 (6-14) 7 (6-14) Blood Urea Nitrogen 14 mg/dL (7-20) 12 mg/dL (7-20) Creatinine 1.0 mg/dL (0.6-1.0) 1.0 mg/dL (0.6-1.0) Estimated GFR (Cockcroft-Gault) 53.1 53.1 BUN/Creatinine Ratio 14 (6-20) 12 (6-20) Glucose Level 141 mg/dL (70-99) 116 mg/dL (70-99) Lactic Acid Level 1.5 mmol/L (0.4-2.0) Calcium Level 8.7 mg/dL (8.5-10.1) 9.2 mg/dL (8.5-10.1) Magnesium Level 2.0 mg/dL (1.8-2.4) 1.9 mg/dL (1.8-2.4) Total Bilirubin 0.4 mg/dL (0.2-1.0) 0.4 mg/dL (0.2-1.0) Aspartate Amino Transf (AST/SGOT) 55 U/L (15-37) 55 U/L (15-37) Alanine Aminotransferase (ALT/SGPT) 63 U/L (14-59) 72 U/L (14-59) Alkaline Phosphatase 82 U/L (46-116) 86 U/L (46-116) Creatine Kinase 30 U/L (26-192) Troponin I Quantitative < 0.017 ng/mL (0.000-0.055) NJ-Axr-Z-Type Natriuretic Peptide 129 pg/mL (0-449) Total Protein 5.9 g/dL (6.4-8.2) 6.9 g/dL (6.4-8.2) Albumin 2.6 g/dL (3.4-5.0) 2.5 g/dL (3.4-5.0) Albumin/Globulin Ratio 0.8 (1.0-1.7) 0.6 (1.0-1.7) Urine Collection Type U cath Urine Color Sol Urine Clarity Clear Urine pH 5.5 Urine Specific [place] >=1.030 Urine Protein 100 mg/dL (NEG-TRACE) Urine Glucose (UA) Negative mg/dL (NEG) Urine Ketones (Stick) Trace mg/dL (NEG) Urine Blood Negative (NEG) Urine Nitrite Negative (NEG) Urine Bilirubin Negative (NEG) Urine Urobilinogen Dipstick 1.0 mg/dL (0.2 mg/dL) Urine Leukocyte Esterase Negative (NEG) Urine RBC 0 /HPF (0-2) Urine WBC Occ /HPF (0-4) Urine Squamous Epithelial Cells Many /LPF Urine Amorphous Sediment Present /HPF Urine Bacteria 0 /HPF (0-FEW) Laboratory Tests Test 06/16/18 13:14 06/16/18 14:30 06/17/18 04:30 White Blood Count 2.5 x10^3/uL (4.0-11.0) 3.6 x10^3/uL (4.0-11.0) Red Blood Count 2.94 x10^6/uL (3.50-5.40) 3.14 x10^6/uL (3.50-5.40) Hemoglobin 9.8 g/dL (12.0-15.5) 10.2 g/dL (12.0-15.5) Hematocrit 28.8 % (36.0-47.0) 31.0 % (36.0-47.0) Mean Corpuscular Volume 98 fL (79-100) 99 fL (79-100) Mean Corpuscular Hemoglobin 34 pg (25-35) 33 pg (25-35) Mean Corpuscular Hemoglobin Concent 34 g/dL (31-37) 33 g/dL (31-37) Red Cell Distribution Width 13.7 % (11.5-14.5) 13.4 % (11.5-14.5) Platelet Count 71 x10^3/uL (140-400) 74 x10^3/uL (140-400) Neutrophils (%) (Auto) 53 % (31-73) 55 % (31-73) Lymphocytes (%) (Auto) 15 % (24-48) 24 % (24-48) Monocytes (%) (Auto) 32 % (0-9) 22 % (0-9) Eosinophils (%) (Auto) 0 % (0-3) 0 % (0-3) Basophils (%) (Auto) 0 % (0-3) 0 % (0-3) Neutrophils # (Auto) 1.3 x10^3uL (1.8-7.7) 2.0 x10^3uL (1.8-7.7) Lymphocytes # (Auto) 0.4 x10^3/uL (1.0-4.8) 0.9 x10^3/uL (1.0-4.8) Monocytes # (Auto) 0.8 x10^3/uL (0.0-1.1) 0.8 x10^3/uL (0.0-1.1) Eosinophils # (Auto) 0.0 x10^3/uL (0.0-0.7) 0.0 x10^3/uL (0.0-0.7) Basophils # (Auto) 0.0 x10^3/uL (0.0-0.2) 0.0 x10^3/uL (0.0-0.2) Segmented Neutrophils % 55 % (35-66) Lymphocytes % 15 % (24-48) Monocytes % 30 % (0-10) Platelet Estimate Decreased (ADEQUATE) Prothrombin Time 14.0 SEC (11.7-14.0) Prothromb Time International Ratio 1.1 (0.8-1.1) Activated Partial Thromboplast Time 31 SEC (24-38) D-Dimer (Doris) 2.52 ug/mlFEU (0.00-0.50) Sodium Level 138 mmol/L (136-145) 136 mmol/L (136-145) Potassium Level 3.8 mmol/L (3.5-5.1) 4.0 mmol/L (3.5-5.1) Chloride Level 103 mmol/L (98-107) 100 mmol/L (98-107) Carbon Dioxide Level 27 mmol/L (21-32) 29 mmol/L (21-32) Anion Gap 8 (6-14) 7 (6-14) Blood Urea Nitrogen 14 mg/dL (7-20) 12 mg/dL (7-20) Creatinine 1.0 mg/dL (0.6-1.0) 1.0 mg/dL (0.6-1.0) Estimated GFR (Cockcroft-Gault) 53.1 53.1 BUN/Creatinine Ratio 14 (6-20) 12 (6-20) Glucose Level 141 mg/dL (70-99) 116 mg/dL (70-99) Lactic Acid Level 1.5 mmol/L (0.4-2.0) Calcium Level 8.7 mg/dL (8.5-10.1) 9.2 mg/dL (8.5-10.1) Magnesium Level 2.0 mg/dL (1.8-2.4) 1.9 mg/dL (1.8-2.4) Total Bilirubin 0.4 mg/dL (0.2-1.0) 0.4 mg/dL (0.2-1.0) Aspartate Amino Transf (AST/SGOT) 55 U/L (15-37) 55 U/L (15-37) Alanine Aminotransferase (ALT/SGPT) 63 U/L (14-59) 72 U/L (14-59) Alkaline Phosphatase 82 U/L (46-116) 86 U/L (46-116) Creatine Kinase 30 U/L (26-192) Troponin I Quantitative < 0.017 ng/mL (0.000-0.055) UW-Exb-P-Type Natriuretic Peptide 129 pg/mL (0-449) Total Protein 5.9 g/dL (6.4-8.2) 6.9 g/dL (6.4-8.2) Albumin 2.6 g/dL (3.4-5.0) 2.5 g/dL (3.4-5.0) Albumin/Globulin Ratio 0.8 (1.0-1.7) 0.6 (1.0-1.7) Urine Collection Type U cath Urine Color Sol Urine Clarity Clear Urine pH 5.5 Urine Specific [place] >=1.030 Urine Protein 100 mg/dL (NEG-TRACE) Urine Glucose (UA) Negative mg/dL (NEG) Urine Ketones (Stick) Trace mg/dL (NEG) Urine Blood Negative (NEG) Urine Nitrite Negative (NEG) Urine Bilirubin Negative (NEG) Urine Urobilinogen Dipstick 1.0 mg/dL (0.2 mg/dL) Urine Leukocyte Esterase Negative (NEG) Urine RBC 0 /HPF (0-2) Urine WBC Occ /HPF (0-4) Urine Squamous Epithelial Cells Many /LPF Urine Amorphous Sediment Present /HPF Urine Bacteria 0 /HPF (0-FEW) Medications Current Medications Iohexol (Omnipaque 350 Mg/ml) 75 ml 1X ONCE IV Last administered on 06/16/18 15:44; Start 06/16/18 at 15:30; Stop 06/16/18 at 15:31; Status DC Info (CONTRAST GIVEN -- Rx MONITORING) 1 each PRN DAILY PRN MC SEE COMMENTS; Start 06/16/18 at 15:30; Stop 06/18/18 at 15:29 Clonidine HCl (Catapres Tts-1) 1 patch WEEKLY TD Last administered on 06/17/18 09:11; Start 06/17/18 at 09:00 Folic Acid (Folic Acid) 1 mg DAILY PO Last administered on 06/17/18 09:07; Start 06/17/18 at 09:00 Gabapentin (Neurontin) 300 mg HS PO Last administered on 06/16/18 21:11; Start 06/16/18 at 21:00 Hydralazine HCl (Apresoline) 25 mg TID PO Last administered on 06/17/18 09:08; Start 06/16/18 at 21:00 Levothyroxine Sodium (Synthroid) 50 mcg DAILY06 PO Last administered on 06/17/18 06:08; Start 06/17/18 at 06:00 Non-Formulary Medication (Mometasone Furoate (Asmanex)) 200 mcg BID INH ; Start 06/16/18 at 21:00; Status UNV Atorvastatin Calcium (Lipitor) 5 mg QHS PO Last administered on 06/16/18 21:11; Start 06/16/18 at 21:00 Primidone (Mysoline) 250 mg DAILYWSUP PO ; Start 06/16/18 at 17:45; Stop 06/16/18 at 17:59; Status DC Primidone (Mysoline) 500 mg QHS PO Last administered on 06/16/18 21:11; Start 06/16/18 at 21:00 Venlafaxine HCl (Effexor) 50 mg TID PO Last administered on 06/17/18 09:07; Start 06/16/18 at 21:00 Diltiazem HCl (Cardizem 24hr Cd) 180 mg DAILY PO Last administered on 5/7/19at 09:07; Start 06/17/18 at 09:00 Budesonide (Pulmicort) 0.5 mg RTBID NEB ; Start 06/16/18 at 20:00 Primidone (Mysoline) 250 mg TID@0900,1200,1700 PO Last administered on 06/17/18at 09:07; Start 06/17/18 at 09:00 Hydralazine HCl (Apresoline Inj) 10 mg PRN Q4HRS PRN IVP ELEVATED BP, SEE COMMENTS; Start 06/16/18 at 19:00 Ceftriaxone Sodium (Rocephin) 1 gm 1X ONCE IVP Last administered on 06/17/18at 04:42; Start 06/17/18 at 03:30; Stop 06/17/18 at 03:32; Status DC Acetaminophen (Tylenol) 650 mg PRN Q6HRS PRN PO FEVER Last administered on 06/17/18at 04:20; Start 06/17/18 at 03:15 Piperacillin Sod/ Tazobactam Sod 3.375 gm/Sodium Chloride 50 ml @ 100 mls/hr Q6HRS IV Last administered on 06/17/18at 12:32; Start 06/17/18 at 12:00 Vancomycin HCl (Vanco Per Pharmacy) 1 each PRN DAILY PRN MC SEE COMMENTS; Start 06/17/18 at 12:00 Vancomycin HCl 2 gm/Sodium Chloride 500 ml @ 250 mls/hr 1X ONCE IV ; Start 06/17/18 at 12:30; Stop 06/17/18 at 14:29 Active Scripts Active Hydralazine Hcl 25 Mg Tablet 25 Mg PO TID 30 Days Clonidine Tts-1 (Clonidine) 1 Each Patch.tdwk 1 Patch TD WEEKLY 30 Days Reported Gabapentin 600 Mg Tablet 300 Mg PO HS Mysoline (Primidone) 250 Mg Tablet 500 Mg PO QHS Effexor Xr (Venlafaxine Hcl) 150 Mg Cap.er.24h 1 Cap PO DAILY Folic Acid 1 Mg Tablet 1 Tab PO DAILY Asmanex (Mometasone Furoate) 220 Mcg Aer.pow.ba 200 Mcg INH BID Primidone 250 Mg Tablet 250 Mg PO TID Pravastatin Sodium 20 Mg Tablet 1 Tab PO DAILY Cartia Xt (Diltiazem Hcl) 180 Mg Cap.er.24h 180 Mg PO Levothyroxine Sodium 50 Mcg Tablet 1 Tab PO DAILY Vitals/I & O Vital Sign - Last 24 Hours 06/16/18 06/16/18 06/16/18 06/16/18 13:20 14:04 15:07 15:53 Pulse 102 94 96 97 B/P (MAP) 164/82 (109) 177/80 (112) 168/67 (100) 176/76 (109) Pulse Ox 93 94 96 96 O2 Delivery Nasal Cannula Nasal Cannula Nasal Cannula O2 Flow Rate 2.0 2.0 2.0 2.0 06/16/18 06/16/18 06/16/18 06/16/18 18:23 19:00 20:00 21:11 Temp 99.3 99.3 Pulse 103 103 Resp 18 B/P (MAP) 153/71 (98) 153/71 Pulse Ox 95 O2 Delivery Nasal Cannula Nasal Cannula Nasal Cannula O2 Flow Rate 2.0 2.0 2.0 06/16/18 06/17/18 06/17/18 06/17/18 23:00 01:00 03:00 06:13 Temp 102.1 99.5 100.6 99.0 102.1 99.5 100.6 99.0 Pulse 112 106 Resp 18 18 B/P (MAP) 167/69 (101) 154/71 (98) Pulse Ox 90 92 O2 Delivery Nasal Cannula Nasal Cannula O2 Flow Rate 2.0 2.0 06/17/18 06/17/18 06/17/18 06/17/18 08:00 08:12 09:07 09:08 Temp 98.9 98.9 Pulse 100 100 100 Resp 19 B/P (MAP) 138/60 (86) 138/60 138/60 O2 Delivery Nasal Cannula Nasal Cannula O2 Flow Rate 2.0 93.0 06/17/18 11:00 Temp 98.1 98.1 Pulse 113 Resp 19 B/P (MAP) 153/71 (98) O2 Delivery Nasal Cannula O2 Flow Rate 2.0 Intake and Output 06/16/18 06/16/18 06/17/18 15:00 23:00 07:00 Output Total 0 ml Balance 0 ml MARIELY ALCANTAR MD June 17, 2018 13:14
--- NOTE | 2018-06-17 13:29 | CONS ---
DATE OF CONSULTATION: 06/17/2018 Jesus Lira, nurse practitioner, dictating for Dr. Eric Doll, Infectious Disease. REFERRING PHYSICIAN: Dr. Hernandez. REASON FOR CONSULTATION: Fever. HISTORY OF PRESENT ILLNESS: The patient is an 83-year-old female who was diagnosed with stage 4 lung cancer in 2018, status post chemotherapy and is now on maintenance Keytruda and Alimta every 3 weeks. She was admitted last month after she fell and developed a large right frontotemporal parietal subdural hematoma. She underwent a right craniotomy with evacuation and removal of membranes on 05/12. She was discharged on the to home with home health. She has since resumed chemotherapy. The patient says that she fell a few times at home. The patient has been readmitted for weakness and frequent falls. The patient says that her legs would get weak and give out. On arrival to the ER, she was pancytopenic. Head CT showed a small residual subdural hematoma, intervally decreased compared to prior exam. Chest x-ray was clear. Followup chest CTA showed no evidence of PE; focal dense opacity in the posterior right upper lobe; a couple other areas of mild density in both lungs as well as scattered ground-glass infiltrates diffusely. She was hypoxic with oxygen saturations of 89% requiring 2 liters of supplemental oxygen. Last night, she developed a fever of 102.1. Cultures were ordered. She received 1 time dose of ceftriaxone. ID has been asked to consult for further evaluation and antibiotic management. The patient says that she is feeling fine and wants to go home. She denies feeling sick. She thought the room felt cold last night. She denies headache, confusion or dizziness. Denies nasal/sinus congestion or sore throat. Denies difficulty swallowing. She says her appetite is good and is eating all her meals. She says she has been constipated and does not remember the last time she had a bowel movement, but at least greater than 5 days. She denies nausea, vomiting, bloating or cramps. Denies urinary symptoms. Denies muscle aches or joint pains. She lives at home with her daughter and has two dogs. Denies traveling or exposure to ill contacts. Denies recent dental work. She admits that at times she is forgetful. PAST MEDICAL HISTORY: Stage 4 lung cancer, diagnosed in 2018, status post chemotherapy, now on maintenance chemo.. Hyperlipidemia, hypertension, obesity, history of breast cancer, hypothyroidism, depression, anxiety, anemia. Neuropathy. PAST SURGICAL HISTORY: Cataract extraction. Tooth extraction, left mastectomy, hysterectomy. Right frontal craniotomy and evacuation of hematoma on 05/12/2018. Right chest port placement on 11/26/2017. FAMILY HISTORY: Positive for lung cancer. SOCIAL HISTORY: The patient is a . She lives at home with her daughter. She has a Yorkie and a Chihuahua she cares for. She is a former smoker. No history of alcohol abuse. She used to work at [employer] and [employer]. ALLERGIES: No known drug allergies. MEDICATIONS: One-time dose of ceftriaxone. Other medications are available and have been reviewed on the APR. REVIEW OF SYSTEMS: Per HPI, otherwise all other review of systems are negative. PHYSICAL EXAMINATION: VITAL SIGNS: Temperature 98.9, T-max 102.1. Blood pressure 138/60, heart rate 100, respiratory rate 19, pulse oximetry 92% on 2 liters oxygen, BMI 29. GENERAL: The patient is sitting up in the chair alert and joking. HEENT: Pupils equally round, reactive. Normal conjunctivae. Oral cavity: Pharynx pink and moist. No thrush. Upper dentures in place. NECK: Supple. LUNGS: Fine rales. Nonlabored. HEART: S1 and S2. ABDOMEN: Obese, soft, nontender. Bowel sounds present. EXTREMITIES: No gross edema or cyanosis. SKIN: Warm without generalized rash. She has a cyst on her back. NEUROLOGIC: Alert, said the year was 1920 before correcting herself. She also says Agrawal is the current president. Right-sided chest Port-A-Cath without signs of any complications. LABORATORY DATA: Today's WBC 3.6 from 2.5, hemoglobin 10.2, platelets 74,000. Electrolytes were unremarkable. Creatinine 1.0, BUN 12, glucose 116, total bilirubin 0.4, AST 55, ALT 72. Troponin less than 0.017. Lactic acid 1.5, albumin 2.5. BNP 129. Urinalysis from 06/16 showed wbc's occasional, with many squamous epithelial cells. Repeat UA and blood cultures from 06/17 are pending. IMAGING: Per HPI. IMPRESSION: 1. Fever of 102 in immunocompromised pt, no localizing sign or symptom at this time Could be infectious vs noninfectious 2. Immunosuppression from chemotherapy 3. Pancytopenia. 4. Hypoxia requiring supplemental oxygen. 5. Constipation. 6. Frequent falls POA 7. Stage 4 lung cancer. Her last dose of chemo was about [address] chest with GGO 8. Status post craniotomy and evacuation for subdural hematoma on 06/11/2018. 9. Forgetfulness.Pt insists on going home 10. Hypertension. 11. Hypothyroidism. PLAN:. We will obtain a CT abdomen/pelvis without contrast. CT Chest noted We will initiate empiric vancomycin and Zosyn. Monitor renal function closely. Labs have been ordered for the morning. We will follow up on culture results and adjust antibiotics accordingly. Thank you, Dr. Hernandez, for asking us to participate in this patient's care. Should you have further questions or concerns, please call. The patient was seen and examined and plan of care implemented by Dr. Eric Doll. D/W RN ERIC DOLL MD DR: GARRY/yesi JOB#: [id number] / [id number] [place]
--- NOTE | 2018-06-17 13:41 | RAD ---
CT ABDOMEN PELVIS WO CONTRAST Indication: Fever and constipation. Exposure: One or more of the following individualized dose reduction techniques were utilized for this examination: 1. Automated exposure control 2. Adjustment of the mA and/or kV according to patient size 3. Use of iterative reconstruction technique. Comparison: None are available. Technique: No intravenous contrast given. No oral contrast per request. Findings: Evaluation of solid viscera, bowel and vasculature is compromised by the noncontrast technique. There is mild motion degradation. Mild groundglass densities in both lung bases. Small noncalcified nodule right lung base, image 1, 3 mm, partially seen but fully evaluated on yesterday's CTA chest. Liver and spleen are not enlarged. No evidence of peripancreatic fluid or inflammatory change. Small left adrenal mass is unchanged as compared with PET/CT scan of April 10, 2018, measures 13 mm. No right adrenal mass. No evidence of hydronephrosis or urolithiasis. Mild perinephric stranding is again identified. Gallbladder is contracted, with what appears to be at least one faint gallstone. The aorta is calcified, no evidence of aneurysm. No significant lymph node enlargement. Small hiatal hernia. Colonic diverticulosis. No evidence of acute colitis. The appendix is not clearly visualized. No evidence of ascites or pneumoperitoneum. The urinary bladder is opacified with contrast, presumably from the prior CT study. No definite wall thickening. No evidence of pelvic mass. There are degenerative changes of the spine, appearance and alignment appear grossly similar as prior PET/CT scan. No evidence of aggressive bone destruction. IMPRESSION: 1. Mild groundglass opacities in the lung bases, likely inflammatory or infectious. There is also a partially visualized tiny right lung base pulmonary nodule. These findings were more fully evaluated on CTA chest of one day earlier. Correlate with that report. 2. Probable cholelithiasis. 3. Small left adrenal mass, unchanged since prior PET/CT scan. Electronically signed by: Koffi Rubio MD (06/17/2018 1:38 PM) [facility]
--- NOTE | 2018-06-17 14:12 | NUR ---
Pharmacy Vancomycin Dosing Note S:Consulted to monitor and dose vancomycin started 06/17/18. O:YE KELLER is a 83 year old F with FEVER. Height: 5 feet, 6 inches Weight: 82.3 kg Biggers Body Weight: 59.30 Adjusted Body Weight: 68.50 Dosing Weight: Actual Other Antibiotics: ZOSYN LABS: Last BUN: 12 Last Creatinine: 1 Creatinine Clearance: 46 mL/min Last WBC: 3.6 Last Procalcitonin: Tmax (past 24 hours): 102.1 Microbiology: - Last dose given 06/17/18 at 1318 Vancomycin Dosing: Loading Dose: 2000 mg x1 Dosing Weight: Actual Target Trough: 15-20 A: Based on: weight and renal function P: 1. Begin Vancomycin 1250 mg IV q24h 2. Follow up Trough level on 06/19/18 at 1230 3. Pharmacy will continue to monitor, follow and adjust therapy as needed. Ayla Hinkle RPH, 06/17/18 1507
[2018-06-17 15:00] VITALS: BP 156/62
--- NOTE | 2018-06-17 16:12 | NUR ---
SW following pt for anticipated dc needs. Chart reviewed. Pt lives at home with family. PT/OT recommends SNU. Spoke with pt at bedside and pt declined SNU. When SW was in room Pt was not able to walk from [facility] to her chair. Pt stated her daughter can help her out at home. Pt also reported she is currently undergoing chemo treatment monthly. For now pt wants to go home with [facility]. SW encouraged pt to reconsider regarding SNU and will f/u in the morning. Will continue to follow.
[2018-06-17] MEDS: IV NORMAL SALINE 1000ML BAG 1,000 ML IV SCH (18:04)
[2018-06-17 19:00] VITALS: BP 123/70
[2018-06-17] MEDS: BUDESONIDE 0.5 MG/2 ML NEBU. NEB SCH (19:33)
[2018-06-17] MEDS: GABAPENTIN 300 MG CAPSULE. PO SCH (21:09)
[2018-06-17] MEDS: ATORVASTATIN CALCIUM 10 MG TABLET. PO SCH (21:11)
[2018-06-17 23:00] VITALS: BP 130/70
[2018-06-18] MEDS: PIPERACILLIN/TAZOBACTAM 3.375 GM in IV NORMAL SALINE 50ML 50 ML IV SCH ×2 (00:01→05:48)
--- NOTE | 2018-06-18 00:13 | CONS ---
DATE OF CONSULTATION: 06/17/2018 I saw her at the request of Dr. Tahmina Hernandez on 06/17/2018. She is in room 532. HISTORY OF PRESENT ILLNESS: This is an 83-year-old female known to me since her last hospitalization. The patient with history of carcinoma of breast, lung carcinoma, also essential tremors. The patient had fallen too many times in the last few months. The patient was admitted in May of this year and had craniotomy for subdural hematoma. The patient went to custodial care unit from where she was discharged to home about two weeks ago and she fell again and that is the reason why she was admitted. She admits she slid off the chair. She denies any pain. The patient had a walker and cane at home, but does not use them all the time. She lives with her daughter, had two steps to enter the house without any railing. Also, one step inside per her to manage. She is not known allergic to any medication. The patient with known hypertension, hypothyroidism, status post left mastectomy and also hysterectomy, right chest port placed in the past. PHYSICAL EXAMINATION: Today revealed an elderly female. She is awake, oriented to place and person, follows commands appropriately, moves all four extremities voluntarily where she had 4/5 to 4+/5 grade muscle strength with relatively increased weakness in hand intrinsic muscles where she had some degree of muscle atrophy. Negative Tinel sign over median nerve at the wrist and over ulnar nerve at the wrist and elbow and negative Phalen sign at both wrists. Deep tendon reflexes are 1-2+ and symmetrical and she had equal perception of touch and pinprick sensation bilaterally. She had crepitus on range of motion of her knee joint without any obvious knee joint effusion and she had pain-free range of motion of all four extremity joints. The patient had been using oxygen by nasal cannula. She requires some help with transfers. Once up, she walked with close standby supervision with a roller walker. The patient had tendency to lean backwards while coming to a sitting and standing position and she does not use safety techniques with mobility while up walking. She has tried to walk sometime without holding on to the walker. ASSESSMENT: Mobility and self-care limitation in a patient with frequent falls in a patient with known anxiety, essential tremors, no clinical evidence of peripheral neuropathy. She had osteoarthritis of both knees without any pain. The patient is status post recent craniotomy and evacuation of subacute subdural hematoma by right frontotemporoparietal craniotomy, also with known hypertension, hypothyroidism, carcinoma of left breast, status post mastectomy and carcinoma of lung. RECOMMENDATIONS: Agree with the plan for physical therapy and occupational therapy and she needs constant supervision while up. If her family could not provide supervision, she might need to be considered for chcf placement. Dr. Hernandez, I appreciate asking me to participate in the care of this interesting patient. I will be glad to follow her with you as needed for her rehabilitation. ELVIA WARD MD DR: WILLIAM/yesi JOB#: [id number] / [id number]
--- NOTE | 2018-06-18 00:54 | CONS ---
DATE OF CONSULTATION: 06/17/2018 MEDICAL ONCOLOGY CONSULTATION REPORT REQUESTING PHYSICIAN: TAHMINA HERNANDEZ M.D. REASON FOR CONSULTATION: Stage IV lung cancer, now admitted with frequent falls. 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 She was started on palliative chemotherapy with carboplatin, Alimta and Keytruda on 11/27/2017 and maintenance treatment with Alimta and Keytruda was initiated on 02/28/2018. She received cycle #8 treatment on 06/06/2018. She was admitted to [facility] on 06/16/2018 with complaints of falls. The daughter also reports that she has had worsening weakness. She was admitted to [facility] previously on 05/12/2018 for subdural hematoma and she underwent surgery by Dr. Frank. A followup CT scan was performed. CT scan of the head was performed on 06/16/2018 that revealed right frontal craniotomy with small residual subdural hematoma, intervally decreased when compared to the prior exam. It now measures only 8 mm in thickness and previously, it was 11 mm. She underwent a CT angiogram of the chest on 06/16/2018, which was negative for pulmonary embolism. Focal dense opacity in the posterior right upper lobe is again noted. CT scan of the abdomen and pelvis on 06/17/2018 reveals small left adrenal mass that is unchanged when compared to the prior scan. I was asked to see the patient for further recommendations regarding lung cancer management. She was also noted to have a fever of 102 degrees on 06/16/2018 and Infectious Diseases was consulted and she was started on antibiotics. PAST MEDICAL HISTORY: Breast cancer, depression, hyperlipidemia, hypertension and neuropathy. SOCIAL HISTORY: She quit smoking in 1998. FAMILY HISTORY: Sister had lung cancer. REVIEW OF SYSTEMS: A 12-point review of system was performed. Pertinent positives are mentioned in the history of present illness. Rest of the system review is negative. PHYSICAL EXAMINATION: GENERAL APPEARANCE: The patient is an 83-year-old female, who is in no acute cardiorespiratory distress. VITAL SIGNS: Blood pressure 153/71, temperature 98.1 and heart rate 113. HEAD: Atraumatic, normocephalic. EYES: No icterus. NECK: Supple. CHEST: Bilaterally symmetrical. HEART: S1, S2 normal. ABDOMEN: Soft, nontender. CENTRAL NERVOUS SYSTEM: No focal deficits. LYMPHATICS: No lymphadenopathy. SKIN: No rashes. PSYCHOLOGIC: Mood and affect are appropriate. LABORATORY DATA: WBC 3.6, hemoglobin 10.2 and platelet count 74,000. Creatinine 1.0. IMPRESSION AND PLAN: 1. 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 She is responding very well to chemotherapy. She received cycle #8 of treatment on 06/06/2018 with pembrolizumab and Alimta. If her functional status improves, then I will resume treatment as outpatient. I discussed with Dr. Tahmina Hernandez. 2. Fever. I discussed with MANDY Keen from Infectious Diseases. The patient has been started on antibiotics. 3. Leukopenia due to chemotherapy. Continue to monitor. WBC is 3.6 on 06/17/2018. 4. 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 Hemoglobin is 10.2 on 06/17/2018. Continue to monitor hemoglobin. 5. Thrombocytopenia with a platelet count of 74,000, stable. 6. Subdural hematoma. CT scan of the head reveals that it is improved when compared to the previous study. LORI NICOLE MD DR: SUZETTE/yesi JOB#: [id number] / [id number]
[2018-06-18 03:00] VITALS: BP 124/69
[2018-06-18] MEDS: LEVOTHYROXINE 50 MCG TABLET PO SCH (05:48)
[2018-06-18 06:56] LABS: BASO % 0 % (0-3); EOS % 0 % (0-3); HEMATOCRIT 25.8 % (36.0-47.0); HEMOGLOBIN 8.8 g/dL (12.0-15.5); LYMPH # 0.5 x10^3/uL (1.0-4.8); LYMPH % 12 % (24-48); MEAN CORPUSCULAR HEMOGLOBIN 34 pg (25-35); MEAN CORPUSCULAR HGB CONC 34 g/dL (31-37); MEAN CORPUSCULAR VOLUME 99 fL (79-100); MONO # 0.6 x10^3/uL (0.0-1.1); MONO % 13 % (0-9); NEUT # 3.3 x10^3uL (1.8-7.7); NEUT % 75 % (31-73); PLATELET COUNT 66 x10^3/uL (140-400); RED CELL DISTRIBUTION WIDTH 13.8 % (11.5-14.5); WHITE BLOOD COUNT 4.4 x10^3/uL (4.0-11.0)
[2018-06-18 06:59] LABS: CALCIUM 8.7 mg/dL (8.5-10.1); CREATININE 1.1 mg/dL (0.6-1.0); GFR 47.6; POTASSIUM 3.6 mmol/L (3.5-5.1)
[2018-06-18 07:00] VITALS: BP 135/62
[2018-06-18] MEDS: BUDESONIDE 0.5 MG/2 ML NEBU. NEB SCH ×2 (08:00→19:58)
[2018-06-18] MEDS: VENLAFAXINE 50 MG TABLET. PO SCH ×3 (08:04→21:22)
[2018-06-18] MEDS: PRIMIDONE 250 MG TABLET PO SCH ×4 (08:04→21:22)
[2018-06-18] MEDS: FOLIC ACID 1 MG TABLET. PO SCH (08:04)
[2018-06-18] MEDS: hydrALAZINE 25 MG TABLET PO SCH ×3 (08:05→21:23)
--- NOTE | 2018-06-18 09:03 | PDOC ---
PROGRESS NOTES Subjective Subjective No new complaints. Objective Objective Vital Signs Date Time Temp Pulse Resp B/P (MAP) Pulse Ox O2 Delivery O2 Flow Rate FiO2 06/18/18 08:05 108 135/62 06/18/18 07:00 100.3 18 92 Nasal Cannula 2.0 100.3 Intake and Output 06/18/18 07:00 Intake Total 1190 ml Balance 1190 ml Intake Oral 1190 ml # Voids 2 Physical Exam Physical Exam She is awake,supine in bed and in no acute distress and she continues with leaning backwards while coming to a sitting and standing position and she can walk with roller walker but needs constant supervision as she does not use proper technique and tries to leave the walker in too far in front and she need constant cues to hold on to walker properly and she had cognitive deficits as for speech pathology. She is eager to go home rather than going to SNF. Assessment Assessment Problems Medical Problems: (1) Elevated d-dimer Status: Acute (2) Elevated liver function tests Status: Acute (3) Frequent falls Status: Acute (4) Generalized weakness Status: Acute (5) History of intracranial hemorrhage Status: Acute (6) History of lung cancer Status: Acute (7) Pancytopenia Status: Acute (8) Tachycardia Status: Acute Plan Plan of Care To SNF or home with home health follow up and family providing constant supervision while up,when medically stable. Comment Review of Relevant I have reviewed the following items malcolm (where applicable) has been applied. Labs Laboratory Tests Test 06/16/18 13:14 06/16/18 14:30 06/17/18 04:30 06/18/18 05:50 White Blood Count 2.5 x10^3/uL (4.0-11.0) 3.6 x10^3/uL (4.0-11.0) 4.4 x10^3/uL (4.0-11.0) Red Blood Count 2.94 x10^6/uL (3.50-5.40) 3.14 x10^6/uL (3.50-5.40) 2.60 x10^6/uL (3.50-5.40) Hemoglobin 9.8 g/dL (12.0-15.5) 10.2 g/dL (12.0-15.5) 8.8 g/dL (12.0-15.5) Hematocrit 28.8 % (36.0-47.0) 31.0 % (36.0-47.0) 25.8 % (36.0-47.0) Mean Corpuscular Volume 98 fL (79-100) 99 fL (79-100) 99 fL (79-100) Mean Corpuscular Hemoglobin 34 pg (25-35) 33 pg (25-35) 34 pg (25-35) Mean Corpuscular Hemoglobin Concent 34 g/dL (31-37) 33 g/dL (31-37) 34 g/dL (31-37) Red Cell Distribution Width 13.7 % (11.5-14.5) 13.4 % (11.5-14.5) 13.8 % (11.5-14.5) Platelet Count 71 x10^3/uL (140-400) 74 x10^3/uL (140-400) 66 x10^3/uL (140-400) Neutrophils (%) (Auto) 53 % (31-73) 55 % (31-73) 75 % (31-73) Lymphocytes (%) (Auto) 15 % (24-48) 24 % (24-48) 12 % (24-48) Monocytes (%) (Auto) 32 % (0-9) 22 % (0-9) 13 % (0-9) Eosinophils (%) (Auto) 0 % (0-3) 0 % (0-3) 0 % (0-3) Basophils (%) (Auto) 0 % (0-3) 0 % (0-3) 0 % (0-3) Neutrophils # (Auto) 1.3 x10^3uL (1.8-7.7) 2.0 x10^3uL (1.8-7.7) 3.3 x10^3uL (1.8-7.7) Lymphocytes # (Auto) 0.4 x10^3/uL (1.0-4.8) 0.9 x10^3/uL (1.0-4.8) 0.5 x10^3/uL (1.0-4.8) Monocytes # (Auto) 0.8 x10^3/uL (0.0-1.1) 0.8 x10^3/uL (0.0-1.1) 0.6 x10^3/uL (0.0-1.1) Eosinophils # (Auto) 0.0 x10^3/uL (0.0-0.7) 0.0 x10^3/uL (0.0-0.7) 0.0 x10^3/uL (0.0-0.7) Basophils # (Auto) 0.0 x10^3/uL (0.0-0.2) 0.0 x10^3/uL (0.0-0.2) 0.0 x10^3/uL (0.0-0.2) Segmented Neutrophils % 55 % (35-66) Lymphocytes % 15 % (24-48) Monocytes % 30 % (0-10) Platelet Estimate Decreased (ADEQUATE) Prothrombin Time 14.0 SEC (11.7-14.0) Prothromb Time International Ratio 1.1 (0.8-1.1) Activated Partial Thromboplast Time 31 SEC (24-38) D-Dimer (Doris) 2.52 ug/mlFEU (0.00-0.50) Sodium Level 138 mmol/L (136-145) 136 mmol/L (136-145) 140 mmol/L (136-145) Potassium Level 3.8 mmol/L (3.5-5.1) 4.0 mmol/L (3.5-5.1) 3.6 mmol/L (3.5-5.1) Chloride Level 103 mmol/L (98-107) 100 mmol/L (98-107) 102 mmol/L (98-107) Carbon Dioxide Level 27 mmol/L (21-32) 29 mmol/L (21-32) 29 mmol/L (21-32) Anion Gap 8 (6-14) 7 (6-14) 9 (6-14) Blood Urea Nitrogen 14 mg/dL (7-20) 12 mg/dL (7-20) 14 mg/dL (7-20) Creatinine 1.0 mg/dL (0.6-1.0) 1.0 mg/dL (0.6-1.0) 1.1 mg/dL (0.6-1.0) Estimated GFR (Cockcroft-Gault) 53.1 53.1 47.6 BUN/Creatinine Ratio 14 (6-20) 12 (6-20) Glucose Level 141 mg/dL (70-99) 116 mg/dL (70-99) 102 mg/dL (70-99) Lactic Acid Level 1.5 mmol/L (0.4-2.0) Calcium Level 8.7 mg/dL (8.5-10.1) 9.2 mg/dL (8.5-10.1) 8.7 mg/dL (8.5-10.1) Magnesium Level 2.0 mg/dL (1.8-2.4) 1.9 mg/dL (1.8-2.4) Total Bilirubin 0.4 mg/dL (0.2-1.0) 0.4 mg/dL (0.2-1.0) Aspartate Amino Transf (AST/SGOT) 55 U/L (15-37) 55 U/L (15-37) Alanine Aminotransferase (ALT/SGPT) 63 U/L (14-59) 72 U/L (14-59) Alkaline Phosphatase 82 U/L (46-116) 86 U/L (46-116) Creatine Kinase 30 U/L (26-192) Troponin I Quantitative < 0.017 ng/mL (0.000-0.055) RY-Rzb-[id number]-Type Natriuretic Peptide 129 pg/mL (0-449) Total Protein 5.9 g/dL (6.4-8.2) 6.9 g/dL (6.4-8.2) Albumin 2.6 g/dL (3.4-5.0) 2.5 g/dL (3.4-5.0) Albumin/Globulin Ratio 0.8 (1.0-1.7) 0.6 (1.0-1.7) Urine Collection Type U cath Urine Color Sol Urine Clarity Clear Urine pH 5.5 Urine Specific [place] >=1.030 Urine Protein 100 mg/dL (NEG-TRACE) Urine Glucose (UA) Negative mg/dL (NEG) Urine Ketones (Stick) Trace mg/dL (NEG) Urine Blood Negative (NEG) Urine Nitrite Negative (NEG) Urine Bilirubin Negative (NEG) Urine Urobilinogen Dipstick 1.0 mg/dL (0.2 mg/dL) Urine Leukocyte Esterase Negative (NEG) Urine RBC 0 /HPF (0-2) Urine WBC Occ /HPF (0-4) Urine Squamous Epithelial Cells Many /LPF Urine Amorphous Sediment Present /HPF Urine Bacteria 0 /HPF (0-FEW) Laboratory Tests Test 06/18/18 05:50 White Blood Count 4.4 x10^3/uL (4.0-11.0) Red Blood Count 2.60 x10^6/uL (3.50-5.40) Hemoglobin 8.8 g/dL (12.0-15.5) Hematocrit 25.8 % (36.0-47.0) Mean Corpuscular Volume 99 fL (79-100) Mean Corpuscular Hemoglobin 34 pg (25-35) Mean Corpuscular Hemoglobin Concent 34 g/dL (31-37) Red Cell Distribution Width 13.8 % (11.5-14.5) Platelet Count 66 x10^3/uL (140-400) Neutrophils (%) (Auto) 75 % (31-73) Lymphocytes (%) (Auto) 12 % (24-48) Monocytes (%) (Auto) 13 % (0-9) Eosinophils (%) (Auto) 0 % (0-3) Basophils (%) (Auto) 0 % (0-3) Neutrophils # (Auto) 3.3 x10^3uL (1.8-7.7) Lymphocytes # (Auto) 0.5 x10^3/uL (1.0-4.8) Monocytes # (Auto) 0.6 x10^3/uL (0.0-1.1) Eosinophils # (Auto) 0.0 x10^3/uL (0.0-0.7) Basophils # (Auto) 0.0 x10^3/uL (0.0-0.2) Sodium Level 140 mmol/L (136-145) Potassium Level 3.6 mmol/L (3.5-5.1) Chloride Level 102 mmol/L (98-107) Carbon Dioxide Level 29 mmol/L (21-32) Anion Gap 9 (6-14) Blood Urea Nitrogen 14 mg/dL (7-20) Creatinine 1.1 mg/dL (0.6-1.0) Estimated GFR (Cockcroft-Gault) 47.6 Glucose Level 102 mg/dL (70-99) Calcium Level 8.7 mg/dL (8.5-10.1) Microbiology 06/17/18 Blood Culture - Preliminary, Resulted NO GROWTH AFTER 1 DAY Medications Current Medications Iohexol (Omnipaque 350 Mg/ml) 75 ml 1X ONCE IV Last administered on 06/16/18at 15:44; Start 06/16/18 at 15:30; Stop 06/16/18 at 15:31; Status DC Info (CONTRAST GIVEN -- Rx MONITORING) 1 each PRN DAILY PRN MC SEE COMMENTS; Start 06/16/18 at 15:30; Stop 06/18/18 at 15:29 Clonidine HCl (Catapres Tts-1) 1 patch WEEKLY TD Last administered on 06/17/18at 09:11; Start 06/17/18 at 09:00 Folic Acid (Folic Acid) 1 mg DAILY PO Last administered on 06/18/18at 08:04; Start 06/17/18 at 09:00 Gabapentin (Neurontin) 300 mg HS PO Last administered on 06/17/18at 21:09; Start 06/16/18 at 21:00 Hydralazine HCl (Apresoline) 25 mg TID PO Last administered on 06/18/18 08:05; Start 06/16/18 at 21:00 Levothyroxine Sodium (Synthroid) 50 mcg DAILY06 PO Last administered on 06/18/18at 05:48; Start 06/17/18 at 06:00 Non-Formulary Medication (Mometasone Furoate (Asmanex)) 200 mcg BID INH ; Start 06/16/18 at 21:00; Status UNV Atorvastatin Calcium (Lipitor) 5 mg QHS PO Last administered on 06/17/18at 21:11; Start 06/16/18 at 21:00 Primidone (Mysoline) 250 mg DAILYWSUP PO ; Start 06/16/18 at 17:45; Stop 06/16/18 at 17:59; Status DC Primidone (Mysoline) 500 mg QHS PO Last administered on 06/17/18at 21:12; Start 06/16/18 at 21:00 Venlafaxine HCl (Effexor) 50 mg TID PO Last administered on 06/18/18at 08:04; Start 06/16/18 at 21:00 Diltiazem HCl (Cardizem 24hr Cd) 180 mg DAILY PO Last administered on 06/18/18at 08:05; Start 06/17/18 at 09:00 Budesonide (Pulmicort) 0.5 mg RTBID NEB Last administered on 06/17/18at 19:33; Start 06/16/18 at 20:00 Primidone (Mysoline) 250 mg TID@0900,1200,1700 PO Last administered on 06/18/18at 08:04; Start 06/17/18 at 09:00 Hydralazine HCl (Apresoline Inj) 10 mg PRN Q4HRS PRN IVP ELEVATED BP, SEE COMMENTS; Start 06/16/18 at 19:00 Ceftriaxone Sodium (Rocephin) 1 gm 1X ONCE IVP Last administered on 06/17/18at 04:42; Start 06/17/18 at 03:30; Stop 06/17/18 at 03:32; Status DC Acetaminophen (Tylenol) 650 mg PRN Q6HRS PRN PO FEVER Last administered on 06/17/18at 04:20; Start 06/17/18 at 03:15 Piperacillin Sod/ Tazobactam Sod 3.375 gm/Sodium Chloride 50 ml @ 100 mls/hr Q6HRS IV Last administered on 06/18/18at 05:48; Start 06/17/18 at 12:00 Vancomycin HCl (Vanco Per Pharmacy) 1 each PRN DAILY PRN MC SEE COMMENTS Last administered on 06/17/18at 14:08; Start 06/17/18 at 12:00 Vancomycin HCl 2 gm/Sodium Chloride 500 ml @ 250 mls/hr 1X ONCE IV Last administered on 06/17/18at 13:18; Start 06/17/18 at 12:30; Stop 06/17/18 at 14:29; Status DC Vancomycin HCl 1.25 gm/Sodium Chloride 250 ml @ 167 mls/hr Q24H IV ; Start 06/18/18 at 13:00 Vancomycin HCl (Vancomycin Trough Level) 1 each 1X ONCE MC ; Start 06/19/18 at 12:30; Stop 06/19/18 at 12:31 Sodium Chloride 1,000 ml @ 25 mls/hr Q24H IV Last administered on 06/17/18at 18:04; Start 06/17/18 at 14:45 Active Scripts Active Hydralazine Hcl 25 Mg Tablet 25 Mg PO TID 30 Days Clonidine Tts-1 (Clonidine) 1 Each Patch.tdwk 1 Patch TD WEEKLY 30 Days Reported Gabapentin 600 Mg Tablet 300 Mg PO HS Mysoline (Primidone) 250 Mg Tablet 500 Mg PO QHS Effexor Xr (Venlafaxine Hcl) 150 Mg Cap.er.24h 1 Cap PO DAILY Folic Acid 1 Mg Tablet 1 Tab PO DAILY Asmanex (Mometasone Furoate) 220 Mcg Aer.pow.ba 200 Mcg INH BID Primidone 250 Mg Tablet 250 Mg PO TID Pravastatin Sodium 20 Mg Tablet 1 Tab PO DAILY Cartia Xt (Diltiazem Hcl) 180 Mg Cap.er.24h 180 Mg PO Levothyroxine Sodium 50 Mcg Tablet 1 Tab PO DAILY Vitals/I & O Vital Sign - Last 24 Hours 06/17/18 06/17/18 06/17/18 06/17/18 09:07 09:08 11:00 13:18 Temp 98.1 98.1 Pulse 100 100 113 113 Resp 19 B/P (MAP) 138/60 138/60 153/71 (98) 153/71 O2 Delivery Nasal Cannula O2 Flow Rate 2.0 06/17/18 06/17/18 06/17/18 06/17/18 15:00 19:00 19:35 20:02 Temp 101.1 98.5 101.1 98.5 Pulse 112 109 Resp 18 20 B/P (MAP) 156/62 (93) 123/70 (87) Pulse Ox 93 92 94 O2 Delivery Nasal Cannula Room Air Nasal Cannula Nasal Cannula O2 Flow Rate 2.0 2.0 2.0 06/17/18 06/17/18 06/18/18 06/18/18 21:10 23:00 03:00 07:00 Temp 99.5 99.3 100.3 99.5 99.3 100.3 Pulse 109 110 103 108 Resp 20 20 18 B/P (MAP) 132/70 130/70 (90) 124/69 (87) 135/62 (86) Pulse Ox 90 95 92 O2 Delivery Nasal Cannula Nasal Cannula Nasal Cannula O2 Flow Rate 2.0 2.0 2.0 06/18/18 06/18/18 08:05 08:05 Pulse 108 108 B/P (MAP) 135/62 135/62 Intake and Output 06/17/18 06/17/18 06/18/18 15:00 23:00 07:00 Intake Total 650 ml 240 ml 300 ml Balance 650 ml 240 ml 300 ml ELVIA WARD MD June 18, 2018 09:02
--- NOTE | 2018-06-18 09:28 | PDOC ---
IM PROGRESS NOTES- Subjective Subjective No complaints of pain or dyspnea. Patient is Saying I want to go home. She is very forgetful and does not understand her condition and problems. She has been running fever. Objective Vitals Vital Signs Date Time Temp Pulse Resp B/P (MAP) Pulse Ox O2 Delivery O2 Flow Rate FiO2 06/18/18 08:05 108 135/62 06/18/18 07:00 100.3 18 92 Nasal Cannula 2.0 100.3 Input & Output Intake and Output 06/18/18 07:00 Intake Total 1190 ml Balance 1190 ml Intake Oral 1190 ml # Voids 2 Physical Exam Physical Exam GENERAL: The patient is alert, forgetful, not in acute distress. SCALP: Right-sided recent surgical scar has healed well. No swelling or bleeding noted. No bruising noted on the scalp or face. EYES: Pupils reacting to light. Conjunctivae pale. Sclerae muddy. HENT: Unremarkable. NECK: Supple. JVP normal. No thyromegaly. Trachea midline. LUNGS: Decreased breath sounds at bases. CARDIOVASCULAR: S1, S2 regular. ABDOMEN: Soft, nontender, no guarding, no rigidity. Bowel sounds present. EXTREMITIES: No edema. CENTRAL NERVOUS SYSTEM: Generalized weakness. The patient is able to move her legs. Labs Laboratory Tests Test 06/16/18 13:14 06/16/18 14:30 06/17/18 04:30 06/18/18 05:50 White Blood Count 2.5 x10^3/uL (4.0-11.0) 3.6 x10^3/uL (4.0-11.0) 4.4 x10^3/uL (4.0-11.0) Red Blood Count 2.94 x10^6/uL (3.50-5.40) 3.14 x10^6/uL (3.50-5.40) 2.60 x10^6/uL (3.50-5.40) Hemoglobin 9.8 g/dL (12.0-15.5) 10.2 g/dL (12.0-15.5) 8.8 g/dL (12.0-15.5) Hematocrit 28.8 % (36.0-47.0) 31.0 % (36.0-47.0) 25.8 % (36.0-47.0) Mean Corpuscular Volume 98 fL (79-100) 99 fL (79-100) 99 fL (79-100) Mean Corpuscular Hemoglobin 34 pg (25-35) 33 pg (25-35) 34 pg (25-35) Mean Corpuscular Hemoglobin Concent 34 g/dL (31-37) 33 g/dL (31-37) 34 g/dL (31-37) Red Cell Distribution Width 13.7 % (11.5-14.5) 13.4 % (11.5-14.5) 13.8 % (11.5-14.5) Platelet Count 71 x10^3/uL (140-400) 74 x10^3/uL (140-400) 66 x10^3/uL (140-400) Neutrophils (%) (Auto) 53 % (31-73) 55 % (31-73) 75 % (31-73) Lymphocytes (%) (Auto) 15 % (24-48) 24 % (24-48) 12 % (24-48) Monocytes (%) (Auto) 32 % (0-9) 22 % (0-9) 13 % (0-9) Eosinophils (%) (Auto) 0 % (0-3) 0 % (0-3) 0 % (0-3) Basophils (%) (Auto) 0 % (0-3) 0 % (0-3) 0 % (0-3) Neutrophils # (Auto) 1.3 x10^3uL (1.8-7.7) 2.0 x10^3uL (1.8-7.7) 3.3 x10^3uL (1.8-7.7) Lymphocytes # (Auto) 0.4 x10^3/uL (1.0-4.8) 0.9 x10^3/uL (1.0-4.8) 0.5 x10^3/uL (1.0-4.8) Monocytes # (Auto) 0.8 x10^3/uL (0.0-1.1) 0.8 x10^3/uL (0.0-1.1) 0.6 x10^3/uL (0.0-1.1) Eosinophils # (Auto) 0.0 x10^3/uL (0.0-0.7) 0.0 x10^3/uL (0.0-0.7) 0.0 x10^3/uL (0.0-0.7) Basophils # (Auto) 0.0 x10^3/uL (0.0-0.2) 0.0 x10^3/uL (0.0-0.2) 0.0 x10^3/uL (0.0-0.2) Segmented Neutrophils % 55 % (35-66) Lymphocytes % 15 % (24-48) Monocytes % 30 % (0-10) Platelet Estimate Decreased (ADEQUATE) Prothrombin Time 14.0 SEC (11.7-14.0) Prothromb Time International Ratio 1.1 (0.8-1.1) Activated Partial Thromboplast Time 31 SEC (24-38) D-Dimer (Doris) 2.52 ug/mlFEU (0.00-0.50) Sodium Level 138 mmol/L (136-145) 136 mmol/L (136-145) 140 mmol/L (136-145) Potassium Level 3.8 mmol/L (3.5-5.1) 4.0 mmol/L (3.5-5.1) 3.6 mmol/L (3.5-5.1) Chloride Level 103 mmol/L (98-107) 100 mmol/L (98-107) 102 mmol/L (98-107) Carbon Dioxide Level 27 mmol/L (21-32) 29 mmol/L (21-32) 29 mmol/L (21-32) Anion Gap 8 (6-14) 7 (6-14) 9 (6-14) Blood Urea Nitrogen 14 mg/dL (7-20) 12 mg/dL (7-20) 14 mg/dL (7-20) Creatinine 1.0 mg/dL (0.6-1.0) 1.0 mg/dL (0.6-1.0) 1.1 mg/dL (0.6-1.0) Estimated GFR (Cockcroft-Gault) 53.1 53.1 47.6 BUN/Creatinine Ratio 14 (6-20) 12 (6-20) Glucose Level 141 mg/dL (70-99) 116 mg/dL (70-99) 102 mg/dL (70-99) Lactic Acid Level 1.5 mmol/L (0.4-2.0) Calcium Level 8.7 mg/dL (8.5-10.1) 9.2 mg/dL (8.5-10.1) 8.7 mg/dL (8.5-10.1) Magnesium Level 2.0 mg/dL (1.8-2.4) 1.9 mg/dL (1.8-2.4) Total Bilirubin 0.4 mg/dL (0.2-1.0) 0.4 mg/dL (0.2-1.0) Aspartate Amino Transf (AST/SGOT) 55 U/L (15-37) 55 U/L (15-37) Alanine Aminotransferase (ALT/SGPT) 63 U/L (14-59) 72 U/L (14-59) Alkaline Phosphatase 82 U/L (46-116) 86 U/L (46-116) Creatine Kinase 30 U/L (26-192) Troponin I Quantitative < 0.017 ng/mL (0.000-0.055) RO-Zsn-[id number]-Type Natriuretic Peptide 129 pg/mL (0-449) Total Protein 5.9 g/dL (6.4-8.2) 6.9 g/dL (6.4-8.2) Albumin 2.6 g/dL (3.4-5.0) 2.5 g/dL (3.4-5.0) Albumin/Globulin Ratio 0.8 (1.0-1.7) 0.6 (1.0-1.7) Urine Collection Type U cath Urine Color Sol Urine Clarity Clear Urine pH 5.5 Urine Specific [place] >=1.030 Urine Protein 100 mg/dL (NEG-TRACE) Urine Glucose (UA) Negative mg/dL (NEG) Urine Ketones (Stick) Trace mg/dL (NEG) Urine Blood Negative (NEG) Urine Nitrite Negative (NEG) Urine Bilirubin Negative (NEG) Urine Urobilinogen Dipstick 1.0 mg/dL (0.2 mg/dL) Urine Leukocyte Esterase Negative (NEG) Urine RBC 0 /HPF (0-2) Urine WBC Occ /HPF (0-4) Urine Squamous Epithelial Cells Many /LPF Urine Amorphous Sediment Present /HPF Urine Bacteria 0 /HPF (0-FEW) Laboratory Tests Test 5/8/19 05:50 White Blood Count 4.4 x10^3/uL (4.0-11.0) Red Blood Count 2.60 x10^6/uL (3.50-5.40) Hemoglobin 8.8 g/dL (12.0-15.5) Hematocrit 25.8 % (36.0-47.0) Mean Corpuscular Volume 99 fL (79-100) Mean Corpuscular Hemoglobin 34 pg (25-35) Mean Corpuscular Hemoglobin Concent 34 g/dL (31-37) Red Cell Distribution Width 13.8 % (11.5-14.5) Platelet Count 66 x10^3/uL (140-400) Neutrophils (%) (Auto) 75 % (31-73) Lymphocytes (%) (Auto) 12 % (24-48) Monocytes (%) (Auto) 13 % (0-9) Eosinophils (%) (Auto) 0 % (0-3) Basophils (%) (Auto) 0 % (0-3) Neutrophils # (Auto) 3.3 x10^3uL (1.8-7.7) Lymphocytes # (Auto) 0.5 x10^3/uL (1.0-4.8) Monocytes # (Auto) 0.6 x10^3/uL (0.0-1.1) Eosinophils # (Auto) 0.0 x10^3/uL (0.0-0.7) Basophils # (Auto) 0.0 x10^3/uL (0.0-0.2) Sodium Level 140 mmol/L (136-145) Potassium Level 3.6 mmol/L (3.5-5.1) Chloride Level 102 mmol/L (98-107) Carbon Dioxide Level 29 mmol/L (21-32) Anion Gap 9 (6-14) Blood Urea Nitrogen 14 mg/dL (7-20) Creatinine 1.1 mg/dL (0.6-1.0) Estimated GFR (Cockcroft-Gault) 47.6 Glucose Level 102 mg/dL (70-99) Calcium Level 8.7 mg/dL (8.5-10.1) Meds Current Medications Piperacillin Sod/ Tazobactam Sod 3.375 gm/Sodium Chloride 50 ml @ 100 mls/hr Q 6HRS IV Last administered on 06/18/18at 05:48; Start 06/17/18 at 12:00 Sodium Chloride 1,000 ml @ 25 mls/hr Q24H IV Last administered on 06/17/18at 18:04; Start 06/17/18 at 14:45 Vancomycin HCl (Vanco Per Pharmacy) 1 each PRN DAILY PRN MC SEE COMMENTS Last a dministered on 06/17/18at 14:08; Start 06/17/18 at 12:00 Vancomycin HCl (Vancomycin Trough Level) 1 each 1X ONCE MC ; Start 06/19/18 at 12:30; Stop 06/19/18 at 12:31 Vancomycin HCl 1.25 gm/Sodium Chloride 250 ml @ 167 mls/hr Q24H IV ; Start 06/18/18 at 13:00 Vancomycin HCl 2 gm/Sodium Chloride 500 ml @ 250 mls/hr 1X ONCE IV Last administered on 06/17/18at 13:18; Start 06/17/18 at 12:30; Stop 06/17/18 at 14:29; Status DC Assessment Assessment 1. Subdural hematoma. 2. Frequent falls. 3. Pancytopenia. 4. Weakness. 5. Lung cancer with recent chemotherapy. 6. Hypertension, not controlled, accelerated. 7. Hypothyroidism. 8. Depression. 9. Anxiety. 10. Essential tremors. 11. Carcinoma of breast with left mastectomy. PLAN: I will consult Dr. Fournier for reevaluation and management. Start PT, OT. Consult Dr. Frank to make sure that the patient does not have any hydrocephalus or any other issues that is making her fall more frequently. Prognosis of this patient is poor due to her multiple medical problems. We will consult Dr. Lindquist and monitor pancytopenia. Her absolute neutrophil count is still 1.3 K. For details, please refer the orders. Frequent falls- discussed with Dr. Fournier. Patient is not safe because she is not following cues and falls frequently. Cancer of the lung- discussed with Dr. Lindquist. Patient wants to continue chemotherapy which is every 3 weeks. Recent subdural hematoma- patient remains impulsive and a very high risk for falls. May need to discharge her again to a halfway unit. Fever- I have ordered urine and blood cultures. Patient is now on IV Zosyn and vancomycin. Blood culture 1 is negative. Other blood culture could not be drawn. Patient has been coughing more. Etiology of her fever not clear so far. I discussed with the patient that she is immunosuppressed. She doesn't understand the gravity of her condition and just wants to go home. Her prognosis is very poor. Plan Plan For more details regarding further plans, please refer to the orders. TERESA HOPPER MD June 18, 2018 09:28
--- NOTE | 2018-06-18 10:10 | PDOC ---
Infectious Disease Note Subjective: Subjective Pt wants to go home denies any complaints T max 100.3 ROS: ROS Negative except for above. Vital Signs: Vital Signs Vital Signs Date Time Temp Pulse Resp B/P (MAP) Pulse Ox O2 Delivery O2 Flow Rate FiO2 06/18/18 09:46 Nasal Cannula 2.0 06/18/18 08:05 108 135/62 06/18/18 07:00 100.3 18 92 100.3 Physical Exam: PHYSICAL EXAM GENERAL: The patient is sitting up in the chair alert and joking. HEENT: Pupils equally round, reactive. Normal conjunctivae. Oral cavity: Pharynx pink and moist. No thrush. Upper dentures in place. NECK: Supple. LUNGS: Fine rales. Nonlabored. HEART: S1 and S2. ABDOMEN: Obese, soft, nontender. Bowel sounds present. EXTREMITIES: No gross edema or cyanosis. SKIN: Warm without generalized rash. She has a cyst on her back. NEUROLOGIC: Alert, said the year was 1920 before correcting herself. She also says Nghia is the current president. Right-sided chest Port-A-Cath without signs of any complications. Medications: Inpatient Meds: Current Medications Medications (Trade) Dose Ordered Sig/Kirby Start Time Stop Time Status Last Admin Dose Admin Acetaminophen (Tylenol) 650 mg PRN Q6HRS PRN 06/17/18 03:15 06/17/18 04:20 650 MG Atorvastatin Calcium (Lipitor) 5 mg QHS 06/16/18 21:00 06/17/18 21:11 5 MG Budesonide (Pulmicort) 0.5 mg RTBID 06/16/18 20:00 06/18/18 08:00 0.5 MG Ceftriaxone Sodium (Rocephin) 1 gm 1X ONCE 06/17/18 03:30 06/17/18 03:32 DC 06/17/18 04:42 1 GM Clonidine HCl (Catapres Tts-1) 1 patch WEEKLY 06/17/18 09:00 06/17/18 09:11 1 PATCH Diltiazem HCl (Cardizem 24hr Cd) 180 mg DAILY 06/17/18 09:00 06/18/18 08:05 180 MG Folic Acid (Folic Acid) 1 mg DAILY 06/17/18 09:00 06/18/18 08:04 1 MG Gabapentin (Neurontin) 300 mg HS 5/6/19 21:00 06/17/18 21:09 300 MG Hydralazine HCl (Apresoline Inj) 10 mg PRN Q4HRS PRN 06/16/18 19:00 Hydralazine HCl (Apresoline) 25 mg TID 06/16/18 21:00 06/18/18 08:05 25 MG Info (CONTRAST GIVEN -- Rx MONITORING) 1 each PRN DAILY PRN 06/16/18 15:30 06/18/18 15:29 Iohexol (Omnipaque 350 Mg/ml) 75 ml 1X ONCE 06/16/18 15:30 06/16/18 15:31 DC 06/16/18 15:44 75 ML Levothyroxine Sodium (Synthroid) 50 mcg DAILY06 06/17/18 06:00 06/18/18 05:48 50 MCG Non-Formulary Medication (Mometasone Furoate (Asmanex)) 200 mcg BID 06/16/18 21:00 UNV Piperacillin Sod/ Tazobactam Sod 3.375 gm/Sodium Chloride 50 ml @ 100 mls/hr Q6HRS 06/17/18 12:00 06/18/18 05:48 100 MLS/HR Primidone (Mysoline) 250 mg TID@0900,1200,1700 06/17/18 09:00 06/18/18 08:04 250 MG Sodium Chloride 1,000 ml @ 25 mls/hr Q24H 06/17/18 14:45 06/17/18 18:04 25 MLS/HR Vancomycin HCl (Vanco Per Pharmacy) 1 each PRN DAILY PRN 06/17/18 12:00 06/17/18 14:08 1 EACH Vancomycin HCl (Vancomycin Trough Level) 1 each 1X ONCE 06/19/18 12:30 06/19/18 12:31 Vancomycin HCl 1.25 gm/Sodium Chloride 250 ml @ 167 mls/hr Q24H 06/18/18 13:00 Vancomycin HCl 2 gm/Sodium Chloride 500 ml @ 250 mls/hr 1X ONCE 06/17/18 12:30 06/17/18 14:29 DC 06/17/18 13:18 250 MLS/HR Venlafaxine HCl (Effexor) 50 mg TID 06/16/18 21:00 06/18/18 08:04 50 MG Labs: Lab Laboratory Tests Test 06/18/18 05:50 White Blood Count 4.4 x10^3/uL (4.0-11.0) Red Blood Count 2.60 x10^6/uL (3.50-5.40) Hemoglobin 8.8 g/dL (12.0-15.5) Hematocrit 25.8 % (36.0-47.0) Mean Corpuscular Volume 99 fL (79-100) Mean Corpuscular Hemoglobin 34 pg (25-35) Mean Corpuscular Hemoglobin Concent 34 g/dL (31-37) Red Cell Distribution Width 13.8 % (11.5-14.5) Platelet Count 66 x10^3/uL (140-400) Neutrophils (%) (Auto) 75 % (31-73) Lymphocytes (%) (Auto) 12 % (24-48) Monocytes (%) (Auto) 13 % (0-9) Eosinophils (%) (Auto) 0 % (0-3) Basophils (%) (Auto) 0 % (0-3) Neutrophils # (Auto) 3.3 x10^3uL (1.8-7.7) Lymphocytes # (Auto) 0.5 x10^3/uL (1.0-4.8) Monocytes # (Auto) 0.6 x10^3/uL (0.0-1.1) Eosinophils # (Auto) 0.0 x10^3/uL (0.0-0.7) Basophils # (Auto) 0.0 x10^3/uL (0.0-0.2) Sodium Level 140 mmol/L (136-145) Potassium Level 3.6 mmol/L (3.5-5.1) Chloride Level 102 mmol/L (98-107) Carbon Dioxide Level 29 mmol/L (21-32) Anion Gap 9 (6-14) Blood Urea Nitrogen 14 mg/dL (7-20) Creatinine 1.1 mg/dL (0.6-1.0) Estimated GFR (Cockcroft-Gault) 47.6 Glucose Level 102 mg/dL (70-99) Calcium Level 8.7 mg/dL (8.5-10.1) Micro BC neg Objective: Assessment: 1. Fever. 2. 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 Pancytopenia.Chemo induced 4. Hypoxia requiring supplemental oxygen. 5. Constipation. 6. Frequent falls. 7. Stage 4 lung cancer. Her last dose of chemo was about 2 weeks ago. 8. Status post craniotomy and evacuation for subdural hematoma on 06/11/2018. 9. Forgetfulness. 10. Hypertension. 11. Hypothyroidism. Plan: Plan of Care DC Kalie start cefepime cont iv vanc adjust per renal func add empiric doxycycline check influ a and b f/u c/s VIOLETA BALDWIN MD June 18, 2018 10:10
[2018-06-18 11:00] VITALS: BP 135/60
[2018-06-18] MEDS: DOXYCYCLINE HYCLATE 100 MG TABLET PO SCH ×2 (12:21→21:22)
[2018-06-18] MEDS ORDERED: VANCOMYCIN 1.25 GM in IV NORMAL SALINE 250ML 250 ML IV SCH (13:00)
--- NOTE | 2018-06-18 14:05 | NUR ---
SW following Pt. Spoke with pt again regarding SNU and Pt declined again. Pt agreeable with [facility]. Discussed with RN regarding evaluation for home 02 and Rx if pt will need home 02. Will continue to follow.
[2018-06-18 14:08] LABS: INFLUENZA A PATIENT NEGATIVE (NEGATIVE); INFLUENZA B PATIENT NEGATIVE (NEGATIVE)
[2018-06-18 15:00] VITALS: BP 129/63
[2018-06-18] MEDS: CEFEPIME HCL IV Push 2 GM VIAL. IVP SCH ×2 (15:17→22:05)
[2018-06-18] MEDS: IV NORMAL SALINE 1000ML BAG 1,000 ML IV SCH (15:18)
[2018-06-18 19:00] VITALS: BP 116/67
[2018-06-18] MEDS: GABAPENTIN 300 MG CAPSULE. PO SCH (21:22)
[2018-06-18] MEDS: ATORVASTATIN CALCIUM 10 MG TABLET. PO SCH (21:22)
[2018-06-18 21:49] LABS: BILIRUBIN,URINE NEGATIVE (NEG); CLARITY,URINE CLOUDY; COLOR,URINE YELLOW; NITRITE,URINE NEGATIVE (NEG); PH,URINE 5.5; PROTEIN,URINE 30 mg/dL (NEG-TRACE); UROBILINOGEN,URINE 0.2 mg/dL (0.2 mg/dL)
[2018-06-18 21:57] LABS: AMORPHOUS SEDIMENT,UR PRESENT /HPF; SQUAMOUS EPITHELIAL CELL,UR FEW /LPF
[2018-06-18 21:58] LABS: BACTERIA,URINE 0 /HPF (0-FEW); GRANULAR CASTS,URINE OCCASIONAL /HPF; HYALINE CASTS, URINE OCCASIONAL /HPF; RBC,URINE 0 /HPF (0-2); YEAST,URINE PRESENT /HPF
[2018-06-18 23:00] VITALS: BP 148/57
[2018-06-19 03:00] VITALS: BP 156/67
[2018-06-19] MEDS: LEVOTHYROXINE 50 MCG TABLET PO SCH (05:51)
[2018-06-19] MEDS: CEFEPIME HCL IV Push 2 GM VIAL. IVP SCH ×3 (05:52→21:34)
[2018-06-19 06:51] LABS: CALCIUM 8.8 mg/dL (8.5-10.1); CREATININE 1.1 mg/dL (0.6-1.0); GFR 47.6; POTASSIUM 3.6 mmol/L (3.5-5.1)
[2018-06-19 07:00] VITALS: BP 160/73
[2018-06-19 07:08] LABS: BASO % 0 % (0-3); EOS % 0 % (0-3); HEMATOCRIT 26.9 % (36.0-47.0); HEMOGLOBIN 8.9 g/dL (12.0-15.5); LYMPH # 0.6 x10^3/uL (1.0-4.8); LYMPH % 9 % (24-48); MEAN CORPUSCULAR HEMOGLOBIN 33 pg (25-35); MEAN CORPUSCULAR HGB CONC 33 g/dL (31-37); MEAN CORPUSCULAR VOLUME 100 fL (79-100); MONO # 0.6 x10^3/uL (0.0-1.1); MONO % 11 % (0-9); NEUT # 4.8 x10^3uL (1.8-7.7); NEUT % 80 % (31-73); PLATELET COUNT 92 x10^3/uL (140-400); RED BLOOD COUNT 2.69 x10^6/uL (3.50-5.40); RED CELL DISTRIBUTION WIDTH 13.5 % (11.5-14.5)
[2018-06-19] MEDS: BUDESONIDE 0.5 MG/2 ML NEBU. NEB SCH ×2 (07:54→20:22)
[2018-06-19] MEDS: DOXYCYCLINE HYCLATE 100 MG TABLET PO SCH ×2 (08:26→21:28)
[2018-06-19] MEDS: PRIMIDONE 250 MG TABLET PO SCH ×4 (08:27→21:28)
[2018-06-19] MEDS: VENLAFAXINE 50 MG TABLET. PO SCH ×3 (08:27→21:28)
[2018-06-19] MEDS: hydrALAZINE 25 MG TABLET PO SCH ×3 (08:28→21:44)
[2018-06-19] MEDS: FOLIC ACID 1 MG TABLET. PO SCH (08:28)
--- NOTE | 2018-06-19 09:00 | PDOC ---
PROGRESS NOTES Subjective Subjective No new complaints. Objective Objective Vital Signs Date Time Temp Pulse Resp B/P (MAP) Pulse Ox O2 Delivery O2 Flow Rate FiO2 06/19/18 08:29 100 160/73 06/19/18 07:00 98.9 16 96 Nasal Cannula 2.0 98.9 Intake and Output 06/19/18 07:00 Intake Total 2600 ml Balance 2600 ml Intake Oral 1300 ml IV Total 1300 ml # Voids 5 Physical Exam Physical Exam She is awake and eating breakfast in bed and she continues with balance problems and physical and occupational therapy working with her. Assessment Assessment Problems Medical Problems: (1) Elevated d-dimer Status: Acute (2) Elevated liver function tests Status: Acute (3) Frequent falls Status: Acute (4) Generalized weakness Status: Acute (5) History of intracranial hemorrhage Status: Acute (6) History of lung cancer Status: Acute (7) Pancytopenia Status: Acute (8) Tachycardia Status: Acute Plan Plan of Care To continue present rehab efforts as tolerated. Comment Review of Relevant I have reviewed the following items malcolm (where applicable) has been applied. Labs Laboratory Tests Test 06/18/18 05:50 06/18/18 11:34 06/18/18 21:34 06/19/18 05:32 White Blood Count 4.4 x10^3/uL (4.0-11.0) 6.0 x10^3/uL (4.0-11.0) Red Blood Count 2.60 x10^6/uL (3.50-5.40) 2.69 x10^6/uL (3.50-5.40) Hemoglobin 8.8 g/dL (12.0-15.5) 8.9 g/dL (12.0-15.5) Hematocrit 25.8 % (36.0-47.0) 26.9 % (36.0-47.0) Mean Corpuscular Volume 99 fL (79-100) 100 fL (79-100) Mean Corpuscular Hemoglobin 34 pg (25-35) 33 pg (25-35) Mean Corpuscular Hemoglobin Concent 34 g/dL (31-37) 33 g/dL (31-37) Red Cell Distribution Width 13.8 % (11.5-14.5) 13.5 % (11.5-14.5) Platelet Count 66 x10^3/uL (140-400) 92 x10^3/uL (140-400) Neutrophils (%) (Auto) 75 % (31-73) 80 % (31-73) Lymphocytes (%) (Auto) 12 % (24-48) 9 % (24-48) Monocytes (%) (Auto) 13 % (0-9) 11 % (0-9) Eosinophils (%) (Auto) 0 % (0-3) 0 % (0-3) Basophils (%) (Auto) 0 % (0-3) 0 % (0-3) Neutrophils # (Auto) 3.3 x10^3uL (1.8-7.7) 4.8 x10^3uL (1.8-7.7) Lymphocytes # (Auto) 0.5 x10^3/uL (1.0-4.8) 0.6 x10^3/uL (1.0-4.8) Monocytes # (Auto) 0.6 x10^3/uL (0.0-1.1) 0.6 x10^3/uL (0.0-1.1) Eosinophils # (Auto) 0.0 x10^3/uL (0.0-0.7) 0.0 x10^3/uL (0.0-0.7) Basophils # (Auto) 0.0 x10^3/uL (0.0-0.2) 0.0 x10^3/uL (0.0-0.2) Sodium Level 140 mmol/L (136-145) 140 mmol/L (136-145) Potassium Level 3.6 mmol/L (3.5-5.1) 3.6 mmol/L (3.5-5.1) Chloride Level 102 mmol/L (98-107) 104 mmol/L (98-107) Carbon Dioxide Level 29 mmol/L (21-32) 28 mmol/L (21-32) Anion Gap 9 (6-14) 8 (6-14) Blood Urea Nitrogen 14 mg/dL (7-20) 15 mg/dL (7-20) Creatinine 1.1 mg/dL (0.6-1.0) 1.1 mg/dL (0.6-1.0) Estimated GFR (Cockcroft-Gault) 47.6 47.6 Glucose Level 102 mg/dL (70-99) 124 mg/dL (70-99) Calcium Level 8.7 mg/dL (8.5-10.1) 8.8 mg/dL (8.5-10.1) Influenza Type A Antigen Negative (NEGATIVE) Influenza Type B Antigen Negative (NEGATIVE) Urine Collection Type Unknown Urine Color Yellow Urine Clarity Cloudy Urine pH 5.5 Urine Specific [place] 1.020 Urine Protein 30 mg/dL (NEG-TRACE) Urine Glucose (UA) Negative mg/dL (NEG) Urine Ketones (Stick) Negative mg/dL (NEG) Urine Blood Negative (NEG) Urine Nitrite Negative (NEG) Urine Bilirubin Negative (NEG) Urine Urobilinogen Dipstick 0.2 mg/dL (0.2 mg/dL) Urine Leukocyte Esterase Trace (NEG) Urine RBC 0 /HPF (0-2) Urine WBC 1-4 /HPF (0-4) Urine Squamous Epithelial Cells Few /LPF Urine Amorphous Sediment Present /HPF Urine Bacteria 0 /HPF (0-FEW) Urine Hyaline Casts Occasional /HPF Urine Granular Casts Occasional /HPF Urine Mucus Mod /LPF Urine Yeast Present /HPF Laboratory Tests Test 06/18/18 11:34 06/18/18 21:34 06/19/18 05:32 Influenza Type A Antigen Negative (NEGATIVE) Influenza Type B Antigen Negative (NEGATIVE) Urine Collection Type Unknown Urine Color Yellow Urine Clarity Cloudy Urine pH 5.5 Urine Specific [place] 1.020 Urine Protein 30 mg/dL (NEG-TRACE) Urine Glucose (UA) Negative mg/dL (NEG) Urine Ketones (Stick) Negative mg/dL (NEG) Urine Blood Negative (NEG) Urine Nitrite Negative (NEG) Urine Bilirubin Negative (NEG) Urine Urobilinogen Dipstick 0.2 mg/dL (0.2 mg/dL) Urine Leukocyte Esterase Trace (NEG) Urine RBC 0 /HPF (0-2) Urine WBC 1-4 /HPF (0-4) Urine Squamous Epithelial Cells Few /LPF Urine Amorphous Sediment Present /HPF Urine Bacteria 0 /HPF (0-FEW) Urine Hyaline Casts Occasional /HPF Urine Granular Casts Occasional /HPF Urine Mucus Mod /LPF Urine Yeast Present /HPF White Blood Count 6.0 x10^3/uL (4.0-11.0) Red Blood Count 2.69 x10^6/uL (3.50-5.40) Hemoglobin 8.9 g/dL (12.0-15.5) Hematocrit 26.9 % (36.0-47.0) Mean Corpuscular Volume 100 fL (79-100) Mean Corpuscular Hemoglobin 33 pg (25-35) Mean Corpuscular Hemoglobin Concent 33 g/dL (31-37) Red Cell Distribution Width 13.5 % (11.5-14.5) Platelet Count 92 x10^3/uL (140-400) Neutrophils (%) (Auto) 80 % (31-73) Lymphocytes (%) (Auto) 9 % (24-48) Monocytes (%) (Auto) 11 % (0-9) Eosinophils (%) (Auto) 0 % (0-3) Basophils (%) (Auto) 0 % (0-3) Neutrophils # (Auto) 4.8 x10^3uL (1.8-7.7) Lymphocytes # (Auto) 0.6 x10^3/uL (1.0-4.8) Monocytes # (Auto) 0.6 x10^3/uL (0.0-1.1) Eosinophils # (Auto) 0.0 x10^3/uL (0.0-0.7) Basophils # (Auto) 0.0 x10^3/uL (0.0-0.2) Sodium Level 140 mmol/L (136-145) Potassium Level 3.6 mmol/L (3.5-5.1) Chloride Level 104 mmol/L (98-107) Carbon Dioxide Level 28 mmol/L (21-32) Anion Gap 8 (6-14) Blood Urea Nitrogen 15 mg/dL (7-20) Creatinine 1.1 mg/dL (0.6-1.0) Estimated GFR (Cockcroft-Gault) 47.6 Glucose Level 124 mg/dL (70-99) Calcium Level 8.8 mg/dL (8.5-10.1) Microbiology 06/17/18 Blood Culture - Preliminary, Resulted NO GROWTH AFTER 1 DAY Medications Current Medications Iohexol (Omnipaque 350 Mg/ml) 75 ml 1X ONCE IV Last administered on 06/16/18at 15:44; Start 06/16/18 at 15:30; Stop 06/16/18 at 15:31; Status DC Info (CONTRAST GIVEN -- Rx MONITORING) 1 each PRN DAILY PRN MC SEE COMMENTS; Start 06/16/18 at 15:30; Stop 06/18/18 at 15:29; Status DC Clonidine HCl (Catapres Tts-1) 1 patch WEEKLY TD Last administered on 06/17/18 09:11; Start 06/17/18 at 09:00 Folic Acid (Folic Acid) 1 mg DAILY PO Last administered on 06/19/18 08:28; Start 06/17/18 at 09:00 Gabapentin (Neurontin) 300 mg HS PO Last administered on 06/18/18 21:22; Start 06/16/18 at 21:00 Hydralazine HCl (Apresoline) 25 mg TID PO Last administered on 06/19/18 08:28; Start 06/16/18 at 21:00 Levothyroxine Sodium (Synthroid) 50 mcg DAILY06 PO Last administered on 06/19/18 05:51; Start 06/17/18 at 06:00 Non-Formulary Medication (Mometasone Furoate (Asmanex)) 200 mcg BID INH ; Start 06/16/18 at 21:00; Status UNV Atorvastatin Calcium (Lipitor) 5 mg QHS PO Last administered on 06/18/18 21:22; Start 06/16/18 at 21:00 Primidone (Mysoline) 250 mg DAILYWSUP PO ; Start 06/16/18 at 17:45; Stop 06/16/18 at 17:59; Status DC Primidone (Mysoline) 500 mg QHS PO Last administered on 06/18/18 21:22; Start 06/16/18 at 21:00 Venlafaxine HCl (Effexor) 50 mg TID PO Last administered on 06/19/18 08:27; Start 06/16/18 at 21:00 Diltiazem HCl (Cardizem 24hr Cd) 180 mg DAILY PO Last administered on 06/19/18 08:29; Start 06/17/18 at 09:00 Budesonide (Pulmicort) 0.5 mg RTBID NEB Last administered on 06/19/18 07:54; Start 06/16/18 at 20:00 Primidone (Mysoline) 250 mg TID@0900,1200,1700 PO Last administered on 06/19/18 08:27; Start 06/17/18 at 09:00 Hydralazine HCl (Apresoline Inj) 10 mg PRN Q4HRS PRN IVP ELEVATED BP, SEE COMM ENTS; Start 06/16/18 at 19:00 Ceftriaxone Sodium (Rocephin) 1 gm 1X ONCE IVP Last administered on 06/17/18 04:42; Start 06/17/18 at 03:30; Stop 06/17/18 at 03:32; Status DC Acetaminophen (Tylenol) 650 mg PRN Q6HRS PRN PO FEVER Last administered on 06/17/18 04:20; Start 06/17/18 at 03:15 Piperacillin Sod/ Tazobactam Sod 3.375 gm/Sodium Chloride 50 ml @ 100 mls/hr Q6HRS IV Last administered on 06/18/18 05:48; Start 06/17/18 at 12:00; Stop 06/18/18 at 10:11; Status DC Vancomycin HCl (Vanco Per Pharmacy) 1 each PRN DAILY PRN MC SEE COMMENTS Last administered on 06/17/18 14:08; Start 06/17/18 at 12:00 Vancomycin HCl 2 gm/Sodium Chloride 500 ml @ 250 mls/hr 1X ONCE IV Last administered on 06/17/18 13:18; Start 06/17/18 at 12:30; Stop 06/17/18 at 14:29; Status DC Vancomycin HCl 1.25 gm/Sodium Chloride 250 ml @ 167 mls/hr Q24H IV Last administered on 06/18/18at 12:22; Start 06/18/18 at 13:00 Vancomycin HCl (Vancomycin Trough Level) 1 each 1X ONCE MC ; Start 06/19/18 at 12:30; Stop 06/19/18 at 12:31 Sodium Chloride 1,000 ml @ 25 mls/hr Q24H IV Last administered on 06/18/18 15:18; Start 06/17/18 at 14:45 Cefepime HCl (Maxipime) 2 gm Q8HRS IVP Last administered on 06/19/18 05:52; Start 06/18/18 at 14:00 Doxycycline Hyclate (Vibra-Tab) 100 mg BID PO Last administered on 5/9/19at 08:26; Start 06/18/18 at 11:00 Active Scripts Active Hydralazine Hcl 25 Mg Tablet 25 Mg PO TID 30 Days Clonidine Tts-1 (Clonidine) 1 Each Patch.tdwk 1 Patch TD WEEKLY 30 Days Reported Gabapentin 600 Mg Tablet 300 Mg PO HS Mysoline (Primidone) 250 Mg Tablet 500 Mg PO QHS Effexor Xr (Venlafaxine Hcl) 150 Mg Cap.er.24h 1 Cap PO DAILY Folic Acid 1 Mg Tablet 1 Tab PO DAILY Asmanex (Mometasone Furoate) 220 Mcg Aer.pow.ba 200 Mcg INH BID Primidone 250 Mg Tablet 250 Mg PO TID Pravastatin Sodium 20 Mg Tablet 1 Tab PO DAILY Cartia Xt (Diltiazem Hcl) 180 Mg Cap.er.24h 180 Mg PO Levothyroxine Sodium 50 Mcg Tablet 1 Tab PO DAILY Vitals/I & O Vital Sign - Last 24 Hours 06/18/18 06/18/18 06/18/18 06/18/18 09:46 11:00 15:00 15:18 Temp 99.9 101.3 99.9 101.3 Pulse 107 109 109 Resp 20 18 B/P (MAP) 135/60 (85) 129/63 (85) 129/63 Pulse Ox 92 95 O2 Delivery Nasal Cannula Nasal Cannula Nasal Cannula O2 Flow Rate 2.0 2.0 2.0 06/18/18 06/18/18 06/18/18 06/18/18 19:00 19:58 20:04 21:23 Temp 98.6 98.6 Pulse 113 113 Resp 18 B/P (MAP) 116/67 (83) 116/67 Pulse Ox 93 94 O2 Delivery Nasal Cannula Nasal Cannula Nasal Cannula O2 Flow Rate 2.0 2.0 2.0 06/18/18 06/19/18 06/19/18 06/19/18 23:00 03:00 07:00 08:28 Temp 99.0 97.4 98.9 99.0 97.4 98.9 Pulse 114 113 100 113 Resp 18 18 16 B/P (MAP) 148/57 (87) 156/67 (96) 160/73 (102) 156/67 Pulse Ox 91 90 96 O2 Delivery Nasal Cannula Nasal Cannula Nasal Cannula O2 Flow Rate 2.0 2.0 2.0 06/19/18 08:29 Pulse 100 B/P (MAP) 160/73 Intake and Output 06/18/18 06/18/18 06/19/18 15:00 23:00 07:00 Intake Total 760 ml 1550 ml 290 ml Balance 760 ml 1550 ml 290 ml ELVIA WARD MD June 19, 2018 09:00
--- NOTE | 2018-06-19 09:12 | PDOC ---
Infectious Disease Note Subjective: Subjective Pt wants to go home denies any complaints fever improved some cough ROS: ROS forgetful Vital Signs: Vital Signs Vital Signs Date Time Temp Pulse Resp B/P (MAP) Pulse Ox O2 Delivery O2 Flow Rate FiO2 06/19/18 08:29 100 160/73 06/19/18 07:00 98.9 16 96 Nasal Cannula 2.0 98.9 Physical Exam: PHYSICAL EXAM GENERAL: pt lying in bed in nad HEENT: Pupils equally round, reactive. Normal conjunctivae. Oral cavity: Pharynx pink and moist. No thrush. Upper dentures in place. NECK: Supple. LUNGS: Fine rales. Nonlabored. HEART: S1 and S2. ABDOMEN: Obese, soft, nontender. Bowel sounds present. EXTREMITIES: No gross edema or cyanosis. SKIN: Warm without generalized rash. She has a cyst on her back. NEUROLOGIC: Alert, said the year was 1920 before correcting herself. She also says Nghia is the current president. Right-sided chest Port-A-Cath without signs of any complications. Medications: Inpatient Meds: Current Medications Medications (Trade) Dose Ordered Sig/Kirby Start Time Stop Time Status Last Admin Dose Admin Acetaminophen (Tylenol) 650 mg PRN Q6HRS PRN 06/17/18 03:15 06/17/18 04:20 650 MG Atorvastatin Calcium (Lipitor) 5 mg QHS 06/16/18 21:00 06/18/18 21:22 5 MG Budesonide (Pulmicort) 0.5 mg RTBID 06/16/18 20:00 06/19/18 07:54 0.5 MG Cefepime HCl (Maxipime) 2 gm Q8HRS 06/18/18 14:00 06/19/18 05:52 2 GM Ceftriaxone Sodium (Rocephin) 1 gm 1X ONCE 06/17/18 03:30 06/17/18 03:32 DC 06/17/18 04:42 1 GM Clonidine HCl (Catapres Tts-1) 1 patch WEEKLY 06/17/18 09:00 06/17/18 09:11 1 PATCH Diltiazem HCl (Cardizem 24hr Cd) 180 mg DAILY 06/17/18 09:00 06/19/18 08:29 180 MG Doxycycline Hyclate (Vibra-Tab) 100 mg BID 06/18/18 11:00 5/9/19 08:26 100 MG Folic Acid (Folic Acid) 1 mg DAILY 06/17/18 09:00 06/19/18 08:28 1 MG Gabapentin (Neurontin) 300 mg HS 06/16/18 21:00 06/18/18 21:22 300 MG Hydralazine HCl (Apresoline Inj) 10 mg PRN Q4HRS PRN 06/16/18 19:00 Hydralazine HCl (Apresoline) 25 mg TID 06/16/18 21:00 06/19/18 08:28 25 MG Info (CONTRAST GIVEN -- Rx MONITORING) 1 each PRN DAILY PRN 06/16/18 15:30 06/18/18 15:29 DC Iohexol (Omnipaque 350 Mg/ml) 75 ml 1X ONCE 06/16/18 15:30 06/16/18 15:31 DC 06/16/18 15:44 75 ML Levothyroxine Sodium (Synthroid) 50 mcg DAILY06 06/17/18 06:00 06/19/18 05:51 50 MCG Non-Formulary Medication (Mometasone Furoate (Asmanex)) 200 mcg BID 06/16/18 21:00 UNV Piperacillin Sod/ Tazobactam Sod 3.375 gm/Sodium Chloride 50 ml @ 100 mls/hr Q6HRS 06/17/18 12:00 06/18/18 10:11 DC 06/18/18 05:48 100 MLS/HR Primidone (Mysoline) 250 mg TID@0900,1200,1700 06/17/18 09:00 06/19/18 08:27 250 MG Sodium Chloride 1,000 ml @ 25 mls/hr Q24H 06/17/18 14:45 06/18/18 15:18 25 MLS/HR Vancomycin HCl (Vanco Per Pharmacy) 1 each PRN DAILY PRN 06/17/18 12:00 06/17/18 14:08 1 EACH Vancomycin HCl (Vancomycin Trough Level) 1 each 1X ONCE 06/19/18 12:30 06/19/18 12:31 Vancomycin HCl 1.25 gm/Sodium Chloride 250 ml @ 167 mls/hr Q24H 06/18/18 13:00 06/18/18 12:22 167 MLS/HR Vancomycin HCl 2 gm/Sodium Chloride 500 ml @ 250 mls/hr 1X ONCE 06/17/18 12:30 06/17/18 14:29 DC 06/17/18 13:18 250 MLS/HR Venlafaxine HCl (Effexor) 50 mg TID 06/16/18 21:00 06/19/18 08:27 50 MG Labs: Lab Laboratory Tests Test 06/18/18 11:34 06/18/18 21:34 06/19/18 05:32 Influenza Type A Antigen Negative (NEGATIVE) Influenza Type B Antigen Negative (NEGATIVE) Urine Collection Type Unknown Urine Color Yellow Urine Clarity Cloudy Urine pH 5.5 Urine Specific [place] 1.020 Urine Protein 30 mg/dL (NEG-TRACE) Urine Glucose (UA) Negative mg/dL (NEG) Urine Ketones (Stick) Negative mg/dL (NEG) Urine Blood Negative (NEG) Urine Nitrite Negative (NEG) Urine Bilirubin Negative (NEG) Urine Urobilinogen Dipstick 0.2 mg/dL (0.2 mg/dL) Urine Leukocyte Esterase Trace (NEG) Urine RBC 0 /HPF (0-2) Urine WBC 1-4 /HPF (0-4) Urine Squamous Epithelial Cells Few /LPF Urine Amorphous Sediment Present /HPF Urine Bacteria 0 /HPF (0-FEW) Urine Hyaline Casts Occasional /HPF Urine Granular Casts Occasional /HPF Urine Mucus Mod /LPF Urine Yeast Present /HPF White Blood Count 6.0 x10^3/uL (4.0-11.0) Red Blood Count 2.69 x10^6/uL (3.50-5.40) Hemoglobin 8.9 g/dL (12.0-15.5) Hematocrit 26.9 % (36.0-47.0) Mean Corpuscular Volume 100 fL (79-100) Mean Corpuscular Hemoglobin 33 pg (25-35) Mean Corpuscular Hemoglobin Concent 33 g/dL (31-37) Red Cell Distribution Width 13.5 % (11.5-14.5) Platelet Count 92 x10^3/uL (140-400) Neutrophils (%) (Auto) 80 % (31-73) Lymphocytes (%) (Auto) 9 % (24-48) Monocytes (%) (Auto) 11 % (0-9) Eosinophils (%) (Auto) 0 % (0-3) Basophils (%) (Auto) 0 % (0-3) Neutrophils # (Auto) 4.8 x10^3uL (1.8-7.7) Lymphocytes # (Auto) 0.6 x10^3/uL (1.0-4.8) Monocytes # (Auto) 0.6 x10^3/uL (0.0-1.1) Eosinophils # (Auto) 0.0 x10^3/uL (0.0-0.7) Basophils # (Auto) 0.0 x10^3/uL (0.0-0.2) Sodium Level 140 mmol/L (136-145) Potassium Level 3.6 mmol/L (3.5-5.1) Chloride Level 104 mmol/L (98-107) Carbon Dioxide Level 28 mmol/L (21-32) Anion Gap 8 (6-14) Blood Urea Nitrogen 15 mg/dL (7-20) Creatinine 1.1 mg/dL (0.6-1.0) Estimated GFR (Cockcroft-Gault) 47.6 Glucose Level 124 mg/dL (70-99) Calcium Level 8.8 mg/dL (8.5-10.1) Micro BC neg Objective: Assessment: 1. Fever. 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 Pancytopenia.Chemo induced 4. Hypoxia requiring supplemental oxygen. 5. Constipation. 6. Frequent falls. 7. Stage 4 lung cancer. Her last dose of chemo was about 2 weeks ago. 8. Status post craniotomy and evacuation for subdural hematoma on 06/11/2018. 9. Forgetfulness. 10. Hypertension. 11. Hypothyroidism. Plan: Plan of Care cont cefepime DC IV Vanc cont doxycycline Influenza screen neg f/u c/s VIOLETA BALDWIN MD June 19, 2018 09:12
--- NOTE | 2018-06-19 09:20 | PDOC ---
PROGRESS NOTES Subjective Subjective HPI - f/u of Non-small cell lung cancer ROS - no fever Objective Objective Vital Signs Date Time Temp Pulse Resp B/P (MAP) Pulse Ox O2 Delivery O2 Flow Rate FiO2 06/19/18 08:29 100 160/73 06/19/18 07:00 98.9 16 96 Nasal Cannula 2.0 98.9 Intake and Output 06/19/18 07:00 Intake Total 2600 ml Balance 2600 ml Intake Oral 1300 ml IV Total 1300 ml # Voids 5 Physical Exam Heart: Normal S1, Normal S2 General: Alert, Oriented X3 Lungs: Clear to auscultation Neuro: Normal speech Psych/Mental Status: Mental status NL Assessment Assessment Problems Medical Problems: (1) Elevated d-dimer Status: Acute (2) Elevated liver function tests Status: Acute (3) Frequent falls Status: Acute (4) Generalized weakness Status: Acute (5) History of intracranial hemorrhage Status: Acute (6) History of lung cancer Status: Acute (7) Pancytopenia Status: Acute (8) Tachycardia Status: Acute IMPRESSION AND PLAN: 1. 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 She is responding very well to chemotherapy. She received cycle #8 of treatment on 06/06/2018 with pembrolizumab and Alimta. If her functional status improves, then I will resume treatment as outpatient. I discussed with Dr. Tahmina Hernandez. 2. Fever. Improving. 3. Leukopenia due to chemotherapy. Continue to monitor. WBC is 3.6 on 06/17/2018. 6.0 on 06/19/18 4. 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 Hemoglobin is 10.2 on 06/17/2018. Continue to monitor hemoglobin. 5. Thrombocytopenia with a platelet count of 74,000, stable. 6. Subdural hematoma. CT scan of the head reveals that it is improved when compared to the previous study. Comment Review of Relevant I have reviewed the following items malcolm (where applicable) has been applied. Labs Laboratory Tests Test 06/18/18 05:50 06/18/18 11:34 06/18/18 21:34 06/19/18 05:32 White Blood Count 4.4 x10^3/uL (4.0-11.0) 6.0 x10^3/uL (4.0-11.0) Red Blood Count 2.60 x10^6/uL (3.50-5.40) 2.69 x10^6/uL (3.50-5.40) Hemoglobin 8.8 g/dL (12.0-15.5) 8.9 g/dL (12.0-15.5) Hematocrit 25.8 % (36.0-47.0) 26.9 % (36.0-47.0) Mean Corpuscular Volume 99 fL (79-100) 100 fL (79-100) Mean Corpuscular Hemoglobin 34 pg (25-35) 33 pg (25-35) Mean Corpuscular Hemoglobin Concent 34 g/dL (31-37) 33 g/dL (31-37) Red Cell Distribution Width 13.8 % (11.5-14.5) 13.5 % (11.5-14.5) Platelet Count 66 x10^3/uL (140-400) 92 x10^3/uL (140-400) Neutrophils (%) (Auto) 75 % (31-73) 80 % (31-73) Lymphocytes (%) (Auto) 12 % (24-48) 9 % (24-48) Monocytes (%) (Auto) 13 % (0-9) 11 % (0-9) Eosinophils (%) (Auto) 0 % (0-3) 0 % (0-3) Basophils (%) (Auto) 0 % (0-3) 0 % (0-3) Neutrophils # (Auto) 3.3 x10^3uL (1.8-7.7) 4.8 x10^3uL (1.8-7.7) Lymphocytes # (Auto) 0.5 x10^3/uL (1.0-4.8) 0.6 x10^3/uL (1.0-4.8) Monocytes # (Auto) 0.6 x10^3/uL (0.0-1.1) 0.6 x10^3/uL (0.0-1.1) Eosinophils # (Auto) 0.0 x10^3/uL (0.0-0.7) 0.0 x10^3/uL (0.0-0.7) Basophils # (Auto) 0.0 x10^3/uL (0.0-0.2) 0.0 x10^3/uL (0.0-0.2) Sodium Level 140 mmol/L (136-145) 140 mmol/L (136-145) Potassium Level 3.6 mmol/L (3.5-5.1) 3.6 mmol/L (3.5-5.1) Chloride Level 102 mmol/L (98-107) 104 mmol/L (98-107) Carbon Dioxide Level 29 mmol/L (21-32) 28 mmol/L (21-32) Anion Gap 9 (6-14) 8 (6-14) Blood Urea Nitrogen 14 mg/dL (7-20) 15 mg/dL (7-20) Creatinine 1.1 mg/dL (0.6-1.0) 1.1 mg/dL (0.6-1.0) Estimated GFR (Cockcroft-Gault) 47.6 47.6 Glucose Level 102 mg/dL (70-99) 124 mg/dL (70-99) Calcium Level 8.7 mg/dL (8.5-10.1) 8.8 mg/dL (8.5-10.1) Influenza Type A Antigen Negative (NEGATIVE) Influenza Type B Antigen Negative (NEGATIVE) Urine Collection Type Unknown Urine Color Yellow Urine Clarity Cloudy Urine pH 5.[address] 1.020 Urine Protein 30 mg/dL (NEG-TRACE) Urine Glucose (UA) Negative mg/dL (NEG) Urine Ketones (Stick) Negative mg/dL (NEG) Urine Blood Negative (NEG) Urine Nitrite Negative (NEG) Urine Bilirubin Negative (NEG) Urine Urobilinogen Dipstick 0.2 mg/dL (0.2 mg/dL) Urine Leukocyte Esterase Trace (NEG) Urine RBC 0 /HPF (0-2) Urine WBC 1-4 /HPF (0-4) Urine Squamous Epithelial Cells Few /LPF Urine Amorphous Sediment Present /HPF Urine Bacteria 0 /HPF (0-FEW) Urine Hyaline Casts Occasional /HPF Urine Granular Casts Occasional /HPF Urine Mucus Mod /LPF Urine Yeast Present /HPF Laboratory Tests Test 06/18/18 11:34 06/18/18 21:34 06/19/18 05:32 Influenza Type A Antigen Negative (NEGATIVE) Influenza Type B Antigen Negative (NEGATIVE) Urine Collection Type Unknown Urine Color Yellow Urine Clarity Cloudy Urine pH 5.[address] 1.020 Urine Protein 30 mg/dL (NEG-TRACE) Urine Glucose (UA) Negative mg/dL (NEG) Urine Ketones (Stick) Negative mg/dL (NEG) Urine Blood Negative (NEG) Urine Nitrite Negative (NEG) Urine Bilirubin Negative (NEG) Urine Urobilinogen Dipstick 0.2 mg/dL (0.2 mg/dL) Urine Leukocyte Esterase Trace (NEG) Urine RBC 0 /HPF (0-2) Urine WBC 1-4 /HPF (0-4) Urine Squamous Epithelial Cells Few /LPF Urine Amorphous Sediment Present /HPF Urine Bacteria 0 /HPF (0-FEW) Urine Hyaline Casts Occasional /HPF Urine Granular Casts Occasional /HPF Urine Mucus Mod /LPF Urine Yeast Present /HPF White Blood Count 6.0 x10^3/uL (4.0-11.0) Red Blood Count 2.69 x10^6/uL (3.50-5.40) Hemoglobin 8.9 g/dL (12.0-15.5) Hematocrit 26.9 % (36.0-47.0) Mean Corpuscular Volume 100 fL (79-100) Mean Corpuscular Hemoglobin 33 pg (25-35) Mean Corpuscular Hemoglobin Concent 33 g/dL (31-37) Red Cell Distribution Width 13.5 % (11.5-14.5) Platelet Count 92 x10^3/uL (140-400) Neutrophils (%) (Auto) 80 % (31-73) Lymphocytes (%) (Auto) 9 % (24-48) Monocytes (%) (Auto) 11 % (0-9) Eosinophils (%) (Auto) 0 % (0-3) Basophils (%) (Auto) 0 % (0-3) Neutrophils # (Auto) 4.8 x10^3uL (1.8-7.7) Lymphocytes # (Auto) 0.6 x10^3/uL (1.0-4.8) Monocytes # (Auto) 0.6 x10^3/uL (0.0-1.1) Eosinophils # (Auto) 0.0 x10^3/uL (0.0-0.7) Basophils # (Auto) 0.0 x10^3/uL (0.0-0.2) Sodium Level 140 mmol/L (136-145) Potassium Level 3.6 mmol/L (3.5-5.1) Chloride Level 104 mmol/L (98-107) Carbon Dioxide Level 28 mmol/L (21-32) Anion Gap 8 (6-14) Blood Urea Nitrogen 15 mg/dL (7-20) Creatinine 1.1 mg/dL (0.6-1.0) Estimated GFR (Cockcroft-Gault) 47.6 Glucose Level 124 mg/dL (70-99) Calcium Level 8.8 mg/dL (8.5-10.1) Microbiology 06/17/18 Blood Culture - Preliminary, Resulted NO GROWTH AFTER 1 DAY Medications Current Medications Iohexol (Omnipaque 350 Mg/ml) 75 ml 1X ONCE IV Last administered on 06/16/18 15:44; Start 06/16/18 at 15:30; Stop 06/16/18 at 15:31; Status DC Info (CONTRAST GIVEN -- Rx MONITORING) 1 each PRN DAILY PRN MC SEE COMMENTS; Start 06/16/18 at 15:30; Stop 06/18/18 at 15:29; Status DC Clonidine HCl (Catapres Tts-1) 1 patch WEEKLY TD Last administered on 06/17/18at 09:11; Start 06/17/18 at 09:00 Folic Acid (Folic Acid) 1 mg DAILY PO Last administered on 06/19/18 08:28; Start 06/17/18 at 09:00 Gabapentin (Neurontin) 300 mg HS PO Last administered on 06/18/18 21:22; Start 06/16/18 at 21:00 Hydralazine HCl (Apresoline) 25 mg TID PO Last administered on 06/19/18 08:28; Start 06/16/18 at 21:00 Levothyroxine Sodium (Synthroid) 50 mcg DAILY06 PO Last administered on 06/19/18 05:51; Start 06/17/18 at 06:00 Non-Formulary Medication (Mometasone Furoate (Asmanex)) 200 mcg BID INH ; Start 06/16/18 at 21:00; Status UNV Atorvastatin Calcium (Lipitor) 5 mg QHS PO Last administered on 5/8/19at 21:22; Start 06/16/18 at 21:00 Primidone (Mysoline) 250 mg DAILYWSUP PO ; Start 06/16/18 at 17:45; Stop 06/16/18 at 17:59; Status DC Primidone (Mysoline) 500 mg QHS PO Last administered on 06/18/18 21:22; Start 06/16/18 at 21:00 Venlafaxine HCl (Effexor) 50 mg TID PO Last administered on 06/19/18at 08:27; Start 06/16/18 at 21:00 Diltiazem HCl (Cardizem 24hr Cd) 180 mg DAILY PO Last administered on 06/19/18 08:29; Start 06/17/18 at 09:00 Budesonide (Pulmicort) 0.5 mg RTBID NEB Last administered on 06/19/18at 07:54; Start 06/16/18 at 20:00 Primidone (Mysoline) 250 mg TID@0900,1200,1700 PO Last administered on 06/19/18 08:27; Start 06/17/18 at 09:00 Hydralazine HCl (Apresoline Inj) 10 mg PRN Q4HRS PRN IVP ELEVATED BP, SEE COMM ENTS; Start 06/16/18 at 19:00 Ceftriaxone Sodium (Rocephin) 1 gm 1X ONCE IVP Last administered on 06/17/18at 04:42; Start 06/17/18 at 03:30; Stop 06/17/18 at 03:32; Status DC Acetaminophen (Tylenol) 650 mg PRN Q6HRS PRN PO FEVER Last administered on 06/17/18at 04:20; Start 06/17/18 at 03:15 Piperacillin Sod/ Tazobactam Sod 3.375 gm/Sodium Chloride 50 ml @ 100 mls/hr Q6HRS IV Last administered on 06/18/18at 05:48; Start 06/17/18 at 12:00; Stop 06/18/18 at 10:11; Status DC Vancomycin HCl (Vanco Per Pharmacy) 1 each PRN DAILY PRN MC SEE COMMENTS Last administered on 06/17/18at 14:08; Start 06/17/18 at 12:00 Vancomycin HCl 2 gm/Sodium Chloride 500 ml @ 250 mls/hr 1X ONCE IV Last administered on 06/17/18at 13:18; Start 06/17/18 at 12:30; Stop 06/17/18 at 14:29; Status DC Vancomycin HCl 1.25 gm/Sodium Chloride 250 ml @ 167 mls/hr Q24H IV Last administered on 06/18/18at 12:22; Start 06/18/18 at 13:00 Vancomycin HCl (Vancomycin Trough Level) 1 each 1X ONCE MC ; Start 06/19/18 at 12:30; Stop 06/19/18 at 12:31 Sodium Chloride 1,000 ml @ 25 mls/hr Q24H IV Last administered on 06/18/18at 15:18; Start 06/17/18 at 14:45 Cefepime HCl (Maxipime) 2 gm Q8HRS IVP Last administered on 06/19/18at 05:52; Start 06/18/18 at 14:00 Doxycycline Hyclate (Vibra-Tab) 100 mg BID PO Last administered on 06/19/18at 08:26; Start 06/18/18 at 11:00 Active Scripts Active Hydralazine Hcl 25 Mg Tablet 25 Mg PO TID 30 Days Clonidine Tts-1 (Clonidine) 1 Each Patch.tdwk 1 Patch TD WEEKLY 30 Days Reported Gabapentin 600 Mg Tablet 300 Mg PO HS Mysoline (Primidone) 250 Mg Tablet 500 Mg PO QHS Effexor Xr (Venlafaxine Hcl) 150 Mg Cap.er.24h 1 Cap PO DAILY Folic Acid 1 Mg Tablet 1 Tab PO DAILY Asmanex (Mometasone Furoate) 220 Mcg Aer.pow.ba 200 Mcg INH BID Primidone 250 Mg Tablet 250 Mg PO TID Pravastatin Sodium 20 Mg Tablet 1 Tab PO DAILY Cartia Xt (Diltiazem Hcl) 180 Mg Cap.er.24h 180 Mg PO Levothyroxine Sodium 50 Mcg Tablet 1 Tab PO DAILY Vitals/I & O Vital Sign - Last 24 Hours 06/18/18 06/18/18 06/18/18 06/18/18 09:46 11:00 15:00 15:18 Temp 99.9 101.3 99.9 101.3 Pulse 107 109 109 Resp 20 18 B/P (MAP) 135/60 (85) 129/63 (85) 129/63 Pulse Ox 92 95 O2 Delivery Nasal Cannula Nasal Cannula Nasal Cannula O2 Flow Rate 2.0 2.0 2.0 06/18/18 06/18/18 06/18/18 06/18/18 19:00 19:58 20:04 21:23 Temp 98.6 98.6 Pulse 113 113 Resp 18 B/P (MAP) 116/67 (83) 116/67 Pulse Ox 93 94 O2 Delivery Nasal Cannula Nasal Cannula Nasal Cannula O2 Flow Rate 2.0 2.0 2.0 06/18/18 06/19/18 06/19/18 06/19/18 23:00 03:00 07:00 08:28 Temp 99.0 97.4 98.9 99.0 97.4 98.9 Pulse 114 113 100 113 Resp 18 18 16 B/P (MAP) 148/57 (87) 156/67 (96) 160/73 (102) 156/67 Pulse Ox 91 90 96 O2 Delivery Nasal Cannula Nasal Cannula Nasal Cannula O2 Flow Rate 2.0 2.0 2.0 06/19/18 08:29 Pulse 100 B/P (MAP) 160/73 Intake and Output 06/18/18 06/18/18 06/19/18 15:00 23:00 07:00 Intake Total 760 ml 1550 ml 290 ml Balance 760 ml 1550 ml 290 ml LORI NICOLE MD June 19, 2018 09:20
[2018-06-19 11:00] VITALS: BP 142/62
--- NOTE | 2018-06-19 11:18 | PDOC ---
IM PROGRESS NOTES- Subjective Subjective No complaints of pain or dyspnea. Patient is Saying I want to go home. She is very forgetful and does not understand her condition and problems. She has been running fever. She is much weaker today and cannot even walk and was barely able to transfer to the chair with the help of staff. She had fewer 101.3 F yesterday. Objective Vitals Vital Signs Date Time Temp Pulse Resp B/P (MAP) Pulse Ox O2 Delivery O2 Flow Rate FiO2 06/19/18 08:29 100 160/73 06/19/18 08:00 Nasal Cannula 2.0 06/19/18 07:00 98.9 16 96 98.9 Input & Output Intake and Output 06/19/18 07:00 Intake Total 2600 ml Balance 2600 ml Intake Oral 1300 ml IV Total 1300 ml # Voids 5 Physical Exam Physical Exam GENERAL: The patient is alert, forgetful, not in acute distress. SCALP: Right-sided recent surgical scar has healed well. No swelling or bleeding noted. No bruising noted on the scalp or face. EYES: Pupils reacting to light. Conjunctivae pale. Sclerae muddy. HENT: Unremarkable. NECK: Supple. JVP normal. No thyromegaly. Trachea midline. LUNGS: Decreased breath sounds at bases. CARDIOVASCULAR: S1, S2 regular. ABDOMEN: Soft, nontender, no guarding, no rigidity. Bowel sounds present. EXTREMITIES: No edema. CENTRAL NERVOUS SYSTEM: Generalized weakness. The patient is able to move her legs. Labs Laboratory Tests Test 06/18/18 05:50 06/18/18 11:34 06/18/18 21:34 06/19/18 05:32 White Blood Count 4.4 x10^3/uL (4.0-11.0) 6.0 x10^3/uL (4.0-11.0) Red Blood Count 2.60 x10^6/uL (3.50-5.40) 2.69 x10^6/uL (3.50-5.40) Hemoglobin 8.8 g/dL (12.0-15.5) 8.9 g/dL (12.0-15.5) Hematocrit 25.8 % (36.0-47.0) 26.9 % (36.0-47.0) Mean Corpuscular Volume 99 fL (79-100) 100 fL (79-100) Mean Corpuscular Hemoglobin 34 pg (25-35) 33 pg (25-35) Mean Corpuscular Hemoglobin Concent 34 g/dL (31-37) 33 g/dL (31-37) Red Cell Distribution Width 13.8 % (11.5-14.5) 13.5 % (11.5-14.5) Platelet Count 66 x10^3/uL (140-400) 92 x10^3/uL (140-400) Neutrophils (%) (Auto) 75 % (31-73) 80 % (31-73) Lymphocytes (%) (Auto) 12 % (24-48) 9 % (24-48) Monocytes (%) (Auto) 13 % (0-9) 11 % (0-9) Eosinophils (%) (Auto) 0 % (0-3) 0 % (0-3) Basophils (%) (Auto) 0 % (0-3) 0 % (0-3) Neutrophils # (Auto) 3.3 x10^3uL (1.8-7.7) 4.8 x10^3uL (1.8-7.7) Lymphocytes # (Auto) 0.5 x10^3/uL (1.0-4.8) 0.6 x10^3/uL (1.0-4.8) Monocytes # (Auto) 0.6 x10^3/uL (0.0-1.1) 0.6 x10^3/uL (0.0-1.1) Eosinophils # (Auto) 0.0 x10^3/uL (0.0-0.7) 0.0 x10^3/uL (0.0-0.7) Basophils # (Auto) 0.0 x10^3/uL (0.0-0.2) 0.0 x10^3/uL (0.0-0.2) Sodium Level 140 mmol/L (136-145) 140 mmol/L (136-145) Potassium Level 3.6 mmol/L (3.5-5.1) 3.6 mmol/L (3.5-5.1) Chloride Level 102 mmol/L (98-107) 104 mmol/L (98-107) Carbon Dioxide Level 29 mmol/L (21-32) 28 mmol/L (21-32) Anion Gap 9 (6-14) 8 (6-14) Blood Urea Nitrogen 14 mg/dL (7-20) 15 mg/dL (7-20) Creatinine 1.1 mg/dL (0.6-1.0) 1.1 mg/dL (0.6-1.0) Estimated GFR (Cockcroft-Gault) 47.6 47.6 Glucose Level 102 mg/dL (70-99) 124 mg/dL (70-99) Calcium Level 8.7 mg/dL (8.5-10.1) 8.8 mg/dL (8.5-10.1) Influenza Type A Antigen Negative (NEGATIVE) Influenza Type B Antigen Negative (NEGATIVE) Urine Collection Type Unknown Urine Color Yellow Urine Clarity Cloudy Urine pH 5.5 Urine Specific [place] 1.020 Urine Protein 30 mg/dL (NEG-TRACE) Urine Glucose (UA) Negative mg/dL (NEG) Urine Ketones (Stick) Negative mg/dL (NEG) Urine Blood Negative (NEG) Urine Nitrite Negative (NEG) Urine Bilirubin Negative (NEG) Urine Urobilinogen Dipstick 0.2 mg/dL (0.2 mg/dL) Urine Leukocyte Esterase Trace (NEG) Urine RBC 0 /HPF (0-2) Urine WBC 1-4 /HPF (0-4) Urine Squamous Epithelial Cells Few /LPF Urine Amorphous Sediment Present /HPF Urine Bacteria 0 /HPF (0-FEW) Urine Hyaline Casts Occasional /HPF Urine Granular Casts Occasional /HPF Urine Mucus Mod /LPF Urine Yeast Present /HPF Laboratory Tests Test 06/18/18 11:34 06/18/18 21:34 06/19/18 05:32 Influenza Type A Antigen Negative (NEGATIVE) Influenza Type B Antigen Negative (NEGATIVE) Urine Collection Type Unknown Urine Color Yellow Urine Clarity Cloudy Urine pH 5.5 Urine Specific [place] 1.020 Urine Protein 30 mg/dL (NEG-TRACE) Urine Glucose (UA) Negative mg/dL (NEG) Urine Ketones (Stick) Negative mg/dL (NEG) Urine Blood Negative (NEG) Urine Nitrite Negative (NEG) Urine Bilirubin Negative (NEG) Urine Urobilinogen Dipstick 0.2 mg/dL (0.2 mg/dL) Urine Leukocyte Esterase Trace (NEG) Urine RBC 0 /HPF (0-2) Urine WBC 1-4 /HPF (0-4) Urine Squamous Epithelial Cells Few /LPF Urine Amorphous Sediment Present /HPF Urine Bacteria 0 /HPF (0-FEW) Urine Hyaline Casts Occasional /HPF Urine Granular Casts Occasional /HPF Urine Mucus Mod /LPF Urine Yeast Present /HPF White Blood Count 6.0 x10^3/uL (4.0-11.0) Red Blood Count 2.69 x10^6/uL (3.50-5.40) Hemoglobin 8.9 g/dL (12.0-15.5) Hematocrit 26.9 % (36.0-47.0) Mean Corpuscular Volume 100 fL (79-100) Mean Corpuscular Hemoglobin 33 pg (25-35) Mean Corpuscular Hemoglobin Concent 33 g/dL (31-37) Red Cell Distribution Width 13.5 % (11.5-14.5) Platelet Count 92 x10^3/uL (140-400) Neutrophils (%) (Auto) 80 % (31-73) Lymphocytes (%) (Auto) 9 % (24-48) Monocytes (%) (Auto) 11 % (0-9) Eosinophils (%) (Auto) 0 % (0-3) Basophils (%) (Auto) 0 % (0-3) Neutrophils # (Auto) 4.8 x10^3uL (1.8-7.7) Lymphocytes # (Auto) 0.6 x10^3/uL (1.0-4.8) Monocytes # (Auto) 0.6 x10^3/uL (0.0-1.1) Eosinophils # (Auto) 0.0 x10^3/uL (0.0-0.7) Basophils # (Auto) 0.0 x10^3/uL (0.0-0.2) Sodium Level 140 mmol/L (136-145) Potassium Level 3.6 mmol/L (3.5-5.1) Chloride Level 104 mmol/L (98-107) Carbon Dioxide Level 28 mmol/L (21-32) Anion Gap 8 (6-14) Blood Urea Nitrogen 15 mg/dL (7-20) Creatinine 1.1 mg/dL (0.6-1.0) Estimated GFR (Cockcroft-Gault) 47.6 Glucose Level 124 mg/dL (70-99) Calcium Level 8.8 mg/dL (8.5-10.1) Meds Current Medications Cefepime HCl (Maxipime) 2 gm Q8HRS IVP Last administered on 06/19/18at 05:52; Start 06/18/18 at 14:00 Vancomycin HCl (Vancomycin Trough Level) 1 each 1X ONCE MC ; Start 06/19/18 at 12:30; Stop 06/19/18 at 12:31; Status Cancel Vancomycin HCl 1.25 gm/Sodium Chloride 250 ml @ 167 mls/hr Q24H IV Last administered on 06/18/18at 12:22; Start 06/18/18 at 13:00; Stop 06/19/18 at 10:59; Status DC Assessment Assessment 1. Subdural hematoma. 2. Frequent falls. 3. Pancytopenia. 4. Weakness. 5. Lung cancer with recent chemotherapy. 6. Hypertension, not controlled, accelerated. 7. Hypothyroidism. 8. Depression. 9. Anxiety. 10. Essential tremors. 11. Carcinoma of breast with left mastectomy. PLAN: I will consult Dr. Fournier for reevaluation and management. Start PT, OT. Consult Dr. Frank to make sure that the patient does not have any hydrocephalus or any other issues that is making her fall more frequently. Prognosis of this patient is poor due to her multiple medical problems. We will consult Dr. Lindquist and monitor pancytopenia. Her absolute neutrophil count is still 1.3 K. For details, please refer the orders. Frequent falls- discussed with Dr. Fournier. Patient is not safe because she is not following cues and falls frequently. Cancer of the lung- discussed with Dr. Lindquist. Patient wants to continue linnea motherapy which is every 3 weeks. Recent subdural hematoma- patient remains impulsive and a very high risk for falls. May need to discharge her again to a prison unit. Fever- I have ordered urine and blood cultures. Patient is now on IV Zosyn and vancomycin. Blood culture 1 is negative. Other blood culture could not be drawn. Patient has been coughing more. Etiology of her fever not clear so far. Continue IV Zosyn and vancomycin. I discussed with the patient that she is immunosuppressed. She doesn't understand the gravity of her condition and just wants to go home. Her prognosis is very poor. Weakness- getting worse. Memory loss getting worse. I'll consult Dr. Chen to assess her competency. I discussed with the patient's Sr. 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 Plan Plan For more details regarding further plans, please refer to the orders. TERESA HOPPER MD June 19, 2018 11:18
--- NOTE | 2018-06-19 12:18 | NUR ---
Patient coughing with water and pills. Bedside swallow study ordered.
[2018-06-19 15:00] VITALS: BP 149/64
--- NOTE | 2018-06-19 15:01 | PDOC2 ---
NEUROLOGY CONSULT Date of Admission Date of Admission DATE: 06/19/18 TIME: 14:54 Reason for Consult Reason for Consult: Altered mental status Referring Physician Referring Physician: Dr. Hernandez Source Source: Caregiver (daughter), Patient History of Present Illness History of Present Illness The patient is an 83-year-old right-handed female who had a subdural hematoma after several falls which was evacuated early last month. Patient went to rehabilitation and the patient's daughter says she was doing very well, even getting around some without a walker. However, about a week ago the patient had a decline, was more confused and weak all over. She was admitted 3 days ago. There have been no seizures and there is no history of stroke. Patient was previously very independent. She denies a headache. She has history of essential tremor Past Medical History Cardiovascular: HTN, Hyperlipidemia Pulmonary: Bronchitis CENTRAL NERVOUS SYSTEM: Other (essential tremor) Heme/Onc: Anemia NOS, Cancer (lung cancer currently, also history of breast cancer 20 years ago) Psych: Anxiety, Depression Renal/: UTI Endocrine: Hyperthyroidism, Hypothyroidism Past Surgical History Past Surgical History: Cataract Removal, Mastectomy (left), Hysterectomy, Other (craniotomy for right subdural) Family History Family History: Cancer, CAD Social History Social History , no tobacco or alcohol, currently living with another daughter Current Medications Current Medications Current Medications Iohexol (Omnipaque 350 Mg/ml) 75 ml 1X ONCE IV Last administered on 06/16/18at 15:44; Start 06/16/18 at 15:30; Stop 06/16/18 at 15:31; Status DC Info (CONTRAST GIVEN -- Rx MONITORING) 1 each PRN DAILY PRN MC SEE COMMENTS; Start 06/16/18 at 15:30; Stop 06/18/18 at 15:29; Status DC Clonidine HCl (Catapres Tts-1) 1 patch WEEKLY TD Last administered on 06/17/18at 09:11; Start 06/17/18 at 09:00 Folic Acid (Folic Acid) 1 mg DAILY PO Last administered on 06/19/18at 08:28; Start 06/17/18 at 09:00 Gabapentin (Neurontin) 300 mg HS PO Last administered on 06/18/18at 21:22; Start 06/16/18 at 21:00 Hydralazine HCl (Apresoline) 25 mg TID PO Last administered on 06/19/18 14:48; Start 06/16/18 at 21:00 Levothyroxine Sodium (Synthroid) 50 mcg DAILY06 PO Last administered on 06/19/18 05:51; Start 06/17/18 at 06:00 Non-Formulary Medication (Mometasone Furoate (Asmanex)) 200 mcg BID INH ; Start 06/16/18 at 21:00; Status UNV Atorvastatin Calcium (Lipitor) 5 mg QHS PO Last administered on 06/18/18 21:22; Start 06/16/18 at 21:00 Primidone (Mysoline) 250 mg DAILYWSUP PO ; Start 06/16/18 at 17:45; Stop 06/16/18 at 17:59; Status DC Primidone (Mysoline) 500 mg QHS PO Last administered on 06/18/18 21:22; Start 06/16/18 at 21:00 Venlafaxine HCl (Effexor) 50 mg TID PO Last administered on 06/19/18 14:47; Start 06/16/18 at 21:00 Diltiazem HCl (Cardizem 24hr Cd) 180 mg DAILY PO Last administered on 06/19/18 08:29; Start 06/17/18 at 09:00 Budesonide (Pulmicort) 0.5 mg RTBID NEB Last administered on 06/19/18 07:54; Start 06/16/18 at 20:00 Primidone (Mysoline) 250 mg TID@0900,1200,1700 PO Last administered on 06/19/18 12:08; Start 06/17/18 at 09:00 Hydralazine HCl (Apresoline Inj) 10 mg PRN Q4HRS PRN IVP ELEVATED BP, SEE COMMENTS; Start 06/16/18 at 19:00 Ceftriaxone Sodium (Rocephin) 1 gm 1X ONCE IVP Last administered on 06/17/18 04:42; Start 06/17/18 at 03:30; Stop 06/17/18 at 03:32; Status DC Acetaminophen (Tylenol) 650 mg PRN Q6HRS PRN PO FEVER Last administered on 06/17/18 04:20; Start 06/17/18 at 03:15 Piperacillin Sod/ Tazobactam Sod 3.375 gm/Sodium Chloride 50 ml @ 100 mls/hr Q6HRS IV Last administered on 06/18/18at 05:48; Start 06/17/18 at 12:00; Stop 06/18/18 at 10:11; Status DC Vancomycin HCl (Vanco Per Pharmacy) 1 each PRN DAILY PRN MC SEE COMMENTS Last administered on 06/17/18at 14:08; Start 06/17/18 at 12:00; Stop 06/19/18 at 11:01; Status DC Vancomycin HCl 2 gm/Sodium Chloride 500 ml @ 250 mls/hr 1X ONCE IV Last administered on 06/17/18at 13:18; Start 06/17/18 at 12:30; Stop 06/17/18 at 14:29; Status DC Vancomycin HCl 1.25 gm/Sodium Chloride 250 ml @ 167 mls/hr Q24H IV Last administered on 06/18/18at 12:22; Start 06/18/18 at 13:00; Stop 06/19/18 at 10:59; Status DC Vancomycin HCl (Vancomycin Trough Level) 1 each 1X ONCE MC ; Start 06/19/18 at 12:30; Stop 06/19/18 at 12:31; Status Cancel Sodium Chloride 1,000 ml @ 25 mls/hr Q24H IV Last administered on 06/18/18at 15:18; Start 06/17/18 at 14:45 Cefepime HCl (Maxipime) 2 gm Q8HRS IVP Last administered on 06/19/18at 14:49; Start 06/18/18 at 14:00 Doxycycline Hyclate (Vibra-Tab) 100 mg BID PO Last administered on 06/19/18at 08:26; Start 06/18/18 at 11:00 Active Scripts Active Hydralazine Hcl 25 Mg Tablet 25 Mg PO TID 30 Days Clonidine Tts-1 (Clonidine) 1 Each Patch.tdwk 1 Patch TD WEEKLY 30 Days Reported Gabapentin 600 Mg Tablet 300 Mg PO HS Mysoline (Primidone) 250 Mg Tablet 500 Mg PO QHS Effexor Xr (Venlafaxine Hcl) 150 Mg Cap.er.24h 1 Cap PO DAILY Folic Acid 1 Mg Tablet 1 Tab PO DAILY Asmanex (Mometasone Furoate) 220 Mcg Aer.pow.ba 200 Mcg INH BID Primidone 250 Mg Tablet 250 Mg PO TID Pravastatin Sodium 20 Mg Tablet 1 Tab PO DAILY Cartia Xt (Diltiazem Hcl) 180 Mg Cap.er.24h 180 Mg PO Levothyroxine Sodium 50 Mcg Tablet 1 Tab PO DAILY Allergies Allergies: Coded Allergies: No Known Drug Allergies (Unverified , 10/17/17) ROS Review of System Negative for fever, chills, weight loss, shortness of breath, chest pain, in digestion, hematochezia, melena, and dysuria. Full 14-point review of systems is negative. Physical Exam Physical Examination General: Well-developed, well-nourished white female in no acute distress HEENT: Normocephalic andatraumatic. Right parietal craniotomy scar.Temporal arteriespulsatile and nontender. Neck: Supple without bruit, no meningismus Musculoskeletal: Stability:see neurologic. Gait exam:see neurologic. Tone:see neurologic.Strength:see neurologic. Neurological: Mental Status:orientation, memory, attention span/concentration, language, fund of knowledge: Knows name of hospital, not date, possibly of speech, names and repeats well, follows commands, possibly some depressed affect. Cranial Nerves:Pupils equal and reactive to light, extraocular movements areintact, visual keating are full to confrontation. Facial sensation is normal. There is no facial asymmetry. Vestibulo-ocular reflex is intact. Palate elevates and tongue protrudes in midline. All other cranial related problems are negative except as mentioned before.Reflexes:2+ and symmetric with flexor plantar responses. B ilateral grasp reflexes. Motor:5/5 strength with normal tone and bulk. Coordination:Finger-nose finger and fizc-hw-bovu testing are normal. Rapid alternating movements and fine finger movements are intact. Mild postural tremor bilaterally. Gait:Tested. Sensory:Normal pinprick, vibration, light touch, proprioception. Vitals VITALS Vital Signs Date Time Temp Pulse Resp B/P (MAP) Pulse Ox O2 Delivery O2 Flow Rate FiO2 06/19/18 14:48 107 142/62 06/19/18 11:00 99.0 14 90 Nasal Cannula 2.0 99.0 Labs Labs Laboratory Tests Test 06/18/18 05:50 06/18/18 11:34 06/18/18 21:34 06/19/18 05:32 White Blood Count 4.4 x10^3/uL (4.0-11.0) 6.0 x10^3/uL (4.0-11.0) Red Blood Count 2.60 x10^6/uL (3.50-5.40) 2.69 x10^6/uL (3.50-5.40) Hemoglobin 8.8 g/dL (12.0-15.5) 8.9 g/dL (12.0-15.5) Hematocrit 25.8 % (36.0-47.0) 26.9 % (36.0-47.0) Mean Corpuscular Volume 99 fL (79-100) 100 fL (79-100) Mean Corpuscular Hemoglobin 34 pg (25-35) 33 pg (25-35) Mean Corpuscular Hemoglobin Concent 34 g/dL (31-37) 33 g/dL (31-37) Red Cell Distribution Width 13.8 % (11.5-14.5) 13.5 % (11.5-14.5) Platelet Count 66 x10^3/uL (140-400) 92 x10^3/uL (140-400) Neutrophils (%) (Auto) 75 % (31-73) 80 % (31-73) Lymphocytes (%) (Auto) 12 % (24-48) 9 % (24-48) Monocytes (%) (Auto) 13 % (0-9) 11 % (0-9) Eosinophils (%) (Auto) 0 % (0-3) 0 % (0-3) Basophils (%) (Auto) 0 % (0-3) 0 % (0-3) Neutrophils # (Auto) 3.3 x10^3uL (1.8-7.7) 4.8 x10^3uL (1.8-7.7) Lymphocytes # (Auto) 0.5 x10^3/uL (1.0-4.8) 0.6 x10^3/uL (1.0-4.8) Monocytes # (Auto) 0.6 x10^3/uL (0.0-1.1) 0.6 x10^3/uL (0.0-1.1) Eosinophils # (Auto) 0.0 x10^3/uL (0.0-0.7) 0.0 x10^3/uL (0.0-0.7) Basophils # (Auto) 0.0 x10^3/uL (0.0-0.2) 0.0 x10^3/uL (0.0-0.2) Sodium Level 140 mmol/L (136-145) 140 mmol/L (136-145) Potassium Level 3.6 mmol/L (3.5-5.1) 3.6 mmol/L (3.5-5.1) Chloride Level 102 mmol/L (98-107) 104 mmol/L (98-107) Carbon Dioxide Level 29 mmol/L (21-32) 28 mmol/L (21-32) Anion Gap 9 (6-14) 8 (6-14) Blood Urea Nitrogen 14 mg/dL (7-20) 15 mg/dL (7-20) Creatinine 1.1 mg/dL (0.6-1.0) 1.1 mg/dL (0.6-1.0) Estimated GFR (Cockcroft-Gault) 47.6 47.6 Glucose Level 102 mg/dL (70-99) 124 mg/dL (70-99) Calcium Level 8.7 mg/dL (8.5-10.1) 8.8 mg/dL (8.5-10.1) Influenza Type A Antigen Negative (NEGATIVE) Influenza Type B Antigen Negative (NEGATIVE) Urine Collection Type Unknown Urine Color Yellow Urine Clarity Cloudy Urine pH 5.5 Urine Specific [place] 1.020 Urine Protein 30 mg/dL (NEG-TRACE) Urine Glucose (UA) Negative mg/dL (NEG) Urine Ketones (Stick) Negative mg/dL (NEG) Urine Blood Negative (NEG) Urine Nitrite Negative (NEG) Urine Bilirubin Negative (NEG) Urine Urobilinogen Dipstick 0.2 mg/dL (0.2 mg/dL) Urine Leukocyte Esterase Trace (NEG) Urine RBC 0 /HPF (0-2) Urine WBC 1-4 /HPF (0-4) Urine Squamous Epithelial Cells Few /LPF Urine Amorphous Sediment Present /HPF Urine Bacteria 0 /HPF (0-FEW) Urine Hyaline Casts Occasional /HPF Urine Granular Casts Occasional /HPF Urine Mucus Mod /LPF Urine Yeast Present /HPF Laboratory Tests Test 06/18/18 21:34 06/19/18 05:32 Urine Collection Type Unknown Urine Color Yellow Urine Clarity Cloudy Urine pH 5.5 Urine Specific [place] 1.020 Urine Protein 30 mg/dL (NEG-TRACE) Urine Glucose (UA) Negative mg/dL (NEG) Urine Ketones (Stick) Negative mg/dL (NEG) Urine Blood Negative (NEG) Urine Nitrite Negative (NEG) Urine Bilirubin Negative (NEG) Urine Urobilinogen Dipstick 0.2 mg/dL (0.2 mg/dL) Urine Leukocyte Esterase Trace (NEG) Urine RBC 0 /HPF (0-2) Urine WBC 1-4 /HPF (0-4) Urine Squamous Epithelial Cells Few /LPF Urine Amorphous Sediment Present /HPF Urine Bacteria 0 /HPF (0-FEW) Urine Hyaline Casts Occasional /HPF Urine Granular Casts Occasional /HPF Urine Mucus Mod /LPF Urine Yeast Present /HPF White Blood Count 6.0 x10^3/uL (4.0-11.0) Red Blood Count 2.69 x10^6/uL (3.50-5.40) Hemoglobin 8.9 g/dL (12.0-15.5) Hematocrit 26.9 % (36.0-47.0) Mean Corpuscular Volume 100 fL (79-100) Mean Corpuscular Hemoglobin 33 pg (25-35) Mean Corpuscular Hemoglobin Concent 33 g/dL (31-37) Red Cell Distribution Width 13.5 % (11.5-14.5) Platelet Count 92 x10^3/uL (140-400) Neutrophils (%) (Auto) 80 % (31-73) Lymphocytes (%) (Auto) 9 % (24-48) Monocytes (%) (Auto) 11 % (0-9) Eosinophils (%) (Auto) 0 % (0-3) Basophils (%) (Auto) 0 % (0-3) Neutrophils # (Auto) 4.8 x10^3uL (1.8-7.7) Lymphocytes # (Auto) 0.6 x10^3/uL (1.0-4.8) Monocytes # (Auto) 0.6 x10^3/uL (0.0-1.1) Eosinophils # (Auto) 0.0 x10^3/uL (0.0-0.7) Basophils # (Auto) 0.0 x10^3/uL (0.0-0.2) Sodium Level 140 mmol/L (136-145) Potassium Level 3.6 mmol/L (3.5-5.1) Chloride Level 104 mmol/L (98-107) Carbon Dioxide Level 28 mmol/L (21-32) Anion Gap 8 (6-14) Blood Urea Nitrogen 15 mg/dL (7-20) Creatinine 1.1 mg/dL (0.6-1.0) Estimated GFR (Cockcroft-Gault) 47.6 Glucose Level 124 mg/dL (70-99) Calcium Level 8.8 mg/dL (8.5-10.1) Images Images CT Head without IV contrast Right frontoparietal subdural hematoma is marginally decreased in size measuring up to 8 mm in thickness. Previously this measured 11 mm when measured in a similar fashion. No evidence for new intra or extra-axial hemorrhage. Changes of right frontal craniotomy again seen. Subcortical and periventricular regions of hypoattenuation likely changes of chronic small vessel disease. There is no mass effect or shift of the intracranial structures. The ventricles and cerebral sulci are prominent consistent with generalized cerebral volume loss/atrophy. The cerebellum and brainstem are unremarkable. Opacification of the left maxillary sinus may represent changes of sinusitis. Mastoid air cells are clear. The visualized portions of the orbits are normal. IMPRESSION: Right frontal craniotomy with small residual subdural hematoma, intervally decreased compared to prior examination. No definite midline shift/associated mass effect. Assessment/Plan Assessment/Plan Impression: Picture of dementia with inappropriate behavior, grasp reflexes, nonfocal exam. However, there is a history of lung as well as breast cancer Mild essential tremor. Right frontoparietal subdural hematoma Recommendations: I do not think she is capable of making healthcare decisions. MRI of the brain Additional laboratory studies. Discussed with patient's daughter as well. Thank you for letting me help with the patient's care. TAMIKO GONZALEZ MD June 19, 2018 15:01
--- NOTE | 2018-06-19 15:09 | NUR ---
SW following pt. Spoke with pt with Pt's daughter, Graciela in room. Pt appears to be weak but very hesitant about going to SNU. After extensive discussion, Pt is agree[facility] with [facility]. SW phoned and faxed referral to mentioned facilities. Pt acceptance and admission pending. Pt's daughter aware pt is not able to do chemo while at rehab. Will continue to follow. DAIJA LUGO.
[2018-06-19 19:00] VITALS: BP 163/73
[2018-06-19] MEDS: GABAPENTIN 300 MG CAPSULE. PO SCH (21:28)
[2018-06-19] MEDS: ATORVASTATIN CALCIUM 10 MG TABLET. PO SCH (21:28)
[2018-06-19] MEDS: ACETAMINOPHEN 325 MG TABLET. PO PRN (21:28)
[2018-06-19] MEDS: IV NORMAL SALINE 1000ML BAG 1,000 ML IV SCH (21:45)
[2018-06-19 23:00] VITALS: BP 154/63
[2018-06-20 03:00] VITALS: BP 135/67
--- NOTE | 2018-06-20 04:15 | NUR ---
Patient experiencing itching,(as did at hs, lotion applied to upper arms per this principal technical writer), noted patient to have raised areas on back, upper arms and lower arm, few appears to be blistered, to call physician. Addendum: 06/20/18 at 0702 by RADU PARKER RN Patient did not have trouble breathing, with her itching episodes.
[2018-06-20] MEDS: diphenhydrAMINE 50 MG/ML VIAL IVP PRN ×2 (05:09→18:17)
[2018-06-20] MEDS: CEFEPIME HCL IV Push 2 GM VIAL. IVP SCH (06:00)
[2018-06-20] MEDS: LEVOTHYROXINE 50 MCG TABLET PO SCH (06:29)
[2018-06-20 06:49] LABS: BASO % 0 % (0-3); EOS % 0 % (0-3); HEMATOCRIT 27.7 % (36.0-47.0); HEMOGLOBIN 9.3 g/dL (12.0-15.5); LYMPH # 0.4 x10^3/uL (1.0-4.8); LYMPH % 7 % (24-48); MEAN CORPUSCULAR HEMOGLOBIN 33 pg (25-35); MEAN CORPUSCULAR HGB CONC 34 g/dL (31-37); MEAN CORPUSCULAR VOLUME 99 fL (79-100); MONO # 0.5 x10^3/uL (0.0-1.1); MONO % 7 % (0-9); NEUT # 5.9 x10^3uL (1.8-7.7); NEUT % 86 % (31-73); PLATELET COUNT 120 x10^3/uL (140-400); RED BLOOD COUNT 2.79 x10^6/uL (3.50-5.40); RED CELL DISTRIBUTION WIDTH 13.6 % (11.5-14.5); WHITE BLOOD COUNT 6.8 x10^3/uL (4.0-11.0)
[2018-06-20 07:00] VITALS: BP 150/69
[2018-06-20 07:10] LABS: ALBUMIN 1.9 g/dL (3.4-5.0); ALBUMIN/GLOBULIN RATIO 0.6 (1.0-1.7); CALCIUM 8.6 mg/dL (8.5-10.1); GFR 53.1; POTASSIUM 4.2 mmol/L (3.5-5.1); TOTAL BILIRUBIN 0.4 mg/dL (0.2-1.0); TOTAL PROTEIN 5.3 g/dL (6.4-8.2)
[2018-06-20] MEDS: BUDESONIDE 0.5 MG/2 ML NEBU. NEB SCH ×2 (07:53→21:14)
--- NOTE | 2018-06-20 08:38 | PDOC ---
PROGRESS NOTES Subjective Subjective No complaints from her but physical therapy,occupational therapy noted her having more difficulty with mobility and self care and leaning to left side and nursing noted her difficulty with feeding herself. Objective Objective Vital Signs Date Time Temp Pulse Resp B/P (MAP) Pulse Ox O2 Delivery O2 Flow Rate FiO2 06/20/18 07:55 93 Nasal Cannula 2.0 06/20/18 07:00 98.6 105 16 150/69 (96) 98.6 Intake and Output 06/20/18 06:59 Intake Total 0 ml Balance 0 ml Intake Oral 0 ml # Voids 1 Physical Exam Physical Exam She is awake following command and no change with her strength in her extremities but she continues with cognitive deficits and some difficulty with swallowing. Assessment Assessment Problems Medical Problems: (1) Elevated d-dimer Status: Acute (2) Elevated liver function tests Status: Acute (3) Frequent falls Status: Acute (4) Generalized weakness Status: Acute (5) History of intracranial hemorrhage Status: Acute (6) History of lung cancer Status: Acute (7) Pancytopenia Status: Acute (8) Tachycardia Status: Acute Plan Plan of Care Await mri scan of brain. Comment Review of Relevant I have reviewed the following items malcolm (where applicable) has been applied. Labs Laboratory Tests Test 06/18/18 11:34 06/18/18 21:34 06/19/18 05:32 06/20/18 06:30 Influenza Type A Antigen Negative (NEGATIVE) Influenza Type B Antigen Negative (NEGATIVE) Urine Collection Type Unknown Urine Color Yellow Urine Clarity Cloudy Urine pH 5.5 Urine Specific [place] 1.020 Urine Protein 30 mg/dL (NEG-TRACE) Urine Glucose (UA) Negative mg/dL (NEG) Urine Ketones (Stick) Negative mg/dL (NEG) Urine Blood Negative (NEG) Urine Nitrite Negative (NEG) Urine Bilirubin Negative (NEG) Urine Urobilinogen Dipstick 0.2 mg/dL (0.2 mg/dL) Urine Leukocyte Esterase Trace (NEG) Urine RBC 0 /HPF (0-2) Urine WBC 1-4 /HPF (0-4) Urine Squamous Epithelial Cells Few /LPF Urine Amorphous Sediment Present /HPF Urine Bacteria 0 /HPF (0-FEW) Urine Hyaline Casts Occasional /HPF Urine Granular Casts Occasional /HPF Urine Mucus Mod /LPF Urine Yeast Present /HPF White Blood Count 6.0 x10^3/uL (4.0-11.0) 6.8 x10^3/uL (4.0-11.0) Red Blood Count 2.69 x10^6/uL (3.50-5.40) 2.79 x10^6/uL (3.50-5.40) Hemoglobin 8.9 g/dL (12.0-15.5) 9.3 g/dL (12.0-15.5) Hematocrit 26.9 % (36.0-47.0) 27.7 % (36.0-47.0) Mean Corpuscular Volume 100 fL (79-100) 99 fL (79-100) Mean Corpuscular Hemoglobin 33 pg (25-35) 33 pg (25-35) Mean Corpuscular Hemoglobin Concent 33 g/dL (31-37) 34 g/dL (31-37) Red Cell Distribution Width 13.5 % (11.5-14.5) 13.6 % (11.5-14.5) Platelet Count 92 x10^3/uL (140-400) 120 x10^3/uL (140-400) Neutrophils (%) (Auto) 80 % (31-73) 86 % (31-73) Lymphocytes (%) (Auto) 9 % (24-48) 7 % (24-48) Monocytes (%) (Auto) 11 % (0-9) 7 % (0-9) Eosinophils (%) (Auto) 0 % (0-3) 0 % (0-3) Basophils (%) (Auto) 0 % (0-3) 0 % (0-3) Neutrophils # (Auto) 4.8 x10^3uL (1.8-7.7) 5.9 x10^3uL (1.8-7.7) Lymphocytes # (Auto) 0.6 x10^3/uL (1.0-4.8) 0.4 x10^3/uL (1.0-4.8) Monocytes # (Auto) 0.6 x10^3/uL (0.0-1.1) 0.5 x10^3/uL (0.0-1.1) Eosinophils # (Auto) 0.0 x10^3/uL (0.0-0.7) 0.0 x10^3/uL (0.0-0.7) Basophils # (Auto) 0.0 x10^3/uL (0.0-0.2) 0.0 x10^3/uL (0.0-0.2) Sodium Level 140 mmol/L (136-145) 142 mmol/L (136-145) Potassium Level 3.6 mmol/L (3.5-5.1) 4.2 mmol/L (3.5-5.1) Chloride Level 104 mmol/L (98-107) 106 mmol/L (98-107) Carbon Dioxide Level 28 mmol/L (21-32) 29 mmol/L (21-32) Anion Gap 8 (6-14) 7 (6-14) Blood Urea Nitrogen 15 mg/dL (7-20) 16 mg/dL (7-20) Creatinine 1.1 mg/dL (0.6-1.0) 1.0 mg/dL (0.6-1.0) Estimated GFR (Cockcroft-Gault) 47.6 53.1 Glucose Level 124 mg/dL (70-99) 109 mg/dL (70-99) Calcium Level 8.8 mg/dL (8.5-10.1) 8.6 mg/dL (8.5-10.1) Erythrocyte Sedimentation Rate 111 (0-25) BUN/Creatinine Ratio 16 (6-20) Total Bilirubin 0.4 mg/dL (0.2-1.0) Aspartate Amino Transf (AST/SGOT) 70 U/L (15-37) Alanine Aminotransferase (ALT/SGPT) 80 U/L (14-59) Alkaline Phosphatase 75 U/L (46-116) Total Protein 5.3 g/dL (6.4-8.2) Albumin 1.9 g/dL (3.4-5.0) Albumin/Globulin Ratio 0.6 (1.0-1.7) Thyroid Stimulating Hormone (TSH) 6.204 uIU/mL (0.358-3.74) Laboratory Tests Test 06/20/18 06:30 White Blood Count 6.8 x10^3/uL (4.0-11.0) Red Blood Count 2.79 x10^6/uL (3.50-5.40) Hemoglobin 9.3 g/dL (12.0-15.5) Hematocrit 27.7 % (36.0-47.0) Mean Corpuscular Volume 99 fL (79-100) Mean Corpuscular Hemoglobin 33 pg (25-35) Mean Corpuscular Hemoglobin Concent 34 g/dL (31-37) Red Cell Distribution Width 13.6 % (11.5-14.5) Platelet Count 120 x10^3/uL (140-400) Neutrophils (%) (Auto) 86 % (31-73) Lymphocytes (%) (Auto) 7 % (24-48) Monocytes (%) (Auto) 7 % (0-9) Eosinophils (%) (Auto) 0 % (0-3) Basophils (%) (Auto) 0 % (0-3) Neutrophils # (Auto) 5.9 x10^3uL (1.8-7.7) Lymphocytes # (Auto) 0.4 x10^3/uL (1.0-4.8) Monocytes # (Auto) 0.5 x10^3/uL (0.0-1.1) Eosinophils # (Auto) 0.0 x10^3/uL (0.0-0.7) Basophils # (Auto) 0.0 x10^3/uL (0.0-0.2) Erythrocyte Sedimentation Rate 111 (0-25) Sodium Level 142 mmol/L (136-145) Potassium Level 4.2 mmol/L (3.5-5.1) Chloride Level 106 mmol/L (98-107) Carbon Dioxide Level 29 mmol/L (21-32) Anion Gap 7 (6-14) Blood Urea Nitrogen 16 mg/dL (7-20) Creatinine 1.0 mg/dL (0.6-1.0) Estimated GFR (Cockcroft-Gault) 53.1 BUN/Creatinine Ratio 16 (6-20) Glucose Level 109 mg/dL (70-99) Calcium Level 8.6 mg/dL (8.5-10.1) Total Bilirubin 0.4 mg/dL (0.2-1.0) Aspartate Amino Transf (AST/SGOT) 70 U/L (15-37) Alanine Aminotransferase (ALT/SGPT) 80 U/L (14-59) Alkaline Phosphatase 75 U/L (46-116) Total Protein 5.3 g/dL (6.4-8.2) Albumin 1.9 g/dL (3.4-5.0) Albumin/Globulin Ratio 0.6 (1.0-1.7) Thyroid Stimulating Hormone (TSH) 6.204 uIU/mL (0.358-3.74) Microbiology 06/17/18 Blood Culture - Preliminary, Resulted NO GROWTH AFTER 2 DAYS Medications Current Medications Iohexol (Omnipaque 350 Mg/ml) 75 ml 1X ONCE IV Last administered on 06/16/18 15:44; Start 06/16/18 at 15:30; Stop 06/16/18 at 15:31; Status DC Info (CONTRAST GIVEN -- Rx MONITORING) 1 each PRN DAILY PRN MC SEE COMMENTS; Start 06/16/18 at 15:30; Stop 06/18/18 at 15:29; Status DC Clonidine HCl (Catapres Tts-1) 1 patch WEEKLY TD Last administered on 06/17/18 09:11; Start 06/17/18 at 09:00 Folic Acid (Folic Acid) 1 mg DAILY PO Last administered on 06/19/18at 08:28; Start 06/17/18 at 09:00 Gabapentin (Neurontin) 300 mg HS PO Last administered on 06/19/18 21:28; Start 06/16/18 at 21:00 Hydralazine HCl (Apresoline) 25 mg TID PO Last administered on 06/19/18 21:44; Start 06/16/18 at 21:00 Levothyroxine Sodium (Synthroid) 50 mcg DAILY06 PO Last administered on 06/20 06:29; Start 06/17/18 at 06:00 Non-Formulary Medication (Mometasone Furoate (Asmanex)) 200 mcg BID INH ; Start 06/16/18 at 21:00; Status UNV Atorvastatin Calcium (Lipitor) 5 mg QHS PO Last administered on 06/19/18 21:28; Start 06/16/18 at 21:00 Primidone (Mysoline) 250 mg DAILYWSUP PO ; Start 06/16/18 at 17:45; Stop 06/16/18 at 17:59; Status DC Primidone (Mysoline) 500 mg QHS PO Last administered on 06/19/18 21:28; Start 06/16/18 at 21:00 Venlafaxine HCl (Effexor) 50 mg TID PO Last administered on 06/19/18 21:28; Start 06/16/18 at 21:00 Diltiazem HCl (Cardizem 24hr Cd) 180 mg DAILY PO Last administered on 06/19/18 08:29; Start 06/17/18 at 09:00 Budesonide (Pulmicort) 0.5 mg RTBID NEB Last administered on 06/20/18at 07:53; Start 06/16/18 at 20:00 Primidone (Mysoline) 250 mg TID@0900,1200,1700 PO Last administered on 06/19/18 17:20; Start 06/17/18 at 09:00 Hydralazine HCl (Apresoline Inj) 10 mg PRN Q4HRS PRN IVP ELEVATED BP, SEE COMMENTS; Start 06/16/18 at 19:00 Ceftriaxone Sodium (Rocephin) 1 gm 1X ONCE IVP Last administered on 06/17/18 04:42; Start 06/17/18 at 03:30; Stop 06/17/18 at 03:32; Status DC Acetaminophen (Tylenol) 650 mg PRN Q6HRS PRN PO FEVER Last administered on 06/19/18 21:28; Start 06/17/18 at 03:15 Piperacillin Sod/ Tazobactam Sod 3.375 gm/Sodium Chloride 50 ml @ 100 mls/hr Q6HRS IV Last administered on 06/18/18 05:48; Start 06/17/18 at 12:00; Stop 06/18/18 at 10:11; Status DC Vancomycin HCl (Vanco Per Pharmacy) 1 each PRN DAILY PRN MC SEE COMMENTS Last administered on 06/17/18at 14:08; Start 06/17/18 at 12:00; Stop 06/19/18 at 11:01; Status DC Vancomycin HCl 2 gm/Sodium Chloride 500 ml @ 250 mls/hr 1X ONCE IV Last administered on 06/17/18 13:18; Start 06/17/18 at 12:30; Stop 06/17/18 at 14:29; Status DC Vancomycin HCl 1.25 gm/Sodium Chloride 250 ml @ 167 mls/hr Q24H IV Last administered on 06/18/18at 12:22; Start 06/18/18 at 13:00; Stop 06/19/18 at 10:59; Status DC Vancomycin HCl (Vancomycin Trough Level) 1 each 1X ONCE MC ; Start 06/19/18 at 12:30; Stop 06/19/18 at 12:31; Status Cancel Sodium Chloride 1,000 ml @ 25 mls/hr Q24H IV Last administered on 06/19/18at 21:45; Start 06/17/18 at 14:45 Cefepime HCl (Maxipime) 2 gm Q8HRS IVP Last administered on 06/19/18at 21:34; Start 06/18/18 at 14:00 Doxycycline Hyclate (Vibra-Tab) 100 mg BID PO Last administered on 06/19/18at 21:28; Start 06/18/18 at 11:00 Diphenhydramine HCl (Benadryl) 25 mg TID PRN PRN IVP ITCHING Last administered on 06/20/18at 05:09; Start 06/20/18 at 04:30 Active Scripts Active Hydralazine Hcl 25 Mg Tablet 25 Mg PO TID 30 Days Clonidine Tts-1 (Clonidine) 1 Each Patch.tdwk 1 Patch TD WEEKLY 30 Days Reported Gabapentin 600 Mg Tablet 300 Mg PO HS Mysoline (Primidone) 250 Mg Tablet 500 Mg PO QHS Effexor Xr (Venlafaxine Hcl) 150 Mg Cap.er.24h 1 Cap PO DAILY Folic Acid 1 Mg Tablet 1 Tab PO DAILY Asmanex (Mometasone Furoate) 220 Mcg Aer.pow.ba 200 Mcg INH BID Primidone 250 Mg Tablet 250 Mg PO TID Pravastatin Sodium 20 Mg Tablet 1 Tab PO DAILY Cartia Xt (Diltiazem Hcl) 180 Mg Cap.er.24h 180 Mg PO Levothyroxine Sodium 50 Mcg Tablet 1 Tab PO DAILY Vitals/I & O Vital Sign - Last 24 Hours 06/19/18 06/19/18 06/19/18 06/19/18 11:00 14:48 15:00 19:00 Temp 99.0 98.5 100.0 99.0 98.5 100.0 Pulse 107 107 106 108 Resp 14 16 16 B/P (MAP) 142/62 (88) 142/62 149/64 (92) 163/73 (103) Pulse Ox 90 94 93 O2 Delivery Nasal Cannula Nasal Cannula Nasal Cannula O2 Flow Rate 2.0 2.0 2.0 06/19/18 06/19/18 06/19/18 06/19/18 20:00 20:22 21:44 23:00 Temp 98.9 98.9 Pulse 108 120 Resp 18 B/P (MAP) 163/73 154/63 (93) Pulse Ox 94 92 O2 Delivery Nasal Cannula Nasal Cannula Nasal Cannula O2 Flow Rate 2.0 2.0 2.0 06/20/18 06/20/18 06/20/18 03:00 07:00 07:55 Temp 99.0 98.6 99.0 98.6 Pulse 99 105 Resp 16 16 B/P (MAP) 135/67 (89) 150/69 (96) Pulse Ox 92 90 93 O2 Delivery Nasal Cannula Nasal Cannula Nasal Cannula O2 Flow Rate 2.0 3.0 2.0 Intake and Output 06/19/18 06/19/18 06/20/18 14:59 22:59 06:59 Intake Total 0 ml 0 ml Balance 0 ml 0 ml ELVIA WARD MD June 20, 2018 08:38
[2018-06-20] MEDS: DOXYCYCLINE HYCLATE 100 MG TABLET PO SCH ×2 (09:00→20:57)
[2018-06-20] MEDS: FOLIC ACID 1 MG TABLET. PO SCH (09:00)
[2018-06-20] MEDS: hydrALAZINE 25 MG TABLET PO SCH ×3 (09:00→20:57)
[2018-06-20] MEDS: PRIMIDONE 250 MG TABLET PO SCH ×4 (09:00→20:56)
[2018-06-20] MEDS: VENLAFAXINE 50 MG TABLET. PO SCH ×3 (09:00→20:56)
--- NOTE | 2018-06-20 09:55 | PDOC ---
Infectious Disease Note Subjective: Subjective Pt wants to go home denies any complaints fever improved some cough ROS: ROS Negative except for above. Vital Signs: Vital Signs Vital Signs Date Time Temp Pulse Resp B/P (MAP) Pulse Ox O2 Delivery O2 Flow Rate FiO2 06/20/18 07:55 93 Nasal Cannula 2.0 06/20/18 07:00 98.6 105 16 150/69 (96) 98.6 Physical Exam: PHYSICAL EXAM GENERAL: pt lying in bed in nad HEENT: Pupils equally round, reactive. Normal conjunctivae. Oral cavity: Pharynx pink and moist. No thrush. Upper dentures in place. NECK: Supple. LUNGS: Fine rales. Nonlabored. HEART: S1 and S2. ABDOMEN: Obese, soft, nontender. Bowel sounds present. EXTREMITIES: No gross edema or cyanosis. SKIN: Warm without generalized rash. She has a cyst on her back. NEUROLOGIC: Alert, said the year was 1920 before correcting herself. She also says [place] is the current president. Right-sided chest Port-A-Cath without signs of any complications. Medications: Inpatient Meds: Current Medications Medications (Trade) Dose Ordered Sig/Kirby Start Time Stop Time Status Last Admin Dose Admin Acetaminophen (Tylenol) 650 mg PRN Q6HRS PRN 06/17/18 03:15 06/19/18 21:28 650 MG Atorvastatin Calcium (Lipitor) 5 mg QHS 06/16/18 21:00 06/19/18 21:28 5 MG Budesonide (Pulmicort) 0.5 mg RTBID 06/16/18 20:00 06/20/18 07:53 0.5 MG Cefepime HCl (Maxipime) 2 gm Q8HRS 06/18/18 14:00 06/19/18 21:34 2 GM Ceftriaxone Sodium (Rocephin) 1 gm 1X ONCE 06/17/18 03:30 06/17/18 03:32 DC 06/17/18 04:42 1 GM Clonidine HCl (Catapres Tts-1) 1 patch WEEKLY 06/17/18 09:00 06/20/18 09:48 DC 06/17/18 09:11 1 PATCH Diltiazem HCl (Cardizem 24hr Cd) 180 mg DAILY 06/17/18 09:00 06/19/18 08:29 180 MG Diphenhydramine HCl (Benadryl) 25 mg TID PRN PRN 06/20/18 04:30 06/20/18 05:09 25 MG Doxycycline Hyclate (Vibra-Tab) 100 mg BID 06/18/18 11:00 06/19/18 21:28 100 MG Folic Acid (Folic Acid) 1 mg DAILY 06/17/18 09:00 06/19/18 08:28 1 MG Gabapentin (Neurontin) 300 mg HS 06/16/18 21:00 06/19/18 21:28 300 MG Hydralazine HCl (Apresoline Inj) 10 mg PRN Q4HRS PRN 06/16/18 19:00 Hydralazine HCl (Apresoline) 25 mg TID 06/16/18 21:00 06/19/18 21:44 25 MG Info (CONTRAST GIVEN -- Rx MONITORING) 1 each PRN DAILY PRN 06/16/18 15:30 06/18/18 15:29 DC Iohexol (Omnipaque 350 Mg/ml) 75 ml 1X ONCE 06/16/18 15:30 06/16/18 15:31 DC 06/16/18 15:44 75 ML Levothyroxine Sodium (Synthroid) 50 mcg DAILY06 06/17/18 06:00 06/20/18 06:29 50 MCG Non-Formulary Medication (Mometasone Furoate (Asmanex)) 200 mcg BID 06/16/18 21:00 UNV Piperacillin Sod/ Tazobactam Sod 3.375 gm/Sodium Chloride 50 ml @ 100 mls/hr Q6HRS 06/17/18 12:00 06/18/18 10:11 DC 06/18/18 05:48 100 MLS/HR Primidone (Mysoline) 250 mg TID@0900,1200,1700 06/17/18 09:00 06/19/18 17:20 250 MG Sodium Chloride 1,000 ml @ 25 mls/hr Q24H 06/17/18 14:45 06/19/18 21:45 25 MLS/HR Vancomycin HCl (Vanco Per Pharmacy) 1 each PRN DAILY PRN 06/20/18 10:00 UNV Vancomycin HCl (Vancomycin Trough Level) 1 each 1X ONCE 06/19/18 12:30 06/19/18 12:31 Cancel Vancomycin HCl 1.25 gm/Sodium Chloride 250 ml @ 167 mls/hr Q24H 06/18/18 13:00 06/19/18 10:59 DC 06/18/18 12:22 167 MLS/HR Vancomycin HCl 2 gm/Sodium Chloride 500 ml @ 250 mls/hr 1X ONCE 06/17/18 12:30 06/17/18 14:29 DC 06/17/18 13:18 250 MLS/HR Venlafaxine HCl (Effexor) 50 mg TID 06/16/18 21:00 06/19/18 21:28 50 MG Labs: Lab Laboratory Tests Test 06/20/18 06:30 White Blood Count 6.8 x10^3/uL (4.0-11.0) Red Blood Count 2.79 x10^6/uL (3.50-5.40) Hemoglobin 9.3 g/dL (12.0-15.5) Hematocrit 27.7 % (36.0-47.0) Mean Corpuscular Volume 99 fL (79-100) Mean Corpuscular Hemoglobin 33 pg (25-35) Mean Corpuscular Hemoglobin Concent 34 g/dL (31-37) Red Cell Distribution Width 13.6 % (11.5-14.5) Platelet Count 120 x10^3/uL (140-400) Neutrophils (%) (Auto) 86 % (31-73) Lymphocytes (%) (Auto) 7 % (24-48) Monocytes (%) (Auto) 7 % (0-9) Eosinophils (%) (Auto) 0 % (0-3) Basophils (%) (Auto) 0 % (0-3) Neutrophils # (Auto) 5.9 x10^3uL (1.8-7.7) Lymphocytes # (Auto) 0.4 x10^3/uL (1.0-4.8) Monocytes # (Auto) 0.5 x10^3/uL (0.0-1.1) Eosinophils # (Auto) 0.0 x10^3/uL (0.0-0.7) Basophils # (Auto) 0.0 x10^3/uL (0.0-0.2) Erythrocyte Sedimentation Rate 111 (0-25) Sodium Level 142 mmol/L (136-145) Potassium Level 4.2 mmol/L (3.5-5.1) Chloride Level 106 mmol/L (98-107) Carbon Dioxide Level 29 mmol/L (21-32) Anion Gap 7 (6-14) Blood Urea Nitrogen 16 mg/dL (7-20) Creatinine 1.0 mg/dL (0.6-1.0) Estimated GFR (Cockcroft-Gault) 53.1 BUN/Creatinine Ratio 16 (6-20) Glucose Level 109 mg/dL (70-99) Calcium Level 8.6 mg/dL (8.5-10.1) Total Bilirubin 0.4 mg/dL (0.2-1.0) Aspartate Amino Transf (AST/SGOT) 70 U/L (15-37) Alanine Aminotransferase (ALT/SGPT) 80 U/L (14-59) Alkaline Phosphatase 75 U/L (46-116) Total Protein 5.3 g/dL (6.4-8.2) Albumin 1.9 g/dL (3.4-5.0) Albumin/Globulin Ratio 0.6 (1.0-1.7) Thyroid Stimulating Hormone (TSH) 6.204 uIU/mL (0.358-3.74) Micro BC neg Objective: Assessment: 1. Fever. 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 Pancytopenia.Chemo induced 4. Hypoxia requiring supplemental oxygen. 5. Constipation. 6. Frequent falls. 7. Stage 4 lung cancer. Her last dose of chemo was about 2 weeks ago. 8. Status post craniotomy and evacuation for subdural hematoma on 06/11/2018. 9. Forgetfulness. 10. Hypertension. 11. Hypothyroidism. Plan: Plan of Care cont cefepime DC IV Vanc cont doxycycline Influenza screen neg f/u c/s VIOLETA BALDWIN MD June 20, 2018 09:55
--- NOTE | 2018-06-20 09:56 | PDOC ---
IM PROGRESS NOTES- Subjective Subjective The patient is more lethargic and more confused. She is pocketing food in her mouth. She is more confused and weaker. Unable to do full systems review. Objective Vitals Vital Signs Date Time Temp Pulse Resp B/P (MAP) Pulse Ox O2 Delivery O2 Flow Rate FiO2 06/20/18 07:55 93 Nasal Cannula 2.0 06/20/18 07:00 98.6 105 16 150/69 (96) 98.6 Input & Output Intake and Output 06/20/18 07:00 Intake Total 0 ml Balance 0 ml Intake Oral 0 ml # Voids 1 Physical Exam Physical Exam GENERAL: The patient is alert, forgetful, not in moderate respiratory distress SCALP: Right-sided recent surgical scar has healed well. No swelling or bleeding noted. No bruising noted on the scalp or face. EYES: Pupils reacting to light. Conjunctivae pale. Sclerae muddy. HENT: Unremarkable. NECK: Supple. JVP normal. No thyromegaly. Trachea midline. LUNGS: Decreased breath sounds at bases. She has moderate tachypnea and is also having some course breath sounds. CARDIOVASCULAR: S1, S2 regular. ABDOMEN: Soft, nontender, no guarding, no rigidity. Bowel sounds present. EXTREMITIES: No edema. CENTRAL NERVOUS SYSTEM: Generalized weakness. The patient is able to move her legs. Patient is much more confused and lethargic Labs Laboratory Tests Test 06/18/18 11:34 06/18/18 21:34 06/19/18 05:32 06/20/18 06:30 Influenza Type A Antigen Negative (NEGATIVE) Influenza Type B Antigen Negative (NEGATIVE) Urine Collection Type Unknown Urine Color Yellow Urine Clarity Cloudy Urine pH 5.5 Urine Specific [place] 1.020 Urine Protein 30 mg/dL (NEG-TRACE) Urine Glucose (UA) Negative mg/dL (NEG) Urine Ketones (Stick) Negative mg/dL (NEG) Urine Blood Negative (NEG) Urine Nitrite Negative (NEG) Urine Bilirubin Negative (NEG) Urine Urobilinogen Dipstick 0.2 mg/dL (0.2 mg/dL) Urine Leukocyte Esterase Trace (NEG) Urine RBC 0 /HPF (0-2) Urine WBC 1-4 /HPF (0-4) Urine Squamous Epithelial Cells Few /LPF Urine Amorphous Sediment Present /HPF Urine Bacteria 0 /HPF (0-FEW) Urine Hyaline Casts Occasional /HPF Urine Granular Casts Occasional /HPF Urine Mucus Mod /LPF Urine Yeast Present /HPF White Blood Count 6.0 x10^3/uL (4.0-11.0) 6.8 x10^3/uL (4.0-11.0) Red Blood Count 2.69 x10^6/uL (3.50-5.40) 2.79 x10^6/uL (3.50-5.40) Hemoglobin 8.9 g/dL (12.0-15.5) 9.3 g/dL (12.0-15.5) Hematocrit 26.9 % (36.0-47.0) 27.7 % (36.0-47.0) Mean Corpuscular Volume 100 fL (79-100) 99 fL (79-100) Mean Corpuscular Hemoglobin 33 pg (25-35) 33 pg (25-35) Mean Corpuscular Hemoglobin Concent 33 g/dL (31-37) 34 g/dL (31-37) Red Cell Distribution Width 13.5 % (11.5-14.5) 13.6 % (11.5-14.5) Platelet Count 92 x10^3/uL (140-400) 120 x10^3/uL (140-400) Neutrophils (%) (Auto) 80 % (31-73) 86 % (31-73) Lymphocytes (%) (Auto) 9 % (24-48) 7 % (24-48) Monocytes (%) (Auto) 11 % (0-9) 7 % (0-9) Eosinophils (%) (Auto) 0 % (0-3) 0 % (0-3) Basophils (%) (Auto) 0 % (0-3) 0 % (0-3) Neutrophils # (Auto) 4.8 x10^3uL (1.8-7.7) 5.9 x10^3uL (1.8-7.7) Lymphocytes # (Auto) 0.6 x10^3/uL (1.0-4.8) 0.4 x10^3/uL (1.0-4.8) Monocytes # (Auto) 0.6 x10^3/uL (0.0-1.1) 0.5 x10^3/uL (0.0-1.1) Eosinophils # (Auto) 0.0 x10^3/uL (0.0-0.7) 0.0 x10^3/uL (0.0-0.7) Basophils # (Auto) 0.0 x10^3/uL (0.0-0.2) 0.0 x10^3/uL (0.0-0.2) Sodium Level 140 mmol/L (136-145) 142 mmol/L (136-145) Potassium Level 3.6 mmol/L (3.5-5.1) 4.2 mmol/L (3.5-5.1) Chloride Level 104 mmol/L (98-107) 106 mmol/L (98-107) Carbon Dioxide Level 28 mmol/L (21-32) 29 mmol/L (21-32) Anion Gap 8 (6-14) 7 (6-14) Blood Urea Nitrogen 15 mg/dL (7-20) 16 mg/dL (7-20) Creatinine 1.1 mg/dL (0.6-1.0) 1.0 mg/dL (0.6-1.0) Estimated GFR (Cockcroft-Gault) 47.6 53.1 Glucose Level 124 mg/dL (70-99) 109 mg/dL (70-99) Calcium Level 8.8 mg/dL (8.5-10.1) 8.6 mg/dL (8.5-10.1) Erythrocyte Sedimentation Rate 111 (0-25) BUN/Creatinine Ratio 16 (6-20) Total Bilirubin 0.4 mg/dL (0.2-1.0) Aspartate Amino Transf (AST/SGOT) 70 U/L (15-37) Alanine Aminotransferase (ALT/SGPT) 80 U/L (14-59) Alkaline Phosphatase 75 U/L (46-116) Total Protein 5.3 g/dL (6.4-8.2) Albumin 1.9 g/dL (3.4-5.0) Albumin/Globulin Ratio 0.6 (1.0-1.7) Thyroid Stimulating Hormone (TSH) 6.204 uIU/mL (0.358-3.74) Laboratory Tests Test 06/20/18 06:30 White Blood Count 6.8 x10^3/uL (4.0-11.0) Red Blood Count 2.79 x10^6/uL (3.50-5.40) Hemoglobin 9.3 g/dL (12.0-15.5) Hematocrit 27.7 % (36.0-47.0) Mean Corpuscular Volume 99 fL (79-100) Mean Corpuscular Hemoglobin 33 pg (25-35) Mean Corpuscular Hemoglobin Concent 34 g/dL (31-37) Red Cell Distribution Width 13.6 % (11.5-14.5) Platelet Count 120 x10^3/uL (140-400) Neutrophils (%) (Auto) 86 % (31-73) Lymphocytes (%) (Auto) 7 % (24-48) Monocytes (%) (Auto) 7 % (0-9) Eosinophils (%) (Auto) 0 % (0-3) Basophils (%) (Auto) 0 % (0-3) Neutrophils # (Auto) 5.9 x10^3uL (1.8-7.7) Lymphocytes # (Auto) 0.4 x10^3/uL (1.0-4.8) Monocytes # (Auto) 0.5 x10^3/uL (0.0-1.1) Eosinophils # (Auto) 0.0 x10^3/uL (0.0-0.7) Basophils # (Auto) 0.0 x10^3/uL (0.0-0.2) Erythrocyte Sedimentation Rate 111 (0-25) Sodium Level 142 mmol/L (136-145) Potassium Level 4.2 mmol/L (3.5-5.1) Chloride Level 106 mmol/L (98-107) Carbon Dioxide Level 29 mmol/L (21-32) Anion Gap 7 (6-14) Blood Urea Nitrogen 16 mg/dL (7-20) Creatinine 1.0 mg/dL (0.6-1.0) Estimated GFR (Cockcroft-Gault) 53.1 BUN/Creatinine Ratio 16 (6-20) Glucose Level 109 mg/dL (70-99) Calcium Level 8.6 mg/dL (8.5-10.1) Total Bilirubin 0.4 mg/dL (0.2-1.0) Aspartate Amino Transf (AST/SGOT) 70 U/L (15-37) Alanine Aminotransferase (ALT/SGPT) 80 U/L (14-59) Alkaline Phosphatase 75 U/L (46-116) Total Protein 5.3 g/dL (6.4-8.2) Albumin 1.9 g/dL (3.4-5.0) Albumin/Globulin Ratio 0.6 (1.0-1.7) Thyroid Stimulating Hormone (TSH) 6.204 uIU/mL (0.358-3.74) Meds Current Medications Diphenhydramine HCl (Benadryl) 25 mg TID PRN PRN IVP ITCHING Last administered on 06/20/18at 05:09; Start 06/20/18 at 04:30 Vancomycin HCl (Vancomycin Trough Level) 1 each 1X ONCE [facility] ; Start 06/19/18 at 12:30; Stop 06/19/18 at 12:31; Status Cancel Assessment Assessment 1. Subdural hematoma. 2. Frequent falls. 3. Pancytopenia. 4. Weakness. 5. Lung cancer with recent chemotherapy. 6. Hypertension, not controlled, accelerated. 7. Hypothyroidism. 8. Depression. 9. Anxiety. 10. Essential tremors. 11. Carcinoma of breast with left mastectomy. PLAN: I will consult Dr. Fournier for reevaluation and management. Start PT, OT. Consult Dr. Frank to make sure that the patient does not have any hydrocephalus or any other issues that is making her fall more frequently. Prognosis of this patient is poor due to her multiple medical problems. We will consult Dr. Lindquist and monitor pancytopenia. Her absolute neutrophil count is still 1.3 K. For details, please refer the orders. Frequent falls- discussed with Dr. Fournier. Patient is not safe because she is not following cues and falls frequently. Cancer of the lung- discussed with Dr. Lindquist. Patient wants to continue chemotherapy which is every 3 weeks. Recent subdural hematoma- patient remains impulsive and a very high risk for falls. May need to discharge her again to a longterm unit. Fever- I have ordered urine and blood cultures. Patient is now on IV Zosyn and vancomycin. Blood culture 1 is negative. Other blood culture could not be drawn. Patient has been coughing more. Etiology of her fever not clear so far. Continue IV Zosyn and vancomycin. I discussed with the patient that she is immunosuppressed. She doesn't understand the gravity of her condition and just wants to go home. Her prognosis is very poor. Weakness- getting worse. Memory loss getting worse. Dr. Draper has seen the patient and patient is not competent to make any healthcare decisions Acute metabolic encephalopathy Possible aspiration Acute hypoxic respite a failure on oxygen by nasal cannula 2 L/m. Consult Dr. Bloom for pulmonary evaluation and management. Prognosis of this patient is very poor. Because patient is lethargic I'll discontinue Catapres-TTS and see if that helps her swallowing as well as her lethargy. Plan Plan For more details regarding further plans, please refer to the orders. TERESA HOPPER MD June 20, 2018 09:56
[2018-06-20] MEDS ORDERED: VANCOMYCIN PER PHARMACY MC PRN (10:00)
--- NOTE | 2018-06-20 10:02 | PDOC ---
PROGRESS NOTES Assessment Problems Medical Problems: (1) Elevated d-dimer Status: Acute (2) Elevated liver function tests Status: Acute (3) Frequent falls Status: Acute (4) Generalized weakness Status: Acute (5) History of intracranial hemorrhage Status: Acute (6) History of lung cancer Status: Acute (7) Pancytopenia Status: Acute (8) Tachycardia Status: Acute Picture of dementia with inappropriate behavior, grasp reflexes, nonfocal exam. However, there is a history of lung as well as breast cancer Mild essential tremor. Right frontoparietal subdural hematoma Elevated sedimentation rate, awaiting restive labs Plan I do not think she is capable of making healthcare decisions. MRI of the brain Await additional laboratory studies. Subjective No complaints Objective Vital Signs Date Time Temp Pulse Resp B/P (MAP) Pulse Ox O2 Delivery O2 Flow Rate FiO2 06/20/18 07:55 93 Nasal Cannula 2.0 06/20/18 07:00 98.6 105 16 150/69 (96) 98.6 Intake and Output 06/20/18 07:00 Intake Total 0 ml Balance 0 ml Intake Oral 0 ml # Voids 1 PHYSICAL EXAM Alert. Oriented to person, does not know name of hospital or date. PERRL. EOMI. CN: no focal findings. Muscle tone: normal. Muscle strength: 4-5/5 DTR: 2+ Plantar reflex: flexor Bilateral grasp reflexes Gait: not examined in bed. Sensory exam: no abnormal findings. No cerebellar signs elicited. Review of Relevant I have reviewed the following items malcolm (where applicable) has been applied. Labs Laboratory Tests Test 06/18/18 11:34 06/18/18 21:34 06/19/18 05:32 06/20/18 06:30 Influenza Type A Antigen Negative (NEGATIVE) Influenza Type B Antigen Negative (NEGATIVE) Urine Collection Type Unknown Urine Color Yellow Urine Clarity Cloudy Urine pH 5.5 Urine Specific [place] 1.020 Urine Protein 30 mg/dL (NEG-TRACE) Urine Glucose (UA) Negative mg/dL (NEG) Urine Ketones (Stick) Negative mg/dL (NEG) Urine Blood Negative (NEG) Urine Nitrite Negative (NEG) Urine Bilirubin Negative (NEG) Urine Urobilinogen Dipstick 0.2 mg/dL (0.2 mg/dL) Urine Leukocyte Esterase Trace (NEG) Urine RBC 0 /HPF (0-2) Urine WBC 1-4 /HPF (0-4) Urine Squamous Epithelial Cells Few /LPF Urine Amorphous Sediment Present /HPF Urine Bacteria 0 /HPF (0-FEW) Urine Hyaline Casts Occasional /HPF Urine Granular Casts Occasional /HPF Urine Mucus Mod /LPF Urine Yeast Present /HPF White Blood Count 6.0 x10^3/uL (4.0-11.0) 6.8 x10^3/uL (4.0-11.0) Red Blood Count 2.69 x10^6/uL (3.50-5.40) 2.79 x10^6/uL (3.50-5.40) Hemoglobin 8.9 g/dL (12.0-15.5) 9.3 g/dL (12.0-15.5) Hematocrit 26.9 % (36.0-47.0) 27.7 % (36.0-47.0) Mean Corpuscular Volume 100 fL (79-100) 99 fL (79-100) Mean Corpuscular Hemoglobin 33 pg (25-35) 33 pg (25-35) Mean Corpuscular Hemoglobin Concent 33 g/dL (31-37) 34 g/dL (31-37) Red Cell Distribution Width 13.5 % (11.5-14.5) 13.6 % (11.5-14.5) Platelet Count 92 x10^3/uL (140-400) 120 x10^3/uL (140-400) Neutrophils (%) (Auto) 80 % (31-73) 86 % (31-73) Lymphocytes (%) (Auto) 9 % (24-48) 7 % (24-48) Monocytes (%) (Auto) 11 % (0-9) 7 % (0-9) Eosinophils (%) (Auto) 0 % (0-3) 0 % (0-3) Basophils (%) (Auto) 0 % (0-3) 0 % (0-3) Neutrophils # (Auto) 4.8 x10^3uL (1.8-7.7) 5.9 x10^3uL (1.8-7.7) Lymphocytes # (Auto) 0.6 x10^3/uL (1.0-4.8) 0.4 x10^3/uL (1.0-4.8) Monocytes # (Auto) 0.6 x10^3/uL (0.0-1.1) 0.5 x10^3/uL (0.0-1.1) Eosinophils # (Auto) 0.0 x10^3/uL (0.0-0.7) 0.0 x10^3/uL (0.0-0.7) Basophils # (Auto) 0.0 x10^3/uL (0.0-0.2) 0.0 x10^3/uL (0.0-0.2) Sodium Level 140 mmol/L (136-145) 142 mmol/L (136-145) Potassium Level 3.6 mmol/L (3.5-5.1) 4.2 mmol/L (3.5-5.1) Chloride Level 104 mmol/L (98-107) 106 mmol/L (98-107) Carbon Dioxide Level 28 mmol/L (21-32) 29 mmol/L (21-32) Anion Gap 8 (6-14) 7 (6-14) Blood Urea Nitrogen 15 mg/dL (7-20) 16 mg/dL (7-20) Creatinine 1.1 mg/dL (0.6-1.0) 1.0 mg/dL (0.6-1.0) Estimated GFR (Cockcroft-Gault) 47.6 53.1 Glucose Level 124 mg/dL (70-99) 109 mg/dL (70-99) Calcium Level 8.8 mg/dL (8.5-10.1) 8.6 mg/dL (8.5-10.1) Erythrocyte Sedimentation Rate 111 (0-25) BUN/Creatinine Ratio 16 (6-20) Total Bilirubin 0.4 mg/dL (0.2-1.0) Aspartate Amino Transf (AST/SGOT) 70 U/L (15-37) Alanine Aminotransferase (ALT/SGPT) 80 U/L (14-59) Alkaline Phosphatase 75 U/L (46-116) Total Protein 5.3 g/dL (6.4-8.2) Albumin 1.9 g/dL (3.4-5.0) Albumin/Globulin Ratio 0.6 (1.0-1.7) Thyroid Stimulating Hormone (TSH) 6.204 uIU/mL (0.358-3.74) Laboratory Tests Test 06/20/18 06:30 White Blood Count 6.8 x10^3/uL (4.0-11.0) Red Blood Count 2.79 x10^6/uL (3.50-5.40) Hemoglobin 9.3 g/dL (12.0-15.5) Hematocrit 27.7 % (36.0-47.0) Mean Corpuscular Volume 99 fL (79-100) Mean Corpuscular Hemoglobin 33 pg (25-35) Mean Corpuscular Hemoglobin Concent 34 g/dL (31-37) Red Cell Distribution Width 13.6 % (11.5-14.5) Platelet Count 120 x10^3/uL (140-400) Neutrophils (%) (Auto) 86 % (31-73) Lymphocytes (%) (Auto) 7 % (24-48) Monocytes (%) (Auto) 7 % (0-9) Eosinophils (%) (Auto) 0 % (0-3) Basophils (%) (Auto) 0 % (0-3) Neutrophils # (Auto) 5.9 x10^3uL (1.8-7.7) Lymphocytes # (Auto) 0.4 x10^3/uL (1.0-4.8) Monocytes # (Auto) 0.5 x10^3/uL (0.0-1.1) Eosinophils # (Auto) 0.0 x10^3/uL (0.0-0.7) Basophils # (Auto) 0.0 x10^3/uL (0.0-0.2) Erythrocyte Sedimentation Rate 111 (0-25) Sodium Level 142 mmol/L (136-145) Potassium Level 4.2 mmol/L (3.5-5.1) Chloride Level 106 mmol/L (98-107) Carbon Dioxide Level 29 mmol/L (21-32) Anion Gap 7 (6-14) Blood Urea Nitrogen 16 mg/dL (7-20) Creatinine 1.0 mg/dL (0.6-1.0) Estimated GFR (Cockcroft-Gault) 53.1 BUN/Creatinine Ratio 16 (6-20) Glucose Level 109 mg/dL (70-99) Calcium Level 8.6 mg/dL (8.5-10.1) Total Bilirubin 0.4 mg/dL (0.2-1.0) Aspartate Amino Transf (AST/SGOT) 70 U/L (15-37) Alanine Aminotransferase (ALT/SGPT) 80 U/L (14-59) Alkaline Phosphatase 75 U/L (46-116) Total Protein 5.3 g/dL (6.4-8.2) Albumin 1.9 g/dL (3.4-5.0) Albumin/Globulin Ratio 0.6 (1.0-1.7) Thyroid Stimulating Hormone (TSH) 6.204 uIU/mL (0.358-3.74) Microbiology 06/17/18 Blood Culture - Preliminary, Resulted NO GROWTH AFTER 2 DAYS Medications Current Medications Iohexol (Omnipaque 350 Mg/ml) 75 ml 1X ONCE IV Last administered on 06/16/18at 15:44; Start 06/16/18 at 15:30; Stop 06/16/18 at 15:31; Status DC Info (CONTRAST GIVEN -- Rx MONITORING) 1 each PRN DAILY PRN MC SEE COMMENTS; Start 06/16/18 at 15:30; Stop 06/18/18 at 15:29; Status DC Clonidine HCl (Catapres Tts-1) 1 patch WEEKLY TD Last administered on 06/17/18 09:11; Start 06/17/18 at 09:00; Stop 06/20/18 at 09:48; Status DC Folic Acid (Folic Acid) 1 mg DAILY PO Last administered on 06/19/18at 08:28; Sta rt 06/17/18 at 09:00 Gabapentin (Neurontin) 300 mg HS PO Last administered on 06/19/18 21:28; Start 06/16/18 at 21:00 Hydralazine HCl (Apresoline) 25 mg TID PO Last administered on 06/19/18 21:44; Start 06/16/18 at 21:00 Levothyroxine Sodium (Synthroid) 50 mcg DAILY06 PO Last administered on 06/20/18 06:29; Start 06/17/18 at 06:00 Non-Formulary Medication (Mometasone Furoate (Asmanex)) 200 mcg BID INH ; Start 06/16/18 at 21:00; Status UNV Atorvastatin Calcium (Lipitor) 5 mg QHS PO Last administered on 06/19/18 21:28; Start 06/16/18 at 21:00 Primidone (Mysoline) 250 mg DAILYWSUP PO ; Start 06/16/18 at 17:45; Stop 06/16/18 at 17:59; Status DC Primidone (Mysoline) 500 mg QHS PO Last administered on 06/19/18at 21:28; Start 06/16/18 at 21:00 Venlafaxine HCl (Effexor) 50 mg TID PO Last administered on 06/19/18at 21:28; Start 06/16/18 at 21:00 Diltiazem HCl (Cardizem 24hr Cd) 180 mg DAILY PO Last administered on 06/19/18 08:29; Start 06/17/18 at 09:00 Budesonide (Pulmicort) 0.5 mg RTBID NEB Last administered on 06/20/18at 07:53; Start 06/16/18 at 20:00 Primidone (Mysoline) 250 mg TID@0900,1200,1700 PO Last administered on 06/19/18at 17:20; Start 06/17/18 at 09:00 Hydralazine HCl (Apresoline Inj) 10 mg PRN Q4HRS PRN IVP ELEVATED BP, SEE COMMENTS; Start 06/16/18 at 19:00 Ceftriaxone Sodium (Rocephin) 1 gm 1X ONCE IVP Last administered on 06/17/18at 04:42; Start 06/17/18 at 03:30; Stop 06/17/18 at 03:32; Status DC Acetaminophen (Tylenol) 650 mg PRN Q6HRS PRN PO FEVER Last administered on 06/19/18 21:28; Start 06/17/18 at 03:15 Piperacillin Sod/ Tazobactam Sod 3.375 gm/Sodium Chloride 50 ml @ 100 mls/hr Q6HRS IV Last administered on 06/18/18at 05:48; Start 06/17/18 at 12:00; Stop 06/18/18 at 10:11; Status DC Vancomycin HCl (Vanco Per Pharmacy) 1 each PRN DAILY PRN MC SEE COMMENTS Last administered on 06/17/18at 14:08; Start 06/17/18 at 12:00; Stop 06/19/18 at 11:01; Status DC Vancomycin HCl 2 gm/Sodium Chloride 500 ml @ 250 mls/hr 1X ONCE IV Last administered on 06/17/18 13:18; Start 06/17/18 at 12:30; Stop 06/17/18 at 14:29; Status DC Vancomycin HCl 1.25 gm/Sodium Chloride 250 ml @ 167 mls/hr Q24H IV Last administered on 06/18/18at 12:22; Start 06/18/18 at 13:00; Stop 06/19/18 at 10:59; Status DC Vancomycin HCl (Vancomycin Trough Level) 1 each 1X ONCE MC ; Start 06/19/18 at 12:30; Stop 06/19/18 at 12:31; Status Cancel Sodium Chloride 1,000 ml @ 25 mls/hr Q24H IV Last administered on 06/19/18at 21:45; Start 06/17/18 at 14:45 Cefepime HCl (Maxipime) 2 gm Q8HRS IVP Last administered on 06/19/18at 21:34; Start 06/18/18 at 14:00 Doxycycline Hyclate (Vibra-Tab) 100 mg BID PO Last administered on 06/19/18at 21:28; Start 06/18/18 at 11:00 Diphenhydramine HCl (Benadryl) 25 mg TID PRN PRN IVP ITCHING Last administered on 06/20/18at 05:09; Start 06/20/18 at 04:30 Vancomycin HCl (Vanco Per Pharmacy) 1 each PRN DAILY PRN MC SEE COMMENTS; Start 06/20/18 at 10:00; Stop 06/20/18 at 10:00; Status DC Vancomycin HCl 2 gm/Sodium Chloride 500 ml @ 250 mls/hr 1X ONCE IV ; Start 06/20/18 at 11:00; Stop 06/20/18 at 12:59; Status Cancel Active Scripts Active Hydralazine Hcl 25 Mg Tablet 25 Mg PO TID 30 Days Clonidine Tts-1 (Clonidine) 1 Each Patch.tdwk 1 Patch TD WEEKLY 30 Days Reported Gabapentin 600 Mg Tablet 300 Mg PO HS Mysoline (Primidone) 250 Mg Tablet 500 Mg PO QHS Effexor Xr (Venlafaxine Hcl) 150 Mg Cap.er.24h 1 Cap PO DAILY Folic Acid 1 Mg Tablet 1 Tab PO DAILY Asmanex (Mometasone Furoate) 220 Mcg Aer.pow.ba 200 Mcg INH BID Primidone 250 Mg Tablet 250 Mg PO TID Pravastatin Sodium 20 Mg Tablet 1 Tab PO DAILY Cartia Xt (Diltiazem Hcl) 180 Mg Cap.er.24h 180 Mg PO Levothyroxine Sodium 50 Mcg Tablet 1 Tab PO DAILY Vitals/I & O Vital Sign - Last 24 Hours 06/19/18 06/19/18 06/19/18 06/19/18 11:00 14:48 15:00 19:00 Temp 99.0 98.5 100.0 99.0 98.5 100.0 Pulse 107 107 106 108 Resp 14 16 16 B/P (MAP) 142/62 (88) 142/62 149/64 (92) 163/73 (103) Pulse Ox 90 94 93 O2 Delivery Nasal Cannula Nasal Cannula Nasal Cannula O2 Flow Rate 2.0 2.0 2.0 06/19/18 06/19/18 06/19/18 06/19/18 20:00 20:22 21:44 23:00 Temp 98.9 98.9 Pulse 108 120 Resp 18 B/P (MAP) 163/73 154/63 (93) Pulse Ox 94 92 O2 Delivery Nasal Cannula Nasal Cannula Nasal Cannula O2 Flow Rate 2.0 2.0 2.0 06/20/18 06/20/18 06/20/18 03:00 07:00 07:55 Temp 99.0 98.6 99.0 98.6 Pulse 99 105 Resp 16 16 B/P (MAP) 135/67 (89) 150/69 (96) Pulse Ox 92 90 93 O2 Delivery Nasal Cannula Nasal Cannula Nasal Cannula O2 Flow Rate 2.0 3.0 2.0 Intake and Output 06/19/18 06/19/18 06/20/18 15:00 23:00 07:00 Intake Total 0 ml 0 ml Balance 0 ml 0 ml TAMIKO GONZALEZ MD June 20, 2018 10:02
[2018-06-20] MEDS ORDERED: BARIUM SULFATE 40% (APPLE) 148 GM PWD. PO ONE (10:30)
--- NOTE | 2018-06-20 10:39 | PDOC ---
PROGRESS NOTES Subjective Subjective HPI - f/u of Non-small cell lung cancer/stage IV ROS - had fever Objective Objective Vital Signs Date Time Temp Pulse Resp B/P (MAP) Pulse Ox O2 Delivery O2 Flow Rate FiO2 06/20/18 07:55 93 Nasal Cannula 2.0 06/20/18 07:00 98.6 105 16 150/69 (96) 98.6 Intake and Output 06/20/18 07:00 Intake Total 0 ml Balance 0 ml Intake Oral 0 ml # Voids 1 Physical Exam General: No acute distress Neck: No JVD Assessment Assessment Problems Medical Problems: (1) Elevated d-dimer Status: Acute (2) Elevated liver function tests Status: Acute (3) Frequent falls Status: Acute (4) Generalized weakness Status: Acute (5) History of intracranial hemorrhage Status: Acute (6) History of lung cancer Status: Acute (7) Pancytopenia Status: Acute (8) Tachycardia Status: Acute IMPRESSION AND PLAN: 1. 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 She is responding very well to chemotherapy. She received cycle #8 of treatment on 06/06/2018 with pembrolizumab and Alimta. If her functional status improves, then I will resume treatment as outpatient. If her functional and mental status do not improve, then I would recommend supportive care/palliative care. I discussed with Dr. Tahmina Hernandez. 2. Fever. 3. Leukopenia due to chemotherapy. Continue to monitor. WBC is 3.6 on 06/17/2018. 6.0 on 06/19/18 4. 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 Hemoglobin is 10.2 on 06/17/2018. Continue to monitor hemoglobin. 5. Thrombocytopenia with a platelet count of 74,000, stable. 6. Subdural hematoma. CT scan of the head reveals that it is improved when compared to the previous study. Comment Review of Relevant I have reviewed the following items malcolm (where applicable) has been applied. Labs Laboratory Tests Test 06/18/18 11:34 06/18/18 21:34 06/19/18 05:32 06/20/18 06:30 Influenza Type A Antigen Negative (NEGATIVE) Influenza Type B Antigen Negative (NEGATIVE) Urine Collection Type Unknown Urine Color Yellow Urine Clarity Cloudy Urine pH 5.5 Urine Specific [place] 1.020 Urine Protein 30 mg/dL (NEG-TRACE) Urine Glucose (UA) Negative mg/dL (NEG) Urine Ketones (Stick) Negative mg/dL (NEG) Urine Blood Negative (NEG) Urine Nitrite Negative (NEG) Urine Bilirubin Negative (NEG) Urine Urobilinogen Dipstick 0.2 mg/dL (0.2 mg/dL) Urine Leukocyte Esterase Trace (NEG) Urine RBC 0 /HPF (0-2) Urine WBC 1-4 /HPF (0-4) Urine Squamous Epithelial Cells Few /LPF Urine Amorphous Sediment Present /HPF Urine Bacteria 0 /HPF (0-FEW) Urine Hyaline Casts Occasional /HPF Urine Granular Casts Occasional /HPF Urine Mucus Mod /LPF Urine Yeast Present /HPF White Blood Count 6.0 x10^3/uL (4.0-11.0) 6.8 x10^3/uL (4.0-11.0) Red Blood Count 2.69 x10^6/uL (3.50-5.40) 2.79 x10^6/uL (3.50-5.40) Hemoglobin 8.9 g/dL (12.0-15.5) 9.3 g/dL (12.0-15.5) Hematocrit 26.9 % (36.0-47.0) 27.7 % (36.0-47.0) Mean Corpuscular Volume 100 fL (79-100) 99 fL (79-100) Mean Corpuscular Hemoglobin 33 pg (25-35) 33 pg (25-35) Mean Corpuscular Hemoglobin Concent 33 g/dL (31-37) 34 g/dL (31-37) Red Cell Distribution Width 13.5 % (11.5-14.5) 13.6 % (11.5-14.5) Platelet Count 92 x10^3/uL (140-400) 120 x10^3/uL (140-400) Neutrophils (%) (Auto) 80 % (31-73) 86 % (31-73) Lymphocytes (%) (Auto) 9 % (24-48) 7 % (24-48) Monocytes (%) (Auto) 11 % (0-9) 7 % (0-9) Eosinophils (%) (Auto) 0 % (0-3) 0 % (0-3) Basophils (%) (Auto) 0 % (0-3) 0 % (0-3) Neutrophils # (Auto) 4.8 x10^3uL (1.8-7.7) 5.9 x10^3uL (1.8-7.7) Lymphocytes # (Auto) 0.6 x10^3/uL (1.0-4.8) 0.4 x10^3/uL (1.0-4.8) Monocytes # (Auto) 0.6 x10^3/uL (0.0-1.1) 0.5 x10^3/uL (0.0-1.1) Eosinophils # (Auto) 0.0 x10^3/uL (0.0-0.7) 0.0 x10^3/uL (0.0-0.7) Basophils # (Auto) 0.0 x10^3/uL (0.0-0.2) 0.0 x10^3/uL (0.0-0.2) Sodium Level 140 mmol/L (136-145) 142 mmol/L (136-145) Potassium Level 3.6 mmol/L (3.5-5.1) 4.2 mmol/L (3.5-5.1) Chloride Level 104 mmol/L (98-107) 106 mmol/L (98-107) Carbon Dioxide Level 28 mmol/L (21-32) 29 mmol/L (21-32) Anion Gap 8 (6-14) 7 (6-14) Blood Urea Nitrogen 15 mg/dL (7-20) 16 mg/dL (7-20) Creatinine 1.1 mg/dL (0.6-1.0) 1.0 mg/dL (0.6-1.0) Estimated GFR (Cockcroft-Gault) 47.6 53.1 Glucose Level 124 mg/dL (70-99) 109 mg/dL (70-99) Calcium Level 8.8 mg/dL (8.5-10.1) 8.6 mg/dL (8.5-10.1) Erythrocyte Sedimentation Rate 111 (0-25) BUN/Creatinine Ratio 16 (6-20) Total Bilirubin 0.4 mg/dL (0.2-1.0) Aspartate Amino Transf (AST/SGOT) 70 U/L (15-37) Alanine Aminotransferase (ALT/SGPT) 80 U/L (14-59) Alkaline Phosphatase 75 U/L (46-116) Total Protein 5.3 g/dL (6.4-8.2) Albumin 1.9 g/dL (3.4-5.0) Albumin/Globulin Ratio 0.6 (1.0-1.7) Vitamin B12 Level 564 pg/mL (247-911) Thyroid Stimulating Hormone (TSH) 6.204 uIU/mL (0.358-3.74) Laboratory Tests Test 06/20/18 06:30 White Blood Count 6.8 x10^3/uL (4.0-11.0) Red Blood Count 2.79 x10^6/uL (3.50-5.40) Hemoglobin 9.3 g/dL (12.0-15.5) Hematocrit 27.7 % (36.0-47.0) Mean Corpuscular Volume 99 fL (79-100) Mean Corpuscular Hemoglobin 33 pg (25-35) Mean Corpuscular Hemoglobin Concent 34 g/dL (31-37) Red Cell Distribution Width 13.6 % (11.5-14.5) Platelet Count 120 x10^3/uL (140-400) Neutrophils (%) (Auto) 86 % (31-73) Lymphocytes (%) (Auto) 7 % (24-48) Monocytes (%) (Auto) 7 % (0-9) Eosinophils (%) (Auto) 0 % (0-3) Basophils (%) (Auto) 0 % (0-3) Neutrophils # (Auto) 5.9 x10^3uL (1.8-7.7) Lymphocytes # (Auto) 0.4 x10^3/uL (1.0-4.8) Monocytes # (Auto) 0.5 x10^3/uL (0.0-1.1) Eosinophils # (Auto) 0.0 x10^3/uL (0.0-0.7) Basophils # (Auto) 0.0 x10^3/uL (0.0-0.2) Erythrocyte Sedimentation Rate 111 (0-25) Sodium Level 142 mmol/L (136-145) Potassium Level 4.2 mmol/L (3.5-5.1) Chloride Level 106 mmol/L (98-107) Carbon Dioxide Level 29 mmol/L (21-32) Anion Gap 7 (6-14) Blood Urea Nitrogen 16 mg/dL (7-20) Creatinine 1.0 mg/dL (0.6-1.0) Estimated GFR (Cockcroft-Gault) 53.1 BUN/Creatinine Ratio 16 (6-20) Glucose Level 109 mg/dL (70-99) Calcium Level 8.6 mg/dL (8.5-10.1) Total Bilirubin 0.4 mg/dL (0.2-1.0) Aspartate Amino Transf (AST/SGOT) 70 U/L (15-37) Alanine Aminotransferase (ALT/SGPT) 80 U/L (14-59) Alkaline Phosphatase 75 U/L (46-116) Total Protein 5.3 g/dL (6.4-8.2) Albumin 1.9 g/dL (3.4-5.0) Albumin/Globulin Ratio 0.6 (1.0-1.7) Vitamin B12 Level 564 pg/mL (247-911) Thyroid Stimulating Hormone (TSH) 6.204 uIU/mL (0.358-3.74) Microbiology 06/17/18 Blood Culture - Preliminary, Resulted NO GROWTH AFTER 2 DAYS Medications Current Medications Iohexol (Omnipaque 350 Mg/ml) 75 ml 1X ONCE IV Last administered on 06/16/18at 15:44; Start 06/16/18 at 15:30; Stop 06/16/18 at 15:31; Status DC Info (CONTRAST GIVEN -- Rx MONITORING) 1 each PRN DAILY PRN MC SEE COMMENTS; Start 06/16/18 at 15:30; Stop 06/18/18 at 15:29; Status DC Clonidine HCl (Catapres Tts-1) 1 patch WEEKLY TD Last administered on 06/17/18at 09:11; Start 06/17/18 at 09:00; Stop 06/20/18 at 09:48; Status DC Folic Acid (Folic Acid) 1 mg DAILY PO Last administered on 06/19/18at 08:28; Start 06/17/18 at 09:00 Gabapentin (Neurontin) 300 mg HS PO Last administered on 06/19/18at 21:28; Start 06/16/18 at 21:00 Hydralazine HCl (Apresoline) 25 mg TID PO Last administered on 06/19/18 21:44; Start 06/16/18 at 21:00 Levothyroxine Sodium (Synthroid) 50 mcg DAILY06 PO Last administered on 06/20/18 06:29; Start 06/17/18 at 06:00 Non-Formulary Medication (Mometasone Furoate (Asmanex)) 200 mcg BID INH ; Start 06/16/18 at 21:00; Status UNV Atorvastatin Calcium (Lipitor) 5 mg QHS PO Last administered on 06/19/18 21:28; Start 06/16/18 at 21:00 Primidone (Mysoline) 250 mg DAILYWSUP PO ; Start 06/16/18 at 17:45; Stop 06/16/18 at 17:59; Status DC Primidone (Mysoline) 500 mg QHS PO Last administered on 06/19/18 21:28; Start 06/16/18 at 21:00 Venlafaxine HCl (Effexor) 50 mg TID PO Last administered on 06/19/18 21:28; Start 06/16/18 at 21:00 Diltiazem HCl (Cardizem 24hr Cd) 180 mg DAILY PO Last administered on 06/19/18 08:29; Start 06/17/18 at 09:00 Budesonide (Pulmicort) 0.5 mg RTBID NEB Last administered on 06/20/18 07:53; Start 06/16/18 at 20:00 Primidone (Mysoline) 250 mg TID@0900,1200,1700 PO Last administered on 06/19/18 17:20; Start 06/17/18 at 09:00 Hydralazine HCl (Apresoline Inj) 10 mg PRN Q4HRS PRN IVP ELEVATED BP, SEE COMMENTS; Start 06/16/18 at 19:00 Ceftriaxone Sodium (Rocephin) 1 gm 1X ONCE IVP Last administered on 06/17/18at 04:42; Start 06/17/18 at 03:30; Stop 06/17/18 at 03:32; Status DC Acetaminophen (Tylenol) 650 mg PRN Q6HRS PRN PO FEVER Last administered on 06/19/18 21:28; Start 06/17/18 at 03:15 Piperacillin Sod/ Tazobactam Sod 3.375 gm/Sodium Chloride 50 ml @ 100 mls/hr Q6HRS IV Last administered on 06/18/18at 05:48; Start 06/17/18 at 12:00; Stop 06/18/18 at 10:11; Status DC Vancomycin HCl (Vanco Per Pharmacy) 1 each PRN DAILY PRN MC SEE COMMENTS Last administered on 06/17/18at 14:08; Start 06/17/18 at 12:00; Stop 06/19/18 at 11:01; Status DC Vancomycin HCl 2 gm/Sodium Chloride 500 ml @ 250 mls/hr 1X ONCE IV Last administered on 06/17/18at 13:18; Start 06/17/18 at 12:30; Stop 06/17/18 at 14:29; Status DC Vancomycin HCl 1.25 gm/Sodium Chloride 250 ml @ 167 mls/hr Q24H IV Last administered on 06/18/18at 12:22; Start 06/18/18 at 13:00; Stop 06/19/18 at 10:59; Status DC Vancomycin HCl (Vancomycin Trough Level) 1 each 1X ONCE MC ; Start 06/19/18 at 12:30; Stop 06/19/18 at 12:31; Status Cancel Sodium Chloride 1,000 ml @ 25 mls/hr Q24H IV Last administered on 06/19/18at 21:45; Start 06/17/18 at 14:45 Cefepime HCl (Maxipime) 2 gm Q8HRS IVP Last administered on 06/19/18at 21:34; Start 06/18/18 at 14:00 Doxycycline Hyclate (Vibra-Tab) 100 mg BID PO Last administered on 06/19/18at 21:28; Start 06/18/18 at 11:00 Diphenhydramine HCl (Benadryl) 25 mg TID PRN PRN IVP ITCHING Last administered on 06/20/18at 05:09; Start 06/20/18 at 04:30 Vancomycin HCl (Vanco Per Pharmacy) 1 each PRN DAILY PRN MC SEE COMMENTS; Start 06/20/18 at 10:00; Stop 06/20/18 at 10:00; Status DC Vancomycin HCl 2 gm/Sodium Chloride 500 ml @ 250 mls/hr 1X ONCE IV ; Start 06/20/18 at 11:00; Stop 06/20/18 at 12:59; Status Cancel Barium Sulfate (Varibar Thin Liquid Apple) 148 gm 1X ONCE PO ; Start 06/20/18 at 10:30; Stop 06/20/18 at 10:31; Status DC Active Scripts Active Hydralazine Hcl 25 Mg Tablet 25 Mg PO TID 30 Days Clonidine Tts-1 (Clonidine) 1 Each Patch.tdwk 1 Patch TD WEEKLY 30 Days Reported Gabapentin 600 Mg Tablet 300 Mg PO HS Mysoline (Primidone) 250 Mg Tablet 500 Mg PO QHS Effexor Xr (Venlafaxine Hcl) 150 Mg Cap.er.24h 1 Cap PO DAILY Folic Acid 1 Mg Tablet 1 Tab PO DAILY Asmanex (Mometasone Furoate) 220 Mcg Aer.pow.ba 200 Mcg INH BID Primidone 250 Mg Tablet 250 Mg PO TID Pravastatin Sodium 20 Mg Tablet 1 Tab PO DAILY Cartia Xt (Diltiazem Hcl) 180 Mg Cap.er.24h 180 Mg PO Levothyroxine Sodium 50 Mcg Tablet 1 Tab PO DAILY Vitals/I & O Vital Sign - Last 24 Hours 06/19/18 06/19/18 06/19/18 06/19/18 11:00 14:48 15:00 19:00 Temp 99.0 98.5 100.0 99.0 98.5 100.0 Pulse 107 107 106 108 Resp 14 16 16 B/P (MAP) 142/62 (88) 142/62 149/64 (92) 163/73 (103) Pulse Ox 90 94 93 O2 Delivery Nasal Cannula Nasal Cannula Nasal Cannula O2 Flow Rate 2.0 2.0 2.0 06/19/18 06/19/18 06/19/18 06/19/18 20:00 20:22 21:44 23:00 Temp 98.9 98.9 Pulse 108 120 Resp 18 B/P (MAP) 163/73 154/63 (93) Pulse Ox 94 92 O2 Delivery Nasal Cannula Nasal Cannula Nasal Cannula O2 Flow Rate 2.0 2.0 2.0 06/20/18 06/20/18 06/20/18 03:00 07:00 07:55 Temp 99.0 98.6 99.0 98.6 Pulse 99 105 Resp 16 16 B/P (MAP) 135/67 (89) 150/69 (96) Pulse Ox 92 90 93 O2 Delivery Nasal Cannula Nasal Cannula Nasal Cannula O2 Flow Rate 2.0 3.0 2.0 Intake and Output 06/19/18 06/19/18 06/20/18 15:00 23:00 07:00 Intake Total 0 ml 0 ml Balance 0 ml 0 ml LORI NICOLE MD June 20, 2018 10:39
--- NOTE | 2018-06-20 10:48 | PDOC ---
Infectious Disease Note Subjective: Subjective pt has been confused more sob low grade fever some cough Vital Signs: Vital Signs Vital Signs Date Time Temp Pulse Resp B/P (MAP) Pulse Ox O2 Delivery O2 Flow Rate FiO2 06/20/18 07:55 93 Nasal Cannula 2.0 06/20/18 07:00 98.6 105 16 150/69 (96) 98.6 Physical Exam: PHYSICAL EXAM GENERAL: pt lying in bed in nad HEENT: Pupils equally round, reactive. Normal conjunctivae. Oral cavity: Pharynx pink and moist. No thrush. Upper dentures in place. NECK: Supple. LUNGS: Fine rales. Nonlabored. HEART: S1 and S2. ABDOMEN: Obese, soft, nontender. Bowel sounds present. EXTREMITIES: No gross edema or cyanosis. SKIN: Warm without generalized rash. She has a cyst on her back. NEUROLOGIC: arousable, confused, forgetful Right-sided chest Port-A-Cath without signs of any complications. Medications: Inpatient Meds: Current Medications Medications (Trade) Dose Ordered Sig/Kirby Start Time Stop Time Status Last Admin Dose Admin Acetaminophen (Tylenol) 650 mg PRN Q6HRS PRN 06/17/18 03:15 06/19/18 21:28 650 MG Atorvastatin Calcium (Lipitor) 5 mg QHS 06/16/18 21:00 06/19/18 21:28 5 MG Barium Sulfate (Varibar Thin Liquid Apple) 148 gm 1X ONCE 06/20/18 10:30 06/20/18 10:31 DC Budesonide (Pulmicort) 0.5 mg RTBID 06/16/18 20:00 06/20/18 07:53 0.5 MG Cefepime HCl (Maxipime) 2 gm Q8HRS 06/18/18 14:00 06/19/18 21:34 2 GM Ceftriaxone Sodium (Rocephin) 1 gm 1X ONCE 06/17/18 03:30 06/17/18 03:32 DC 06/17/18 04:42 1 GM Clonidine HCl (Catapres Tts-1) 1 patch WEEKLY 06/17/18 09:00 06/20/18 09:48 DC 06/17/18 09:11 1 PATCH Diltiazem HCl (Cardizem 24hr Cd) 180 mg DAILY 06/17/18 09:00 06/19/18 08:29 180 MG Diphenhydramine HCl (Benadryl) 25 mg TID PRN PRN 06/20/18 04:30 06/20/18 05:09 25 MG Doxycycline Hyclate (Vibra-Tab) 100 mg BID 06/18/18 11:00 06/19/18 21:28 100 MG Folic Acid (Folic Acid) 1 mg DAILY 06/17/18 09:00 06/19/18 08:28 1 MG Gabapentin (Neurontin) 300 mg HS 06/16/18 21:00 06/19/18 21:28 300 MG Hydralazine HCl (Apresoline Inj) 10 mg PRN Q4HRS PRN 06/16/18 19:00 Hydralazine HCl (Apresoline) 25 mg TID 06/16/18 21:00 06/19/18 21:44 25 MG Info (CONTRAST GIVEN -- Rx MONITORING) 1 each PRN DAILY PRN 06/16/18 15:30 06/18/18 15:29 DC Iohexol (Omnipaque 350 Mg/ml) 75 ml 1X ONCE 06/16/18 15:30 06/16/18 15:31 DC 06/16/18 15:44 75 ML Levothyroxine Sodium (Synthroid) 50 mcg DAILY06 06/17/18 06:00 06/20/18 06:29 50 MCG Non-Formulary Medication (Mometasone Furoate (Asmanex)) 200 mcg BID 06/16/18 21:00 UNV Piperacillin Sod/ Tazobactam Sod 3.375 gm/Sodium Chloride 50 ml @ 100 mls/hr Q6HRS 06/17/18 12:00 06/18/18 10:11 DC 06/18/18 05:48 100 MLS/HR Primidone (Mysoline) 250 mg TID@0900,1200,1700 06/17/18 09:00 06/19/18 17:20 250 MG Sodium Chloride 1,000 ml @ 25 mls/hr Q24H 06/17/18 14:45 06/19/18 21:45 25 MLS/HR Vancomycin HCl (Vanco Per Pharmacy) 1 each PRN DAILY PRN 06/20/18 10:00 06/20/18 10:00 DC Vancomycin HCl (Vancomycin Trough Level) 1 each 1X ONCE 06/19/18 12:30 06/19/18 12:31 Cancel Vancomycin HCl 1.25 gm/Sodium Chloride 250 ml @ 167 mls/hr Q24H 06/18/18 13:00 06/19/18 10:59 DC 06/18/18 12:22 167 MLS/HR Vancomycin HCl 2 gm/Sodium Chloride 500 ml @ 250 mls/hr 1X ONCE 06/20/18 11:00 06/20/18 12:59 Cancel Venlafaxine HCl (Effexor) 50 mg TID 06/16/18 21:00 06/19/18 21:28 50 MG Labs: Lab Laboratory Tests Test 06/20/18 06:30 White Blood Count 6.8 x10^3/uL (4.0-11.0) Red Blood Count 2.79 x10^6/uL (3.50-5.40) Hemoglobin 9.3 g/dL (12.0-15.5) Hematocrit 27.7 % (36.0-47.0) Mean Corpuscular Volume 99 fL (79-100) Mean Corpuscular Hemoglobin 33 pg (25-35) Mean Corpuscular Hemoglobin Concent 34 g/dL (31-37) Red Cell Distribution Width 13.6 % (11.5-14.5) Platelet Count 120 x10^3/uL (140-400) Neutrophils (%) (Auto) 86 % (31-73) Lymphocytes (%) (Auto) 7 % (24-48) Monocytes (%) (Auto) 7 % (0-9) Eosinophils (%) (Auto) 0 % (0-3) Basophils (%) (Auto) 0 % (0-3) Neutrophils # (Auto) 5.9 x10^3uL (1.8-7.7) Lymphocytes # (Auto) 0.4 x10^3/uL (1.0-4.8) Monocytes # (Auto) 0.5 x10^3/uL (0.0-1.1) Eosinophils # (Auto) 0.0 x10^3/uL (0.0-0.7) Basophils # (Auto) 0.0 x10^3/uL (0.0-0.2) Erythrocyte Sedimentation Rate 111 (0-25) Sodium Level 142 mmol/L (136-145) Potassium Level 4.2 mmol/L (3.5-5.1) Chloride Level 106 mmol/L (98-107) Carbon Dioxide Level 29 mmol/L (21-32) Anion Gap 7 (6-14) Blood Urea Nitrogen 16 mg/dL (7-20) Creatinine 1.0 mg/dL (0.6-1.0) Estimated GFR (Cockcroft-Gault) 53.1 BUN/Creatinine Ratio 16 (6-20) Glucose Level 109 mg/dL (70-99) Calcium Level 8.6 mg/dL (8.5-10.1) Total Bilirubin 0.4 mg/dL (0.2-1.0) Aspartate Amino Transf (AST/SGOT) 70 U/L (15-37) Alanine Aminotransferase (ALT/SGPT) 80 U/L (14-59) Alkaline Phosphatase 75 U/L (46-116) Total Protein 5.3 g/dL (6.4-8.2) Albumin 1.9 g/dL (3.4-5.0) Albumin/Globulin Ratio 0.6 (1.0-1.7) Vitamin B12 Level 564 pg/mL (247-911) Thyroid Stimulating Hormone (TSH) 6.204 uIU/mL (0.358-3.74) Micro BC neg Objective: Assessment: 1. Fever. source unclear ? pulm,BC neg so far 2. 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 Pancytopenia.Chemo induced 4. Hypoxia requiring supplemental oxygen. 5. Constipation. 6. Frequent falls. 7. Stage 4 lung cancer. Her last dose of chemo was about 2 weeks ago. 8. Status post craniotomy and evacuation for subdural hematoma on 06/11/2018. 9. Forgetfulness. 10. Hypertension. 11. Hypothyroidism. Plan: Plan of Care DC cefepime Off IV Vanc will start on zosyn cont doxycycline pulm consulted F/U MRI brain Influenza screen neg f/u c/s VIOLETA BALDWIN MD June 20, 2018 10:48
[2018-06-20 11:00] VITALS: BP 166/74
[2018-06-20] MEDS ORDERED: VANCOMYCIN 2 GM in IV NORMAL SALINE 500ML BAG 500 ML IV ONE (11:00)
[2018-06-20] MEDS: PIPERACILLIN/TAZOBACTAM 3.375 GM in IV NORMAL SALINE 50ML 50 ML IV SCH ×2 (12:11→18:17)
--- NOTE | 2018-06-20 12:16 | RAD ---
Video dysphasia study, 06/20/2018: History: Coughing and choking, dysphagia, pneumonia The swallowing mechanism was examined fluoroscopically in the lateral projection while the patient ingested a variety of food materials mixed with barium. 4.5 minutes of fluoroscopy time was utilized. One videofluoroscopic loop was recorded by a member of the speech Department. When ingesting the thin liquids there was intermittent laryngeal penetration with several episodes of minimal marlena aspiration. This did elicit a cough reflex. When the thicker materials were utilized there was a lesser degree of intermittent laryngeal penetration during swallowing. There tended be a moderate amount of base of tongue and vallecular residue with the thicker materials and barium coated solids. There was mild intermittent laryngeal penetration on delayed basis related to this residue. IMPRESSION: 1. Intermittent mild aspiration of the thin liquids. 2. Moderate vallecular and piriform sinus residue with the thicker materials with mild associated intermittent delayed laryngeal penetration.
--- NOTE | 2018-06-20 12:25 | RAD ---
Chest, 2 views, 06/20/2018: HISTORY: Dyspnea Comparison is made to a study from 06/16/2018. A right Port-A-Cath remains in place extending into the superior aspect of the right atrium. The heart size is within normal limits. There is calcific plaquing the aorta. Faint patchy opacities have developed in both lungs. There is no evidence of pleural fluid. The bony structures are demineralized. IMPRESSION: Faint patchy bilateral pulmonary opacities have developed suggesting atypical pneumonia versus pulmonary edema. Electronically signed by: Alfredo Mercado MD (06/20/2018 12:22 PM) [facility]
--- NOTE | 2018-06-20 13:17 | NUR ---
[facility] following pt. [facility] declined to take pt stating they can not meet pt's needs at this time. Discussed with Pt's daughter, Sasha via phone about other SNU options. Sasha reported she will have her sister Graciela call [facility] back to discuss options. Chart reviewed today and DAIJA RN. Pt is put on Pureed diet, has increased weakness and confusion. Pulmonary also consulted. Will continue to follow.
--- NOTE | 2018-06-20 16:08 | NUR ---
[facility] following pt. Pt's daughters chose [facility] and [facility] care and rehab. Referral faxed to both facilities and pt has been accepted at [facility]. Facility will have a bed available for pt upon dc. Pt's daughter, Graciela notified and agreeable with plans. Daughter also brought in DPOA paper work and a copy placed in chart. DAIJA LUGO.
--- NOTE | 2018-06-20 16:12 | RAD ---
MRI of the brain without contrast 06/20/2018 Clinical History: Altered mental status. Technique: Unenhanced T1-weighted sagittal and axial, T2-weighted axial and coronal and FLAIR, gradient echo and diffusion-weighted axial images of the brain were obtained. Findings: Comparison is made to patient's CT scan of the head dated 06/16/2018. Additional comparison is made to patient's MRI of the brain dated 05/12/2018. The patient is post right frontal craniotomy. A small residual subdural hematoma surrounds the right cerebral hemisphere. This measures 5 mm in thickness. It has decreased in size since the patient's recent CT scan where it measured 7 mm in greatest thickness. There is no mass effect. There is generalized parenchymal atrophy. Patchy, confluent and multiple focal areas of increased signal intensity are seen within the periventricular and subcortical white matter of both cerebral hemispheres along with the left and right thalamus and edson on the FLAIR and T2-weighted images consistent with areas of fairly extensive small vessel ischemic disease. These have not significant changed. No acute parenchymal abnormality is definitely seen. There is no MRI evidence of acute ischemia/infarction. A 3.5 cm mucous retention cyst is seen involving left maxillary sinus. Moderate to severe mucosal thickening is seen involving left maxillary sinus. Mild mucosal thickening is seen scattered throughout the remaining paranasal sinuses. There are minimal bilateral mastoid effusions. Normal flow voids are seen within the major vascular structures surrounding the brain parenchyma. Impression: Interval decrease in size of the small residual subdural hematoma surrounding the right cerebral hemisphere. There is no significant mass effect. No acute parenchymal abnormality is seen. Electronically signed by: Patrick Robles MD (06/20/2018 4:09 PM) [id number]
[2018-06-20] MEDS: IV NORMAL SALINE 1000ML BAG 1,000 ML IV SCH (18:29)
--- NOTE | 2018-06-20 18:32 | PDOC ---
PULMONARY PROGRESS NOTES Vitals Vital Signs Date Time Temp Pulse Resp B/P (MAP) Pulse Ox O2 Delivery O2 Flow Rate FiO2 06/20/18 16:27 111 166/74 06/20/18 11:00 100.6 18 91 Nasal Cannula 3.0 100.6 Labs Laboratory Tests Test 06/18/18 21:34 06/19/18 05:32 06/20/18 06:30 Urine Collection Type Unknown Urine Color Yellow Urine Clarity Cloudy Urine pH 5.5 Urine Specific [place] 1.020 Urine Protein 30 mg/dL (NEG-TRACE) Urine Glucose (UA) Negative mg/dL (NEG) Urine Ketones (Stick) Negative mg/dL (NEG) Urine Blood Negative (NEG) Urine Nitrite Negative (NEG) Urine Bilirubin Negative (NEG) Urine Urobilinogen Dipstick 0.2 mg/dL (0.2 mg/dL) Urine Leukocyte Esterase Trace (NEG) Urine RBC 0 /HPF (0-2) Urine WBC 1-4 /HPF (0-4) Urine Squamous Epithelial Cells Few /LPF Urine Amorphous Sediment Present /HPF Urine Bacteria 0 /HPF (0-FEW) Urine Hyaline Casts Occasional /HPF Urine Granular Casts Occasional /HPF Urine Mucus Mod /LPF Urine Yeast Present /HPF White Blood Count 6.0 x10^3/uL (4.0-11.0) 6.8 x10^3/uL (4.0-11.0) Red Blood Count 2.69 x10^6/uL (3.50-5.40) 2.79 x10^6/uL (3.50-5.40) Hemoglobin 8.9 g/dL (12.0-15.5) 9.3 g/dL (12.0-15.5) Hematocrit 26.9 % (36.0-47.0) 27.7 % (36.0-47.0) Mean Corpuscular Volume 100 fL (79-100) 99 fL (79-100) Mean Corpuscular Hemoglobin 33 pg (25-35) 33 pg (25-35) Mean Corpuscular Hemoglobin Concent 33 g/dL (31-37) 34 g/dL (31-37) Red Cell Distribution Width 13.5 % (11.5-14.5) 13.6 % (11.5-14.5) Platelet Count 92 x10^3/uL (140-400) 120 x10^3/uL (140-400) Neutrophils (%) (Auto) 80 % (31-73) 86 % (31-73) Lymphocytes (%) (Auto) 9 % (24-48) 7 % (24-48) Monocytes (%) (Auto) 11 % (0-9) 7 % (0-9) Eosinophils (%) (Auto) 0 % (0-3) 0 % (0-3) Basophils (%) (Auto) 0 % (0-3) 0 % (0-3) Neutrophils # (Auto) 4.8 x10^3uL (1.8-7.7) 5.9 x10^3uL (1.8-7.7) Lymphocytes # (Auto) 0.6 x10^3/uL (1.0-4.8) 0.4 x10^3/uL (1.0-4.8) Monocytes # (Auto) 0.6 x10^3/uL (0.0-1.1) 0.5 x10^3/uL (0.0-1.1) Eosinophils # (Auto) 0.0 x10^3/uL (0.0-0.7) 0.0 x10^3/uL (0.0-0.7) Basophils # (Auto) 0.0 x10^3/uL (0.0-0.2) 0.0 x10^3/uL (0.0-0.2) Sodium Level 140 mmol/L (136-145) 142 mmol/L (136-145) Potassium Level 3.6 mmol/L (3.5-5.1) 4.2 mmol/L (3.5-5.1) Chloride Level 104 mmol/L (98-107) 106 mmol/L (98-107) Carbon Dioxide Level 28 mmol/L (21-32) 29 mmol/L (21-32) Anion Gap 8 (6-14) 7 (6-14) Blood Urea Nitrogen 15 mg/dL (7-20) 16 mg/dL (7-20) Creatinine 1.1 mg/dL (0.6-1.0) 1.0 mg/dL (0.6-1.0) Estimated GFR (Cockcroft-Gault) 47.6 53.1 Glucose Level 124 mg/dL (70-99) 109 mg/dL (70-99) Calcium Level 8.8 mg/dL (8.5-10.1) 8.6 mg/dL (8.5-10.1) Erythrocyte Sedimentation Rate 111 (0-25) BUN/Creatinine Ratio 16 (6-20) Total Bilirubin 0.4 mg/dL (0.2-1.0) Aspartate Amino Transf (AST/SGOT) 70 U/L (15-37) Alanine Aminotransferase (ALT/SGPT) 80 U/L (14-59) Alkaline Phosphatase 75 U/L (46-116) Total Protein 5.3 g/dL (6.4-8.2) Albumin 1.9 g/dL (3.4-5.0) Albumin/Globulin Ratio 0.6 (1.0-1.7) Vitamin B12 Level 564 pg/mL (247-911) Thyroid Stimulating Hormone (TSH) 6.204 uIU/mL (0.358-3.74) Laboratory Tests Test 06/20/18 06:30 White Blood Count 6.8 x10^3/uL (4.0-11.0) Red Blood Count 2.79 x10^6/uL (3.50-5.40) Hemoglobin 9.3 g/dL (12.0-15.5) Hematocrit 27.7 % (36.0-47.0) Mean Corpuscular Volume 99 fL (79-100) Mean Corpuscular Hemoglobin 33 pg (25-35) Mean Corpuscular Hemoglobin Concent 34 g/dL (31-37) Red Cell Distribution Width 13.6 % (11.5-14.5) Platelet Count 120 x10^3/uL (140-400) Neutrophils (%) (Auto) 86 % (31-73) Lymphocytes (%) (Auto) 7 % (24-48) Monocytes (%) (Auto) 7 % (0-9) Eosinophils (%) (Auto) 0 % (0-3) Basophils (%) (Auto) 0 % (0-3) Neutrophils # (Auto) 5.9 x10^3uL (1.8-7.7) Lymphocytes # (Auto) 0.4 x10^3/uL (1.0-4.8) Monocytes # (Auto) 0.5 x10^3/uL (0.0-1.1) Eosinophils # (Auto) 0.0 x10^3/uL (0.0-0.7) Basophils # (Auto) 0.0 x10^3/uL (0.0-0.2) Erythrocyte Sedimentation Rate 111 (0-25) Sodium Level 142 mmol/L (136-145) Potassium Level 4.2 mmol/L (3.5-5.1) Chloride Level 106 mmol/L (98-107) Carbon Dioxide Level 29 mmol/L (21-32) Anion Gap 7 (6-14) Blood Urea Nitrogen 16 mg/dL (7-20) Creatinine 1.0 mg/dL (0.6-1.0) Estimated GFR (Cockcroft-Gault) 53.1 BUN/Creatinine Ratio 16 (6-20) Glucose Level 109 mg/dL (70-99) Calcium Level 8.6 mg/dL (8.5-10.1) Total Bilirubin 0.4 mg/dL (0.2-1.0) Aspartate Amino Transf (AST/SGOT) 70 U/L (15-37) Alanine Aminotransferase (ALT/SGPT) 80 U/L (14-59) Alkaline Phosphatase 75 U/L (46-116) Total Protein 5.3 g/dL (6.4-8.2) Albumin 1.9 g/dL (3.4-5.0) Albumin/Globulin Ratio 0.6 (1.0-1.7) Vitamin B12 Level 564 pg/mL (247-911) Thyroid Stimulating Hormone (TSH) 6.204 uIU/mL (0.358-3.74) Medications Active Scripts Medications Dose Route/Sig Max Daily Dose Days Date Category Gabapentin 600 Mg Tablet 300 Mg PO HS 06/16/18 Reported Hydralazine Hcl 25 Mg Tablet 25 Mg PO TID 30 05/17/18 Rx Clonidine Tts-1 (Clonidine) 1 Each Patch.tdwk 1 Patch TD WEEKLY 30 05/17/18 Rx Mysoline (Primidone) 250 Mg Tablet 500 Mg PO QHS 05/13/18 Reported Effexor Xr (Venlafaxine Hcl) 150 Mg Cap.er.24h 1 Cap PO DAILY 05/13/18 Reported Folic Acid 1 Mg Tablet 1 Tab PO DAILY 11/26/17 Reported Asmanex (Mometasone Furoate) 220 Mcg Aer.pow.ba 200 Mcg INH BID 10/17/17 Reported Primidone 250 Mg Tablet 250 Mg PO TID 10/17/17 Reported Pravastatin Sodium 20 Mg Tablet 1 Tab PO DAILY 10/17/17 Reported Cartia Xt (Diltiazem Hcl) 180 Mg Cap.er.24h 180 Mg PO 10/17/17 Reported Levothyroxine Sodium 50 Mcg Tablet 1 Tab PO DAILY 10/17/17 Reported Impression . ABNORMAL CXR GROUND GLASS INFILTRATES SEC TO ASPIRATION VS DRUG INDUCED FROM CHEMO ON 06/06/18 ADD STEROIDS DONY GARCIA MD June 20, 2018 18:32
[2018-06-20 19:20] VITALS: BP 112/76
[2018-06-20] MEDS: ATORVASTATIN CALCIUM 10 MG TABLET. PO SCH (20:57)
[2018-06-20] MEDS: GABAPENTIN 300 MG CAPSULE. PO SCH (20:57)
[2018-06-20] MEDS: ACETAMINOPHEN 325 MG TABLET. PO PRN (20:57)
[2018-06-20] MEDS ORDERED: LACTOBACILLUS RHAMNOSUS GG 1 CAPSULE. PO SCH (21:00)
[2018-06-20] MEDS: methylPREDNISolone SOD SUCC PF 125 MG/2 ML VIAL. IV SCH (21:54)
[2018-06-20 22:48] VITALS: BP 120/73
[2018-06-21] MEDS: PIPERACILLIN/TAZOBACTAM 3.375 GM in IV NORMAL SALINE 50ML 50 ML IV SCH ×2 (01:06→06:05)
[2018-06-21] MEDS: diphenhydrAMINE 50 MG/ML VIAL IVP PRN (01:09)
[2018-06-21 03:00] VITALS: BP 146/64
[2018-06-21] MEDS: methylPREDNISolone SOD SUCC PF 125 MG/2 ML VIAL. IV SCH ×3 (06:05→22:05)
[2018-06-21] MEDS: LEVOTHYROXINE 50 MCG TABLET PO SCH (06:08)
[2018-06-21 07:00] VITALS: BP 128/61
[2018-06-21 07:04] LABS: BASO % 0 % (0-3); EOS % 0 % (0-3); HEMATOCRIT 25.2 % (36.0-47.0); HEMOGLOBIN 8.4 g/dL (12.0-15.5); LYMPH # 0.3 x10^3/uL (1.0-4.8); LYMPH % 5 % (24-48); MEAN CORPUSCULAR HEMOGLOBIN 33 pg (25-35); MEAN CORPUSCULAR HGB CONC 33 g/dL (31-37); MEAN CORPUSCULAR VOLUME 99 fL (79-100); MONO # 0.2 x10^3/uL (0.0-1.1); MONO % 4 % (0-9); NEUT # 5.4 x10^3uL (1.8-7.7); NEUT % 91 % (31-73); PLATELET COUNT 156 x10^3/uL (140-400); RED BLOOD COUNT 2.54 x10^6/uL (3.50-5.40); RED CELL DISTRIBUTION WIDTH 13.6 % (11.5-14.5); WHITE BLOOD COUNT 5.9 x10^3/uL (4.0-11.0)
[2018-06-21 07:07] LABS: ALBUMIN 1.8 g/dL (3.4-5.0); ALBUMIN/GLOBULIN RATIO 0.4 (1.0-1.7); CALCIUM 8.8 mg/dL (8.5-10.1); CREATININE 1.1 mg/dL (0.6-1.0); GFR 47.6; POTASSIUM 3.9 mmol/L (3.5-5.1); TOTAL BILIRUBIN 0.3 mg/dL (0.2-1.0); TOTAL PROTEIN 5.9 g/dL (6.4-8.2)
[2018-06-21] MEDS: BUDESONIDE 0.5 MG/2 ML NEBU. NEB SCH ×2 (07:52→17:54)
[2018-06-21] MEDS: PRIMIDONE 250 MG TABLET PO SCH ×4 (09:23→21:08)
[2018-06-21] MEDS: VENLAFAXINE 50 MG TABLET. PO SCH ×3 (09:23→21:08)
[2018-06-21] MEDS: DOXYCYCLINE HYCLATE 100 MG TABLET PO SCH ×2 (09:23→21:08)
[2018-06-21] MEDS: hydrALAZINE 25 MG TABLET PO SCH ×3 (09:24→21:09)
[2018-06-21] MEDS: FOLIC ACID 1 MG TABLET. PO SCH (09:24)
--- NOTE | 2018-06-21 09:58 | CONS ---
DATE OF CONSULTATION: 06/20/2018 ATTENDING PHYSICIAN: Dr. Hernandez. CONSULTING PHYSICIAN: Dony Bloom MD. REASON FOR CONSULTATION: The patient seen in pulmonary consultation at the request of Dr. Hernandez for abnormal chest x-ray. HISTORY OF PRESENT ILLNESS: The patient is an 83-year-old with stage 4 lung cancer, admitted with frequent falls and weakness. She was diagnosed with right upper lobe nonsmall cell lung cancer stage 4, diagnosed on 10/17/2017 with metastatic disease and bilateral hilar lymph nodes mediastinum and left adrenal gland. She responded well to chemotherapy, received cycle 8 of treatment back in 06/06/2018 with pembrolizumab and Alimta. She was admitted with fever, weakness, leukopenia and anemia. Over the last several days, she has been more short of air. Chest x-ray was obtained today. I reviewed it. There are bilateral ground glass opacities. She actually had a CT angiogram back on 06/16, four days ago. I reviewed it. There was no evidence of central pulmonary emboli. There was focal density in the posterior right upper lobe. There was also a couple of areas of mild density in both lungs, some ground-glass infiltrates were seen diffusely. The patient denies fever, chills, night sweats and cough, mostly nonproductive. She did have a video dysphagia study, which revealed intermittent mild aspiration of thin liquids. There was moderate vallecular and pyriform sinus residue with thickened material with associated intermittent delay in laryngeal penetration. PAST MEDICAL HISTORY: 1. 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 2. Frequent falls. She actually had a CT head, which was performed on 06/16/2018, revealing a right frontal craniotomy with small residual subdural hematoma. She had a previous evacuation of subdural hematoma back in 05/12/2018. 3. Breast cancer. 4. Depression. 5. Hyperlipidemia. 6. Hypertension. 7. Neuropathy. PAST SURGICAL HISTORY: Status post previous craniotomy for subdural hematoma. SOCIAL HISTORY: She quit tobacco in 1998. FAMILY HISTORY: Sister with lung cancer. REVIEW OF SYSTEMS: CONSTITUTIONAL: No fever or chills. EYES: No change in visual acuity. HEENT: No nasal congestion or sore throat. PULMONARY: As indicated above. CARDIOVASCULAR: No chest pain or pressure. GASTROINTESTINAL: No nausea, vomiting, diarrhea. GENITOURINARY: No dysuria, frequency. MUSCULOSKELETAL: Generalized weakness. No localized muscle aches or joint pain. SKIN: No new skin rashes. NEUROLOGIC: No new headaches, diplopia or blurred vision. MEDICATIONS: List was reviewed. Her home medication list was likewise reviewed. From a pulmonary standpoint of view at home, she was on Asmanex. CURRENT MEDICATION: List was likewise reviewed. She is currently receiving IV Zosyn. She has been on cefepime. She is also on doxycycline. PHYSICAL EXAMINATION: GENERAL: The patient appeared to be younger than stated age. VITAL SIGNS: Stable. O2 saturation was greater than 92%. HEENT: Eyes, the sclerae were nonicteric. NECK: Jugular venous distention was not elevated. No lymphadenopathy. CHEST: Full expansion. LUNGS: Slight crackles throughout both lung keating. No wheezes. CARDIOVASCULAR: Regular rate and rhythm with S1, S2, no S3. ABDOMEN: Soft, nontender, nondistended. EXTREMITIES: No clubbing, cyanosis or edema. NEUROLOGIC: The patient was awake, alert, following commands. A detailed neuro exam was not performed. LABORATORY DATA: Reviewed. White count was normal, hemoglobin and hematocrit were noted. INR was noted. Electrolytes were normal. TSH was elevated. Albumin was low. IMPRESSION: 1. Abnormal x-ray revealing ground glass opacity, suspect secondary to aspiration versus drug-induced alveolitis. 2. Fever, improved. The patient has been on antibiotics. 3. Leukopenia. 4. Anemia. 5. Thrombocytopenia. 6. Subdural hematoma, recent MRI reveals no recurrent problems. 7. Non-small cell lung cancer stage 4 adenocarcinoma of the right upper lobe. PLAN: 1. Suspected ground glass opacities, drug-induced. The patient received Alimta back on 06/06. 2. We will discuss with Dr. Lindquist. For now, continue supportive measures with antibiotics and steroids and oxygen. Follow speech therapy for dysphagia. Video dysphagia study was positive for aspiration. I do appreciate the privilege in sharing in the patient's care. DONY BLOOM MD DR: WARREN/yesi JOB#: [id number] / [id number]
--- NOTE | 2018-06-21 10:07 | PDOC ---
PROGRESS NOTES Subjective Subjective No new complaints except nursing reports of her sleepy this AM. Objective Objective Vital Signs Date Time Temp Pulse Resp B/P (MAP) Pulse Ox O2 Delivery O2 Flow Rate FiO2 06/21/18 09:24 78 128/61 06/21/18 07:55 97 Venturi Mask 4.0 06/21/18 07:00 96.6 12 96.6 Intake and Output 06/21/18 07:00 Intake Total 270 ml Balance 270 ml Intake Oral 220 ml IV Total 50 ml # Voids 5 # Bowel Movements 1 Physical Exam Physical Exam She got up and walked at bedside with roller walker with minimal assistance and she continues with high level balance problems secondary to cognitive problems. Assessment Assessment Problems Medical Problems: (1) Elevated d-dimer Status: Acute (2) Elevated liver function tests Status: Acute (3) Frequent falls Status: Acute (4) Generalized weakness Status: Acute (5) History of intracranial hemorrhage Status: Acute (6) History of lung cancer Status: Acute (7) Pancytopenia Status: Acute (8) Tachycardia Status: Acute Plan Plan of Care To SNF for continued care when medically stable. Comment Review of Relevant I have reviewed the following items malcolm (where applicable) has been applied. Labs Laboratory Tests Test 06/20/18 06:30 06/20/18 21:45 06/21/18 06:30 White Blood Count 6.8 x10^3/uL (4.0-11.0) 5.9 x10^3/uL (4.0-11.0) Red Blood Count 2.79 x10^6/uL (3.50-5.40) 2.54 x10^6/uL (3.50-5.40) Hemoglobin 9.3 g/dL (12.0-15.5) 8.4 g/dL (12.0-15.5) Hematocrit 27.7 % (36.0-47.0) 25.2 % (36.0-47.0) Mean Corpuscular Volume 99 fL (79-100) 99 fL (79-100) Mean Corpuscular Hemoglobin 33 pg (25-35) 33 pg (25-35) Mean Corpuscular Hemoglobin Concent 34 g/dL (31-37) 33 g/dL (31-37) Red Cell Distribution Width 13.6 % (11.5-14.5) 13.6 % (11.5-14.5) Platelet Count 120 x10^3/uL (140-400) 156 x10^3/uL (140-400) Neutrophils (%) (Auto) 86 % (31-73) 91 % (31-73) Lymphocytes (%) (Auto) 7 % (24-48) 5 % (24-48) Monocytes (%) (Auto) 7 % (0-9) 4 % (0-9) Eosinophils (%) (Auto) 0 % (0-3) 0 % (0-3) Basophils (%) (Auto) 0 % (0-3) 0 % (0-3) Neutrophils # (Auto) 5.9 x10^3uL (1.8-7.7) 5.4 x10^3uL (1.8-7.7) Lymphocytes # (Auto) 0.4 x10^3/uL (1.0-4.8) 0.3 x10^3/uL (1.0-4.8) Monocytes # (Auto) 0.5 x10^3/uL (0.0-1.1) 0.2 x10^3/uL (0.0-1.1) Eosinophils # (Auto) 0.0 x10^3/uL (0.0-0.7) 0.0 x10^3/uL (0.0-0.7) Basophils # (Auto) 0.0 x10^3/uL (0.0-0.2) 0.0 x10^3/uL (0.0-0.2) Erythrocyte Sedimentation Rate 111 (0-25) Sodium Level 142 mmol/L (136-145) 143 mmol/L (136-145) Potassium Level 4.2 mmol/L (3.5-5.1) 3.9 mmol/L (3.5-5.1) Chloride Level 106 mmol/L (98-107) 106 mmol/L (98-107) Carbon Dioxide Level 29 mmol/L (21-32) 30 mmol/L (21-32) Anion Gap 7 (6-14) 7 (6-14) Blood Urea Nitrogen 16 mg/dL (7-20) 15 mg/dL (7-20) Creatinine 1.0 mg/dL (0.6-1.0) 1.1 mg/dL (0.6-1.0) Estimated GFR (Cockcroft-Gault) 53.1 47.6 BUN/Creatinine Ratio 16 (6-20) 14 (6-20) Glucose Level 109 mg/dL (70-99) 166 mg/dL (70-99) Calcium Level 8.6 mg/dL (8.5-10.1) 8.8 mg/dL (8.5-10.1) Total Bilirubin 0.4 mg/dL (0.2-1.0) 0.3 mg/dL (0.2-1.0) Aspartate Amino Transf (AST/SGOT) 70 U/L (15-37) 66 U/L (15-37) Alanine Aminotransferase (ALT/SGPT) 80 U/L (14-59) 77 U/L (14-59) Alkaline Phosphatase 75 U/L (46-116) 73 U/L (46-116) Total Protein 5.3 g/dL (6.4-8.2) 5.9 g/dL (6.4-8.2) Albumin 1.9 g/dL (3.4-5.0) 1.8 g/dL (3.4-5.0) Albumin/Globulin Ratio 0.6 (1.0-1.7) 0.4 (1.0-1.7) Vitamin B12 Level 564 pg/mL (247-911) Thyroid Stimulating Hormone (TSH) 6.204 uIU/mL (0.358-3.74) Lactic Acid Level 0.9 mmol/L (0.4-2.0) Laboratory Tests Test 06/20/18 21:45 06/21/18 06:30 Lactic Acid Level 0.9 mmol/L (0.4-2.0) White Blood Count 5.9 x10^3/uL (4.0-11.0) Red Blood Count 2.54 x10^6/uL (3.50-5.40) Hemoglobin 8.4 g/dL (12.0-15.5) Hematocrit 25.2 % (36.0-47.0) Mean Corpuscular Volume 99 fL (79-100) Mean Corpuscular Hemoglobin 33 pg (25-35) Mean Corpuscular Hemoglobin Concent 33 g/dL (31-37) Red Cell Distribution Width 13.6 % (11.5-14.5) Platelet Count 156 x10^3/uL (140-400) Neutrophils (%) (Auto) 91 % (31-73) Lymphocytes (%) (Auto) 5 % (24-48) Monocytes (%) (Auto) 4 % (0-9) Eosinophils (%) (Auto) 0 % (0-3) Basophils (%) (Auto) 0 % (0-3) Neutrophils # (Auto) 5.4 x10^3uL (1.8-7.7) Lymphocytes # (Auto) 0.3 x10^3/uL (1.0-4.8) Monocytes # (Auto) 0.2 x10^3/uL (0.0-1.1) Eosinophils # (Auto) 0.0 x10^3/uL (0.0-0.7) Basophils # (Auto) 0.0 x10^3/uL (0.0-0.2) Sodium Level 143 mmol/L (136-145) Potassium Level 3.9 mmol/L (3.5-5.1) Chloride Level 106 mmol/L (98-107) Carbon Dioxide Level 30 mmol/L (21-32) Anion Gap 7 (6-14) Blood Urea Nitrogen 15 mg/dL (7-20) Creatinine 1.1 mg/dL (0.6-1.0) Estimated GFR (Cockcroft-Gault) 47.6 BUN/Creatinine Ratio 14 (6-20) Glucose Level 166 mg/dL (70-99) Calcium Level 8.8 mg/dL (8.5-10.1) Total Bilirubin 0.3 mg/dL (0.2-1.0) Aspartate Amino Transf (AST/SGOT) 66 U/L (15-37) Alanine Aminotransferase (ALT/SGPT) 77 U/L (14-59) Alkaline Phosphatase 73 U/L (46-116) Total Protein 5.9 g/dL (6.4-8.2) Albumin 1.8 g/dL (3.4-5.0) Albumin/Globulin Ratio 0.4 (1.0-1.7) Microbiology 06/17/18 Blood Culture - Preliminary, Resulted NO GROWTH AFTER 3 DAYS Medications Current Medications Iohexol (Omnipaque 350 Mg/ml) 75 ml 1X ONCE IV Last administered on 06/16/18at 15:44; Start 06/16/18 at 15:30; Stop 06/16/18 at 15:31; Status DC Info (CONTRAST GIVEN -- Rx MONITORING) 1 each PRN DAILY PRN MC SEE COMMENTS; Start 06/16/18 at 15:30; Stop 06/18/18 at 15:29; Status DC Clonidine HCl (Catapres Tts-1) 1 patch WEEKLY TD Last administered on 06/17/18 09:11; Start 06/17/18 at 09:00; Stop 06/20/18 at 09:48; Status DC Folic Acid (Folic Acid) 1 mg DAILY PO Last administered on 06/21/18 09:24; Start 06/17/18 at 09:00 Gabapentin (Neurontin) 300 mg HS PO Last administered on 06/20/18 20:57; Start 06/16/18 at 21:00 Hydralazine HCl (Apresoline) 25 mg TID PO Last administered on 06/21/18 09:24; Start 06/16/18 at 21:00 Levothyroxine Sodium (Synthroid) 50 mcg DAILY06 PO Last administered on 06/21/18 06:08; Start 06/17/18 at 06:00 Non-Formulary Medication (Mometasone Furoate (Asmanex)) 200 mcg BID INH ; Start 06/16/18 at 21:00; Status UNV Atorvastatin Calcium (Lipitor) 5 mg QHS PO Last administered on 06/20/18 20:57; Start 06/16/18 at 21:00 Primidone (Mysoline) 250 mg DAILYWSUP PO ; Start 06/16/18 at 17:45; Stop 06/16/18 at 17:59; Status DC Primidone (Mysoline) 500 mg QHS PO Last administered on 06/20/18 20:56; Start 06/16/18 at 21:00 Venlafaxine HCl (Effexor) 50 mg TID PO Last administered on 06/21/18 09:23; Start 06/16/18 at 21:00 Diltiazem HCl (Cardizem 24hr Cd) 180 mg DAILY PO Last administered on 06/21/18at 09:24; Start 06/17/18 at 09:00 Budesonide (Pulmicort) 0.5 mg RTBID NEB Last administered on 06/21/18at 07:52; Start 06/16/18 at 20:00 Primidone (Mysoline) 250 mg TID@0900,1200,1700 PO Last administered on 06/21/18at 09:23; Start 06/17/18 at 09:00 Hydralazine HCl (Apresoline Inj) 10 mg PRN Q4HRS PRN IVP ELEVATED BP, SEE COMMENTS; Start 06/16/18 at 19:00 Ceftriaxone Sodium (Rocephin) 1 gm 1X ONCE IVP Last administered on 06/17/18at 04:42; Start 06/17/18 at 03:30; Stop 06/17/18 at 03:32; Status DC Acetaminophen (Tylenol) 650 mg PRN Q6HRS PRN PO FEVER Last administered on 06/20/18at 20:57; Start 06/17/18 at 03:15 Piperacillin Sod/ Tazobactam Sod 3.375 gm/Sodium Chloride 50 ml @ 100 mls/hr Q6HRS IV Last administered on 06/18/18at 05:48; Start 06/17/18 at 12:00; Stop 06/18/18 at 10:11; Status DC Vancomycin HCl (Vanco Per Pharmacy) 1 each PRN DAILY PRN MC SEE COMMENTS Last administered on 06/17/18at 14:08; Start 06/17/18 at 12:00; Stop 06/19/18 at 11:01; Status DC Vancomycin HCl 2 gm/Sodium Chloride 500 ml @ 250 mls/hr 1X ONCE IV Last administered on 06/17/18at 13:18; Start 06/17/18 at 12:30; Stop 06/17/18 at 14:29; Status DC Vancomycin HCl 1.25 gm/Sodium Chloride 250 ml @ 167 mls/hr Q24H IV Last admini stered on 06/18/18at 12:22; Start 06/18/18 at 13:00; Stop 06/19/18 at 10:59; Status DC Vancomycin HCl (Vancomycin Trough Level) 1 each 1X ONCE MC ; Start 06/19/18 at 12:30; Stop 06/19/18 at 12:31; Status Cancel Sodium Chloride 1,000 ml @ 25 mls/hr Q24H IV Last administered on 06/20/18at 18:29; Start 06/17/18 at 14:45 Cefepime HCl (Maxipime) 2 gm Q8HRS IVP Last administered on 06/19/18at 21:34; Start 06/18/18 at 14:00; Stop 06/20/18 at 10:45; Status DC Doxycycline Hyclate (Vibra-Tab) 100 mg BID PO Last administered on 06/21/18at 09:23; Start 06/18/18 at 11:00 Diphenhydramine HCl (Benadryl) 25 mg TID PRN PRN IVP ITCHING Last administered on 06/21/18at 01:09; Start 06/20/18 at 04:30 Vancomycin HCl (Vanco Per Pharmacy) 1 each PRN DAILY PRN MC SEE COMMENTS; Start 06/20/18 at 10:00; Stop 06/20/18 at 10:00; Status DC Vancomycin HCl 2 gm/Sodium Chloride 500 ml @ 250 mls/hr 1X ONCE IV ; Start 06/20/18 at 11:00; Stop 06/20/18 at 12:59; Status Cancel Barium Sulfate (Varibar Thin Liquid Apple) 148 gm 1X ONCE PO Last administered on 06/20/18at 11:42; Start 06/20/18 at 10:30; Stop 06/20/18 at 10:31; Status DC Piperacillin Sod/ Tazobactam Sod 3.375 gm/Sodium Chloride 50 ml @ 100 mls/hr Q6HRS IV Last administered on 06/21/18at 06:05; Start 06/20/18 at 12:00 Methylprednisolone Sodium Succinate (SOLU-Medrol 125MG VIAL) 125 mg Q8HRS IV Last administered on 06/21/18at 06:05; Start 06/20/18 at 22:00 Lactobacillus Rhamnosus (Culturelle) 1 cap BID PO ; Start 06/20/18 at 21:00; Status Cancel Active Scripts Active Hydralazine Hcl 25 Mg Tablet 25 Mg PO TID 30 Days Clonidine Tts-1 (Clonidine) 1 Each Patch.tdwk 1 Patch TD WEEKLY 30 Days Reported Gabapentin 600 Mg Tablet 300 Mg PO HS Mysoline (Primidone) 250 Mg Tablet 500 Mg PO QHS Effexor Xr (Venlafaxine Hcl) 150 Mg Cap.er.24h 1 Cap PO DAILY Folic Acid 1 Mg Tablet 1 Tab PO DAILY Asmanex (Mometasone Furoate) 220 Mcg Aer.pow.ba 200 Mcg INH BID Primidone 250 Mg Tablet 250 Mg PO TID Pravastatin Sodium 20 Mg Tablet 1 Tab PO DAILY Cartia Xt (Diltiazem Hcl) 180 Mg Cap.er.24h 180 Mg PO Levothyroxine Sodium 50 Mcg Tablet 1 Tab PO DAILY Vitals/I & O Vital Sign - Last 24 Hours 06/20/18 06/20/18 06/20/18 06/20/18 11:00 16:27 19:20 20:05 Temp 100.6 101.6 100.6 101.6 Pulse 111 111 113 Resp 18 25 B/P (MAP) 166/74 (104) 166/74 112/76 (88) Pulse Ox 91 90 O2 Delivery Nasal Cannula Nasal Cannula Nasal Cannula O2 Flow Rate 3.0 2.0 2.0 06/20/18 06/20/18 06/20/18 06/21/18 20:57 21:26 22:48 03:00 Temp 97.1 97.8 97.1 97.8 Pulse 113 106 89 Resp 20 18 B/P (MAP) 112/76 120/73 (89) 146/64 (91) Pulse Ox 85 93 95 O2 Delivery Nasal Cannula Nasal Cannula Nasal Cannula O2 Flow Rate 2.0 2.0 2.0 06/21/18 06/21/18 06/21/18 06/21/18 07:00 07:51 07:55 09:24 Temp 96.6 96.6 Pulse 78 78 Resp 12 B/P (MAP) 128/61 (83) 128/61 Pulse Ox 95 97 O2 Delivery Venturi Mask Venturi Mask Venturi Mask O2 Flow Rate 15.0 15.0 4.0 06/21/18 09:24 Pulse 78 B/P (MAP) 128/61 Intake and Output 06/20/18 06/20/18 06/21/18 15:00 23:00 07:00 Intake Total 120 ml 100 ml 50 ml Balance 120 ml 100 ml 50 ml ELVIA WARD MD June 21, 2018 10:07
[2018-06-21 11:00] VITALS: BP 151/58
--- NOTE | 2018-06-21 11:02 | PDOC ---
PROGRESS NOTES Subjective Subjective sleepy this morning Objective Objective Vital Signs Date Time Temp Pulse Resp B/P (MAP) Pulse Ox O2 Delivery O2 Flow Rate FiO2 06/21/18 09:24 78 128/61 06/21/18 07:55 97 Venturi Mask 4.0 06/21/18 07:00 96.6 12 96.6 Intake and Output 06/21/18 07:00 Intake Total 270 ml Balance 270 ml Intake Oral 220 ml IV Total 50 ml # Voids 5 # Bowel Movements 1 Physical Exam Heart: Normal S1, Normal S2 General: No acute distress Lungs: Clear to auscultation Neck: No JVD Neuro: Normal speech Psych/Mental Status: Mental status NL Diagnosis Problem List Problems Medical Problems: (1) Elevated d-dimer Status: Acute (2) Elevated liver function tests Status: Acute (3) Frequent falls Status: Acute (4) Generalized weakness Status: Acute (5) History of intracranial hemorrhage Status: Acute (6) History of lung cancer Status: Acute (7) Pancytopenia Status: Acute (8) Tachycardia Status: Acute Assessment Assessment IMP:Aspiration pneumonia 1. Subdural hematoma. 2. Frequent falls. 3. Pancytopenia. 4. Weakness. 5. Lung cancer with recent chemotherapy. 6. Hypertension, not controlled, accelerated. 7. Hypothyroidism. 8. Depression. 9. Anxiety. 10. Essential tremors. 11. Carcinoma of breast with left mastectomy. PLAN: IV Zosyn. ID on the case speech/pt/ot. MRI brain noted dec subdural hematoma. SNU saturday. I will consult Dr. Fournier for reevaluation and management. Start PT, OT. Consult Dr. Frank to make sure that the patient does not have any hydrocephalus or any other issues that is making her fall more frequently. Prognosis of this patient is poor due to her multiple medical problems. We will consult Dr. Lindquist and monitor pancytopenia. Her absolute neutrophil count is still 1.3 K. For details, please refer the orders. Frequent falls- discussed with Dr. Fournier. Patient is not safe because she is not following cues and falls frequently. Cancer of the lung- discussed with Dr. Lindquist. Patient wants to continue chemotherapy which is every 3 weeks. Recent subdural hematoma- patient remains impulsive and a very high risk for falls. May need to discharge her again to a prison unit. Fever- I have ordered urine and blood cultures. Patient is now on IV Zosyn and vancomycin. Blood culture 1 is negative. Other blood culture could not be drawn. Patient has been coughing more. Etiology of her fever not clear so far. Continue IV Zosyn and vancomycin. I discussed with the patient that she is immunosuppressed. She doesn't understand the gravity of her condition and just wants to go home. Her prognosis is very poor. Weakness- getting worse. Memory loss getting worse. Dr. Draper has seen the patient and patient is not competent to make any healthcare decisions Acute metabolic encephalopathy Possible aspiration Acute hypoxic respite a failure on oxygen by nasal cannula 2 L/m. Consult Dr. Bloom for pulmonary evaluation and management. Prognosis of this patient is very poor. Because patient is lethargic I'll discontinue Catapres-TTS and see if that helps her swallowing as well as her lethargy. Plan Plan of Care Problems Medical Problems: (1) Elevated d-dimer Status: Acute (2) Elevated liver function tests Status: Acute (3) Frequent falls Status: Acute (4) Generalized weakness Status: Acute (5) History of intracranial hemorrhage Status: Acute (6) History of lung cancer Status: Acute (7) Pancytopenia Status: Acute (8) Tachycardia Status: Acute Comment Review of Relevant I have reviewed the following items malcolm (where applicable) has been applied. Labs Laboratory Tests Test 06/20/18 21:45 06/21/18 06:30 Lactic Acid Level 0.9 mmol/L (0.4-2.0) White Blood Count 5.9 x10^3/uL (4.0-11.0) Red Blood Count 2.54 x10^6/uL (3.50-5.40) Hemoglobin 8.4 g/dL (12.0-15.5) Hematocrit 25.2 % (36.0-47.0) Mean Corpuscular Volume 99 fL (79-100) Mean Corpuscular Hemoglobin 33 pg (25-35) Mean Corpuscular Hemoglobin Concent 33 g/dL (31-37) Red Cell Distribution Width 13.6 % (11.5-14.5) Platelet Count 156 x10^3/uL (140-400) Neutrophils (%) (Auto) 91 % (31-73) Lymphocytes (%) (Auto) 5 % (24-48) Monocytes (%) (Auto) 4 % (0-9) Eosinophils (%) (Auto) 0 % (0-3) Basophils (%) (Auto) 0 % (0-3) Neutrophils # (Auto) 5.4 x10^3uL (1.8-7.7) Lymphocytes # (Auto) 0.3 x10^3/uL (1.0-4.8) Monocytes # (Auto) 0.2 x10^3/uL (0.0-1.1) Eosinophils # (Auto) 0.0 x10^3/uL (0.0-0.7) Basophils # (Auto) 0.0 x10^3/uL (0.0-0.2) Sodium Level 143 mmol/L (136-145) Potassium Level 3.9 mmol/L (3.5-5.1) Chloride Level 106 mmol/L (98-107) Carbon Dioxide Level 30 mmol/L (21-32) Anion Gap 7 (6-14) Blood Urea Nitrogen 15 mg/dL (7-20) Creatinine 1.1 mg/dL (0.6-1.0) Estimated GFR (Cockcroft-Gault) 47.6 BUN/Creatinine Ratio 14 (6-20) Glucose Level 166 mg/dL (70-99) Calcium Level 8.8 mg/dL (8.5-10.1) Total Bilirubin 0.3 mg/dL (0.2-1.0) Aspartate Amino Transf (AST/SGOT) 66 U/L (15-37) Alanine Aminotransferase (ALT/SGPT) 77 U/L (14-59) Alkaline Phosphatase 73 U/L (46-116) Total Protein 5.9 g/dL (6.4-8.2) Albumin 1.8 g/dL (3.4-5.0) Albumin/Globulin Ratio 0.4 (1.0-1.7) Microbiology 06/17/18 Blood Culture - Preliminary, Resulted NO GROWTH AFTER 3 DAYS Medications Current Medications Lactobacillus Rhamnosus (Culturelle) 1 cap BID PO ; Start 06/20/18 at 21:00; Status Cancel Methylprednisolone Sodium Succinate (SOLU-Medrol 125MG VIAL) 125 mg Q8HRS IV Last administered on 06/21/18at 06:05; Start 06/20/18 at 22:00 Piperacillin Sod/ Tazobactam Sod 3.375 gm/Sodium Chloride 50 ml @ 100 mls/hr Q6HRS IV Last administered on 06/21/18at 06:05; Start 06/20/18 at 12:00 Vancomycin HCl 2 gm/Sodium Chloride 500 ml @ 250 mls/hr 1X ONCE IV ; Start 06/20/18 at 11:00; Stop 06/20/18 at 12:59; Status Cancel Vitals/I & O Vital Sign - Last 24 Hours 06/20/18 06/20/18 06/20/18 06/20/18 11:00 16:27 19:20 20:05 Temp 100.6 101.6 100.6 101.6 Pulse 111 111 113 Resp 18 25 B/P (MAP) 166/74 (104) 166/74 112/76 (88) Pulse Ox 91 90 O2 Delivery Nasal Cannula Nasal Cannula Nasal Cannula O2 Flow Rate 3.0 2.0 2.0 06/20/18 06/20/18 06/20/18 06/21/18 20:57 21:26 22:48 03:00 Temp 97.1 97.8 97.1 97.8 Pulse 113 106 89 Resp 20 18 B/P (MAP) 112/76 120/73 (89) 146/64 (91) Pulse Ox 85 93 95 O2 Delivery Nasal Cannula Nasal Cannula Nasal Cannula O2 Flow Rate 2.0 2.0 2.0 06/21/18 06/21/18 06/21/18 06/21/18 07:00 07:51 07:55 09:24 Temp 96.6 96.6 Pulse 78 78 Resp 12 B/P (MAP) 128/61 (83) 128/61 Pulse Ox 95 97 O2 Delivery Venturi Mask Venturi Mask Venturi Mask O2 Flow Rate 15.0 15.0 4.0 06/21/18 09:24 Pulse 78 B/P (MAP) 128/61 Intake and Output 06/20/18 06/20/18 06/21/18 15:00 23:00 07:00 Intake Total 120 ml 100 ml 50 ml Balance 120 ml 100 ml 50 ml MAIN HARO MD June 21, 2018 11:02
--- NOTE | 2018-06-21 13:09 | PDOC ---
Infectious Disease Note Subjective Subjective Feeling alright, wants to go home Eating bit more today Fever last evening, Tmax 101.6 O2 4L Denies SOA/cough/CP + BM ROS ROS per HPI otherwise neg Vital Sign Vital Signs Vital Signs Date Time Temp Pulse Resp B/P (MAP) Pulse Ox O2 Delivery O2 Flow Rate FiO2 06/21/18 11:00 98.2 86 18 151/58 (89) 97 Nasal Cannula 4.0 98.2 Physical Exam PHYSICAL EXAM GENERAL: Sitting in the chair, conversing with family HEENT: Oral cavity/pharynx pink and moist. No thrush. Upper dentures in place. NECK: Supple. LUNGS: Fine rales. Nonlabored. HEART: S1 and S2. ABDOMEN: Obese, soft, nontender. Bowel sounds present. EXTREMITIES: No gross edema or cyanosis. SKIN: Warm without generalized rash. NEUROLOGIC: ALert, coop, forgetful Right-sided chest Port-A-Cath without signs of any complications. Labs Lab Laboratory Tests Test 06/20/18 21:45 06/21/18 06:30 Lactic Acid Level 0.9 mmol/L (0.4-2.0) White Blood Count 5.9 x10^3/uL (4.0-11.0) Red Blood Count 2.54 x10^6/uL (3.50-5.40) Hemoglobin 8.4 g/dL (12.0-15.5) Hematocrit 25.2 % (36.0-47.0) Mean Corpuscular Volume 99 fL (79-100) Mean Corpuscular Hemoglobin 33 pg (25-35) Mean Corpuscular Hemoglobin Concent 33 g/dL (31-37) Red Cell Distribution Width 13.6 % (11.5-14.5) Platelet Count 156 x10^3/uL (140-400) Neutrophils (%) (Auto) 91 % (31-73) Lymphocytes (%) (Auto) 5 % (24-48) Monocytes (%) (Auto) 4 % (0-9) Eosinophils (%) (Auto) 0 % (0-3) Basophils (%) (Auto) 0 % (0-3) Neutrophils # (Auto) 5.4 x10^3uL (1.8-7.7) Lymphocytes # (Auto) 0.3 x10^3/uL (1.0-4.8) Monocytes # (Auto) 0.2 x10^3/uL (0.0-1.1) Eosinophils # (Auto) 0.0 x10^3/uL (0.0-0.7) Basophils # (Auto) 0.0 x10^3/uL (0.0-0.2) Sodium Level 143 mmol/L (136-145) Potassium Level 3.9 mmol/L (3.5-5.1) Chloride Level 106 mmol/L (98-107) Carbon Dioxide Level 30 mmol/L (21-32) Anion Gap 7 (6-14) Blood Urea Nitrogen 15 mg/dL (7-20) Creatinine 1.1 mg/dL (0.6-1.0) Estimated GFR (Cockcroft-Gault) 47.6 BUN/Creatinine Ratio 14 (6-20) Glucose Level 166 mg/dL (70-99) Calcium Level 8.8 mg/dL (8.5-10.1) Total Bilirubin 0.3 mg/dL (0.2-1.0) Aspartate Amino Transf (AST/SGOT) 66 U/L (15-37) Alanine Aminotransferase (ALT/SGPT) 77 U/L (14-59) Alkaline Phosphatase 73 U/L (46-116) Total Protein 5.9 g/dL (6.4-8.2) Albumin 1.8 g/dL (3.4-5.0) Albumin/Globulin Ratio 0.4 (1.0-1.7) Brain MRI 06/20 Interval decrease in size of the small residual subdural hematoma surrounding the right cerebral hemisphere. There is no significant mass effect. No acute parenchymal abnormality is seen. CXR 06/20 Faint patchy bilateral pulmonary opacities have developed suggesting atypical pneumonia versus pulmonary edema. Micro Microbiology 06/17/18 Blood Culture - Preliminary, Resulted NO GROWTH AFTER 4 DAYS Objective Assessment Fever. source unclear ? 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 Constipation. + BM Frequent falls. Stage 4 lung cancer. Her last dose of chemo was about 2 weeks ago. Status post craniotomy and evacuation for subdural hematoma on 06/11/2018. Forgetfulness. Hypertension. Hypothyroidism. Plan Plan of Care Zosyn since since 06/20 Doxycycline since 06/18 Previously on vanc and cefepime Influenza screen neg BC from 06/20 pending D/w daughter Patient seen and examined. Chart reviewed in detail. Case discussed with TOOL REPAIR TECHNICIAN. Agree with above plan. CHANTALE GRAYSON APRN June 21, 2018 13:09 GREG ROMO MD June 21, 2018 22:20
--- NOTE | 2018-06-21 14:06 | PDOC ---
PULMONARY PROGRESS NOTES Vitals Vital Signs Date Time Temp Pulse Resp B/P (MAP) Pulse Ox O2 Delivery O2 Flow Rate FiO2 06/21/18 11:00 98.2 86 18 151/58 (89) 97 Nasal Cannula 4.0 98.2 Labs Laboratory Tests Test 06/20/18 06:30 06/20/18 21:45 06/21/18 06:30 White Blood Count 6.8 x10^3/uL (4.0-11.0) 5.9 x10^3/uL (4.0-11.0) Red Blood Count 2.79 x10^6/uL (3.50-5.40) 2.54 x10^6/uL (3.50-5.40) Hemoglobin 9.3 g/dL (12.0-15.5) 8.4 g/dL (12.0-15.5) Hematocrit 27.7 % (36.0-47.0) 25.2 % (36.0-47.0) Mean Corpuscular Volume 99 fL (79-100) 99 fL (79-100) Mean Corpuscular Hemoglobin 33 pg (25-35) 33 pg (25-35) Mean Corpuscular Hemoglobin Concent 34 g/dL (31-37) 33 g/dL (31-37) Red Cell Distribution Width 13.6 % (11.5-14.5) 13.6 % (11.5-14.5) Platelet Count 120 x10^3/uL (140-400) 156 x10^3/uL (140-400) Neutrophils (%) (Auto) 86 % (31-73) 91 % (31-73) Lymphocytes (%) (Auto) 7 % (24-48) 5 % (24-48) Monocytes (%) (Auto) 7 % (0-9) 4 % (0-9) Eosinophils (%) (Auto) 0 % (0-3) 0 % (0-3) Basophils (%) (Auto) 0 % (0-3) 0 % (0-3) Neutrophils # (Auto) 5.9 x10^3uL (1.8-7.7) 5.4 x10^3uL (1.8-7.7) Lymphocytes # (Auto) 0.4 x10^3/uL (1.0-4.8) 0.3 x10^3/uL (1.0-4.8) Monocytes # (Auto) 0.5 x10^3/uL (0.0-1.1) 0.2 x10^3/uL (0.0-1.1) Eosinophils # (Auto) 0.0 x10^3/uL (0.0-0.7) 0.0 x10^3/uL (0.0-0.7) Basophils # (Auto) 0.0 x10^3/uL (0.0-0.2) 0.0 x10^3/uL (0.0-0.2) Erythrocyte Sedimentation Rate 111 (0-25) Sodium Level 142 mmol/L (136-145) 143 mmol/L (136-145) Potassium Level 4.2 mmol/L (3.5-5.1) 3.9 mmol/L (3.5-5.1) Chloride Level 106 mmol/L (98-107) 106 mmol/L (98-107) Carbon Dioxide Level 29 mmol/L (21-32) 30 mmol/L (21-32) Anion Gap 7 (6-14) 7 (6-14) Blood Urea Nitrogen 16 mg/dL (7-20) 15 mg/dL (7-20) Creatinine 1.0 mg/dL (0.6-1.0) 1.1 mg/dL (0.6-1.0) Estimated GFR (Cockcroft-Gault) 53.1 47.6 BUN/Creatinine Ratio 16 (6-20) 14 (6-20) Glucose Level 109 mg/dL (70-99) 166 mg/dL (70-99) Calcium Level 8.6 mg/dL (8.5-10.1) 8.8 mg/dL (8.5-10.1) Total Bilirubin 0.4 mg/dL (0.2-1.0) 0.3 mg/dL (0.2-1.0) Aspartate Amino Transf (AST/SGOT) 70 U/L (15-37) 66 U/L (15-37) Alanine Aminotransferase (ALT/SGPT) 80 U/L (14-59) 77 U/L (14-59) Alkaline Phosphatase 75 U/L (46-116) 73 U/L (46-116) Total Protein 5.3 g/dL (6.4-8.2) 5.9 g/dL (6.4-8.2) Albumin 1.9 g/dL (3.4-5.0) 1.8 g/dL (3.4-5.0) Albumin/Globulin Ratio 0.6 (1.0-1.7) 0.4 (1.0-1.7) Vitamin B12 Level 564 pg/mL (247-911) Thyroid Stimulating Hormone (TSH) 6.204 uIU/mL (0.358-3.74) Lactic Acid Level 0.9 mmol/L (0.4-2.0) Laboratory Tests Test 06/20/18 21:45 06/21/18 06:30 Lactic Acid Level 0.9 mmol/L (0.4-2.0) White Blood Count 5.9 x10^3/uL (4.0-11.0) Red Blood Count 2.54 x10^6/uL (3.50-5.40) Hemoglobin 8.4 g/dL (12.0-15.5) Hematocrit 25.2 % (36.0-47.0) Mean Corpuscular Volume 99 fL (79-100) Mean Corpuscular Hemoglobin 33 pg (25-35) Mean Corpuscular Hemoglobin Concent 33 g/dL (31-37) Red Cell Distribution Width 13.6 % (11.5-14.5) Platelet Count 156 x10^3/uL (140-400) Neutrophils (%) (Auto) 91 % (31-73) Lymphocytes (%) (Auto) 5 % (24-48) Monocytes (%) (Auto) 4 % (0-9) Eosinophils (%) (Auto) 0 % (0-3) Basophils (%) (Auto) 0 % (0-3) Neutrophils # (Auto) 5.4 x10^3uL (1.8-7.7) Lymphocytes # (Auto) 0.3 x10^3/uL (1.0-4.8) Monocytes # (Auto) 0.2 x10^3/uL (0.0-1.1) Eosinophils # (Auto) 0.0 x10^3/uL (0.0-0.7) Basophils # (Auto) 0.0 x10^3/uL (0.0-0.2) Sodium Level 143 mmol/L (136-145) Potassium Level 3.9 mmol/L (3.5-5.1) Chloride Level 106 mmol/L (98-107) Carbon Dioxide Level 30 mmol/L (21-32) Anion Gap 7 (6-14) Blood Urea Nitrogen 15 mg/dL (7-20) Creatinine 1.1 mg/dL (0.6-1.0) Estimated GFR (Cockcroft-Gault) 47.6 BUN/Creatinine Ratio 14 (6-20) Glucose Level 166 mg/dL (70-99) Calcium Level 8.8 mg/dL (8.5-10.1) Total Bilirubin 0.3 mg/dL (0.2-1.0) Aspartate Amino Transf (AST/SGOT) 66 U/L (15-37) Alanine Aminotransferase (ALT/SGPT) 77 U/L (14-59) Alkaline Phosphatase 73 U/L (46-116) Total Protein 5.9 g/dL (6.4-8.2) Albumin 1.8 g/dL (3.4-5.0) Albumin/Globulin Ratio 0.4 (1.0-1.7) Medications Active Scripts Medications Dose Route/Sig Max Daily Dose Days Date Category Gabapentin 600 Mg Tablet 300 Mg PO HS 06/16/18 Reported Hydralazine Hcl 25 Mg Tablet 25 Mg PO TID 30 05/17/18 Rx Clonidine Tts-1 (Clonidine) 1 Each Patch.tdwk 1 Patch TD WEEKLY 30 05/17/18 Rx Mysoline (Primidone) 250 Mg Tablet 500 Mg PO QHS 05/13/18 Reported Effexor Xr (Venlafaxine Hcl) 150 Mg Cap.er.24h 1 Cap PO DAILY 05/13/18 Reported Folic Acid 1 Mg Tablet 1 Tab PO DAILY 11/26/17 Reported Asmanex (Mometasone Furoate) 220 Mcg Aer.pow.ba 200 Mcg INH BID 10/17/17 Reported Primidone 250 Mg Tablet 250 Mg PO TID 10/17/17 Reported Pravastatin Sodium 20 Mg Tablet 1 Tab PO DAILY 10/17/17 Reported Cartia Xt (Diltiazem Hcl) 180 Mg Cap.er.24h 180 Mg PO 10/17/17 Reported Levothyroxine Sodium 50 Mcg Tablet 1 Tab PO DAILY 10/17/17 Reported Impression . IMPRESSION: 1. Abnormal x-ray revealing ground glass opacity, suspect secondary to aspiration versus drug-induced alveolitis. 2. Fever, The patient has been on antibiotics. 3. Leukopenia. 4. Anemia. 5. Thrombocytopenia. 6. Subdural hematoma, recent MRI reveals no recurrent problems. 7. Non-small cell lung cancer stage 4 adenocarcinoma of the right upper lobe. Plan . ANTIBX PER ID FEVER LAST SHAY CXR COMPATIBLE WITH PNEUMONITIS THIS COULD BE INFLAMMATORY IN NATURE SEE BELOW DIFFICULT SITUATION WILL D/W DR LINDQUIST 06/20 1. Suspected ground glass opacities, drug-induced. The patient received Alimta back on 06/06. 2. We will discuss with Dr. Lindquist. For now, continue supportive measures with antibiotics and steroids and oxygen. Follow speech therapy for dysphagia. Video dysphagia study was positive for aspiration. DONY GARCIA MD June 21, 2018 14:06
[2018-06-21] MEDS: IV NORMAL SALINE 1000ML BAG 1,000 ML IV SCH (14:11)
[2018-06-21 15:00] VITALS: BP 140/68
[2018-06-21 19:00] VITALS: BP 141/66
[2018-06-21] MEDS: GABAPENTIN 300 MG CAPSULE. PO SCH (21:09)
[2018-06-21] MEDS: ATORVASTATIN CALCIUM 10 MG TABLET. PO SCH (21:09)
[2018-06-21 23:00] VITALS: BP 145/70
[2018-06-22 03:00] VITALS: BP 141/66
[2018-06-22] MEDS: LEVOTHYROXINE 50 MCG TABLET PO SCH (06:25)
[2018-06-22] MEDS: methylPREDNISolone SOD SUCC PF 125 MG/2 ML VIAL. IV SCH ×3 (06:25→21:45)
[2018-06-22] MEDS: IV NORMAL SALINE 1000ML BAG 1,000 ML IV SCH (06:26)
[2018-06-22 07:00] VITALS: BP 143/77
[2018-06-22] MEDS: BUDESONIDE 0.5 MG/2 ML NEBU. NEB SCH ×2 (07:50→20:00)
[2018-06-22] MEDS: hydrALAZINE 25 MG TABLET PO SCH ×3 (08:37→21:44)
[2018-06-22] MEDS: VENLAFAXINE 50 MG TABLET. PO SCH ×3 (08:37→21:41)
[2018-06-22] MEDS: FOLIC ACID 1 MG TABLET. PO SCH (08:38)
[2018-06-22] MEDS: PRIMIDONE 250 MG TABLET PO SCH ×4 (08:39→21:42)
[2018-06-22] MEDS: DOXYCYCLINE HYCLATE 100 MG TABLET PO SCH ×2 (08:39→21:42)
--- NOTE | 2018-06-22 10:56 | PDOC ---
PROGRESS NOTES Subjective Subjective feels better want to go home Objective Objective Vital Signs Date Time Temp Pulse Resp B/P (MAP) Pulse Ox O2 Delivery O2 Flow Rate FiO2 06/22/18 08:37 85 143/77 06/22/18 08:00 Nasal Cannula 4.0 06/22/18 07:54 95 06/22/18 07:00 97.3 18 97.3 Intake and Output 06/22/18 07:00 Intake Total 990 ml Output Total 800 ml Balance 190 ml Intake Oral 740 ml IV Total 50 ml Other 200 ml Output Urine Total 800 ml # Voids 2 Physical Exam Heart: Normal S1, Normal S2 General: No acute distress Lungs: Clear to auscultation Neck: No JVD Neuro: Normal speech Psych/Mental Status: Mental status NL Diagnosis Problem List Problems Medical Problems: (1) Elevated d-dimer Status: Acute (2) Elevated liver function tests Status: Acute (3) Frequent falls Status: Acute (4) Generalized weakness Status: Acute (5) History of intracranial hemorrhage Status: Acute (6) History of lung cancer Status: Acute (7) Pancytopenia Status: Acute (8) Tachycardia Status: Acute Assessment Assessment IMP:Aspiration pneumonia 1. Subdural hematoma. 2. Frequent falls. 3. Pancytopenia. 4. Weakness. 5. Lung cancer with recent chemotherapy. 6. Hypertension, not controlled, accelerated. 7. Hypothyroidism. 8. Depression. 9. Anxiety. 10. Essential tremors. 11. Carcinoma of breast with left mastectomy. PLAN: po Doxycycline d/ml IV Zosyn. ID on the case speech/pt/ot. MRI brain noted dec subdural hematoma. SNU/ home on saturday. I will consult Dr. Fournier for reevaluation and management. Start PT, OT. Consult Dr. Frank to make sure that the patient does not have any hydrocephalus or any other issues that is making her fall more frequently. Prognosis of this patient is poor due to her multiple medical problems. We will consult Dr. Lindquist and monitor pancytopenia. Her absolute neutrophil count is still 1.3 K. For details, please refer the orders. Frequent falls- discussed with Dr. Fournier. Patient is not safe because she is not following cues and falls frequently. Cancer of the lung- discussed with Dr. Lindquist. Patient wants to continue chemotherapy which is every 3 weeks. Recent subdural hematoma- patient remains impulsive and a very high risk for falls. May need to discharge her again to a senior care unit. Fever- I have ordered urine and blood cultures. Patient is now on IV Zosyn and vancomycin. Blood culture 1 is negative. Other blood culture could not be drawn. Patient has been coughing more. Etiology of her fever not clear so far. Continue IV Zosyn and vancomycin. I discussed with the patient that she is immunosuppressed. She doesn't understand the gravity of her condition and just wants to go home. Her prognosis is very poor. Weakness- getting worse. Memory loss getting worse. Dr. Draper has seen the patient and patient is not competent to make any healthcare decisions Acute metabolic encephalopathy Possible aspiration Acute hypoxic respite a failure on oxygen by nasal cannula 2 L/m. Consult Dr. Bloom for pulmonary evaluation and management. Prognosis of this patient is very poor. Because patient is lethargic I'll discontinue Catapres-TTS and see if that helps her swallowing as well as her lethargy. Plan Plan of Care Problems Medical Problems: (1) Elevated d-dimer Status: Acute (2) Elevated liver function tests Status: Acute (3) Frequent falls Status: Acute (4) Generalized weakness Status: Acute (5) History of intracranial hemorrhage Status: Acute (6) History of lung cancer Status: Acute (7) Pancytopenia Status: Acute (8) Tachycardia Status: Acute Comment Review of Relevant I have reviewed the following items malcolm (where applicable) has been applied. Labs Laboratory Tests Test 06/21/18 17:00 Erythrocyte Sedimentation Rate 125 (0-25) Procalcitonin 0.18 ng/mL (0.00-0.10) Microbiology 06/20/18 Blood Culture - Preliminary, Resulted NO GROWTH AFTER 1 DAY Vitals/I & O Vital Sign - Last 24 Hours 06/21/18 06/21/18 06/21/18 06/21/18 11:00 14:10 15:00 17:54 Temp 98.2 97.7 98.2 97.7 Pulse 86 82 84 Resp 18 18 B/P (MAP) 151/58 (89) 140/68 140/68 (92) Pulse Ox 97 97 O2 Delivery Nasal Cannula Nasal Cannula Nasal Cannula O2 Flow Rate 4.0 4.0 4.0 06/21/18 06/21/18 06/21/18 06/21/18 19:00 20:14 21:09 23:00 Temp 97.5 97.6 97.5 97.6 Pulse 85 85 85 Resp 16 B/P (MAP) 141/66 (91) 141/66 145/70 (95) Pulse Ox 97 95 O2 Delivery Nasal Cannula Nasal Cannula Nasal Cannula O2 Flow Rate 4.0 4.0 4.0 06/22/18 06/22/18 06/22/18 06/22/18 03:00 07:00 07:54 08:00 Temp 97.5 97.3 97.5 97.3 Pulse 87 85 Resp 18 B/P (MAP) 141/66 (91) 143/77 (99) Pulse Ox 97 97 95 O2 Delivery Nasal Cannula Nasal Cannula Nasal Cannula Nasal Cannula O2 Flow Rate 4.0 4.0 4.0 4.0 06/22/18 06/22/18 08:37 08:37 Pulse 85 85 B/P (MAP) 143/77 143/77 Intake and Output 06/21/18 06/21/18 06/22/18 15:00 23:00 07:00 Intake Total 320 ml 470 ml 200 ml Output Total 400 ml 400 ml Balance 320 ml 70 ml -200 ml MAIN HARO MD June 22, 2018 10:56
[2018-06-22 11:00] VITALS: BP 144/73
--- NOTE | 2018-06-22 11:38 | PDOC ---
Infectious Disease Note Subjective Subjective Developed hives/itching while on Zosyn, now discontinued Patient says she is doing alright, denies further itching/rash Denies SOA/wheezing or swelling No fevers last 24 hours ROS ROS per HPI Vital Sign Vital Signs Vital Signs Date Time Temp Pulse Resp B/P (MAP) Pulse Ox O2 Delivery O2 Flow Rate FiO2 06/22/18 08:37 85 143/77 06/22/18 08:00 Nasal Cannula 4.0 06/22/18 07:54 95 06/22/18 07:00 97.3 18 97.3 Physical Exam PHYSICAL EXAM GENERAL: Sleeping, arouse to name HEENT: Oral cavity/pharynx pink and moist. No thrush. NECK: Supple. LUNGS: Clear anteriorly HEART: S1 and S2. ABDOMEN: Obese, soft, nontender. Bowel sounds present. EXTREMITIES: No gross edema or cyanosis. SKIN: Warm without generalized rash. NEUROLOGIC: Responds appropriately Port-A-Cath without signs of any complications. Labs Lab Laboratory Tests Test 06/21/18 17:00 Erythrocyte Sedimentation Rate 125 (0-25) Procalcitonin 0.18 ng/mL (0.00-0.10) Micro Microbiology 06/20/18 Blood Culture - Preliminary, Resulted NO GROWTH AFTER 1 DAYS Objective Assessment Fever. source unclear ? pulm, BC neg so far, better Immunosuppression from chemo Pancytopenia, chemo induced, improved Hypoxia requiring supplemental oxygen. Constipation. + BM Frequent falls. Stage 4 lung cancer. Her last dose of chemo was about 2 weeks ago. Status post craniotomy and evacuation for subdural hematoma on 06/11/2018. Forgetfulness. Hypertension. Hypothyroidism. Hives while on Zosyn, resolved after d/c Plan Plan of Care Zosyn discontinued. Doxycycline since 06/18 Previously on vanc and cefepime Influenza screen neg BC from 06/20 neg so far Patient seen and examined. Chart reviewed in detail. Case discussed with [employer]. Agree with above plan. CHANTALE GRAYSON APRN June 22, 2018 11:38 GREG ROMO MD June 22, 2018 18:50
[2018-06-22 15:14] VITALS: BP 134/60
--- NOTE | 2018-06-22 16:07 | PDOC ---
PULMONARY PROGRESS NOTES Subjective PT FEELS LESS SOA Vitals Vital Signs Date Time Temp Pulse Resp B/P (MAP) Pulse Ox O2 Delivery O2 Flow Rate FiO2 06/22/18 15:14 97.6 94 20 134/60 (84) 97 Nasal Cannula 4.0 97.6 ROS: No Nausea, No Chest Pain, No Increase Cough Lungs: Crackles Cardiovascular: S1, S2 Abdomen: Soft Neuro Exam: Alert Skin: Warm Labs Laboratory Tests Test 06/20/18 21:45 06/21/18 06:30 06/21/18 17:00 Lactic Acid Level 0.9 mmol/L (0.4-2.0) White Blood Count 5.9 x10^3/uL (4.0-11.0) Red Blood Count 2.54 x10^6/uL (3.50-5.40) Hemoglobin 8.4 g/dL (12.0-15.5) Hematocrit 25.2 % (36.0-47.0) Mean Corpuscular Volume 99 fL (79-100) Mean Corpuscular Hemoglobin 33 pg (25-35) Mean Corpuscular Hemoglobin Concent 33 g/dL (31-37) Red Cell Distribution Width 13.6 % (11.5-14.5) Platelet Count 156 x10^3/uL (140-400) Neutrophils (%) (Auto) 91 % (31-73) Lymphocytes (%) (Auto) 5 % (24-48) Monocytes (%) (Auto) 4 % (0-9) Eosinophils (%) (Auto) 0 % (0-3) Basophils (%) (Auto) 0 % (0-3) Neutrophils # (Auto) 5.4 x10^3uL (1.8-7.7) Lymphocytes # (Auto) 0.3 x10^3/uL (1.0-4.8) Monocytes # (Auto) 0.2 x10^3/uL (0.0-1.1) Eosinophils # (Auto) 0.0 x10^3/uL (0.0-0.7) Basophils # (Auto) 0.0 x10^3/uL (0.0-0.2) Sodium Level 143 mmol/L (136-145) Potassium Level 3.9 mmol/L (3.5-5.1) Chloride Level 106 mmol/L (98-107) Carbon Dioxide Level 30 mmol/L (21-32) Anion Gap 7 (6-14) Blood Urea Nitrogen 15 mg/dL (7-20) Creatinine 1.1 mg/dL (0.6-1.0) Estimated GFR (Cockcroft-Gault) 47.6 BUN/Creatinine Ratio 14 (6-20) Glucose Level 166 mg/dL (70-99) Calcium Level 8.8 mg/dL (8.5-10.1) Total Bilirubin 0.3 mg/dL (0.2-1.0) Aspartate Amino Transf (AST/SGOT) 66 U/L (15-37) Alanine Aminotransferase (ALT/SGPT) 77 U/L (14-59) Alkaline Phosphatase 73 U/L (46-116) Total Protein 5.9 g/dL (6.4-8.2) Albumin 1.8 g/dL (3.4-5.0) Albumin/Globulin Ratio 0.4 (1.0-1.7) Erythrocyte Sedimentation Rate 125 (0-25) Procalcitonin 0.18 ng/mL (0.00-0.10) Laboratory Tests Test 06/21/18 17:00 Erythrocyte Sedimentation Rate 125 (0-25) Procalcitonin 0.18 ng/mL (0.00-0.10) Medications Active Scripts Medications Dose Route/Sig Max Daily Dose Days Date Category Gabapentin 600 Mg Tablet 300 Mg PO HS 06/16/18 Reported Hydralazine Hcl 25 Mg Tablet 25 Mg PO TID 30 05/17/18 Rx Clonidine Tts-1 (Clonidine) 1 Each Patch.tdwk 1 Patch TD WEEKLY 30 05/17/18 Rx Mysoline (Primidone) 250 Mg Tablet 500 Mg PO QHS 05/13/18 Reported Effexor Xr (Venlafaxine Hcl) 150 Mg Cap.er.24h 1 Cap PO DAILY 05/13/18 Reported Folic Acid 1 Mg Tablet 1 Tab PO DAILY 11/26/17 Reported Asmanex (Mometasone Furoate) 220 Mcg Aer.pow.ba 200 Mcg INH BID 10/17/17 Reported Primidone 250 Mg Tablet 250 Mg PO TID 10/17/17 Reported Pravastatin Sodium 20 Mg Tablet 1 Tab PO DAILY 10/17/17 Reported Cartia Xt (Diltiazem Hcl) 180 Mg Cap.er.24h 180 Mg PO 10/17/17 Reported Levothyroxine Sodium 50 Mcg Tablet 1 Tab PO DAILY 10/17/17 Reported Impression . IMPRESSION: 1. Abnormal x-ray revealing ground glass opacity, suspect secondary to aspiration versus drug-induced alveolitis. 2. Fever, The patient has been on antibiotics. 3. Leukopenia. 4. Anemia. 5. Thrombocytopenia. 6. Subdural hematoma, recent MRI reveals no recurrent problems. 7. Non-small cell lung cancer stage 4 adenocarcinoma of the right upper lobe. Plan . ANTIBX PER ID NOT FEBRILE 6 MIN WALK D/C IN AM CXR COMPATIBLE WITH PNEUMONITIS THIS COULD BE INFLAMMATORY IN NATURE SEE BELOW DIFFICULT SITUATION WILL D/W DR LINDQUIST ON TUESDAY 06/20 1. Suspected ground glass opacities, drug-induced. The patient received Alimta back on 06/06. 2. We will discuss with Dr. Lindquist. For now, continue supportive measures with antibiotics and steroids and oxygen. Follow speech therapy for dysphagia. Video dysphagia study was positive for aspiration. DONY GARCIA MD June 22, 2018 16:07
[2018-06-22 19:00] VITALS: BP 148/63
[2018-06-22] MEDS: ATORVASTATIN CALCIUM 10 MG TABLET. PO SCH (21:42)
[2018-06-22] MEDS: GABAPENTIN 300 MG CAPSULE. PO SCH (21:42)
[2018-06-22 23:00] VITALS: BP 134/77
[2018-06-23 03:04] VITALS: BP 151/71
[2018-06-23] MEDS: methylPREDNISolone SOD SUCC PF 125 MG/2 ML VIAL. IV SCH (06:08)
[2018-06-23] MEDS: LEVOTHYROXINE 50 MCG TABLET PO SCH (06:08)
[2018-06-23 07:00] VITALS: BP 144/69
[2018-06-23] MEDS: BUDESONIDE 0.5 MG/2 ML NEBU. NEB SCH (07:52)
--- NOTE | 2018-06-23 08:39 | PDOC ---
PULMONARY PROGRESS NOTES Subjective PT FEELS LESS SOA Vitals Vital Signs Date Time Temp Pulse Resp B/P (MAP) Pulse Ox O2 Delivery O2 Flow Rate FiO2 06/23/18 07:54 98 Nasal Cannula 2.0 06/23/18 07:00 97.5 76 16 144/69 (94) 97.5 ROS: No Nausea, No Chest Pain, No Increase Cough Lungs: Crackles Cardiovascular: S1, S2 Abdomen: Soft Neuro Exam: Alert Skin: Warm Labs Laboratory Tests Test 06/21/18 17:00 Erythrocyte Sedimentation Rate 125 (0-25) Procalcitonin 0.18 ng/mL (0.00-0.10) Medications Active Scripts Medications Dose Route/Sig Max Daily Dose Days Date Category Gabapentin 600 Mg Tablet 300 Mg PO HS 06/16/18 Reported Hydralazine Hcl 25 Mg Tablet 25 Mg PO TID 30 05/17/18 Rx Clonidine Tts-1 (Clonidine) 1 Each Patch.tdwk 1 Patch TD WEEKLY 30 05/17/18 Rx Mysoline (Primidone) 250 Mg Tablet 500 Mg PO QHS 05/13/18 Reported Effexor Xr (Venlafaxine Hcl) 150 Mg Cap.er.24h 1 Cap PO DAILY 05/13/18 Reported Folic Acid 1 Mg Tablet 1 Tab PO DAILY 11/26/17 Reported Asmanex (Mometasone Furoate) 220 Mcg Aer.pow.ba 200 Mcg INH BID 10/17/17 Reported Primidone 250 Mg Tablet 250 Mg PO TID 10/17/17 Reported Pravastatin Sodium 20 Mg Tablet 1 Tab PO DAILY 10/17/17 Reported Cartia Xt (Diltiazem Hcl) 180 Mg Cap.er.24h 180 Mg PO 10/17/17 Reported Levothyroxine Sodium 50 Mcg Tablet 1 Tab PO DAILY 10/17/17 Reported Impression . IMPRESSION: 1. Abnormal x-ray revealing ground glass opacity, suspect secondary to aspiration versus drug-induced alveolitis. 2. Fever, The patient has been on antibiotics. 3. Leukopenia. 4. Anemia. 5. Thrombocytopenia. 6. Subdural hematoma, recent MRI reveals no recurrent problems. 7. Non-small cell lung cancer stage 4 adenocarcinoma of the right upper lobe. Plan . ANTIBX PER ID NOT FEBRILE 6 MIN WALK D/C IN AM CXR COMPATIBLE WITH PNEUMONITIS THIS COULD BE INFLAMMATORY IN NATURE SEE BELOW DIFFICULT SITUATION WILL D/W DR LINDQUIST ON TUESDAY 06/20 1. Suspected ground glass opacities, drug-induced. The patient received Alimta back on 06/06. 2. We will discuss with Dr. Lindquist. For now, continue supportive measures with antibiotics and steroids and oxygen. Follow speech therapy for dysphagia. Video dysphagia study was positive for aspiration. DONY GARCIA MD June 23, 2018 08:39
[2018-06-23] MEDS ORDERED: DOXY100T PO (08:58)
[2018-06-23] MEDS ORDERED: METH4TAB2 PO (09:01)
--- NOTE | 2018-06-23 09:06 | SNU/HH DC ---
DISCHARGE ORDERS DISCHARGE INFORMATION: FINAL DIAGNOSIS Problems Medical Problems: (1) Elevated d-dimer Status: Acute (2) Elevated liver function tests Status: Acute (3) Frequent falls Status: Acute (4) Generalized weakness Status: Acute (5) History of intracranial hemorrhage Status: Acute (6) History of lung cancer Status: Acute (7) Pancytopenia Status: Acute (8) Tachycardia Status: Acute CONDITION ON DISCHARGE: Stable HALFWAY: SNF STAY <30 DAYS: Yes POST DISCHARGE ORDERS: ACTIVITY ORDERS: Activity as tolerated (with walker and supervision) WEIGHT BEARING STATUS: No restrictions DIET AFTER DISCHARGE: Dysphagia 1 CHECKS AFTER DISCHARGE: CHECKS AFTER DISCHARGE: Check blood press - daily, Check blood sugar, ac/hs TREATMENT/EQUIPMENT ORDERS: ADAPTIVE EQUIPMENT NEEDED: Walker Physical Therapy For: Evalulation/Treatment Occupational Therapy For: Evaluation/Treatment Speech Language Pathology For: Evaluation/Treatment DISCHARGE MEDICATIONS: Home Meds Active Scripts Hydralazine Hcl (HYDRALAZINE HCL) 25 Mg Tablet, 25 MG PO TID for htn for 30 Days, #90 TAB Prov:MAIN HARO MD 05/17/18 Clonidine (CLONIDINE TTS-1) 1 Each Patch.tdwk, 1 PATCH TD WEEKLY for htn for 30 Days, #30 PATCH Prov:MAIN HARO MD 05/17/18 Reported Medications Gabapentin (GABAPENTIN) 600 Mg Tablet, 300 MG PO HS for NEUROGENIC PAIN, TAB 06/16/18 Primidone (MYSOLINE) 250 Mg Tablet, 500 MG PO QHS for seizure, TAB 05/13/18 Venlafaxine Hcl (EFFEXOR XR) 150 Mg Cap.er.24h, 1 CAP PO DAILY for antidep ressant, #30 CAP 1 Refill 05/13/18 Folic Acid (FOLIC ACID) 1 Mg Tablet, 1 TAB PO DAILY, #90 TAB 1 Refill 11/26/17 Mometasone Furoate (ASMANEX) 220 Mcg Aer.pow.ba, 200 MCG INH BID for breathing, INH 10/17/17 Primidone (PRIMIDONE) 250 Mg Tablet, 250 MG PO TID for anticonvulsant, TAB 10/17/17 Pravastatin Sodium (PRAVASTATIN SODIUM) 20 Mg Tablet, 1 TAB PO DAILY, #30 TAB 5 Refills 10/17/17 Diltiazem Hcl (CARTIA XT) 180 Mg Cap.er.24h, 180 MG PO, CAP.SR 10/17/17 Levothyroxine Sodium (LEVOTHYROXINE SODIUM) 50 Mcg Tablet, 1 TAB PO DAILY, #30 TAB 5 Refills 10/17/17 Discontinued Reported Medications Gabapentin (GABAPENTIN) 300 Mg Capsule, 300 MG PO HS for pain, CAP 05/13/18 TERESA HOPPER MD June 23, 2018 09:06
--- NOTE | 2018-06-23 09:25 | PDOC ---
PROGRESS NOTES Subjective Subjective She had no complaints. Objective Objective Vital Signs Date Time Temp Pulse Resp B/P (MAP) Pulse Ox O2 Delivery O2 Flow Rate FiO2 06/23/18 07:54 98 Nasal Cannula 2.0 06/23/18 07:00 97.5 76 16 144/69 (94) 97.5 Intake and Output 06/23/18 07:00 Intake Total 1680 ml Balance 1680 ml Intake Oral 480 ml IV Total 1000 ml Other 200 ml # Voids 2 # Bowel Movements 1 Physical Exam Physical Exam She continues with ataxia and cognitive deficits but she did walk for 75' with roller walker with physical therapy. She is awake and eating breakfast in bed this AM. Assessment Assessment Problems Medical Problems: (1) Elevated d-dimer Status: Acute (2) Elevated liver function tests Status: Acute (3) Frequent falls Status: Acute (4) Generalized weakness Status: Acute (5) History of intracranial hemorrhage Status: Acute (6) History of lung cancer Status: Acute (7) Pancytopenia Status: Acute (8) Tachycardia Status: Acute Plan Plan of Care To SNF or rehab unit when medically stable. Comment Review of Relevant I have reviewed the following items malcolm (where applicable) has been applied. Labs Laboratory Tests Test 06/21/18 17:00 Erythrocyte Sedimentation Rate 125 (0-25) Procalcitonin 0.18 ng/mL (0.00-0.10) Microbiology 06/20/18 Blood Culture - Preliminary, Resulted NO GROWTH AFTER 2 DAYS 06/18/18 Urine Culture - Final, Complete 06/18/18 Urine Culture Result 1 (MICHELLE) - Final, Complete Medications Current Medications Iohexol (Omnipaque 350 Mg/ml) 75 ml 1X ONCE IV Last administered on 06/16/18at 15:44; Start 06/16/18 at 15:30; Stop 06/16/18 at 15:31; Status DC Info (CONTRAST GIVEN -- Rx MONITORING) 1 each PRN DAILY PRN MC SEE COMMENTS; Start 06/16/18 at 15:30; Stop 06/18/18 at 15:29; Status DC Clonidine HCl (Catapres Tts-1) 1 patch WEEKLY TD Last administered on 06/17/18at 09:11; Start 06/17/18 at 09:00; Stop 06/20/18 at 09:48; Status DC Folic Acid (Folic Acid) 1 mg DAILY PO Last administered on 06/22/18 08:38; Start 06/17/18 at 09:00 Gabapentin (Neurontin) 300 mg HS PO Last administered on 06/22/18 21:42; Start 06/16/18 at 21:00 Hydralazine HCl (Apresoline) 25 mg TID PO Last administered on 06/22/18 21:44; Start 06/16/18 at 21:00 Levothyroxine Sodium (Synthroid) 50 mcg DAILY06 PO Last administered on 06/23/18 06:08; Start 06/17/18 at 06:00 Non-Formulary Medication (Mometasone Furoate (Asmanex)) 200 mcg BID INH ; Start 06/16/18 at 21:00; Status UNV Atorvastatin Calcium (Lipitor) 5 mg QHS PO Last administered on 06/22/18 21:42; Start 06/16/18 at 21:00 Primidone (Mysoline) 250 mg DAILYWSUP PO ; Start 06/16/18 at 17:45; Stop 06/16/18 at 17:59; Status DC Primidone (Mysoline) 500 mg QHS PO Last administered on 06/22/18 21:42; Start 06/16/18 at 21:00 Venlafaxine HCl (Effexor) 50 mg TID PO Last administered on 06/22/18 21:41; Start 06/16/18 at 21:00 Diltiazem HCl (Cardizem 24hr Cd) 180 mg DAILY PO Last administered on 06/22/18 08:37; Start 06/17/18 at 09:00 Budesonide (Pulmicort) 0.5 mg RTBID NEB Last administered on 06/23/18 07:52; Start 06/16/18 at 20:00 Primidone (Mysoline) 250 mg TID@0900,1200,1700 PO Last administered on 06/22/18 17:14; Start 06/17/18 at 09:00 Hydralazine HCl (Apresoline Inj) 10 mg PRN Q4HRS PRN IVP ELEVATED BP, SEE COMMENTS; Start 06/16/18 at 19:00 Ceftriaxone Sodium (Rocephin) 1 gm 1X ONCE IVP Last administered on 06/17/18 04:42; Start 06/17/18 at 03:30; Stop 06/17/18 at 03:32; Status DC Acetaminophen (Tylenol) 650 mg PRN Q6HRS PRN PO FEVER Last administered on 06/20/18at 20:57; Start 06/17/18 at 03:15 Piperacillin Sod/ Tazobactam Sod 3.375 gm/Sodium Chloride 50 ml @ 100 mls/hr Q6HRS IV Last administered on 06/18/18at 05:48; Start 06/17/18 at 12:00; Stop 06/18/18 at 10:11; Status DC Vancomycin HCl (Vanco Per Pharmacy) 1 each PRN DAILY PRN MC SEE COMMENTS Last administered on 06/17/18at 14:08; Start 06/17/18 at 12:00; Stop 06/19/18 at 11:01; Status DC Vancomycin HCl 2 gm/Sodium Chloride 500 ml @ 250 mls/hr 1X ONCE IV Last administered on 06/17/18at 13:18; Start 06/17/18 at 12:30; Stop 06/17/18 at 14:29; Status DC Vancomycin HCl 1.25 gm/Sodium Chloride 250 ml @ 167 mls/hr Q24H IV Last administered on 06/18/18at 12:22; Start 06/18/18 at 13:00; Stop 06/19/18 at 10:59; Status DC Vancomycin HCl (Vancomycin Trough Level) 1 each 1X ONCE MC ; Start 06/19/18 at 12:30; Stop 06/19/18 at 12:31; Status Cancel Sodium Chloride 1,000 ml @ 25 mls/hr Q24H IV Last administered on 06/22/18at 06:26; Start 06/17/18 at 14:45; Stop 06/22/18 at 10:55; Status DC Cefepime HCl (Maxipime) 2 gm Q8HRS IVP Last administered on 06/19/18at 21:34; Start 06/18/18 at 14:00; Stop 06/20/18 at 10:45; Status DC Doxycycline Hyclate (Vibra-Tab) 100 mg BID PO Last administered on 06/22/18at 21:42; Start 06/18/18 at 11:00 Diphenhydramine HCl (Benadryl) 25 mg TID PRN PRN IVP ITCHING Last administered on 06/21/18at 01:09; Start 06/20/18 at 04:30 Vancomycin HCl (Vanco Per Pharmacy) 1 each PRN DAILY PRN MC SEE COMMENTS; Start 06/20/18 at 10:00; Stop 06/20/18 at 10:00; Status DC Vancomycin HCl 2 gm/Sodium Chloride 500 ml @ 250 mls/hr 1X ONCE IV ; Start 06/20/18 at 11:00; Stop 06/20/18 at 12:59; Status Cancel Barium Sulfate (Varibar Thin Liquid Apple) 148 gm 1X ONCE PO Last administered on 06/20/18at 11:42; Start 06/20/18 at 10:30; Stop 06/20/18 at 10:31; Status DC Piperacillin Sod/ Tazobactam Sod 3.375 gm/Sodium Chloride 50 ml @ 100 mls/hr Q6HRS IV Last administered on 06/21/18at 06:05; Start 06/20/18 at 12:00; Stop 06/21/18 at 14:40; Status DC Methylprednisolone Sodium Succinate (SOLU-Medrol 125MG VIAL) 125 mg Q8HRS IV Last administered on 06/23/18at 06:08; Start 06/20/18 at 22:00 Lactobacillus Rhamnosus (Culturelle) 1 cap BID PO ; Start 06/20/18 at 21:00; Status Cancel Insulin Human Lispro (HumaLOG) 0-8 UNITS BIDBFRMEAL SQ ; Start 06/23/18 at 16:30 Active Scripts Active Hydralazine Hcl 25 Mg Tablet 25 Mg PO TID 30 Days Clonidine Tts-1 (Clonidine) 1 Each Patch.tdwk 1 Patch TD WEEKLY 30 Days Reported Gabapentin 600 Mg Tablet 300 Mg PO HS Mysoline (Primidone) 250 Mg Tablet 500 Mg PO QHS Effexor Xr (Venlafaxine Hcl) 150 Mg Cap.er.24h 1 Cap PO DAILY Folic Acid 1 Mg Tablet 1 Tab PO DAILY Asmanex (Mometasone Furoate) 220 Mcg Aer.pow.ba 200 Mcg INH BID Primidone 250 Mg Tablet 250 Mg PO TID Pravastatin Sodium 20 Mg Tablet 1 Tab PO DAILY Cartia Xt (Diltiazem Hcl) 180 Mg Cap.er.24h 180 Mg PO Levothyroxine Sodium 50 Mcg Tablet 1 Tab PO DAILY Vitals/I & O Vital Sign - Last 24 Hours 06/22/18 06/22/18 06/22/18 06/22/18 11:00 14:59 15:14 19:00 Temp 98.1 97.6 97.7 98.1 97.6 97.7 Pulse 89 89 94 89 Resp 18 20 16 B/P (MAP) 144/73 (96) 144/73 134/60 (84) 148/63 (91) Pulse Ox 97 97 97 O2 Delivery Nasal Cannula Nasal Cannula Nasal Cannula O2 Flow Rate 4.0 4.0 4.0 06/22/18 06/22/18 06/22/18 06/23/18 20:00 21:44 23:00 03:04 Temp 98.2 98.2 98.2 98.2 Pulse 89 85 84 B/P (MAP) 148/63 134/77 (96) 151/71 (97) Pulse Ox 98 97 O2 Delivery Nasal Cannula Nasal Cannula Nasal Cannula O2 Flow Rate 4.0 4.0 4.0 06/23/18 06/23/18 07:00 07:54 Temp 97.5 97.5 Pulse 76 Resp 16 B/P (MAP) 144/69 (94) Pulse Ox 98 98 O2 Delivery Nasal Cannula Nasal Cannula O2 Flow Rate 4.0 2.0 Intake and Output 06/22/18 06/22/18 06/23/18 15:00 23:00 07:00 Intake Total 360 ml 1320 ml Balance 360 ml 1320 ml ELVIA WARD MD June 23, 2018 09:25
--- NOTE | 2018-06-23 09:35 | SNU/HH DC ---
DISCHARGE ORDERS DISCHARGE INFORMATION: FINAL DIAGNOSIS Problems Medical Problems: (1) Elevated d-dimer Status: Acute (2) Elevated liver function tests Status: Acute (3) Frequent falls Status: Acute (4) Generalized weakness Status: Acute (5) History of intracranial hemorrhage Status: Acute (6) History of lung cancer Status: Acute (7) Pancytopenia Status: Acute (8) Tachycardia Status: Acute CONDITION ON DISCHARGE: Stable SNF: SNF STAY <30 DAYS: Yes POST DISCHARGE ORDERS: ACTIVITY ORDERS: Activity as tolerated (with walker and supervision) WEIGHT BEARING STATUS: No restrictions DIET AFTER DISCHARGE: Dysphagia 1 CHECKS AFTER DISCHARGE: CHECKS AFTER DISCHARGE: Check blood press - daily, Check blood sugar, ac/hs TREATMENT/EQUIPMENT ORDERS: ADAPTIVE EQUIPMENT NEEDED: Walker Physical Therapy For: Evalulation/Treatment Occupational Therapy For: Evaluation/Treatment Speech Language Pathology For: Evaluation/Treatment DISCHARGE MEDICATIONS: Home Meds Active Scripts Methylprednisolone (MEDROL) 4 Mg Tab.ds.pk, 1 PKG PO UD for copd, #1 PKG Prov:TERESA HOPPER MD 06/23/18 Doxycycline Hyclate (DOXYCYCLINE HYCLATE) 100 Mg Tablet, 100 MG PO BID for pneumonia for 7 Days, #14 TAB Prov:TERESA HOPPER MD 06/23/18 Hydralazine Hcl (HYDRALAZINE HCL) 25 Mg Tablet, 25 MG PO TID for htn for 30 Days, #90 TAB Prov:MAIN HARO MD 05/17/18 Reported Medications Gabapentin (GABAPENTIN) 600 Mg Tablet, 300 MG PO HS for NEUROGENIC PAIN, TAB 06/16/18 Primidone (MYSOLINE) 250 Mg Tablet, 500 MG PO QHS for seizure, TAB 05/13/18 Venlafaxine Hcl (EFFEXOR XR) 150 Mg Cap.er.24h, 1 CAP PO DAILY for antidepressant, #30 CAP 1 Refill 05/13/18 Folic Acid (FOLIC ACID) 1 Mg Tablet, 1 TAB PO DAILY, #90 TAB 1 Refill 11/26/17 Mometasone Furoate (ASMANEX) 220 Mcg Aer.pow.ba, 200 MCG INH BID for breathing, INH 10/17/17 Primidone (PRIMIDONE) 250 Mg Tablet, 250 MG PO TID for anticonvulsant, TAB 10/17/17 Pravastatin Sodium (PRAVASTATIN SODIUM) 20 Mg Tablet, 1 TAB PO DAILY, #30 TAB 5 Refills 10/17/17 Diltiazem Hcl (CARTIA XT) 180 Mg Cap.er.24h, 180 MG PO, CAP.SR 10/17/17 Levothyroxine Sodium (LEVOTHYROXINE SODIUM) 50 Mcg Tablet, 1 TAB PO DAILY, #30 TAB 5 Refills 10/17/17 Discontinued Reported Medications Gabapentin (GABAPENTIN) 300 Mg Capsule, 300 MG PO HS for pain, CAP 05/13/18 Discontinued Scripts Clonidine (CLONIDINE TTS-1) 1 Each Patch.tdwk, 1 PATCH TD WEEKLY for htn for 30 Days, #30 PATCH Prov:MAIN HARO MD 05/17/18 TERESA HOPPER MD June 23, 2018 09:35
--- NOTE | 2018-06-23 10:08 | PDOC3 ---
IM DISCHARGE SUMMARY Date of Admission Date of Admission Date of Admission: June 16, 2018 at 14:21 Date of Discharge Date of Discharge June 23, 2018 Primary Diagnosis Primary Diagnosis 1. Subdural hematoma. 2. Frequent falls. 3. Pancytopenia. 4. Weakness. 5. Lung cancer with recent chemotherapy. 6. Hypertension, not controlled, accelerated. 7. Hypothyroidism. 8. Depression. 9. Anxiety. 10. Essential tremors. 11. Carcinoma of breast with left mastectomy. 12. Aspiration pneumonia 13. Dysphagia 14. Acute metabolic encephalopathy 15. Pancytopenia. 16. Acute on chronic respiratory failure Consults Consults Mg Chen MD, Dr. Bloom, Dr. Lindquist, Dr. Fournier Labs Labs Laboratory Tests Test 06/20/18 21:45 06/21/18 06:30 06/21/18 17:00 06/23/18 09:31 Lactic Acid Level 0.9 mmol/L (0.4-2.0) White Blood Count 5.9 x10^3/uL (4.0-11.0) Red Blood Count 2.54 x10^6/uL (3.50-5.40) Hemoglobin 8.4 g/dL (12.0-15.5) Hematocrit 25.2 % (36.0-47.0) Mean Corpuscular Volume 99 fL (79-100) Mean Corpuscular Hemoglobin 33 pg (25-35) Mean Corpuscular Hemoglobin Concent 33 g/dL (31-37) Red Cell Distribution Width 13.6 % (11.5-14.5) Platelet Count 156 x10^3/uL (140-400) Neutrophils (%) (Auto) 91 % (31-73) Lymphocytes (%) (Auto) 5 % (24-48) Monocytes (%) (Auto) 4 % (0-9) Eosinophils (%) (Auto) 0 % (0-3) Basophils (%) (Auto) 0 % (0-3) Neutrophils # (Auto) 5.4 x10^3uL (1.8-7.7) Lymphocytes # (Auto) 0.3 x10^3/uL (1.0-4.8) Monocytes # (Auto) 0.2 x10^3/uL (0.0-1.1) Eosinophils # (Auto) 0.0 x10^3/uL (0.0-0.7) Basophils # (Auto) 0.0 x10^3/uL (0.0-0.2) Sodium Level 143 mmol/L (136-145) Potassium Level 3.9 mmol/L (3.5-5.1) Chloride Level 106 mmol/L (98-107) Carbon Dioxide Level 30 mmol/L (21-32) Anion Gap 7 (6-14) Blood Urea Nitrogen 15 mg/dL (7-20) Creatinine 1.1 mg/dL (0.6-1.0) Estimated GFR (Cockcroft-Gault) 47.6 BUN/Creatinine Ratio 14 (6-20) Glucose Level 166 mg/dL (70-99) Calcium Level 8.8 mg/dL (8.5-10.1) Total Bilirubin 0.3 mg/dL (0.2-1.0) Aspartate Amino Transf (AST/SGOT) 66 U/L (15-37) Alanine Aminotransferase (ALT/SGPT) 77 U/L (14-59) Alkaline Phosphatase 73 U/L (46-116) Total Protein 5.9 g/dL (6.4-8.2) Albumin 1.8 g/dL (3.4-5.0) Albumin/Globulin Ratio 0.4 (1.0-1.7) Erythrocyte Sedimentation Rate 125 (0-25) Procalcitonin 0.18 ng/mL (0.00-0.10) Glucose (Fingerstick) 207 mg/dL (70-99) Brief hospital course Brief hospital course This 83-year-old female who was recently admitted to [facility] in early May, in late April, for subdural hematoma, had undergone right craniotomy for evacuation of the subdural hematoma. The patient was subsequently sent to shelter home and then 2 weeks ago, went back home. She had received PT, OT. However, at home, the patient has been falling quite frequently and she fell again today. She denies any head injury. She denies any dysuria, urinary or bowel incontinence. The patient has been forgetful. The patient denies any cold, cough, congestion, chest pains, palpitations, dyspnea, dizziness or dysuria. She denies any vomiting, nausea, diarrhea. She complains of constipation and joint pains. Because of her frequent falls, the patient was brought to the Emergency Room. In the Emergency Room, CT scan of head revealed the previous hematoma that is decreased from 11 cm to 8 cm in size. It shows that the patient had a right frontal craniotomy. CT angiogram of the chest does not show any evidence of pulmonary embolism. There is a focal dense opacity in the posterior right upper lobe and she has a couple of other areas of mid density in both lungs that may be due to inflammation or infection. Because of the frequent falls and weakness, the patient was admitted for further evaluation and management. For more details regarding the past history, family history, social history, surgical history and other details, please refer to History and Physical. I will consult Dr. Fournier for reevaluation and management. Start PT, OT. Consult Dr. Frank to make sure that the patient does not have any hydrocephalus or any other issues that is making her fall more frequently. Prognosis of this patient is poor due to her multiple medical problems. We will consult Dr. Lindquist and monitor pancytopenia. Her absolute neutrophil count is still 1.3 K. For details, please refer the orders. Frequent falls- discussed with Dr. Fournier. Patient is not safe because she is not following cues and falls frequently. Cancer of the lung- discussed with Dr. Lindquist. Patient wants to continue chemotherapy which is every 3 weeks. Recent subdural hematoma- patient remains impulsive and a very high risk for falls. Patient was seen by Dr. Frank in no surgery was needed. Patient previously had surgery during the previous admission. Fever- I have ordered urine and blood cultures. Patient is now on IV Zosyn and vancomycin. Blood culture 1 is negative. Other blood culture could not be drawn. Patient has been coughing more. Etiology of her fever not clear so far. Continue IV Zosyn and vancomycin. I discussed with the patient that she is immunosuppressed. She doesn't understand the gravity of her condition and just wants to go home. Her prognosis is very poor. Weakness- getting worse. Memory loss getting worse. Dr. Draper has seen the patient and patient is not competent to make any healthcare decisions Acute metabolic encephalopathy topping Catapres-TTS one patch helped her lethargy and she became more awake. IV steroids also help her with the exacerbation of COPD. Aspiration pneumonia patient was started on dysphagia 1 diet. Acute hypoxic respite a failure on oxygen by nasal cannula 2 L/m. Consult Dr. Bloom for pulmonary evaluation and management. Patient was started on IV steroids. She responded to IV steroids, IV Zosyn and vancomycin and eventually she was switched to oral doxycycline. Prognosis of this patient is very poor. Patient became lethargic towards the later part of the hospital stay and I discontinued Catapres-TTS and see if that helps her swallowing as well as her lethargy. She became more awake and alert after stopping Catapres-TTS patch. Patient's condition is improving but remains weak and the impulsive. She'll be discharged to [facility] for further management. Her long-term as well as short-term prognosis is very poor. Medications Medications reviewed and reconciled for discharge. Allergy Allergies Coded Allergies Type Severity Reaction Last Updated Verified piperacillin Allergy Intermediate Hives 06/21/18 Yes tazobactam Allergy Intermediate Hives 06/21/18 Yes Follow up in 5 days. DISPOSITION: [facility] facility Comments Discharge Management - 35 minutes. For other details please refer to discharge instructions TERESA HOPPER MD June 23, 2018 10:07
[2018-06-23] MEDS: hydrALAZINE 25 MG TABLET PO SCH (10:27)
[2018-06-23] MEDS: VENLAFAXINE 50 MG TABLET. PO SCH (10:27)
[2018-06-23] MEDS: PRIMIDONE 250 MG TABLET PO SCH ×2 (10:28→12:05)
[2018-06-23] MEDS: DOXYCYCLINE HYCLATE 100 MG TABLET PO SCH (10:28)
[2018-06-23] MEDS: FOLIC ACID 1 MG TABLET. PO SCH (10:28)
--- NOTE | 2018-06-23 10:30 | NUR ---
PALMER following Pt. PALMER phoned and faxed orders to [facility]. Pt currently refusing SNU and states she is going home. PALMER reminded Pt about conversation from last week but Pt states she is feeling better today and doesn't need SNU. PALMER spoke with pt's daughter, Graciela via phone and she will be coming to speak with pt at 1200. Transport is arranged for 1300. DAIJA LUGO. Addendum: 06/23/18 at 1307 by ERIN CHAKRABORTY Pt's choice and rights forms signed by Pt's daughter, Graciela and copies placed on chart. DAIJA LUGO.
[2018-06-23 10:58] VITALS: BP 144/63
[2018-06-23] MEDS ORDERED: HEPARIN PF 500 UNIT/5 ML DISP.SYRIN. IV ONE (12:00)
--- NOTE | 2018-06-23 13:38 | NUR ---
pt discharged to [facility] via w/c van and [facility] transportation. stable upon dc. daughter present in room. meds and follow up reviewed. Sowmya reyes de-accessed w/out difficulty. Addendum: 06/23/18 at 1341 by SUSHILA VINSON RN report given to PETE Solo at [facility].
--- NOTE | 2018-06-23 15:12 | PDOC ---
PROGRESS NOTES Subjective Subjective 06/23/18 Pt seen at 12.45 pm HPI - Non-small cell lung cancer ROS - no CP Objective Objective Vital Signs Date Time Temp Pulse Resp B/P (MAP) Pulse Ox O2 Delivery O2 Flow Rate FiO2 06/23/18 10:58 97.6 94 16 144/63 (90) 96 Nasal Cannula 2.0 97.6 Intake and Output 06/23/18 06:59 Intake Total 1680 ml Balance 1680 ml Intake Oral 480 ml IV Total 1000 ml Other 200 ml # Voids 2 # Bowel Movements 1 Physical Exam Heart: Normal S1, Normal S2 General: Alert, Oriented X3 Lungs: Clear to auscultation Neuro: Normal speech Psych/Mental Status: Mental status NL Assessment Assessment Problems Medical Problems: (1) Elevated d-dimer Status: Acute (2) Elevated liver function tests Status: Acute (3) Frequent falls Status: Acute (4) Generalized weakness Status: Acute (5) History of intracranial hemorrhage Status: Acute (6) History of lung cancer Status: Acute (7) Pancytopenia Status: Acute (8) Tachycardia Status: Acute IMPRESSION AND PLAN: 1. 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 She is responding very well to chemotherapy. She received cycle #8 of treatment on 06/06/2018 with pembrolizumab and Alimta. If her functional status improves, then I will resume treatment as outpatient. If her functional and mental status does not improve, then I would recommend supportive care/palliative care. I discussed with Dr. Tahmina Hernandez. I d/w pts dtr. 2. Fever. 3. Leukopenia due to chemotherapy. Continue to monitor. WBC is 3.6 on 06/17/2018. 6.0 on 06/19/18 4. 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 Hemoglobin is 10.2 on 06/17/2018. Continue to monitor hemoglobin. Hb now 8.4 5. Thrombocytopenia with a platelet count of 74,000, stable. 6. Subdural hematoma. CT scan of the head reveals that it is improved when compared to the previous study. Comment Review of Relevant I have reviewed the following items malcolm (where applicable) has been applied. Labs Laboratory Tests Test 06/21/18 17:00 06/23/18 09:31 06/23/18 11:39 Erythrocyte Sedimentation Rate 125 (0-25) Procalcitonin 0.18 ng/mL (0.00-0.10) Glucose (Fingerstick) 207 mg/dL (70-99) 333 mg/dL (70-99) Laboratory Tests Test 06/23/18 09:31 06/23/18 11:39 Glucose (Fingerstick) 207 mg/dL (70-99) 333 mg/dL (70-99) Microbiology 06/20/18 Blood Culture - Preliminary, Resulted NO GROWTH AFTER 2 DAYS 06/18/18 Urine Culture - Final, Complete 06/18/18 Urine Culture Result 1 (MICHELLE) - Final, Complete Medications Current Medications Iohexol (Omnipaque 350 Mg/ml) 75 ml 1X ONCE IV Last administered on 06/16/18at 15:44; Start 06/16/18 at 15:30; Stop 06/16/18 at 15:31; Status DC Info (CONTRAST GIVEN -- Rx MONITORING) 1 each PRN DAILY PRN MC SEE COMMENTS; Start 06/16/18 at 15:30; Stop 06/18/18 at 15:29; Status DC Clonidine HCl (Catapres Tts-1) 1 patch WEEKLY TD Last administered on 06/17/18at 09:11; Start 06/17/18 at 09:00; Stop 06/20/18 at 09:48; Status DC Folic Acid (Folic Acid) 1 mg DAILY PO Last administered on 06/23/18at 10:28; Start 06/17/18 at 09:00; Stop 06/23/18 at 13:50; Status DC Gabapentin (Neurontin) 300 mg HS PO Last administered on 06/22/18at 21:42; Start 06/16/18 at 21:00; Stop 06/23/18 at 13:50; Status DC Hydralazine HCl (Apresoline) 25 mg TID PO Last administered on 06/23/18at 10:27; Start 06/16/18 at 21:00; Stop 06/23/18 at 13:50; Status DC Levothyroxine Sodium (Synthroid) 50 mcg DAILY06 PO Last administered on 06/23/18at 06:08; Start 06/17/18 at 06:00; Stop 06/23/18 at 13:50; Status DC Non-Formulary Medication (Mometasone Furoate (Asmanex)) 200 mcg BID INH ; Start 06/16/18 at 21:00; Status UNV Atorvastatin Calcium (Lipitor) 5 mg QHS PO Last administered on 06/22/18at 21:42; Start 06/16/18 at 21:00; Stop 06/23/18 at 13:50; Status DC Primidone (Mysoline) 250 mg DAILYWSUP PO ; Start 06/16/18 at 17:45; Stop 06/16/18 at 17:59; Status DC Primidone (Mysoline) 500 mg QHS PO Last administered on 06/22/18at 21:42; Start 06/16/18 at 21:00; Stop 06/23/18 at 13:50; Status DC Venlafaxine HCl (Effexor) 50 mg TID PO Last administered on 06/23/18at 10:27; Start 06/16/18 at 21:00; Stop 06/23/18 at 13:50; Status DC Diltiazem HCl (Cardizem 24hr Cd) 180 mg DAILY PO Last administered on 06/23/18at 10:28; Start 06/17/18 at 09:00; Stop 06/23/18 at 13:50; Status DC Budesonide (Pulmicort) 0.5 mg RTBID NEB Last administered on 06/23/18at 07:52; Start 06/16/18 at 20:00; Stop 06/23/18 at 13:50; Status DC Primidone (Mysoline) 250 mg TID@0900,1200,1700 PO Last administered on 06/23/18at 12:05; Start 06/17/18 at 09:00; Stop 06/23/18 at 13:50; Status DC Hydralazine HCl (Apresoline Inj) 10 mg PRN Q4HRS PRN IVP ELEVATED BP, SEE COMMENTS; Start 06/16/18 at 19:00; Stop 06/23/18 at 13:50; Status DC Ceftriaxone Sodium (Rocephin) 1 gm 1X ONCE IVP Last administered on 06/17/18at 04:42; Start 06/17/18 at 03:30; Stop 06/17/18 at 03:32; Status DC Acetaminophen (Tylenol) 650 mg PRN Q6HRS PRN PO FEVER Last administered on 06/20/18at 20:57; Start 06/17/18 at 03:15; Stop 06/23/18 at 13:50; Status DC Piperacillin Sod/ Tazobactam Sod 3.375 gm/Sodium Chloride 50 ml @ 100 mls/hr Q6HRS IV Last administered on 06/18/18at 05:48; Start 06/17/18 at 12:00; Stop 06/18/18 at 10:11; Status DC Vancomycin HCl (Vanco Per Pharmacy) 1 each PRN DAILY PRN MC SEE COMMENTS Last administered on 06/17/18at 14:08; Start 06/17/18 at 12:00; Stop 06/19/18 at 11:01; Status DC Vancomycin HCl 2 gm/Sodium Chloride 500 ml @ 250 mls/hr 1X ONCE IV Last administered on 06/17/18at 13:18; Start 06/17/18 at 12:30; Stop 06/17/18 at 14:29; Status DC Vancomycin HCl 1.25 gm/Sodium Chloride 250 ml @ 167 mls/hr Q24H IV Last administered on 06/18/18at 12:22; Start 06/18/18 at 13:00; Stop 06/19/18 at 10:59; Status DC Vancomycin HCl (Vancomycin Trough Level) 1 each 1X ONCE MC ; Start 06/19/18 at 12:30; Stop 06/19/18 at 12:31; Status Cancel Sodium Chloride 1,000 ml @ 25 mls/hr Q24H IV Last administered on 06/22/18at 06:26; Start 06/17/18 at 14:45; Stop 06/22/18 at 10:55; Status DC Cefepime HCl (Maxipime) 2 gm Q8HRS IVP Last administered on 06/19/18at 21:34; Start 06/18/18 at 14:00; Stop 06/20/18 at 10:45; Status DC Doxycycline Hyclate (Vibra-Tab) 100 mg BID PO Last administered on 06/23/18at 10:28; Start 06/18/18 at 11:00; Stop 06/23/18 at 13:50; Status DC Diphenhydramine HCl (Benadryl) 25 mg TID PRN PRN IVP ITCHING Last administered on 06/21/18at 01:09; Start 06/20/18 at 04:30; Stop 06/23/18 at 13:50; Status DC Vancomycin HCl (Vanco Per Pharmacy) 1 each PRN DAILY PRN MC SEE COMMENTS; Start 06/20/18 at 10:00; Stop 06/20/18 at 10:00; Status DC Vancomycin HCl 2 gm/Sodium Chloride 500 ml @ 250 mls/hr 1X ONCE IV ; Start 06/20/18 at 11:00; Stop 06/20/18 at 12:59; Status Cancel Barium Sulfate (Varibar Thin Liquid Apple) 148 gm 1X ONCE PO Last administered on 06/20/18at 11:42; Start 06/20/18 at 10:30; Stop 06/20/18 at 10:31; Status DC Piperacillin Sod/ Tazobactam Sod 3.375 gm/Sodium Chloride 50 ml @ 100 mls/hr Q6HRS IV Last administered on 06/21/18at 06:05; Start 06/20/18 at 12:00; Stop 06/21/18 at 14:40; Status DC Methylprednisolone Sodium Succinate (SOLU-Medrol 125MG VIAL) 125 mg Q8HRS IV Last administered on 06/23/18at 06:08; Start 06/20/18 at 22:00; Stop 06/23/18 at 13:50; Status DC Lactobacillus Rhamnosus (Culturelle) 1 cap BID PO ; Start 06/20/18 at 21:00; Status Cancel Insulin Human Lispro (HumaLOG) 0-8 UNITS BIDBFRMEAL SQ Last administered on 06/23/18at 12:02; Start 06/23/18 at 16:30; Stop 06/23/18 at 16:30; Status DC Heparin Sodium (Porcine) (Hep Lock Adult) 500 unit 1X ONCE IV Last administered on 06/23/18at 12:03; Start 06/23/18 at 12:00; Stop 06/23/18 at 12:01; Status DC Active Scripts Active Medrol (Methylprednisolone) 4 Mg Tab.ds.pk 1 Pkg PO UD Doxycycline Hyclate 100 Mg Tablet 100 Mg PO BID 7 Days Hydralazine Hcl 25 Mg Tablet 25 Mg PO TID 30 Days Reported Gabapentin 600 Mg Tablet 300 Mg PO HS Mysoline (Primidone) 250 Mg Tablet 500 Mg PO QHS Effexor Xr (Venlafaxine Hcl) 150 Mg Cap.er.24h 1 Cap PO DAILY Folic Acid 1 Mg Tablet 1 Tab PO DAILY Asmanex (Mometasone Furoate) 220 Mcg Aer.pow.ba 200 Mcg INH BID Primidone 250 Mg Tablet 250 Mg PO TID Pravastatin Sodium 20 Mg Tablet 1 Tab PO DAILY Cartia Xt (Diltiazem Hcl) 180 Mg Cap.er.24h 180 Mg PO Levothyroxine Sodium 50 Mcg Tablet 1 Tab PO DAILY Vitals/I & O Vital Sign - Last 24 Hours 06/22/18 06/22/18 06/22/18 06/22/18 15:14 19:00 20:00 21:44 Temp 97.6 97.7 97.6 97.7 Pulse 94 89 89 Resp 20 16 B/P (MAP) 134/60 (84) 148/63 (91) 148/63 Pulse Ox 97 97 O2 Delivery Nasal Cannula Nasal Cannula Nasal Cannula O2 Flow Rate 4.0 4.0 4.0 06/22/18 06/23/18 06/23/18 06/23/18 23:00 03:04 07:00 07:54 Temp 98.2 98.2 97.5 98.2 98.2 97.5 Pulse 85 84 76 Resp 16 B/P (MAP) 134/77 (96) 151/71 (97) 144/69 (94) Pulse Ox 98 97 98 98 O2 Delivery Nasal Cannula Nasal Cannula Nasal Cannula Nasal Cannula O2 Flow Rate 4.0 4.0 4.0 2.0 06/23/18 06/23/18 06/23/18 06/23/18 08:00 10:27 10:28 10:58 Temp 97.6 97.6 Pulse 76 76 94 Resp 16 B/P (MAP) 144/69 144/69 144/63 (90) Pulse Ox 96 O2 Delivery Nasal Cannula Nasal Cannula O2 Flow Rate 2.0 2.0 Intake and Output 06/22/18 06/22/18 06/23/18 14:59 22:59 06:59 Intake Total 360 ml 1320 ml Balance 360 ml 1320 ml LORI NICOLE MD June 23, 2018 15:12
[2018-06-23] MEDS ORDERED: INSULIN LISPRO 300 UNITS/3 ML INSULN.PEN. SQ SCH (16:30)
--- NOTE | 2018-06-23 17:58 | PDOC ---
PROGRESS NOTES Assessment Assessment IMPRESSION: Right SDH s/p craniotomy for hematoma evacuation. Metabolic encephalopathy. Falls. Pneumonia or pulmonary edema? Cholelithiasis. Anemia. Breast cancer. Lung cancer, non small cell, stage 4. Elevated ESR. Hypothyroidism likely. RECOMMENDATIONS/PLAN: Avoid anticoagulant at the present time. BP control. Treat medical diseases. FU with Oncology. Discussed with her daughter at bedside on 06/23/18. Past Medical History Cardiovascular: HTN, Hyperlipidemia Pulmonary: Bronchitis CENTRAL NERVOUS SYSTEM: Other (essential tremor) Heme/Onc: Anemia NOS, Cancer (lung cancer currently, also history of breast cancer 20 years ago) Psych: Anxiety, Depression Renal/: UTI Endocrine: Hyperthyroidism, Hypothyroidism Past Surgical History Past Surgical History: Cataract Removal, Mastectomy (left), Hysterectomy, Other (craniotomy for right subdural) Family History Family History: Cancer, CAD Social History Social History , no tobacco or alcohol, currently living with another daughter Allergies No Known Drug Allergies (Unverified , 10/17/17) ROS Negative for fever, chills, weight loss, shortness of breath, chest pain, indigestion, hematochezia, melena, and dysuria. Full 14-point review of systems is negative. MEDICATIONS: Refer to MAR REVIEW OF SYSTEMS: Constitutional: No malnutrition, weight loss, cachexia. Head: No traumatic brain or head injury. Skin: No edema, or rash. Ear: No infection. Eyes: No vision loss, or diplopia. Nose: No bleeding or purulent discharges. Hearing: Hearing decrease. Neck: No injury. Breast: History of cancer. Cardiac: No PA, arrhythmia. Pulmonary: Lung cancer. GI: No GI Ulcer, GI bleeding. Urinary/genital: UTI. Endocrine: Diabetes Mellitus. Skeletomuscular: No muscular atrophy Neurological: see HP. Psychiatric: Denies drug use/abuse. Otherwise, not [id number] review of systems. PHYSICAL EXAMINATION: General appearance in subacute distress. HEENT: Normocephalic and nontraumatic. Eyes, nose, ears, and throat are unremarkable. Hearing decrease. Neck is supple. No lymphadenopathy. No Crepitus. Cardiovascular: S1, S2, regular rate and rhythm. Pulmonary: Clear to auscultation bilaterally. Abdomen: Bowel sounds are positive. Abdomen is soft, nontender, and nondistended. Extremities: No rash, lesions, or edema. No restriction of range of motion NEUROLOGICAL EXAMINATION: Awake. Not fully oriented to time, but knew place and person. PERRL. EOMI. CN: no focal findings. Muscle tone: within normal. Muscle strength: 4+ left side, 5 right side. DTR: 2 Plantar reflex: Neutral response bilaterally Gait: not examined in bed. Sensory exam: no abnormal findings. No cerebellar signs elicited. F-T-N test fine. Objective Objective Vital Signs Date Time Temp Pulse Resp B/P (MAP) Pulse Ox O2 Delivery O2 Flow Rate FiO2 06/23/18 10:58 97.6 94 16 144/63 (90) 96 Nasal Cannula 2.0 97.6 Intake and Output 06/23/18 06:59 Intake Total 1680 ml Balance 1680 ml Intake Oral 480 ml IV Total 1000 ml Other 200 ml # Voids 2 # Bowel Movements 1 Vitals Signs Vitals VS - Last 72 Hours, by Label Date Time Temp Pulse Resp B/P (MAP) Pulse Ox O2 Delivery O2 Flow Rate FiO2 06/23/18 10:58 97.6 94 16 144/63 (90) 96 Nasal Cannula 2.0 97.6 06/23/18 10:28 76 144/69 06/23/18 10:27 76 144/69 06/23/18 08:00 Nasal Cannula 2.0 06/23/18 07:54 98 Nasal Cannula 2.0 06/23/18 07:00 97.5 76 16 144/69 (94) 98 Nasal Cannula 4.0 97.5 06/23/18 03:04 98.2 84 151/71 (97) 97 Nasal Cannula 4.0 98.2 06/22/18 23:00 98.2 85 134/77 (96) 98 Nasal Cannula 4.0 98.2 06/22/18 21:44 89 148/63 06/22/18 20:00 Nasal Cannula 4.0 06/22/18 19:00 97.7 89 16 148/63 (91) 97 Nasal Cannula 4.0 97.7 06/22/18 15:14 97.6 94 20 134/60 (84) 97 Nasal Cannula 4.0 97.6 06/22/18 14:59 89 144/73 06/22/18 11:00 98.1 89 18 144/73 (96) 97 Nasal Cannula 4.0 98.1 06/22/18 08:37 85 143/77 06/22/18 08:37 85 143/77 06/22/18 08:00 Nasal Cannula 4.0 06/22/18 07:54 95 Nasal Cannula 4.0 06/22/18 07:00 97.3 85 18 143/77 (99) 97 Nasal Cannula 4.0 97.3 Laboratory Laboratory Laboratory Tests Test 06/23/18 09:31 06/23/18 11:39 Glucose (Fingerstick) 207 mg/dL (70-99) 333 mg/dL (70-99) Microbiology 06/20/18 Blood Culture - Preliminary, Resulted NO GROWTH AFTER 2 DAYS 06/18/18 Urine Culture - Final, Complete 06/18/18 Urine Culture Result 1 (MICHELLE) - Final, Complete Medication Medications Current Medications Heparin Sodium (Porcine) (Hep Lock Adult) 500 unit 1X ONCE IV Last administered on 06/23/18at 12:03; Start 06/23/18 at 12:00; Stop 06/23/18 at 12:01; Status DC Insulin Human Lispro (HumaLOG) 0-8 UNITS BIDBFRMEAL SQ Last administered on 06/23/18at 12:02; Start 06/23/18 at 16:30; Stop 06/23/18 at 16:30; Status DC Comment Review of Relevant I have reviewed the following items malcolm (where applicable) has been applied. SANDRO ROWLEY MD June 23, 2018 17:58
== END 2018-06-23 13:49 | DRG 177 ==
LOC: ER 12:33 → 5 NORTH 14:21
PROVIDERS: ADMIT Internal Medicine; ATTEND Internal Medicine
DX: J69.0 Pneumonitis due to inhalation of food and vomit (principal); G93.41 Metabolic encephalopathy; J96.21 Acute and chronic respiratory failure with hypoxia; D61.810 Antineoplastic chemotherapy induced pancytopenia; C34.11 Malignant neoplasm of upper lobe, right bronchus or lung; C78.1 Secondary malignant neoplasm of mediastinum; C77.9 Secondary and unspecified malignant neoplasm of lymph node, unspecified; C79.72 Secondary malignant neoplasm of left adrenal gland; J44.1 Chronic obstructive pulmonary disease with (acute) exacerbation; D63.0 Anemia in neoplastic disease; I10 Essential (primary) hypertension; E03.9 Hypothyroidism, unspecified; K59.09 Other constipation; F32.9 Major depressive disorder, single episode, unspecified; F41.9 Anxiety disorder, unspecified; G25.0 Essential tremor; R29.6 Repeated falls; E78.5 Hyperlipidemia, unspecified; G62.9 Polyneuropathy, unspecified; E66.9 Obesity, unspecified; M17.0 Bilateral primary osteoarthritis of knee; T45.1X5A Adverse effect of antineoplastic and immunosuppressive drugs, initial encounter; F03.90 Unspecified dementia, unspecified severity, without behavioral disturbance, psychotic disturbance, mood disturbance, and anxiety; R13.10 Dysphagia, unspecified; K80.20 Calculus of gallbladder without cholecystitis without obstruction; Z85.3 Personal history of malignant neoplasm of breast; Z90.710 Acquired absence of both cervix and uterus; Z90.12 Acquired absence of left breast and nipple; Z91.81 History of falling; Z68.29 Body mass index [BMI] 29.0-29.9, adult; Z80.1 Family history of malignant neoplasm of trachea, bronchus and lung; Z87.891 Personal history of nicotine dependence; Y92.89 Other specified places as the place of occurrence of the external cause; Z82.49 Family history of ischemic heart disease and other diseases of the circulatory system
CPT/HCPCS: 36415; 70450; 70551; 71045; 71046; 71275; 74176; 74230; 80048; 80053; 81001; 82550; 82607; 82962; 83605; 83735; 83880; 84145; 84443; 84484; 85007; 85025; 85379; 85610; 85651; 85730; 87040; 87086; 87804; 93005; 94640; 94760; J0692; J0696; J1200; J1815; J2543; J2930; J3370; J7030; J7040; J7050; J7626; P9612; Q9967; 92507; 92523; 92526; 92611; 97116; 97530; 97535; 99285-25